=== PATIENT | male | born 1975 | race Two or more races ===

== ENCOUNTER 2018-02-27 19:53 | Emergency (ER) | payer MEDICAID ==
[~2018-02-27] VITALS: Ht 165.1 cm; Wt 65.0 kg
[2018-02-27 19:55] VITALS: BP 129/86
[2018-02-27 20:44] LABS: BASOPHILS # (AUTO) 0.11 x10^3/uL (0-0.1); BASOPHILS % (AUTO) 1 % (0-1); EOSINOPHILS # (AUTO) 0.01 x10^3/uL (0-0.4); EOSINOPHILS % (AUTO) 0 % (1-7); LYMPHOCYTES # (AUTO) 2.15 x10^3/uL (1-3.4); LYMPHOCYTES % (AUTO) 25 % (22-44); MD NO; MEAN CORPUSCULAR HEMOGLOBIN 33.8 pg (27.5-34.5); MEAN CORPUSCULAR HGB CONC 34.5 g/dL (33.2-36.2); MEAN CORPUSCULAR VOLUME 97.9 fL (81-97); MEAN PLATELET VOLUME 7.9 fL (7.4-10.4); MONOCYTES # (AUTO) 0.44 x10^3/uL (0.2-0.8); MONOCYTES % (AUTO) 5 % (2-9); NEUTROPHILS % (AUTO) 69 % (42-75); PLATELET COUNT 400 x10^3/uL (130-400); RED CELL DISTRIBUTION WIDTH 13.4 % (9.4-14.8)
[2018-02-27 20:56] LABS: ALANINE AMINOTRANSFERASE 68 U/L (12-78); ALBUMIN 3.4 g/dL (3.4-5.0); ANION GAP 12 mmol/L (5-15); CALCIUM 9.3 mg/dL (8.5-10.1); CHLORIDE 103 mmol/L (98-107); CREATININE 0.93 mg/dL (0.7-1.3)
[2018-02-27 20:58] LABS: ALKALINE PHOSPHATASE 128 U/L (45-117); BILIRUBIN,TOTAL 0.5 mg/dL (0.2-1.0)
[2018-02-27] MEDS ORDERED: DOCUSATE 100 MG CAPSULE ONE (22:00)
[2018-02-27] MEDS ORDERED: ACETAMINOPHEN 325 MG TABLET ONE (22:00)
[2018-02-27] MEDS ORDERED: DOCUSATE 100 MG CAPSULE PO PRN (22:00)
[2018-02-27] MEDS ORDERED: ACETAMINOPHEN 325 MG TABLET PO ONE (22:00)
== END 2018-02-27 22:05 | disposition home or self-care (01) ==
LOC: ED 20:13
DX: R10.84 Generalized abdominal pain (principal); G40.909 Epilepsy, unspecified, not intractable, without status epilepticus; Z90.49 Acquired absence of other specified parts of digestive tract
CPT/HCPCS: 36415; 74022; 80053; 83690; 85025; 99285

== ENCOUNTER 2018-03-08 16:43 | Inpatient (IN) | payer MEDICAID ==
[~2018-03-08] VITALS: Ht 165.1 cm; Wt 64.6 kg
[2018-03-08 17:31] LABS: ALANINE AMINOTRANSFERASE 36 U/L (12-78); ALBUMIN 3.2 g/dL (3.4-5.0); ANION GAP 12 mmol/L (5-15); CHLORIDE 108 mmol/L (98-107); CREATININE 0.86 mg/dL (0.7-1.3)
[2018-03-08 17:34] LABS: INTERNATIONAL NORMALIZED RATIO 1.06 (0.93-1.1); PROTHROMBIN TIME 11.2 Seconds (9.6-11.5)
[2018-03-08 17:50] LABS: ALKALINE PHOSPHATASE 114 U/L (45-117); BILIRUBIN,TOTAL 0.5 mg/dL (0.2-1.0); TOTAL PROTEIN 7.9 g/dL (6.4-8.2)
[2018-03-08 17:59] LABS: BASOPHILS # (AUTO) 0.04 x10^3/uL (0-0.1); BASOPHILS % (AUTO) 1 % (0-1); EOSINOPHILS # (AUTO) 0.06 x10^3/uL (0-0.4); EOSINOPHILS % (AUTO) 1 % (1-7); LYMPHOCYTES # (AUTO) 3.69 x10^3/uL (1-3.4); LYMPHOCYTES % (AUTO) 60 % (22-44); MD SCAN; MEAN CORPUSCULAR HEMOGLOBIN 33.6 pg (27.5-34.5); MEAN CORPUSCULAR HGB CONC 34.3 g/dL (33.2-36.2); MEAN CORPUSCULAR VOLUME 98.2 fL (81-97); MEAN PLATELET VOLUME 9.3 fL (7.4-10.4); MONOCYTES # (AUTO) 0.34 x10^3/uL (0.2-0.8); MONOCYTES % (AUTO) 6 % (2-9); NEUTROPHILS # (AUTO) 2.03 x10^3/uL (1.8-6.8); NEUTROPHILS % (AUTO) 33 % (42-75); PLATELET COUNT 130 x10^3/uL (130-400); RED BLOOD COUNT 3.59 x10^6/uL (4.38-5.82); RED CELL DISTRIBUTION WIDTH 13.7 % (9.4-14.8)
[2018-03-08] MEDS ORDERED: MAGNESIUM SULFATE 1 GM, THIAMINE 100 MG, FOLIC ACID 1 MG, MVI ADULT 10 ML in SODIUM CHL... IV ONE (18:00)
[2018-03-08] MEDS ORDERED: SODIUM CHLORIDE 0.9% 1,000ML IVBOLUS ONE (18:00)
[2018-03-08] MEDS ORDERED: BISACODYL 10 MG SUPP PR PRN (19:30)
[2018-03-08] MEDS ORDERED: ACETAMINOPHEN 325 MG TABLET PO PRN (19:30)
[2018-03-08] MEDS ORDERED: POLYETHYLENE GLYCOL 17 GM PACKET PO PRN (19:30)
[2018-03-08 19:50] VITALS: BP 107/75
[2018-03-08 20:00] VITALS: BP 107/75
[2018-03-08 20:32] LABS: FOLATE LEVEL 11.7 ng/mL (3.1-17.5)
[2018-03-09 01:30] VITALS: BP 110/76
[2018-03-09 04:59] LABS: ALBUMIN 2.9 g/dL (3.4-5.0); ANION GAP 10 mmol/L (5-15); CALCIUM 7.4 mg/dL (8.5-10.1); CHLORIDE 112 mmol/L (98-107)
[2018-03-09] MEDS ORDERED: POTASSIUM CHLORIDE 20 MEQ, MAGNESIUM SULFATE 2 GM, THIAMINE 200 MG, MVI ADULT 10 ML, FO... IV SCH (05:00)
[2018-03-09 05:05] LABS: ALANINE AMINOTRANSFERASE 30 U/L (12-78); ALKALINE PHOSPHATASE 100 U/L (45-117); BILIRUBIN,TOTAL 0.5 mg/dL (0.2-1.0); TOTAL PROTEIN 7.8 g/dL (6.4-8.2)
[2018-03-09 05:08] LABS: BASOPHILS # (AUTO) 0.05 x10^3/uL (0-0.1); BASOPHILS % (AUTO) 1 % (0-1); EOSINOPHILS # (AUTO) 0.08 x10^3/uL (0-0.4); EOSINOPHILS % (AUTO) 1 % (1-7); LYMPHOCYTES # (AUTO) 2.18 x10^3/uL (1-3.4); LYMPHOCYTES % (AUTO) 22 % (22-44); MD SCAN; MEAN CORPUSCULAR HEMOGLOBIN 33.2 pg (27.5-34.5); MEAN CORPUSCULAR HGB CONC 34.3 g/dL (33.2-36.2); MEAN CORPUSCULAR VOLUME 96.8 fL (81-97); MEAN PLATELET VOLUME 8.1 fL (7.4-10.4); MONOCYTES # (AUTO) 0.24 x10^3/uL (0.2-0.8); MONOCYTES % (AUTO) 2 % (2-9); NEUTROPHILS # (AUTO) 7.59 x10^3/uL (1.8-6.8); NEUTROPHILS % (AUTO) 75 % (42-75); PLATELET COUNT 125 x10^3/uL (130-400); RED BLOOD COUNT 3.79 x10^6/uL (4.38-5.82); RED CELL DISTRIBUTION WIDTH 14.1 % (9.4-14.8)
[2018-03-09] MEDS: ONDANSETRON 2MG/ML, 2ML IVPush PRN ×2 (06:08→12:31)
[2018-03-09] MEDS: LORazepam 2 MG/ML, 1ML IVPush PRN ×3 (06:08→23:34)
[2018-03-09 07:55] VITALS: BP 110/70
[2018-03-09] MEDS: SENNA/DOCUSATE TABLET PO SCH (10:04)
[2018-03-09 12:13] LABS: THYROID STIMULATING HORMONE 0.711 mIU/L (0.358-3.740)
[2018-03-09] MEDS: PANTOPRAZOLE 40 MG IV IVPush SCH (13:04)
[2018-03-09 13:20] VITALS: BP 95/56
[2018-03-09] MEDS ORDERED: LISI-167 PO (13:51)
[2018-03-09] MEDS ORDERED: POTASSIUM PHOSPHATE 44 MEQ in SODIUM CHLORIDE 0.9% 500 ML IV ONE (15:30)
[2018-03-09] MEDS ORDERED: FAMOTIDINE 20 MG/2 ML IVPush ONE (15:30)
[2018-03-09 15:33] LABS: CULTURE INDICATED? NO; MICROSCOPIC NOT IND
[2018-03-09] MEDS ORDERED: OMNIPAQUE 350 MG/ML, 100ML BOTTLE ONE (16:46)
[2018-03-09] MEDS ORDERED: SUCRALFATE 1 GM/10 ML UDC ONE (17:19)
[2018-03-09] MEDS: SUCRALFATE 1 GM/10 ML UDC PO SCH ×2 (17:53→23:37)
[2018-03-09 20:00] VITALS: BP 119/62
[2018-03-09] MEDS: MORPHINE SULFATE 4 MG/ML, 1ML IVPush PRN (21:06)
[2018-03-10 02:00] VITALS: BP 121/72
[2018-03-10] MEDS: MORPHINE SULFATE 4 MG/ML, 1ML IVPush PRN ×5 (02:43→20:02)
[2018-03-10] MEDS: PANTOPRAZOLE 40 MG IV IVPush SCH (02:43)
[2018-03-10] MEDS: ONDANSETRON 2MG/ML, 2ML IVPush PRN (02:48)
[2018-03-10 04:13] LABS: ALANINE AMINOTRANSFERASE 26 U/L (12-78); ALBUMIN 2.7 g/dL (3.4-5.0); ANION GAP 9 mmol/L (5-15); CHLORIDE 106 mmol/L (98-107); CREATININE 0.65 mg/dL (0.7-1.3)
[2018-03-10 04:15] LABS: ALKALINE PHOSPHATASE 91 U/L (45-117); BILIRUBIN,TOTAL 1.2 mg/dL (0.2-1.0)
[2018-03-10] MEDS: LORazepam 2 MG/ML, 1ML IVPush PRN (05:17)
[2018-03-10] MEDS: POTASSIUM CHLORIDE 20 MEQ, MAGNESIUM SULFATE 1 GM, MVI ADULT 10 ML, THIAMINE 200 MG, FO... IV SCH (05:17)
[2018-03-10 05:41] LABS: MEAN CORPUSCULAR HGB CONC 34.4 g/dL (33.2-36.2); RED BLOOD COUNT 3.41 x10^6/uL (4.38-5.82); RED CELL DISTRIBUTION WIDTH 13.8 % (9.4-14.8)
[2018-03-10 06:21] LABS: BASOPHILS # (AUTO) 0.03 x10^3/uL (0-0.1); BASOPHILS % (AUTO) 1 % (0-1); EOSINOPHILS # (AUTO) 0.08 x10^3/uL (0-0.4); EOSINOPHILS % (AUTO) 1 % (1-7); LYMPHOCYTES # (AUTO) 1.81 x10^3/uL (1-3.4); LYMPHOCYTES % (AUTO) 30 % (22-44); MD SCAN; MEAN PLATELET VOLUME 9.1 fL (7.4-10.4); MONOCYTES # (AUTO) 0.37 x10^3/uL (0.2-0.8); MONOCYTES % (AUTO) 6 % (2-9); NEUTROPHILS # (AUTO) 3.85 x10^3/uL (1.8-6.8); NEUTROPHILS % (AUTO) 63 % (42-75); PLATELET COUNT 67 x10^3/uL (130-400)
[2018-03-10] MEDS: SUCRALFATE 1 GM/10 ML UDC PO SCH ×4 (07:37→20:01)
[2018-03-10] MEDS: SENNA/DOCUSATE TABLET PO SCH (07:41)
[2018-03-10 08:25] VITALS: BP 126/86
[2018-03-10 14:55] VITALS: BP 137/90
[2018-03-10] MEDS: PANCRELIPASE 24,000 CAPSULE.DR PO SCH (15:51)
[2018-03-10 15:56] LABS: HIT RESULT POSITIVE (NEGATIVE)
[2018-03-10 19:53] VITALS: BP 123/85
[2018-03-11] MEDS: ONDANSETRON 2MG/ML, 2ML IVPush PRN ×4 (01:00→23:14)
[2018-03-11] MEDS: MORPHINE SULFATE 4 MG/ML, 1ML IVPush PRN ×5 (01:00→20:00)
[2018-03-11 01:02] VITALS: BP 128/89
[2018-03-11] MEDS: PANTOPROZOLE 40MG TABLET PO SCH (05:08)
[2018-03-11] MEDS: POTASSIUM CHLORIDE 20 MEQ, MAGNESIUM SULFATE 1 GM, MVI ADULT 10 ML, THIAMINE 200 MG, FO... IV SCH (05:08)
[2018-03-11 07:22] VITALS: BP 123/93
[2018-03-11] MEDS ORDERED: LOSA50TA7 PO (07:46)
[2018-03-11] MEDS ORDERED: ONDA4TAB12 PO (07:46)
[2018-03-11] MEDS ORDERED: OMEP20CA14 PO (07:46)
[2018-03-11] MEDS: PANCRELIPASE 24,000 CAPSULE.DR PO SCH ×3 (08:12→17:36)
[2018-03-11] MEDS: SENNA/DOCUSATE TABLET PO SCH (08:12)
[2018-03-11] MEDS: SUCRALFATE 1 GM/10 ML UDC PO SCH ×4 (08:12→20:00)
[2018-03-11 08:13] LABS: ALANINE AMINOTRANSFERASE 23 U/L (12-78); ALBUMIN 2.9 g/dL (3.4-5.0); ANION GAP 8 mmol/L (5-15); CALCIUM 8.6 mg/dL (8.5-10.1); CHLORIDE 105 mmol/L (98-107); CREATININE 0.63 mg/dL (0.7-1.3)
[2018-03-11 08:15] LABS: ALKALINE PHOSPHATASE 95 U/L (45-117); BILIRUBIN,TOTAL 1.3 mg/dL (0.2-1.0); TOTAL PROTEIN 7.5 g/dL (6.4-8.2)
[2018-03-11 08:46] LABS: BASOPHILS # (AUTO) 0.04 x10^3/uL (0-0.1); BASOPHILS % (AUTO) 1 % (0-1); EOSINOPHILS # (AUTO) 0.23 x10^3/uL (0-0.4); EOSINOPHILS % (AUTO) 5 % (1-7); LYMPHOCYTES # (AUTO) 1.24 x10^3/uL (1-3.4); LYMPHOCYTES % (AUTO) 24 % (22-44); MD SCAN; MEAN CORPUSCULAR HEMOGLOBIN 32.9 pg (27.5-34.5); MEAN CORPUSCULAR HGB CONC 34.6 g/dL (33.2-36.2); MEAN CORPUSCULAR VOLUME 95.3 fL (81-97); MEAN PLATELET VOLUME 8.9 fL (7.4-10.4); MONOCYTES % (AUTO) 6 % (2-9); NEUTROPHILS # (AUTO) 3.36 x10^3/uL (1.8-6.8); NEUTROPHILS % (AUTO) 65 % (42-75); PLATELET COUNT 79 x10^3/uL (130-400); RED BLOOD COUNT 3.33 x10^6/uL (4.38-5.82); RED CELL DISTRIBUTION WIDTH 13.8 % (9.4-14.8)
[2018-03-11 12:11] VITALS: BP 115/83
[2018-03-11 20:00] VITALS: BP 117/87
[2018-03-12] MEDS: MORPHINE SULFATE 4 MG/ML, 1ML IVPush PRN ×2 (00:01→04:37)
[2018-03-12 02:00] VITALS: BP 131/88
[2018-03-12] MEDS: PANTOPROZOLE 40MG TABLET PO SCH (05:03)
[2018-03-12] MEDS: POTASSIUM CHLORIDE 20 MEQ, MAGNESIUM SULFATE 1 GM, MVI ADULT 10 ML, THIAMINE 200 MG, FO... IV SCH (05:03)
[2018-03-12 07:02] VITALS: BP 125/88
[2018-03-12] MEDS: SUCRALFATE 1 GM/10 ML UDC PO SCH ×4 (08:04→20:21)
[2018-03-12] MEDS: SENNA/DOCUSATE TABLET PO SCH (08:05)
[2018-03-12] MEDS: PANCRELIPASE 24,000 CAPSULE.DR PO SCH ×3 (08:06→17:29)
[2018-03-12] MEDS: ONDANSETRON 2MG/ML, 2ML IVPush PRN ×2 (08:15→14:54)
[2018-03-12] MEDS ORDERED: MAGNESIUM CITRATE 300ML ORAL SOL PO ONE (10:00)
[2018-03-12 12:16] VITALS: BP 127/87
[2018-03-12] MEDS ORDERED: LORazepam 2 MG/ML, 1ML IV PRN ×4 (15:30)
[2018-03-12] MEDS ORDERED: LORazepam 0.5MG TABLET PO PRN (15:30)
[2018-03-12] MEDS ORDERED: LORazepam 1MG TABLET PO PRN ×4 (15:30)
[2018-03-12] MEDS: LORazepam 2 MG/ML, 1ML IV PRN ×3 (15:53→20:21)
[2018-03-12] MEDS: CHLORDIAZEPOXIDE 25 MG CAPSULE PO PRN (17:29)
[2018-03-12 19:59] VITALS: BP 97/56
[2018-03-13 02:00] VITALS: BP 97/68
[2018-03-13] MEDS: PANTOPROZOLE 40MG TABLET PO SCH ×2 (05:14→16:54)
[2018-03-13] MEDS: CHLORDIAZEPOXIDE 25 MG CAPSULE PO PRN (05:14)
[2018-03-13 05:42] LABS: BASOPHILS # (AUTO) 0.03 x10^3/uL (0-0.1); BASOPHILS % (AUTO) 1 % (0-1); EOSINOPHILS # (AUTO) 0.06 x10^3/uL (0-0.4); EOSINOPHILS % (AUTO) 1 % (1-7); LYMPHOCYTES % (AUTO) 24 % (22-44); MD NO; MEAN CORPUSCULAR HEMOGLOBIN 33.5 pg (27.5-34.5); MEAN CORPUSCULAR VOLUME 95.7 fL (81-97); MEAN PLATELET VOLUME 8.3 fL (7.4-10.4); MONOCYTES # (AUTO) 0.69 x10^3/uL (0.2-0.8); MONOCYTES % (AUTO) 12 % (2-9); NEUTROPHILS # (AUTO) 3.65 x10^3/uL (1.8-6.8); NEUTROPHILS % (AUTO) 63 % (42-75); PLATELET COUNT 115 x10^3/uL (130-400); RED BLOOD COUNT 3.57 x10^6/uL (4.38-5.82); RED CELL DISTRIBUTION WIDTH 14.4 % (9.4-14.8)
[2018-03-13 05:49] LABS: CHLORIDE 102 mmol/L (98-107)
[2018-03-13 05:53] LABS: ALANINE AMINOTRANSFERASE 35 U/L (12-78); ALBUMIN 3.1 g/dL (3.4-5.0); ALKALINE PHOSPHATASE 124 U/L (45-117); ANION GAP 6 mmol/L (5-15); BILIRUBIN,TOTAL 0.6 mg/dL (0.2-1.0); CALCIUM 8.6 mg/dL (8.5-10.1); CREATININE 0.84 mg/dL (0.7-1.3); TOTAL PROTEIN 8.3 g/dL (6.4-8.2)
[2018-03-13 06:45] VITALS: BP 106/81
[2018-03-13] MEDS: MULTIVITAMINS/MINERALS TABLET PO SCH (08:11)
[2018-03-13] MEDS: THIAMINE 100MG TABLET PO SCH (08:11)
[2018-03-13] MEDS: FOLIC ACID 1 MG TABLET PO SCH (08:12)
[2018-03-13] MEDS: SENNA/DOCUSATE TABLET PO SCH (08:12)
[2018-03-13] MEDS: PANCRELIPASE 24,000 CAPSULE.DR PO SCH ×3 (08:12→16:54)
[2018-03-13] MEDS: SUCRALFATE 1 GM/10 ML UDC PO SCH ×4 (08:13→21:32)
[2018-03-13] MEDS: ONDANSETRON 2MG/ML, 2ML IVPush PRN ×2 (10:23→20:02)
[2018-03-13] MEDS: BACLOFEN 10 MG TABLET PO SCH ×3 (10:23→21:32)
[2018-03-13] MEDS ORDERED: SODIUM CHLORIDE 0.9% 1,000ML IVBOLUS ONE (10:30)
[2018-03-13 10:55] LABS: CULTURE INDICATED? YES; MICROSCOPIC INDICATED
[2018-03-13] MEDS ORDERED: MAALOX/HYOSCYAMINE/LIDOCAINE 45 ML BTL PO ONE (11:00)
[2018-03-13 11:35] VITALS: BP 116/78
[2018-03-13 13:45] VITALS: BP 118/80
[2018-03-13] MEDS ORDERED: ACETAMINOPHEN 325 MG TABLET PO PRN (16:30)
[2018-03-13 17:00] VITALS: BP 105/78
[2018-03-13] MEDS: LORazepam 1MG TABLET PO PRN ×2 (17:30→21:33)
[2018-03-13] MEDS: SODIUM CHLORIDE 0.9% 1,000 ML IV SCH (17:30)
[2018-03-13 19:19] VITALS: BP 109/79
[2018-03-14 01:20] VITALS: BP 108/71
[2018-03-14] MEDS: SODIUM CHLORIDE 0.9% 1,000 ML IV SCH ×2 (03:00→10:55)
[2018-03-14] MEDS: PANTOPROZOLE 40MG TABLET PO SCH (05:56)
[2018-03-14 06:00] LABS: MEAN CORPUSCULAR HEMOGLOBIN 33.7 pg (27.5-34.5); MEAN CORPUSCULAR HGB CONC 34.7 g/dL (33.2-36.2); MEAN CORPUSCULAR VOLUME 97.1 fL (81-97); RED BLOOD COUNT 3.24 x10^6/uL (4.38-5.82); RED CELL DISTRIBUTION WIDTH 14.3 % (9.4-14.8)
[2018-03-14 06:17] LABS: ANION GAP 9 mmol/L (5-15); CALCIUM 8.7 mg/dL (8.5-10.1); CHLORIDE 109 mmol/L (98-107); CREATININE 0.68 mg/dL (0.7-1.3)
[2018-03-14 06:29] LABS: BASOPHILS # (AUTO) 0.04 x10^3/uL (0-0.1); BASOPHILS % (AUTO) 1 % (0-1); EOSINOPHILS # (AUTO) 0.09 x10^3/uL (0-0.4); EOSINOPHILS % (AUTO) 2 % (1-7); LYMPHOCYTES # (AUTO) 1.42 x10^3/uL (1-3.4); LYMPHOCYTES % (AUTO) 31 % (22-44); MD SCAN; MEAN PLATELET VOLUME 8.7 fL (7.4-10.4); MONOCYTES # (AUTO) 0.72 x10^3/uL (0.2-0.8); MONOCYTES % (AUTO) 16 % (2-9); NEUTROPHILS # (AUTO) 2.39 x10^3/uL (1.8-6.8); NEUTROPHILS % (AUTO) 51 % (42-75); PLATELET COUNT 95 x10^3/uL (130-400)
[2018-03-14 07:47] VITALS: BP 118/79
[2018-03-14] MEDS: SENNA/DOCUSATE TABLET PO SCH (08:34)
[2018-03-14] MEDS: SUCRALFATE 1 GM/10 ML UDC PO SCH ×2 (08:34→12:15)
[2018-03-14] MEDS: MULTIVITAMINS/MINERALS TABLET PO SCH (08:34)
[2018-03-14] MEDS: PANCRELIPASE 24,000 CAPSULE.DR PO SCH ×2 (08:34→12:15)
[2018-03-14] MEDS: BACLOFEN 10 MG TABLET PO SCH (08:34)
[2018-03-14] MEDS: FOLIC ACID 1 MG TABLET PO SCH (08:35)
[2018-03-14] MEDS: THIAMINE 100MG TABLET PO SCH (08:35)
[2018-03-14] MEDS: ONDANSETRON 2MG/ML, 2ML IVPush PRN (08:44)
[2018-03-14] MEDS: LORazepam 1MG TABLET PO PRN ×2 (08:44→14:20)
[2018-03-14] MEDS ORDERED: THIA100T67 PO (13:19)
[2018-03-14] MEDS ORDERED: FOLI-17 PO (13:19)
[2018-03-14] MEDS ORDERED: LIPA1CAP61 PO (13:19)
== END 2018-03-14 15:45 | disposition home or self-care (01) | DRG 439 ==
LOC: ED 16:57 → EDIP 19:22 → 4WST 20:09 → DCLOUNGE 03-14 15:15
PROVIDERS: ADMIT Internal Medicine; ATTEND Internal Medicine
DX: K86.1 Other chronic pancreatitis (principal); E87.2 Acidosis; E44.1 Mild protein-calorie malnutrition; R00.0 Tachycardia, unspecified; F10.229 Alcohol dependence with intoxication, unspecified; Y90.8 Blood alcohol level of 240 mg/100 ml or more; G89.29 Other chronic pain; G40.909 Epilepsy, unspecified, not intractable, without status epilepticus; D53.9 Nutritional anemia, unspecified; D69.6 Thrombocytopenia, unspecified; D72.829 Elevated white blood cell count, unspecified; R74.0 Nonspecific elevation of levels of transaminase and lactic acid dehydrogenase [LDH]; Z59.0 Homelessness; Z68.23 Body mass index [BMI] 23.0-23.9, adult
CPT/HCPCS: 36415; 99285; J3490; J7042; 71045; 74177; 80048; 80053; 80307; 81001; 81003; 82150; 82542; 82607; 82746; 83605; 83690; 83735; 84100; 84443; 85025; 85379; 85610; 85730; 86022; 87040; 87077; 87086; 87186; 93306; G0378; J2405; J3411; J3475; J3480; Q9967; C9113; J2060; J7030; J7040

== ENCOUNTER 2018-03-19 14:35 | Inpatient (IN) | payer MEDICAID ==
[~2018-03-19] VITALS: Ht 170.2 cm; Wt 64.0 kg
[~2018-03-19 14:35] MED LIST: FOLI-17 PO; LIPA1CAP61 PO; LISI-167 PO; LOSA50TA7 PO; OMEP20CA14 PO; ONDA4TAB12 PO; THIA100T67 PO
[2018-03-19] MEDS ORDERED: NALOXONE 0.4 MG/ML, 1ML IVPush PRN (15:30)
[2018-03-19] MEDS ORDERED: PLEASE ENTER HEIGHT AND WEIGHT MC SCH (15:30)
[2018-03-19] MEDS ORDERED: NALOXONE 0.4 MG/ML, 1ML ONE (15:34)
[2018-03-19] MEDS ORDERED: NALOXONE 1 MG/ML, 2ML ONE (15:35)
[2018-03-19 16:47] LABS: ANION GAP 13 mmol/L (5-15); CALCIUM 8.3 mg/dL (8.5-10.1); CHLORIDE 107 mmol/L (98-107); CREATININE 0.63 mg/dL (0.7-1.3)
[2018-03-19 17:27] LABS: MEAN CORPUSCULAR HEMOGLOBIN 32.6 pg (27.5-34.5); MEAN CORPUSCULAR HGB CONC 33.9 g/dL (33.2-36.2); MEAN CORPUSCULAR VOLUME 96.1 fL (81-97); MEAN PLATELET VOLUME 7.2 fL (7.4-10.4); PLATELET COUNT 288 x10^3/uL (130-400); RED BLOOD COUNT 3.85 x10^6/uL (4.38-5.82); RED CELL DISTRIBUTION WIDTH 14.9 % (9.4-14.8)
[2018-03-19 17:31] LABS: BASOPHILS # (AUTO) 0.04 x10^3/uL (0-0.1); BASOPHILS % (AUTO) 0 % (0-1); EOSINOPHILS % (AUTO) 0 % (1-7); LYMPHOCYTES # (AUTO) 3.52 x10^3/uL (1-3.4); LYMPHOCYTES % (AUTO) 23 % (22-44); MD SCAN; MONOCYTES % (AUTO) 12 % (2-9); NEUTROPHILS # (AUTO) 10.08 x10^3/uL (1.8-6.8); NEUTROPHILS % (AUTO) 65 % (42-75)
[2018-03-19] MEDS ORDERED: PANTOPRAZOLE 80 MG in SODIUM CHLORIDE 0.9% 50 ML IV ONE (20:30)
[2018-03-19] MEDS ORDERED: PANTOPRAZOLE 80 MG in SODIUM CHLORIDE 0.9% 100 ML IV SCH (20:30)
[2018-03-19] MEDS ORDERED: POTASSIUM CHLORIDE 10 MEQ in SODIUM CHLORIDE 0.9% 1,000 ML IV ONE (20:30)
[2018-03-19 20:59] LABS: ALBUMIN 3.2 g/dL (3.4-5.0); BILIRUBIN, DIRECT 0.2 mg/dL (0.1-0.2)
[2018-03-19 21:01] LABS: BILIRUBIN,INDIRECT 0.2 mg/dL (0.0-2.0); BILIRUBIN,TOTAL 0.4 mg/dL (0.2-1.0); TOTAL PROTEIN 9.2 g/dL (6.4-8.2)
[2018-03-19 21:10] LABS: INTERNATIONAL NORMALIZED RATIO 1.08 (0.93-1.1); PROTHROMBIN TIME 11.4 Seconds (9.6-11.5)
[2018-03-19 22:34] VITALS: BP 99/65
[2018-03-19] MEDS ORDERED: LORazepam 2 MG/ML, 1ML IVPush PRN (23:00)
[2018-03-19] MEDS ORDERED: LIDODERM 5% PATCH TD PRN (23:00)
[2018-03-19] MEDS ORDERED: BISACODYL 10 MG SUPP PR PRN (23:00)
[2018-03-19] MEDS ORDERED: THIAMINE 200 MG, MVI ADULT 10 ML, FOLIC ACID 1 MG in D5%-0.9% NACL 1,000 ML IV SCH (23:00)
[2018-03-19] MEDS: ONDANSETRON 2MG/ML, 2ML IVPush PRN (23:25)
[2018-03-20 03:23] VITALS: BP 119/80
[2018-03-20 05:23] LABS: BASOPHILS # (AUTO) 0.01 x10^3/uL (0-0.1); BASOPHILS % (AUTO) 0 % (0-1); EOSINOPHILS # (AUTO) 0.01 x10^3/uL (0-0.4); EOSINOPHILS % (AUTO) 0 % (1-7); LYMPHOCYTES # (AUTO) 1.11 x10^3/uL (1-3.4); LYMPHOCYTES % (AUTO) 11 % (22-44); MD NO; MEAN CORPUSCULAR HEMOGLOBIN 32.5 pg (27.5-34.5); MEAN CORPUSCULAR HGB CONC 34.6 g/dL (33.2-36.2); MEAN PLATELET VOLUME 7.1 fL (7.4-10.4); MONOCYTES % (AUTO) 6 % (2-9); NEUTROPHILS # (AUTO) 8.18 x10^3/uL (1.8-6.8); NEUTROPHILS % (AUTO) 83 % (42-75); PLATELET COUNT 270 x10^3/uL (130-400); RED CELL DISTRIBUTION WIDTH 14.9 % (9.4-14.8)
[2018-03-20 05:42] LABS: ANION GAP 13 mmol/L (5-15); CALCIUM 7.6 mg/dL (8.5-10.1); CHLORIDE 110 mmol/L (98-107)
[2018-03-20 05:45] LABS: CREATININE 0.58 mg/dL (0.7-1.3)
[2018-03-20] MEDS: PANTOPRAZOLE 80 MG in SODIUM CHLORIDE 0.9% 100 ML IV SCH ×2 (06:33→17:15)
[2018-03-20 06:50] VITALS: BP 108/64
[2018-03-20] MEDS: morphine SULFATE 10 MG/ML, 1ML IVPush PRN ×4 (08:59→21:56)
[2018-03-20 12:20] VITALS: BP 113/72
[2018-03-20] MEDS: ONDANSETRON 2MG/ML, 2ML IVPush PRN ×2 (12:36→21:56)
[2018-03-20] MEDS: POTASSIUM CHLORIDE 20 MEQ TAB.ER.PRT PO SCH ×2 (17:15→21:49)
[2018-03-20] MEDS ORDERED: THIAMINE 200 MG, MVI ADULT 10 ML, FOLIC ACID 1 MG in D5%-0.9% NACL 1,000 ML IV SCH (19:10)
[2018-03-20 20:19] VITALS: BP 144/87
[2018-03-21 02:27] VITALS: BP 131/87
[2018-03-21] MEDS: PANTOPRAZOLE 80 MG in SODIUM CHLORIDE 0.9% 100 ML IV SCH ×2 (03:17→13:03)
[2018-03-21] MEDS: morphine SULFATE 10 MG/ML, 1ML IVPush PRN ×5 (03:23→21:42)
[2018-03-21 06:15] LABS: ALBUMIN 2.6 g/dL (3.4-5.0); ANION GAP 7 mmol/L (5-15); CALCIUM 7.8 mg/dL (8.5-10.1); CHLORIDE 105 mmol/L (98-107)
[2018-03-21 06:17] LABS: BASOPHILS # (AUTO) 0.03 x10^3/uL (0-0.1); BASOPHILS % (AUTO) 0 % (0-1); EOSINOPHILS # (AUTO) 0.05 x10^3/uL (0-0.4); EOSINOPHILS % (AUTO) 1 % (1-7); LYMPHOCYTES # (AUTO) 1.93 x10^3/uL (1-3.4); LYMPHOCYTES % (AUTO) 26 % (22-44); MD NO; MEAN CORPUSCULAR HEMOGLOBIN 32.8 pg (27.5-34.5); MEAN CORPUSCULAR HGB CONC 34.3 g/dL (33.2-36.2); MEAN CORPUSCULAR VOLUME 95.6 fL (81-97); MEAN PLATELET VOLUME 8.7 fL (7.4-10.4); MONOCYTES # (AUTO) 0.48 x10^3/uL (0.2-0.8); MONOCYTES % (AUTO) 6 % (2-9); NEUTROPHILS # (AUTO) 5.03 x10^3/uL (1.8-6.8); NEUTROPHILS % (AUTO) 67 % (42-75); PLATELET COUNT 217 x10^3/uL (130-400); RED BLOOD COUNT 3.18 x10^6/uL (4.38-5.82); RED CELL DISTRIBUTION WIDTH 14.3 % (9.4-14.8)
[2018-03-21 06:20] LABS: ALANINE AMINOTRANSFERASE 47 U/L (12-78); ALKALINE PHOSPHATASE 90 U/L (45-117); BILIRUBIN,TOTAL 0.8 mg/dL (0.2-1.0); CREATININE 0.59 mg/dL (0.7-1.3); TOTAL PROTEIN 7.3 g/dL (6.4-8.2)
[2018-03-21 07:02] VITALS: BP 131/91
[2018-03-21] MEDS: ONDANSETRON 2MG/ML, 2ML IVPush PRN ×2 (10:25→16:42)
[2018-03-21 12:41] VITALS: BP 132/88
[2018-03-21] MEDS ORDERED: PROPOFOL 10 MG/ML, 20ML ONE (13:34)
[2018-03-21] MEDS ORDERED: ONDANSETRON ODT 8 MG PO PRN (14:00)
[2018-03-21] MEDS ORDERED: FENTANYL PF 100 MCG/2ML IV PRN (14:00)
[2018-03-21] MEDS ORDERED: LORazepam 2 MG/ML, 1ML IVPush PRN (14:00)
[2018-03-21] MEDS ORDERED: DIAZEPAM 5 MG/ML, 2ML IVPush PRN (14:00)
[2018-03-21] MEDS ORDERED: ONDANSETRON 2MG/ML, 2ML IV PRN (14:00)
[2018-03-21] MEDS ORDERED: OXYcodone 5 MG/5 ML ORAL.SOL UDC PO PRN (14:00)
[2018-03-21] MEDS ORDERED: LORazepam 2 MG/ML, 1ML ONE (14:14)
[2018-03-21] MEDS ORDERED: OXYcodone 5 MG/5 ML ORAL.SOL UDC ONE (14:14)
[2018-03-21 15:13] VITALS: BP 125/84
[2018-03-21] MEDS: SUCRALFATE 1 GM/10 ML UDC PO SCH ×2 (16:41→21:42)
[2018-03-21] MEDS: PANTOPROZOLE 40MG TABLET PO SCH (16:41)
[2018-03-21] MEDS: MAALOX/HYOSCYAMINE/LIDOCAINE 45 ML BTL PO PRN (16:49)
[2018-03-21 19:53] VITALS: BP 126/87
[2018-03-22] MEDS: morphine SULFATE 10 MG/ML, 1ML IVPush PRN ×3 (01:53→08:56)
[2018-03-22 02:26] VITALS: BP 142/95
[2018-03-22] MEDS: PANTOPROZOLE 40MG TABLET PO SCH (04:00)
[2018-03-22 08:31] VITALS: BP 129/91
[2018-03-22] MEDS: SUCRALFATE 1 GM/10 ML UDC PO SCH ×2 (08:47→11:56)
[2018-03-22] MEDS: ONDANSETRON 2MG/ML, 2ML IVPush PRN (08:47)
[2018-03-22] MEDS ORDERED: THIAMINE 100MG TABLET PO SCH (09:00)
[2018-03-22] MEDS ORDERED: FOLIC ACID 1 MG TABLET PO SCH (09:00)
[2018-03-22] MEDS ORDERED: OMEP20CA14 PO (10:52)
[2018-03-22] MEDS ORDERED: PROP10TA PO (10:52)
[2018-03-22] MEDS ORDERED: Maalox/Hyoscyamine/Lidocaine PO (10:52)
[2018-03-22] MEDS ORDERED: SUCR1ORA5 PO (10:52)
[2018-03-22] MEDS: MAALOX/HYOSCYAMINE/LIDOCAINE 45 ML BTL PO PRN (11:58)
[2018-03-22 13:45] VITALS: BP 115/84
== END 2018-03-22 15:19 | disposition home or self-care (01) | DRG 378 ==
LOC: ED 15:20 → EDIP 20:25 → 4WST 22:35 → DCLOUNGE 03-22 15:15
PROVIDERS: ADMIT Internal Medicine; ATTEND Internal Medicine
PROC: 0DB68ZX Excision of Stomach, Via Natural or Artificial Opening Endoscopic, Diagnostic (ICD-10-PCS; principal; 2018-03-21 11:30)
DX: K29.61 Other gastritis with bleeding (principal); G93.49 Other encephalopathy; G40.909 Epilepsy, unspecified, not intractable, without status epilepticus; F10.229 Alcohol dependence with intoxication, unspecified; D72.829 Elevated white blood cell count, unspecified; Y90.0 Blood alcohol level of less than 20 mg/100 ml; K44.9 Diaphragmatic hernia without obstruction or gangrene; K21.0 Gastro-esophageal reflux disease with esophagitis; D53.9 Nutritional anemia, unspecified; G89.29 Other chronic pain; Z90.49 Acquired absence of other specified parts of digestive tract; Z88.0 Allergy status to penicillin; Z79.899 Other long term (current) drug therapy
CPT/HCPCS: 36415; 99285; J7042; 80048; 80053; 80076; 80307; 83735; 85025; 85610; 88305; 93005; 96365; 96368; 96375; G0378; J2310; J2405; J2704; J3411; J3480; C9113; J2060; J2270; J7030

== ENCOUNTER 2018-03-24 14:49 | Emergency (ER) | payer MEDICAID ==
[~2018-03-24] VITALS: Ht 167.6 cm; Wt 70.0 kg
[~2018-03-24 14:49] MED LIST changes: +Maalox/Hyoscyamine/Lidocaine PO; +PROP10TA PO; +SUCR1ORA5 PO
[2018-03-24] MEDS ORDERED: SODIUM CHLORIDE 0.9% 1,000 ML IV ONE (15:05)
[2018-03-24] MEDS ORDERED: FAMOTIDINE 20 MG/2 ML IVPush ONE (15:30)
[2018-03-24] MEDS ORDERED: FAMOTIDINE 20 MG/2 ML ONE (15:30)
[2018-03-24] MEDS ORDERED: ONDANSETRON 2MG/ML, 2ML IVPush ONE (15:30)
[2018-03-24] MEDS ORDERED: ONDANSETRON 2MG/ML, 2ML ONE (15:30)
[2018-03-24 15:32] LABS: BASOPHILS # (AUTO) 0.05 x10^3/uL (0-0.1); BASOPHILS % (AUTO) 1 % (0-1); EOSINOPHILS # (AUTO) 0.11 x10^3/uL (0-0.4); EOSINOPHILS % (AUTO) 1 % (1-7); LYMPHOCYTES # (AUTO) 3.06 x10^3/uL (1-3.4); LYMPHOCYTES % (AUTO) 36 % (22-44); MD NO; MEAN CORPUSCULAR HEMOGLOBIN 31.9 pg (27.5-34.5); MEAN CORPUSCULAR HGB CONC 33.8 g/dL (33.2-36.2); MEAN CORPUSCULAR VOLUME 94.4 fL (81-97); MEAN PLATELET VOLUME 7.1 fL (7.4-10.4); MONOCYTES # (AUTO) 0.66 x10^3/uL (0.2-0.8); MONOCYTES % (AUTO) 8 % (2-9); NEUTROPHILS # (AUTO) 4.59 x10^3/uL (1.8-6.8); NEUTROPHILS % (AUTO) 54 % (42-75); PLATELET COUNT 473 x10^3/uL (130-400); RED BLOOD COUNT 3.62 x10^6/uL (4.38-5.82); RED CELL DISTRIBUTION WIDTH 14.7 % (9.4-14.8)
[2018-03-24 15:40] LABS: ALANINE AMINOTRANSFERASE 71 U/L (12-78); ALBUMIN 2.9 g/dL (3.4-5.0); ANION GAP 9 mmol/L (5-15); CALCIUM 8.3 mg/dL (8.5-10.1); CHLORIDE 112 mmol/L (98-107); CREATININE 0.69 mg/dL (0.7-1.3)
[2018-03-24 15:42] LABS: ALKALINE PHOSPHATASE 121 U/L (45-117); BILIRUBIN,TOTAL 0.3 mg/dL (0.2-1.0); TOTAL PROTEIN 8.6 g/dL (6.4-8.2)
[2018-03-24] MEDS ORDERED: MAALOX/HYOSCYAMINE/LIDOCAINE 45 ML BTL ONE (17:22)
[2018-03-24 17:29] VITALS: BP 113/72
[2018-03-24] MEDS ORDERED: MAALOX/HYOSCYAMINE/LIDOCAINE 45 ML BTL PO ONE (17:30)
== END 2018-03-24 17:32 | disposition home or self-care (01) ==
LOC: ED 16:21
DX: K29.00 Acute gastritis without bleeding (principal); F10.220 Alcohol dependence with intoxication, uncomplicated; Z90.49 Acquired absence of other specified parts of digestive tract; Z88.0 Allergy status to penicillin
CPT/HCPCS: 36415; 76700; 80053; 80307; 83690; 85025; 93005; 96361; 96374; 96375; 99284; J2405; J3490; J7030

== ENCOUNTER 2018-03-25 12:45 | Emergency (ER) | payer MEDICAID ==
[~2018-03-25] VITALS: Ht 167.6 cm; Wt 70.0 kg
[2018-03-25] MEDS ORDERED: MAALOX/HYOSCYAMINE/LIDOCAINE 45 ML BTL PO ONE (13:00)
[2018-03-25 13:02] VITALS: BP 115/85
[2018-03-25] MEDS ORDERED: MAALOX/HYOSCYAMINE/LIDOCAINE 45 ML BTL ONE (13:05)
[2018-03-25 13:31] LABS: BASOPHILS # (AUTO) 0.04 x10^3/uL (0-0.1); BASOPHILS % (AUTO) 0 % (0-1); EOSINOPHILS # (AUTO) 0.05 x10^3/uL (0-0.4); EOSINOPHILS % (AUTO) 0 % (1-7); LYMPHOCYTES # (AUTO) 3.04 x10^3/uL (1-3.4); LYMPHOCYTES % (AUTO) 29 % (22-44); MD NO; MEAN CORPUSCULAR HEMOGLOBIN 32.2 pg (27.5-34.5); MEAN CORPUSCULAR HGB CONC 33.9 g/dL (33.2-36.2); MEAN PLATELET VOLUME 7.8 fL (7.4-10.4); MONOCYTES # (AUTO) 0.58 x10^3/uL (0.2-0.8); MONOCYTES % (AUTO) 6 % (2-9); NEUTROPHILS # (AUTO) 6.82 x10^3/uL (1.8-6.8); NEUTROPHILS % (AUTO) 65 % (42-75); PLATELET COUNT 328 x10^3/uL (130-400); RED CELL DISTRIBUTION WIDTH 15.4 % (9.4-14.8)
[2018-03-25 13:34] LABS: ALANINE AMINOTRANSFERASE 54 U/L (12-78); ALBUMIN 2.9 g/dL (3.4-5.0); ANION GAP 10 mmol/L (5-15); CALCIUM 8.4 mg/dL (8.5-10.1); CHLORIDE 110 mmol/L (98-107)
[2018-03-25 13:37] LABS: ALKALINE PHOSPHATASE 119 U/L (45-117); BILIRUBIN,TOTAL 0.3 mg/dL (0.2-1.0); CREATININE 0.58 mg/dL (0.7-1.3); TOTAL PROTEIN 8.5 g/dL (6.4-8.2)
[2018-03-25] MEDS ORDERED: POTASSIUM CHLORIDE 20 MEQ TAB.ER.PRT ONE (13:52)
[2018-03-25] MEDS ORDERED: POTASSIUM CHLORIDE 20 MEQ TAB.ER.PRT PO ONE (14:00)
== END 2018-03-25 14:25 | disposition home or self-care (01) ==
LOC: ED 12:53
DX: K29.20 Alcoholic gastritis without bleeding (principal); R56.9 Unspecified convulsions; F10.239 Alcohol dependence with withdrawal, unspecified
CPT/HCPCS: 36415; 80053; 83690; 85025; 99283

== ENCOUNTER 2018-03-27 22:40 | Emergency (ER) | payer MEDICAID ==
[~2018-03-27] VITALS: Ht 170.2 cm; Wt 60.5 kg
[2018-03-27] MEDS ORDERED: ONDANSETRON ODT 4 MG PO ONE (23:00)
[2018-03-27] MEDS ORDERED: FAMOTIDINE 20 MG TABLET PO ONE (23:00)
[2018-03-27] MEDS ORDERED: FAMOTIDINE 20 MG TABLET ONE (23:13)
[2018-03-27 23:20] LABS: BASOPHILS % (AUTO) 1 % (0-1); EOSINOPHILS # (AUTO) 0.12 x10^3/uL (0-0.4); EOSINOPHILS % (AUTO) 1 % (1-7); LYMPHOCYTES # (AUTO) 3.14 x10^3/uL (1-3.4); LYMPHOCYTES % (AUTO) 33 % (22-44); MD NO; MEAN CORPUSCULAR HEMOGLOBIN 32.1 pg (27.5-34.5); MEAN CORPUSCULAR HGB CONC 33.8 g/dL (33.2-36.2); MEAN PLATELET VOLUME 7.1 fL (7.4-10.4); MONOCYTES # (AUTO) 1.03 x10^3/uL (0.2-0.8); MONOCYTES % (AUTO) 11 % (2-9); NEUTROPHILS # (AUTO) 5.01 x10^3/uL (1.8-6.8); NEUTROPHILS % (AUTO) 53 % (42-75); PLATELET COUNT 449 x10^3/uL (130-400); RED BLOOD COUNT 3.74 x10^6/uL (4.38-5.82); RED CELL DISTRIBUTION WIDTH 15.5 % (9.4-14.8)
[2018-03-27] MEDS ORDERED: MAALOX/HYOSCYAMINE/LIDOCAINE 45 ML BTL ONE (23:24)
[2018-03-27 23:25] LABS: ALANINE AMINOTRANSFERASE 39 U/L (12-78); ALBUMIN 2.8 g/dL (3.4-5.0); ANION GAP 10 mmol/L (5-15); CALCIUM 8.1 mg/dL (8.5-10.1); CHLORIDE 108 mmol/L (98-107); CREATININE 0.82 mg/dL (0.7-1.3)
[2018-03-27 23:28] LABS: ALKALINE PHOSPHATASE 128 U/L (45-117); BILIRUBIN,TOTAL 0.4 mg/dL (0.2-1.0); TOTAL PROTEIN 8.6 g/dL (6.4-8.2)
[2018-03-27] MEDS ORDERED: MAALOX/HYOSCYAMINE/LIDOCAINE 45 ML BTL PO ONE (23:30)
[2018-03-28 00:34] VITALS: BP 128/75
== END 2018-03-28 01:10 | disposition home or self-care (01) ==
LOC: ED 23:31
DX: R10.84 Generalized abdominal pain (principal); R11.0 Nausea; F10.129 Alcohol abuse with intoxication, unspecified; Z90.89 Acquired absence of other organs
CPT/HCPCS: 36415; 80053; 83690; 85025; 99283

== ENCOUNTER 2018-03-28 13:39 | Emergency (ER) | payer MEDICAID ==
[~2018-03-28] VITALS: Ht 170.2 cm; Wt 65.0 kg
[2018-03-28] MEDS ORDERED: SODIUM CHLORIDE 0.9% 1,000 ML IV ONE (13:47)
[2018-03-28] MEDS ORDERED: SODIUM CHLORIDE FLUSH 10ML SYR IVF ONE (14:00)
[2018-03-28] MEDS ORDERED: SODIUM CHLORIDE 0.9% 1,000ML IVBOLUS ONE (14:00)
[2018-03-28] MEDS ORDERED: LORazepam 2 MG/ML, 1ML IVPush PRN (14:00)
[2018-03-28] MEDS ORDERED: ONDANSETRON 2MG/ML, 2ML IVPush ONE ×2 (14:00→18:30)
[2018-03-28] MEDS ORDERED: THIAMINE 100 MG in SODIUM CHLORIDE 0.9% 50 ML IVPB ONE (14:00)
[2018-03-28 14:26] LABS: ALANINE AMINOTRANSFERASE 47 U/L (12-78); ALBUMIN 2.9 g/dL (3.4-5.0); ANION GAP 12 mmol/L (5-15); CALCIUM 7.8 mg/dL (8.5-10.1); CHLORIDE 108 mmol/L (98-107); CREATININE 0.82 mg/dL (0.7-1.3)
[2018-03-28 14:28] LABS: MEAN CORPUSCULAR HEMOGLOBIN 31.6 pg (27.5-34.5); MEAN CORPUSCULAR HGB CONC 33.8 g/dL (33.2-36.2); MEAN CORPUSCULAR VOLUME 93.7 fL (81-97); MEAN PLATELET VOLUME 6.9 fL (7.4-10.4); PLATELET COUNT 467 x10^3/uL (130-400); RED CELL DISTRIBUTION WIDTH 15.1 % (9.4-14.8)
[2018-03-28 14:33] LABS: ALKALINE PHOSPHATASE 132 U/L (45-117); BILIRUBIN,TOTAL 0.3 mg/dL (0.2-1.0)
[2018-03-28] MEDS ORDERED: ONDANSETRON 2MG/ML, 2ML ONE ×2 (14:33→18:18)
[2018-03-28] MEDS ORDERED: LORazepam 2 MG/ML, 1ML ONE (14:34)
[2018-03-28 14:42] LABS: BASOPHILS # (AUTO) 0.18 x10^3/uL (0-0.1); BASOPHILS % (AUTO) 3 % (0-1); EOSINOPHILS # (AUTO) 0.07 x10^3/uL (0-0.4); EOSINOPHILS % (AUTO) 1 % (1-7); LYMPHOCYTES # (AUTO) 2.17 x10^3/uL (1-3.4); LYMPHOCYTES % (AUTO) 37 % (22-44); MD SCAN; MONOCYTES # (AUTO) 0.61 x10^3/uL (0.2-0.8); MONOCYTES % (AUTO) 11 % (2-9); NEUTROPHILS % (AUTO) 48 % (42-75)
[2018-03-28] MEDS ORDERED: FAMOTIDINE 20 MG TABLET ONE (18:55)
[2018-03-28] MEDS ORDERED: FAMOTIDINE 20 MG TABLET PO ONE (19:00)
[2018-03-28 19:02] VITALS: BP 127/88
== END 2018-03-28 19:55 | disposition home or self-care (01) ==
LOC: ED 14:16
DX: F10.129 Alcohol abuse with intoxication, unspecified (principal); I10 Essential (primary) hypertension
CPT/HCPCS: 36415; 80053; 80307; 83690; 85025; 96361; 96365; 96375; 96376; 99283; J2060; J2405; J3411; J7030

== ENCOUNTER 2018-04-05 18:15 | Emergency (ER) | payer MEDICAID ==
[~2018-04-05] VITALS: Ht 170.2 cm; Wt 54.5 kg
[2018-04-05 19:26] LABS: BASOPHILS # (AUTO) 0.01 x10^3/uL (0-0.1); BASOPHILS % (AUTO) 0 % (0-1); EOSINOPHILS % (AUTO) 0 % (1-7); LYMPHOCYTES # (AUTO) 1.06 x10^3/uL (1-3.4); LYMPHOCYTES % (AUTO) 14 % (22-44); MD NO; MEAN CORPUSCULAR HEMOGLOBIN 31.5 pg (27.5-34.5); MEAN CORPUSCULAR HGB CONC 34.1 g/dL (33.2-36.2); MEAN CORPUSCULAR VOLUME 92.5 fL (81-97); MEAN PLATELET VOLUME 7.5 fL (7.4-10.4); MONOCYTES # (AUTO) 0.53 x10^3/uL (0.2-0.8); MONOCYTES % (AUTO) 7 % (2-9); NEUTROPHILS # (AUTO) 6.28 x10^3/uL (1.8-6.8); NEUTROPHILS % (AUTO) 80 % (42-75); PLATELET COUNT 132 x10^3/uL (130-400); RED BLOOD COUNT 3.52 x10^6/uL (4.38-5.82); RED CELL DISTRIBUTION WIDTH 16.2 % (9.4-14.8)
[2018-04-05] MEDS ORDERED: FAMOTIDINE 20 MG/2 ML IVP ONE (19:30)
[2018-04-05] MEDS ORDERED: ONDANSETRON 2MG/ML, 2ML IVPush ONE (19:30)
[2018-04-05] MEDS ORDERED: SODIUM CHLORIDE 0.9% 1,000ML IVBOLUS ONE (19:30)
[2018-04-05] MEDS ORDERED: MORPHINE SULFATE 4 MG/ML, 1ML IVPush PRN (19:30)
[2018-04-05 19:37] LABS: ALANINE AMINOTRANSFERASE 34 U/L (12-78); ALBUMIN 2.4 g/dL (3.4-5.0); ANION GAP 10 mmol/L (5-15); CALCIUM 7.8 mg/dL (8.5-10.1); CHLORIDE 106 mmol/L (98-107)
[2018-04-05 19:39] LABS: ALKALINE PHOSPHATASE 176 U/L (45-117); BILIRUBIN,TOTAL 0.4 mg/dL (0.2-1.0); CREATININE 0.65 mg/dL (0.7-1.3); TOTAL PROTEIN 8.8 g/dL (6.4-8.2)
[2018-04-05 19:42] LABS: MICROSCOPIC NOT IND
[2018-04-05] MEDS ORDERED: ONDANSETRON 2MG/ML, 2ML ONE (19:44)
[2018-04-05] MEDS ORDERED: MORPHINE SULFATE 4 MG/ML, 1ML ONE (19:44)
[2018-04-05] MEDS ORDERED: FAMOTIDINE 20 MG/2 ML ONE (19:44)
[2018-04-05 19:46] LABS: CULTURE INDICATED? NO
[2018-04-05 20:46] VITALS: BP 116/85
== END 2018-04-05 21:27 | disposition home or self-care (01) ==
LOC: ED 19:06
DX: K92.1 Melena (principal); K29.20 Alcoholic gastritis without bleeding; I10 Essential (primary) hypertension
CPT/HCPCS: 36415; 80053; 81003; 83690; 85025; 96361; 96374; 96375; 99283; J2405; J3490; J7030

== ENCOUNTER 2018-04-07 16:34 | Inpatient (IN) | payer MEDICAID ==
[~2018-04-07] VITALS: Ht 167.6 cm; Wt 60.4 kg
[2018-04-07] MEDS ORDERED: FAMOTIDINE 20 MG/2 ML IVPush ONE (17:00)
[2018-04-07] MEDS ORDERED: MAGNESIUM SULFATE 1 GM, THIAMINE 100 MG, FOLIC ACID 1 MG, MVI ADULT 10 ML in SODIUM CHL... IV ONE (17:00)
[2018-04-07] MEDS ORDERED: SODIUM CHLORIDE FLUSH 10ML SYR IVF ONE (17:00)
[2018-04-07] MEDS ORDERED: LORazepam 2 MG/ML, 1ML IVPush PRN (17:00)
[2018-04-07] MEDS ORDERED: SODIUM CHLORIDE 0.9% 1,000ML IVBOLUS ONE (17:00)
[2018-04-07] MEDS: MORPHINE SULFATE 4 MG/ML, 1ML IVPush PRN ×2 (17:15→19:21)
[2018-04-07] MEDS ORDERED: MORPHINE SULFATE 4 MG/ML, 1ML ONE ×2 (17:17→19:17)
[2018-04-07] MEDS ORDERED: LORazepam 2 MG/ML, 1ML ONE (17:18)
[2018-04-07] MEDS ORDERED: FAMOTIDINE 20 MG/2 ML ONE (17:18)
[2018-04-07 17:30] LABS: BASOPHILS # (AUTO) 0.03 x10^3/uL (0-0.1); BASOPHILS % (AUTO) 1 % (0-1); EOSINOPHILS % (AUTO) 0 % (1-7); LYMPHOCYTES # (AUTO) 0.58 x10^3/uL (1-3.4); LYMPHOCYTES % (AUTO) 9 % (22-44); MD NO; MEAN CORPUSCULAR HEMOGLOBIN 31.9 pg (27.5-34.5); MEAN CORPUSCULAR HGB CONC 34.3 g/dL (33.2-36.2); MEAN PLATELET VOLUME 8.3 fL (7.4-10.4); MONOCYTES # (AUTO) 0.51 x10^3/uL (0.2-0.8); MONOCYTES % (AUTO) 8 % (2-9); NEUTROPHILS # (AUTO) 5.12 x10^3/uL (1.8-6.8); NEUTROPHILS % (AUTO) 82 % (42-75); PLATELET COUNT 126 x10^3/uL (130-400); RED BLOOD COUNT 3.46 x10^6/uL (4.38-5.82); RED CELL DISTRIBUTION WIDTH 15.9 % (9.4-14.8)
[2018-04-07 17:35] LABS: INTERNATIONAL NORMALIZED RATIO 1.13 (0.93-1.1); PROTHROMBIN TIME 11.9 Seconds (9.6-11.5)
[2018-04-07 17:37] LABS: ALANINE AMINOTRANSFERASE 36 U/L (12-78); ALBUMIN 2.4 g/dL (3.4-5.0); ANION GAP 13 mmol/L (5-15); CALCIUM 7.1 mg/dL (8.5-10.1); CHLORIDE 101 mmol/L (98-107); CREATININE 0.88 mg/dL (0.7-1.3)
[2018-04-07 17:40] LABS: ALKALINE PHOSPHATASE 178 U/L (45-117); BILIRUBIN,TOTAL 0.7 mg/dL (0.2-1.0); TOTAL PROTEIN 8.3 g/dL (6.4-8.2)
--- NOTE | 2018-04-07 18:40 | NUR ---
break rn: assumed care of pt while primary rn on lunch. pt resting in bed. awaiting bed.
[2018-04-07] MEDS ORDERED: METOCLOPRAMIDE 5 MG/ML, 2ML ONE (19:17)
[2018-04-07] MEDS ORDERED: METOCLOPRAMIDE 5 MG/ML, 2ML IVPush ONE (19:30)
[2018-04-07] MEDS ORDERED: morphine SULFATE 10 MG/ML, 1ML IVPush PRN (20:30)
[2018-04-07] MEDS ORDERED: MAGNESIUM SULFATE PMX 2GM/50ML 50 ML IV ONE (20:30)
[2018-04-07] MEDS ORDERED: LORazepam 2 MG/ML, 1ML IV PRN ×3 (20:30)
[2018-04-07] MEDS ORDERED: THIAMINE 200 MG, MVI ADULT 10 ML, FOLIC ACID 1 MG in D5%-0.9% NACL 1,000 ML IV SCH (20:30)
[2018-04-07] MEDS ORDERED: GABAPENTIN 300 MG CAPSULE PO PRN (20:30)
[2018-04-07] MEDS ORDERED: LABETALOL 5MG/ML, 20ML IVPush PRN (20:30)
[2018-04-07] MEDS ORDERED: POLYETHYLENE GLYCOL 17 GM PACKET PO PRN (20:30)
[2018-04-07] MEDS ORDERED: DOCUSATE 100 MG CAPSULE PO PRN (20:30)
[2018-04-07] MEDS ORDERED: LORazepam 1MG TABLET PO PRN ×2 (20:30)
[2018-04-07] MEDS ORDERED: BISACODYL 10 MG SUPP PR PRN (20:30)
[2018-04-07] MEDS ORDERED: hydrALAzine 20 MG/ML, 1ML IVPush PRN (20:30)
[2018-04-07 21:11] LABS: FREE T4 (FREE THYROXINE) 0.76 ng/dL (0.76-1.46); THYROID STIMULATING HORMONE 0.494 mIU/L (0.358-3.740)
[2018-04-07] MEDS: PANTOPROZOLE 40MG TABLET PO SCH (21:44)
[2018-04-07] MEDS: SUCRALFATE 1 GM TABLET PO SCH (21:44)
[2018-04-07 21:45] VITALS: BP 120/82
[2018-04-07] MEDS: PROPRANOLOL 10 MG TABLET PO SCH (21:46)
[2018-04-07] MEDS: OXYcodone IR 5MG TABLET PO PRN (22:09)
[2018-04-07] MEDS: LORazepam 1MG TABLET PO PRN (22:10)
[2018-04-07 22:12] VITALS: BP 104/68
[2018-04-08] MEDS: ONDANSETRON ODT 4 MG PO PRN ×5 (02:09→22:09)
[2018-04-08] MEDS: LORazepam 1MG TABLET PO PRN ×5 (02:10→17:57)
[2018-04-08] MEDS: OXYcodone IR 5MG TABLET PO PRN ×5 (02:10→20:17)
[2018-04-08 02:17] VITALS: BP 133/83
[2018-04-08] MEDS: SUCRALFATE 1 GM TABLET PO SCH ×4 (06:11→20:17)
[2018-04-08 06:13] LABS: ALBUMIN 2.1 g/dL (3.4-5.0); ANION GAP 8 mmol/L (5-15); CALCIUM 6.7 mg/dL (8.5-10.1); CHLORIDE 102 mmol/L (98-107)
[2018-04-08 06:14] LABS: BASOPHILS # (AUTO) 0.04 x10^3/uL (0-0.1); BASOPHILS % (AUTO) 1 % (0-1); EOSINOPHILS # (AUTO) 0.02 x10^3/uL (0-0.4); EOSINOPHILS % (AUTO) 0 % (1-7); LYMPHOCYTES # (AUTO) 0.91 x10^3/uL (1-3.4); LYMPHOCYTES % (AUTO) 17 % (22-44); MD NO; MEAN CORPUSCULAR HEMOGLOBIN 31.8 pg (27.5-34.5); MEAN CORPUSCULAR HGB CONC 34.9 g/dL (33.2-36.2); MEAN CORPUSCULAR VOLUME 91.1 fL (81-97); MEAN PLATELET VOLUME 9.2 fL (7.4-10.4); MONOCYTES # (AUTO) 0.55 x10^3/uL (0.2-0.8); MONOCYTES % (AUTO) 10 % (2-9); NEUTROPHILS # (AUTO) 3.86 x10^3/uL (1.8-6.8); NEUTROPHILS % (AUTO) 72 % (42-75); PLATELET COUNT 103 x10^3/uL (130-400); RED BLOOD COUNT 3.13 x10^6/uL (4.38-5.82); RED CELL DISTRIBUTION WIDTH 15.9 % (9.4-14.8)
[2018-04-08 06:19] LABS: ALANINE AMINOTRANSFERASE 30 U/L (12-78); ALKALINE PHOSPHATASE 175 U/L (45-117); BILIRUBIN,TOTAL 0.5 mg/dL (0.2-1.0); CHOL/HDL RATIO 4.2; CHOLESTEROL, TOTAL 113 mg/dL (140-239); CREATININE 0.71 mg/dL (0.7-1.3); HDL CHOL % 24 % (26-37); HDL CHOLESTEROL (DIRECT) 27 mg/dL (40-60); LDL CHOLESTEROL,CALCULATED 54 mg/dL (54-169); TOTAL PROTEIN 7.8 g/dL (6.4-8.2); TRIGLYCERIDES 158 mg/dL (50-200); VLDL CHOLESTEROL 32 mg/dL (0-25)
[2018-04-08 07:35] VITALS: BP 137/90
[2018-04-08] MEDS ORDERED: MAGNESIUM SULFATE PMX 2GM/50ML 50 ML IV ONE (09:00)
[2018-04-08] MEDS ORDERED: THIAMINE 200 MG, MVI ADULT 10 ML, FOLIC ACID 1 MG in D5%-0.9% NACL 1,000 ML IV SCH (09:00)
[2018-04-08] MEDS: PROPRANOLOL 10 MG TABLET PO SCH ×2 (09:30→20:17)
[2018-04-08] MEDS: PANTOPROZOLE 40MG TABLET PO SCH ×2 (09:31→20:17)
[2018-04-08] MEDS ORDERED: ERGOCALCIFEROL 50,000 UNIT CAPSULE PO SCH (10:00)
[2018-04-08 11:27] LABS: MICROSCOPIC NOT IND
[2018-04-08 11:29] LABS: CULTURE INDICATED? NO
[2018-04-08 12:59] VITALS: BP 133/86
[2018-04-08] MEDS ORDERED: ACETAMINOPHEN 325 MG TABLET ONE (13:14)
[2018-04-08] MEDS: ACETAMINOPHEN 325 MG TABLET PO PRN ×2 (13:17→20:27)
[2018-04-08 14:30] LABS: RAPID INFLUENZA A Negative (Negative); RAPID INFLUENZA B Negative (Negative)
[2018-04-08] MEDS: POTASSIUM CHLORIDE 20 MEQ, MAGNESIUM SULFATE 1 GM, FOLIC ACID 1 MG, THIAMINE 200 MG, MV... IV SCH (17:58)
[2018-04-08 19:27] VITALS: BP 130/91
[2018-04-08] MEDS: LORazepam 0.5MG TABLET PO PRN (22:09)
[2018-04-09] MEDS: ONDANSETRON ODT 4 MG PO PRN (02:09)
[2018-04-09] MEDS: LORazepam 1MG TABLET PO PRN ×4 (02:09→23:36)
[2018-04-09 02:12] VITALS: BP 130/90
[2018-04-09] MEDS: OXYcodone IR 5MG TABLET PO PRN ×3 (06:16→16:52)
[2018-04-09 07:32] VITALS: BP 132/89
[2018-04-09] MEDS: LORazepam 2 MG/ML, 1ML IV PRN ×2 (08:27→12:03)
[2018-04-09] MEDS: SUCRALFATE 1 GM TABLET PO SCH ×4 (08:27→20:24)
[2018-04-09] MEDS: ONDANSETRON 2MG/ML, 2ML IVPush PRN (08:27)
[2018-04-09] MEDS: PANTOPROZOLE 40MG TABLET PO SCH ×2 (08:27→20:24)
[2018-04-09] MEDS: PROPRANOLOL 10 MG TABLET PO SCH ×2 (08:28→20:24)
[2018-04-09] MEDS: PROMETHAZINE 25 MG/ML, 1ML IM PRN (12:03)
[2018-04-09 13:37] VITALS: BP 131/88
[2018-04-09] MEDS: ACETAMINOPHEN 325 MG TABLET PO PRN (14:27)
[2018-04-09] MEDS ORDERED: AZITHROMYCIN 500 MG TABLET PO SCH (16:00)
[2018-04-09] MEDS: LORazepam 0.5MG TABLET PO PRN (16:52)
[2018-04-09] MEDS ORDERED: VANCOMYCIN PER PHARMACY MC PRN (18:00)
[2018-04-09] MEDS: POTASSIUM CHLORIDE 20 MEQ, MAGNESIUM SULFATE 1 GM, FOLIC ACID 1 MG, THIAMINE 200 MG, MV... IV SCH (18:24)
[2018-04-09] MEDS: LEVOFLOXACIN/PMX 500MG/100ML 100 ML IV SCH (18:25)
[2018-04-09] MEDS ORDERED: PHARMACOKINETIC CONSULTATION MC ONE (18:30)
[2018-04-09] MEDS ORDERED: PHARMACOKINETIC MONITORING MC PRN (18:30)
[2018-04-09 19:48] VITALS: BP 133/84
[2018-04-09] MEDS: VANCOMYCIN 1,200 MG in SODIUM CHLORIDE 0.9% 250 ML IV SCH (20:25)
[2018-04-10 00:59] VITALS: BP 139/82
[2018-04-10] MEDS: OXYcodone IR 5MG TABLET PO PRN ×4 (02:05→23:19)
[2018-04-10] MEDS: LORazepam 1MG TABLET PO PRN ×4 (03:47→16:42)
[2018-04-10 06:25] LABS: ALBUMIN 2.1 g/dL (3.4-5.0); ANION GAP 7 mmol/L (5-15); CALCIUM 7.3 mg/dL (8.5-10.1); CHLORIDE 103 mmol/L (98-107); CREATININE 0.64 mg/dL (0.7-1.3)
[2018-04-10 06:45] LABS: MEAN CORPUSCULAR HEMOGLOBIN 31.5 pg (27.5-34.5); MEAN CORPUSCULAR HGB CONC 34.3 g/dL (33.2-36.2); MEAN CORPUSCULAR VOLUME 91.7 fL (81-97); MEAN PLATELET VOLUME 9.7 fL (7.4-10.4); PLATELET COUNT 96 x10^3/uL (130-400); RED BLOOD COUNT 3.18 x10^6/uL (4.38-5.82); RED CELL DISTRIBUTION WIDTH 16.2 % (9.4-14.8)
[2018-04-10] MEDS ORDERED: MAGNESIUM SULFATE PMX 2GM/50ML 50 ML IV ONE (07:30)
[2018-04-10 07:33] LABS: BASOPHILS # (AUTO) 0.02 x10^3/uL (0-0.1); BASOPHILS % (AUTO) 0 % (0-1); EOSINOPHILS # (AUTO) 0.04 x10^3/uL (0-0.4); EOSINOPHILS % (AUTO) 1 % (1-7); LYMPHOCYTES # (AUTO) 1.21 x10^3/uL (1-3.4); LYMPHOCYTES % (AUTO) 20 % (22-44); MD SCAN; MONOCYTES # (AUTO) 0.67 x10^3/uL (0.2-0.8); MONOCYTES % (AUTO) 11 % (2-9); NEUTROPHILS % (AUTO) 67 % (42-75)
[2018-04-10 07:41] VITALS: BP 114/81
[2018-04-10] MEDS: SUCRALFATE 1 GM TABLET PO SCH ×4 (08:01→20:07)
[2018-04-10] MEDS: PANTOPROZOLE 40MG TABLET PO SCH ×2 (08:01→20:03)
[2018-04-10] MEDS: PROPRANOLOL 10 MG TABLET PO SCH ×2 (08:02→20:03)
[2018-04-10] MEDS: ACETAMINOPHEN 325 MG TABLET PO PRN (08:12)
[2018-04-10] MEDS: ONDANSETRON 2MG/ML, 2ML IVPush PRN (10:04)
[2018-04-10] MEDS: VANCOMYCIN 1,200 MG in SODIUM CHLORIDE 0.9% 250 ML IV SCH ×2 (10:48→22:19)
[2018-04-10] MEDS: PROMETHAZINE 25 MG/ML, 1ML IM PRN (12:21)
[2018-04-10 13:19] LABS: HCT (SEDRATE) 31.2 % (39.2-51.8)
[2018-04-10 13:41] VITALS: BP 117/84
[2018-04-10] MEDS: ONDANSETRON ODT 4 MG PO PRN ×2 (16:42→23:19)
[2018-04-10] MEDS ORDERED: OMNIPAQUE 350 MG/ML, 100ML BOTTLE ONE (17:00)
[2018-04-10] MEDS: POTASSIUM CHLORIDE 20 MEQ, MAGNESIUM SULFATE 1 GM, FOLIC ACID 1 MG, THIAMINE 200 MG, MV... IV SCH (17:45)
[2018-04-10] MEDS: LEVOFLOXACIN/PMX 500MG/100ML 100 ML IV SCH (17:49)
[2018-04-10 19:34] VITALS: BP 129/77
[2018-04-10] MEDS: LORazepam 2 MG/ML, 1ML IV PRN ×2 (20:04→22:19)
[2018-04-11 02:22] VITALS: BP 101/68
[2018-04-11 02:23] VITALS: BP 113/77
[2018-04-11] MEDS: LORazepam 1MG TABLET PO PRN ×2 (02:26→05:28)
[2018-04-11 06:02] LABS: BASOPHILS # (AUTO) 0.03 x10^3/uL (0-0.1); BASOPHILS % (AUTO) 1 % (0-1); EOSINOPHILS # (AUTO) 0.09 x10^3/uL (0-0.4); EOSINOPHILS % (AUTO) 2 % (1-7); LYMPHOCYTES # (AUTO) 1.35 x10^3/uL (1-3.4); LYMPHOCYTES % (AUTO) 28 % (22-44); MD NO; MEAN CORPUSCULAR HEMOGLOBIN 32.1 pg (27.5-34.5); MEAN CORPUSCULAR HGB CONC 34.6 g/dL (33.2-36.2); MEAN CORPUSCULAR VOLUME 92.6 fL (81-97); MEAN PLATELET VOLUME 8.7 fL (7.4-10.4); MONOCYTES # (AUTO) 0.75 x10^3/uL (0.2-0.8); MONOCYTES % (AUTO) 16 % (2-9); NEUTROPHILS # (AUTO) 2.55 x10^3/uL (1.8-6.8); NEUTROPHILS % (AUTO) 53 % (42-75); PLATELET COUNT 107 x10^3/uL (130-400); RED BLOOD COUNT 2.99 x10^6/uL (4.38-5.82); RED CELL DISTRIBUTION WIDTH 15.9 % (9.4-14.8)
[2018-04-11 06:07] LABS: ALANINE AMINOTRANSFERASE 27 U/L (12-78); ALBUMIN 1.9 g/dL (3.4-5.0); ANION GAP 6 mmol/L (5-15); CALCIUM 7.5 mg/dL (8.5-10.1); CHLORIDE 110 mmol/L (98-107)
[2018-04-11 06:10] LABS: ALKALINE PHOSPHATASE 139 U/L (45-117); BILIRUBIN,TOTAL 1.9 mg/dL (0.2-1.0); TOTAL PROTEIN 7.5 g/dL (6.4-8.2)
[2018-04-11 06:21] LABS: CREATININE 0.64 mg/dL (0.7-1.3)
[2018-04-11 06:22] VITALS: BP 111/75
[2018-04-11] MEDS: SUCRALFATE 1 GM TABLET PO SCH ×4 (08:14→21:00)
[2018-04-11] MEDS: PROPRANOLOL 10 MG TABLET PO SCH ×2 (08:15→21:01)
[2018-04-11] MEDS: PANTOPROZOLE 40MG TABLET PO SCH ×2 (08:15→21:00)
[2018-04-11] MEDS: ONDANSETRON ODT 4 MG PO PRN ×2 (11:20→16:21)
[2018-04-11 13:14] VITALS: BP 121/84
[2018-04-11] MEDS: OXYcodone IR 5MG TABLET PO PRN ×2 (16:21→21:00)
[2018-04-11] MEDS: POTASSIUM CHLORIDE 20 MEQ, MAGNESIUM SULFATE 1 GM, FOLIC ACID 1 MG, THIAMINE 200 MG, MV... IV SCH (17:56)
[2018-04-11 20:30] VITALS: BP 132/93
[2018-04-12 01:08] VITALS: BP 132/94
[2018-04-12 07:22] VITALS: BP 131/92
[2018-04-12] MEDS: PANTOPROZOLE 40MG TABLET PO SCH ×2 (08:04→19:31)
[2018-04-12] MEDS: PROPRANOLOL 10 MG TABLET PO SCH ×2 (08:04→19:31)
[2018-04-12] MEDS: SUCRALFATE 1 GM TABLET PO SCH ×4 (08:04→19:30)
[2018-04-12 13:29] VITALS: BP 123/88
[2018-04-12] MEDS: ONDANSETRON ODT 4 MG PO PRN ×2 (13:42→19:30)
[2018-04-12 18:47] VITALS: BP 123/84
[2018-04-12] MEDS: OXYcodone IR 5MG TABLET PO PRN (21:13)
[2018-04-13 01:44] VITALS: BP 126/90
[2018-04-13] MEDS: OXYcodone IR 5MG TABLET PO PRN ×4 (06:01→21:30)
[2018-04-13 07:39] VITALS: BP 133/88
[2018-04-13 07:40] VITALS: BP 133/88
[2018-04-13] MEDS ORDERED: POTASSIUM CHLORIDE 20 MEQ TAB.ER.PRT PO ONE (08:00)
[2018-04-13] MEDS ORDERED: CITRATE OF MAG MC SCH (08:30)
[2018-04-13] MEDS ORDERED: MAGNESIUM CITRATE 300ML ORAL SOL PO PRN ×2 (08:30)
[2018-04-13] MEDS: SUCRALFATE 1 GM TABLET PO SCH ×4 (09:18→21:03)
[2018-04-13] MEDS: PANTOPROZOLE 40MG TABLET PO SCH ×2 (09:18→21:04)
[2018-04-13] MEDS: PROPRANOLOL 10 MG TABLET PO SCH ×2 (09:19→21:03)
[2018-04-13] MEDS ORDERED: MAGNESIUM SULFATE PMX 4GM/100M 100 ML IV ONE (09:30)
[2018-04-13] MEDS: ONDANSETRON ODT 4 MG PO PRN ×2 (13:16→17:23)
[2018-04-13 13:59] VITALS: BP 123/88
[2018-04-13 18:57] VITALS: BP 124/88
[2018-04-13 22:40] LABS: OCCULT BLOOD POSITIVE (NEGATIVE)
[2018-04-14] MEDS: OXYcodone IR 5MG TABLET PO PRN ×3 (01:42→12:48)
[2018-04-14] MEDS: ONDANSETRON ODT 4 MG PO PRN ×2 (01:42→12:48)
[2018-04-14 01:53] VITALS: BP 125/89
[2018-04-14] MEDS: SUCRALFATE 1 GM TABLET PO SCH ×2 (07:48→11:21)
[2018-04-14] MEDS: PANTOPROZOLE 40MG TABLET PO SCH (07:48)
[2018-04-14] MEDS: PROPRANOLOL 10 MG TABLET PO SCH (07:49)
[2018-04-14 08:51] LABS: HEMOGRAM NOTE RECHECKED; MEAN CORPUSCULAR HEMOGLOBIN 30.9 pg (27.5-34.5); MEAN CORPUSCULAR HGB CONC 33.4 g/dL (33.2-36.2); MEAN CORPUSCULAR VOLUME 92.4 fL (81-97); MEAN PLATELET VOLUME 8.1 fL (7.4-10.4); PLATELET COUNT 366 x10^3/uL (130-400); RED BLOOD COUNT 3.76 x10^6/uL (4.38-5.82); RED CELL DISTRIBUTION WIDTH 17.3 % (9.4-14.8)
[2018-04-14 09:09] VITALS: BP 121/88
[2018-04-14 09:17] LABS: BASOPHILS # (AUTO) 0.05 x10^3/uL (0-0.1); BASOPHILS % (AUTO) 1 % (0-1); EOSINOPHILS # (AUTO) 0.18 x10^3/uL (0-0.4); EOSINOPHILS % (AUTO) 2 % (1-7); LYMPHOCYTES # (AUTO) 2.07 x10^3/uL (1-3.4); LYMPHOCYTES % (AUTO) 24 % (22-44); MD SCAN; MONOCYTES # (AUTO) 0.89 x10^3/uL (0.2-0.8); MONOCYTES % (AUTO) 10 % (2-9); NEUTROPHILS # (AUTO) 5.37 x10^3/uL (1.8-6.8); NEUTROPHILS % (AUTO) 63 % (42-75)
[2018-04-14 12:48] VITALS: BP 122/83
== END 2018-04-14 17:19 | disposition home or self-care (01) | DRG 871 ==
LOC: ED 17:45 → EDIP 18:56 → 3NE 19:30
PROVIDERS: ADMIT Internal Medicine; ATTEND Internal Medicine
DX: A41.9 Sepsis, unspecified organism (principal); E43 Unspecified severe protein-calorie malnutrition; G93.41 Metabolic encephalopathy; F10.231 Alcohol dependence with withdrawal delirium; M48.54XA Collapsed vertebra, not elsewhere classified, thoracic region, initial encounter for fracture; D63.8 Anemia in other chronic diseases classified elsewhere; D69.6 Thrombocytopenia, unspecified; Z68.21 Body mass index [BMI] 21.0-21.9, adult; Z88.0 Allergy status to penicillin; E83.42 Hypomagnesemia; E86.0 Dehydration; E87.6 Hypokalemia; G40.909 Epilepsy, unspecified, not intractable, without status epilepticus; G89.29 Other chronic pain; I10 Essential (primary) hypertension; K20.9 Esophagitis, unspecified; K29.00 Acute gastritis without bleeding; K29.20 Alcoholic gastritis without bleeding; K44.9 Diaphragmatic hernia without obstruction or gangrene; Y90.8 Blood alcohol level of 240 mg/100 ml or more; Z59.0 Homelessness; Z90.49 Acquired absence of other specified parts of digestive tract
CPT/HCPCS: 36415; 84145; 87400; 99285; J3490; J7042; 71045; 71260; 74177; 80048; 80053; 80061; 80074; 80307; 81003; 82040; 82272; 82306; 82607; 83605; 83690; 83735; 84439; 84443; 85025; 85610; 85651; 86140; 87040; 96361; 96374; 96375; G0378; J1956; J2405; J2550; J3370; J3411; J3475; J3480; Q0162; Q9967; J2060; J7030; J7050

== ENCOUNTER 2018-04-16 08:45 | Emergency (ER) | payer MEDICAID ==
[~2018-04-16] VITALS: Ht 168.9 cm; Wt 66.0 kg
[2018-04-16] MEDS ORDERED: ONDANSETRON ODT 4 MG ONE (09:17)
[2018-04-16] MEDS ORDERED: ONDANSETRON ODT 4 MG PO ONE (09:30)
[2018-04-16 09:44] LABS: BASOPHILS # (AUTO) 0.05 x10^3/uL (0-0.1); BASOPHILS % (AUTO) 1 % (0-1); EOSINOPHILS # (AUTO) 0.05 x10^3/uL (0-0.4); EOSINOPHILS % (AUTO) 1 % (1-7); LYMPHOCYTES # (AUTO) 2.64 x10^3/uL (1-3.4); LYMPHOCYTES % (AUTO) 28 % (22-44); MD NO; MEAN CORPUSCULAR HEMOGLOBIN 30.9 pg (27.5-34.5); MEAN CORPUSCULAR HGB CONC 33.9 g/dL (33.2-36.2); MEAN CORPUSCULAR VOLUME 90.9 fL (81-97); MEAN PLATELET VOLUME 7.6 fL (7.4-10.4); MONOCYTES # (AUTO) 0.89 x10^3/uL (0.2-0.8); MONOCYTES % (AUTO) 9 % (2-9); NEUTROPHILS # (AUTO) 5.86 x10^3/uL (1.8-6.8); NEUTROPHILS % (AUTO) 62 % (42-75); PLATELET COUNT 452 x10^3/uL (130-400); RED CELL DISTRIBUTION WIDTH 18.3 % (9.4-14.8)
[2018-04-16 09:51] LABS: ALANINE AMINOTRANSFERASE 122 U/L (12-78); ALBUMIN 2.6 g/dL (3.4-5.0); ANION GAP 8 mmol/L (5-15); CALCIUM 8.4 mg/dL (8.5-10.1); CHLORIDE 106 mmol/L (98-107); CREATININE 0.92 mg/dL (0.7-1.3)
[2018-04-16 09:52] LABS: ALKALINE PHOSPHATASE 378 U/L (45-117); BILIRUBIN,TOTAL 1.4 mg/dL (0.2-1.0); TOTAL PROTEIN 10.2 g/dL (6.4-8.2)
--- NOTE | 2018-04-16 10:04 | NUR ---
pt returned from US, sleeping on gurerma, responds approp to staff, NAD at this time, comfort measures provided, call light within reach.
--- NOTE | 2018-04-16 11:03 | NUR ---
pt laying on gurney mostly sleeping, responds approp to staff, NAD, comfort measures provided, call light within reach.
--- NOTE | 2018-04-16 11:40 | NUR ---
Debora mendez in [facility] - 04/16/18 at 1211 by JULIANA pt to CTA
--- NOTE | 2018-04-16 12:06 | NUR ---
pt continues to lay on gurney mostly sleeping, responds approp to staff, NAD, comfort measures provided, call light within reach.
--- NOTE | 2018-04-16 12:54 | NUR ---
pt laying on gurney mostly sleeping, responds approp to staff, NAD, comfort measures provided, call light within reach.
[2018-04-16 16:19] VITALS: BP 100/67
--- NOTE | 2018-04-16 16:19 | NUR ---
PT AWAKE, ALERT/. OOB AND AMBULATES UPRIGHT STEADY GAIT. MEAL TRAY PROVIDED.
== END 2018-04-16 16:24 | disposition home or self-care (01) ==
LOC: ED 09:40
DX: F10.220 Alcohol dependence with intoxication, uncomplicated (principal); I10 Essential (primary) hypertension
CPT/HCPCS: 36415; 76700; 80053; 80307; 82150; 83690; 85025; 99284; Q0162

== ENCOUNTER 2018-04-30 14:39 | Emergency (ER) | payer MEDICAID ==
[~2018-04-30] VITALS: Ht 167.6 cm; Wt 66.0 kg
[~2018-04-30 14:39] MED LIST changes: -PROP10TA PO; +PROP10TA16 PO
--- NOTE | 2018-04-30 14:51 | NUR ---
PT BROUGHT IN VIA WHEELCHAIR AFTER CODE 250. PT FOUND BY BYSTANDER ON SIDEWALK NE[address]TRANCE. PT UNABLE TO AMBULATE. SLURRED SPEECH. DENIES MEDICAL COMPLAINT. +OLD ABRASION TO LEFT FOREHEAD. UNABLE TO COMPLETE MED REC AT THIS TIME.
--- NOTE | 2018-04-30 16:00 | NUR ---
PT SLEEPING, DECREASED SATS NOTED, PLACED ON 3L OXYGEN VIA NC. WILL CONTINUE TO MONITOR.
--- NOTE | 2018-04-30 16:50 | NUR ---
PT SLEEPING, RESPS EVEN AND UNLABORED. VS NOTED.
--- NOTE | 2018-04-30 17:30 | NUR ---
NO CHANGE IN PT STATUS.
[2018-04-30 18:37] VITALS: BP 115/82
--- NOTE | 2018-04-30 18:38 | NUR ---
PT CONTINUES SLEEPING. NO S/S DISTRESS. VS NOTED.
--- NOTE | 2018-04-30 19:00 | NUR ---
PT CONTINUES SLEEPING. RESPS EVEN AND UNLABORED. REPORT TO JYOTI JULES.
--- NOTE | 2018-04-30 20:01 | NUR ---
REPORT FROM SHARDA GARSIA IN NAD
--- NOTE | 2018-04-30 21:15 | NUR ---
Patient/Caregiver given discharge instructions and they have confirmed that they understand the instructions. Patient ambulatory with steady gait. SECURITY ESCORTED PT OUT
== END 2018-04-30 21:18 | disposition home or self-care (01) ==
LOC: ED 17:37
DX: F10.220 Alcohol dependence with intoxication, uncomplicated (principal); I10 Essential (primary) hypertension; G40.909 Epilepsy, unspecified, not intractable, without status epilepticus
CPT/HCPCS: 99283

== ENCOUNTER 2018-05-22 15:29 | Emergency (ER) | payer MEDICAID ==
[~2018-05-22 15:29] MED LIST changes: +LOSA50TA14 PO; -LOSA50TA7 PO
[2018-05-22 15:34] VITALS: BP 118/70
--- NOTE | 2018-05-22 15:37 | NUR ---
TASK RN: BIB [facility] W/ CO ETOH. SPEECH SLURRED. PT REQUIRING ASSISTANCE WITH AMBULATION. AIRWAY PATENT; NAD NOTED. PT PROVIDED URINAL UPON ARRIVAL. PRIMARY RN, EVELYN MIRELES.
--- NOTE | 2018-05-22 16:03 | NUR ---
REPORT RECEIVED FROM TASK RN SABINA. ASSUMED CARE OF PT. PT AWAKENS TO NAME BEING CALLED. PT HAS SLURRED SPEECH, ETOH ODOR WHEN SPEAKS. PT ON CONT BP AND O2 MONITORS. CALL LIGHT WITHIN REACH. WILL CONT TO MONITOR PT.
--- NOTE | 2018-05-22 16:55 | NUR ---
TASK RN: PT PROVIDED MEAL TRAY.
--- NOTE | 2018-05-22 18:31 | NUR ---
BS report rcv'd from Ken MONTES. Pt sleeping. VSS. Monitors x 3.
--- NOTE | 2018-05-22 19:07 | NUR ---
eating a grilled cheese
== END 2018-05-22 20:47 | disposition home or self-care (01) ==
LOC: ED 20:25
DX: F10.120 Alcohol abuse with intoxication, uncomplicated (principal); I10 Essential (primary) hypertension; G40.909 Epilepsy, unspecified, not intractable, without status epilepticus
CPT/HCPCS: 99283

== ENCOUNTER 2018-06-12 06:13 | Inpatient (IN) | payer MEDICAID ==
[~2018-06-12] VITALS: Ht 167.6 cm; Wt 67.0 kg
[2018-06-12] MEDS ORDERED: RANI150C PO (06:28)
[2018-06-12] MEDS ORDERED: BACL-19 PO (06:30)
[2018-06-12] MEDS ORDERED: GABAPENTIN PO (06:30)
[2018-06-12] MEDS ORDERED: FERR324T5 PO (06:31)
[2018-06-12] MEDS ORDERED: TRAZ-137 PO (06:31)
[2018-06-12] MEDS ORDERED: PANT40TA5 PO ×2 (06:32→18:00)
--- NOTE | 2018-06-12 06:33 | NUR ---
SARAH. REPORT FROM EMS. PT C/O ALL QUADRANTS ABD PAIN/NAUSEA/ERECTION X 2DAYS. PT DENIES D/ESPINOZA AT THIS TIME. BP/SPO2 MONITORS IN PLACE. CALL LIGHT WITHIN REACH. EDMD AT BEDSIDE TO ASSESS AT THIS TIME. PT'S AOX4. RESPS EVEN AND UNLABORED.
[2018-06-12] MEDS ORDERED: ONDA4TAB13 SL (06:35)
--- NOTE | 2018-06-12 06:43 | NUR ---
PT IN XRAY NOW
--- NOTE | 2018-06-12 06:48 | NUR ---
PT BACK TO ROOM FROM XRAY.
--- NOTE | 2018-06-12 06:51 | NUR ---
REPORT GIVEN TO NURIA MONTES.
[2018-06-12] MEDS ORDERED: ONDANSETRON ODT 4 MG ONE (06:53)
--- NOTE | 2018-06-12 06:56 | NUR ---
ASSUMED CARE. PT C/O CONTINUOUS GRIPPING ABDOMINAL PAIN. NAUSEA WITH VOMITING THIS MORNING. PT HAS AN ERECTION THAT HAS BEEN THERE FOR 2 DAYS STRAIGHT. AWARE.
[2018-06-12] MEDS ORDERED: ONDANSETRON ODT 4 MG PO ONE (07:00)
[2018-06-12 07:02] LABS: BASOPHILS # (AUTO) 0.05 x10^3/uL (0-0.1); BASOPHILS % (AUTO) 1 % (0-1); EOSINOPHILS # (AUTO) 0.24 x10^3/uL (0-0.4); EOSINOPHILS % (AUTO) 5 % (1-7); LYMPHOCYTES # (AUTO) 1.86 x10^3/uL (1-3.4); LYMPHOCYTES % (AUTO) 37 % (22-44); MD NO; MEAN CORPUSCULAR HEMOGLOBIN 29.4 pg (27.5-34.5); MEAN CORPUSCULAR HGB CONC 33.2 g/dL (33.2-36.2); MEAN CORPUSCULAR VOLUME 88.7 fL (81-97); MEAN PLATELET VOLUME 7.2 fL (7.4-10.4); MONOCYTES % (AUTO) 6 % (2-9); NEUTROPHILS # (AUTO) 2.62 x10^3/uL (1.8-6.8); NEUTROPHILS % (AUTO) 52 % (42-75); PLATELET COUNT 425 x10^3/uL (130-400); RED BLOOD COUNT 3.41 x10^6/uL (4.38-5.82); RED CELL DISTRIBUTION WIDTH 18.7 % (9.4-14.8)
[2018-06-12 07:06] LABS: CHLORIDE 114 mmol/L (98-107)
[2018-06-12 07:13] LABS: ALANINE AMINOTRANSFERASE 27 U/L (12-78); ALBUMIN 2.8 g/dL (3.4-5.0); ALKALINE PHOSPHATASE 56 U/L (45-117); ANION GAP 8 mmol/L (5-15); BILIRUBIN,TOTAL 0.4 mg/dL (0.2-1.0); CALCIUM 7.9 mg/dL (8.5-10.1); CREATININE 0.56 mg/dL (0.7-1.3); TOTAL PROTEIN 8.3 g/dL (6.4-8.2)
[2018-06-12] MEDS ORDERED: PHENYLEPHRINE 10 MG/ML ONE (07:22)
[2018-06-12 07:32] LABS: INTERNATIONAL NORMALIZED RATIO 1.14 (0.93-1.1); PROTHROMBIN TIME 11.9 Seconds (9.6-11.5)
--- NOTE | 2018-06-12 07:54 | NUR ---
CONTINUES TO HAVE ERECTION DESPITE INJECTION TO PENIS BY .
[2018-06-12] MEDS ORDERED: MAALOX/HYOSCYAMINE/LIDOCAINE 45 ML BTL ONE (07:57)
[2018-06-12] MEDS ORDERED: MAALOX/HYOSCYAMINE/LIDOCAINE 45 ML BTL PO ONE (08:00)
[2018-06-12] MEDS ORDERED: SODIUM CHLORIDE FLUSH 10ML SYR IVF ONE (09:00)
--- NOTE | 2018-06-12 09:05 | NUR ---
CALVIN CISNEROS TO SEE THE PT. PT. REMAINS MONITORED. VSS. IV ACCESS ESTABLISHED. PT.'S HOB REMAINS ELEVATED. PT. STILL HAS A PRIAPISM. PT. IS WATCHING TV. SIDERAILS ARE UP X 2, CALL LIGHT IN PLACE.
[2018-06-12] MEDS: NS + 20MEQ KCL 1,000 ML IV SCH ×2 (09:10→16:44)
[2018-06-12] MEDS ORDERED: BISACODYL 10 MG SUPP PR PRN (09:30)
[2018-06-12] MEDS ORDERED: ACETAMINOPHEN 325 MG TABLET PO PRN ×2 (09:30→17:00)
[2018-06-12] MEDS ORDERED: ONDANSETRON 2MG/ML, 2ML IVPush PRN (09:30)
[2018-06-12] MEDS ORDERED: THIAMINE 200 MG, MVI ADULT 10 ML, FOLIC ACID 1 MG in D5%-0.9% NACL 1,000 ML IV SCH (09:30)
--- NOTE | 2018-06-12 09:55 | NUR ---
REPORT GIVEN TO KARLA RN
[2018-06-12] MEDS ORDERED: ZANTAC MC SCH (10:30)
[2018-06-12] MEDS: LORazepam 2 MG/ML, 1ML IVPush PRN ×3 (11:53→17:10)
[2018-06-12] MEDS: SUCRALFATE 1 GM/10 ML UDC PO SCH ×3 (11:53→21:01)
[2018-06-12] MEDS: FERROUS SULFATE 325 MG TABLET PO SCH ×2 (12:17→16:04)
[2018-06-12 12:26] VITALS: BP 133/70
[2018-06-12] MEDS ORDERED: MIDAZOLAM 1 MG/ML, 2ML ONE (15:13)
[2018-06-12] MEDS ORDERED: FENTANYL PF 250 MCG/5ML ONE (15:13)
[2018-06-12] MEDS ORDERED: PROPOFOL 10 MG/ML, 20ML ONE (15:18)
[2018-06-12] MEDS ORDERED: LIDOCAINE-MPF 2% ,5ML ONE (15:18)
[2018-06-12] MEDS ORDERED: BUPIVACAINE/PF 0.25% ONE (15:34)
[2018-06-12] MEDS ORDERED: KETOROLAC 30 MG/1 ML ONE (15:41)
[2018-06-12] MEDS ORDERED: ONDANSETRON 2MG/ML, 2ML ONE ×2 (15:41)
[2018-06-12] MEDS ORDERED: CEFAZOLIN 1,000 MG ONE ×2 (15:41)
[2018-06-12] MEDS ORDERED: DEXAMETHASONE 4 MG/ML, 1ML ONE ×2 (15:41)
[2018-06-12] MEDS ORDERED: BACLOFEN 10 MG TABLET PO SCH (16:00)
[2018-06-12] MEDS: GABAPENTIN 300 MG CAPSULE PO SCH ×2 (16:04→21:01)
[2018-06-12] MEDS ORDERED: OXYcodone 5 MG/5 ML ORAL.SOL UDC ONE (16:41)
[2018-06-12] MEDS ORDERED: FENTANYL PF 100 MCG/2ML ONE (16:41)
[2018-06-12] MEDS: FENTANYL PF 100 MCG/2ML IV PRN ×2 (16:41→16:48)
[2018-06-12] MEDS ORDERED: HYDROmorphone 1 MG/ML, 1ML ONE (16:59)
[2018-06-12] MEDS ORDERED: HYDROmorphone 2 MG/ML, 1ML IVPush PRN (17:00)
[2018-06-12] MEDS ORDERED: OXYcodone 5 MG/5 ML ORAL.SOL UDC PO PRN (17:00)
[2018-06-12] MEDS ORDERED: HALOPERIDOL 5 MG/ML IV PRN (17:00)
[2018-06-12] MEDS ORDERED: PROMETHAZINE 25 MG/ML, 1ML IV PRN (17:00)
[2018-06-12] MEDS ORDERED: MEPERIDINE/PF 25MG/0.5ML IVPush PRN (17:00)
[2018-06-12] MEDS ORDERED: ASPIRIN 81 MG TABLET EC ONE (17:02)
[2018-06-12] MEDS ORDERED: LORazepam 2 MG/ML, 1ML ONE (17:08)
[2018-06-12] MEDS ORDERED: ASPIRIN 81 MG TABLET EC PO ONE (17:30)
[2018-06-12] MEDS ORDERED: OXYcodone/APAP 5/325MG TABLET PO PRN (18:00)
[2018-06-12 20:24] VITALS: BP 134/81
[2018-06-12] MEDS ORDERED: PANTOPROZOLE 40MG TABLET PO SCH (21:00)
[2018-06-12] MEDS ORDERED: OMEPRAZOLE 20 MG CAPSULE.DR PO SCH (21:00)
[2018-06-12] MEDS: TEMPLATE NON-FORMULARY MED. (Ranitidine Hcl** 150 MG) PO SCH (21:00)
[2018-06-12] MEDS: OXYcodone/APAP 5/325MG TABLET PO PRN (21:01)
[2018-06-12] MEDS: PANTOPROZOLE 40MG TABLET PO SCH (21:01)
[2018-06-12] MEDS: BACLOFEN 10 MG TABLET PO SCH (22:07)
[2018-06-13] VITALS: BP 119/74
[2018-06-13] MEDS: OXYcodone/APAP 5/325MG TABLET PO PRN ×6 (00:59→21:23)
[2018-06-13] MEDS: LORazepam 2 MG/ML, 1ML IVPush PRN ×4 (02:06→20:39)
[2018-06-13] MEDS: NS + 20MEQ KCL 1,000 ML IV SCH (02:06)
[2018-06-13 03:22] VITALS: BP 120/78
[2018-06-13 05:29] LABS: ALANINE AMINOTRANSFERASE 20 U/L (12-78); ALBUMIN 2.3 g/dL (3.4-5.0); ANION GAP 5 mmol/L (5-15); CALCIUM 7.7 mg/dL (8.5-10.1); CHLORIDE 107 mmol/L (98-107)
[2018-06-13 05:32] LABS: ALKALINE PHOSPHATASE 49 U/L (45-117); BILIRUBIN,TOTAL 0.7 mg/dL (0.2-1.0); CREATININE 0.71 mg/dL (0.7-1.3); TOTAL PROTEIN 7.1 g/dL (6.4-8.2)
[2018-06-13 05:49] LABS: BASOPHILS # (AUTO) 0.02 x10^3/uL (0-0.1); BASOPHILS % (AUTO) 0 % (0-1); EOSINOPHILS # (AUTO) 0.09 x10^3/uL (0-0.4); EOSINOPHILS % (AUTO) 2 % (1-7); LYMPHOCYTES # (AUTO) 0.98 x10^3/uL (1-3.4); LYMPHOCYTES % (AUTO) 22 % (22-44); MD NO; MEAN CORPUSCULAR HEMOGLOBIN 29.9 pg (27.5-34.5); MEAN CORPUSCULAR HGB CONC 33.7 g/dL (33.2-36.2); MEAN CORPUSCULAR VOLUME 88.7 fL (81-97); MEAN PLATELET VOLUME 7.7 fL (7.4-10.4); MONOCYTES # (AUTO) 0.22 x10^3/uL (0.2-0.8); MONOCYTES % (AUTO) 5 % (2-9); NEUTROPHILS % (AUTO) 71 % (42-75); PLATELET COUNT 321 x10^3/uL (130-400); RED CELL DISTRIBUTION WIDTH 18.1 % (9.4-14.8)
[2018-06-13] MEDS ORDERED: ASPIRIN 325 MG TABLET PO SCH (06:00)
[2018-06-13] MEDS: ASPIRIN 81 MG TABLET EC PO SCH (06:40)
[2018-06-13] MEDS: SUCRALFATE 1 GM/10 ML UDC PO SCH ×4 (06:40→20:25)
[2018-06-13 07:00] VITALS: BP 117/75
[2018-06-13] MEDS: GABAPENTIN 300 MG CAPSULE PO SCH ×3 (07:44→20:26)
[2018-06-13] MEDS: ONDANSETRON ODT 4 MG PO SCH (07:44)
[2018-06-13] MEDS: FERROUS SULFATE 325 MG TABLET PO SCH ×4 (07:44→15:42)
[2018-06-13] MEDS: BACLOFEN 10 MG TABLET PO SCH ×2 (07:44→20:25)
[2018-06-13] MEDS: TEMPLATE NON-FORMULARY MED. (Ranitidine Hcl** 150 MG) PO SCH ×2 (07:45→20:26)
[2018-06-13] MEDS: PANTOPROZOLE 40MG TABLET PO SCH ×2 (07:47→20:25)
[2018-06-13 12:06] VITALS: BP 132/84
[2018-06-13] MEDS: CLOPIDOGREL 75 MG TABLET PO SCH (14:16)
[2018-06-13 14:53] LABS: MICROSCOPIC NOT IND
[2018-06-13 15:00] LABS: CULTURE INDICATED? NO
[2018-06-13] MEDS: DOCUSATE 100 MG CAPSULE PO PRN (17:23)
[2018-06-13 18:48] VITALS: BP 126/82
[2018-06-14 01:16] VITALS: BP 122/80
[2018-06-14] MEDS: OXYcodone/APAP 5/325MG TABLET PO PRN ×6 (01:24→22:05)
[2018-06-14] MEDS: DOCUSATE 100 MG CAPSULE PO PRN (01:26)
[2018-06-14 05:15] LABS: ANION GAP 6 mmol/L (5-15); CALCIUM 7.7 mg/dL (8.5-10.1); CHLORIDE 108 mmol/L (98-107)
[2018-06-14 05:17] LABS: CREATININE 0.93 mg/dL (0.7-1.3)
[2018-06-14 05:17] LABS: BASOPHILS # (AUTO) 0.01 x10^3/uL (0-0.1); BASOPHILS % (AUTO) 0 % (0-1); EOSINOPHILS # (AUTO) 0.06 x10^3/uL (0-0.4); EOSINOPHILS % (AUTO) 1 % (1-7); LYMPHOCYTES # (AUTO) 1.77 x10^3/uL (1-3.4); LYMPHOCYTES % (AUTO) 43 % (22-44); MD NO; MEAN CORPUSCULAR HEMOGLOBIN 29.4 pg (27.5-34.5); MEAN CORPUSCULAR HGB CONC 32.7 g/dL (33.2-36.2); MEAN CORPUSCULAR VOLUME 89.8 fL (81-97); MEAN PLATELET VOLUME 7.8 fL (7.4-10.4); MONOCYTES # (AUTO) 0.28 x10^3/uL (0.2-0.8); MONOCYTES % (AUTO) 7 % (2-9); NEUTROPHILS # (AUTO) 1.98 x10^3/uL (1.8-6.8); NEUTROPHILS % (AUTO) 48 % (42-75); PLATELET COUNT 213 x10^3/uL (130-400); RED BLOOD COUNT 2.94 x10^6/uL (4.38-5.82); RED CELL DISTRIBUTION WIDTH 18.6 % (9.4-14.8)
[2018-06-14] MEDS: ASPIRIN 81 MG TABLET EC PO SCH (05:57)
[2018-06-14] MEDS: SUCRALFATE 1 GM/10 ML UDC PO SCH ×4 (06:17→21:04)
[2018-06-14 07:38] VITALS: BP 143/95
[2018-06-14] MEDS: ONDANSETRON ODT 4 MG PO SCH (09:23)
[2018-06-14] MEDS: BACLOFEN 10 MG TABLET PO SCH ×2 (09:24→21:04)
[2018-06-14] MEDS: FERROUS SULFATE 325 MG TABLET PO SCH ×3 (09:24→17:13)
[2018-06-14] MEDS: GABAPENTIN 300 MG CAPSULE PO SCH ×3 (09:24→21:04)
[2018-06-14] MEDS: CLOPIDOGREL 75 MG TABLET PO SCH (09:24)
[2018-06-14] MEDS: PANTOPROZOLE 40MG TABLET PO SCH ×2 (09:24→21:04)
[2018-06-14] MEDS: TEMPLATE NON-FORMULARY MED. (Ranitidine Hcl** 150 MG) PO SCH ×2 (09:24→21:04)
[2018-06-14 12:50] VITALS: BP 113/83
[2018-06-14 18:36] VITALS: BP 115/79
[2018-06-15 01:17] VITALS: BP 146/87
[2018-06-15] MEDS: OXYcodone/APAP 5/325MG TABLET PO PRN ×6 (02:03→22:25)
[2018-06-15 05:14] LABS: BASOPHILS # (AUTO) 0.04 x10^3/uL (0-0.1); BASOPHILS % (AUTO) 1 % (0-1); EOSINOPHILS # (AUTO) 0.21 x10^3/uL (0-0.4); EOSINOPHILS % (AUTO) 4 % (1-7); LYMPHOCYTES % (AUTO) 31 % (22-44); MD NO; MEAN CORPUSCULAR HGB CONC 33.7 g/dL (33.2-36.2); MEAN CORPUSCULAR VOLUME 88.9 fL (81-97); MEAN PLATELET VOLUME 7.9 fL (7.4-10.4); MONOCYTES % (AUTO) 7 % (2-9); NEUTROPHILS % (AUTO) 57 % (42-75); PLATELET COUNT 237 x10^3/uL (130-400); RED BLOOD COUNT 3.11 x10^6/uL (4.38-5.82); RED CELL DISTRIBUTION WIDTH 18.4 % (9.4-14.8)
[2018-06-15] MEDS: SUCRALFATE 1 GM/10 ML UDC PO SCH ×4 (05:54→20:48)
[2018-06-15] MEDS: ASPIRIN 81 MG TABLET EC PO SCH (05:54)
[2018-06-15 07:10] VITALS: BP 139/87
[2018-06-15] MEDS: CLOPIDOGREL 75 MG TABLET PO SCH (09:11)
[2018-06-15] MEDS: ONDANSETRON ODT 4 MG PO SCH (09:11)
[2018-06-15] MEDS: FERROUS SULFATE 325 MG TABLET PO SCH ×3 (09:11→16:51)
[2018-06-15] MEDS: BACLOFEN 10 MG TABLET PO SCH ×2 (09:11→20:48)
[2018-06-15] MEDS: TEMPLATE NON-FORMULARY MED. (Ranitidine Hcl** 150 MG) PO SCH ×2 (09:11→20:48)
[2018-06-15] MEDS: PANTOPROZOLE 40MG TABLET PO SCH ×2 (09:11→20:48)
[2018-06-15] MEDS: GABAPENTIN 300 MG CAPSULE PO SCH ×3 (09:11→20:48)
[2018-06-15] MEDS: DOCUSATE 100 MG CAPSULE PO PRN (09:21)
[2018-06-15 14:37] VITALS: BP 119/71
[2018-06-15 19:56] VITALS: BP 129/89
[2018-06-15] MEDS: POLYETHYLENE GLYCOL 17 GM PACKET PO PRN (22:25)
[2018-06-16 00:43] VITALS: BP 108/68
[2018-06-16] MEDS: OXYcodone/APAP 5/325MG TABLET PO PRN ×6 (02:37→23:54)
[2018-06-16 05:24] LABS: BASOPHILS # (AUTO) 0.04 x10^3/uL (0-0.1); BASOPHILS % (AUTO) 1 % (0-1); EOSINOPHILS # (AUTO) 0.31 x10^3/uL (0-0.4); EOSINOPHILS % (AUTO) 5 % (1-7); LYMPHOCYTES # (AUTO) 1.66 x10^3/uL (1-3.4); LYMPHOCYTES % (AUTO) 28 % (22-44); MD NO; MEAN CORPUSCULAR HEMOGLOBIN 29.7 pg (27.5-34.5); MEAN CORPUSCULAR HGB CONC 33.6 g/dL (33.2-36.2); MEAN CORPUSCULAR VOLUME 88.7 fL (81-97); MEAN PLATELET VOLUME 7.9 fL (7.4-10.4); MONOCYTES # (AUTO) 0.41 x10^3/uL (0.2-0.8); MONOCYTES % (AUTO) 7 % (2-9); NEUTROPHILS # (AUTO) 3.42 x10^3/uL (1.8-6.8); NEUTROPHILS % (AUTO) 59 % (42-75); PLATELET COUNT 247 x10^3/uL (130-400); RED BLOOD COUNT 3.17 x10^6/uL (4.38-5.82); RED CELL DISTRIBUTION WIDTH 18.5 % (9.4-14.8)
[2018-06-16 05:27] LABS: ANION GAP 6 mmol/L (5-15); CALCIUM 8.2 mg/dL (8.5-10.1); CHLORIDE 108 mmol/L (98-107)
[2018-06-16 05:29] LABS: CREATININE 0.63 mg/dL (0.7-1.3)
[2018-06-16] MEDS: SUCRALFATE 1 GM/10 ML UDC PO SCH ×4 (06:35→21:16)
[2018-06-16] MEDS: ASPIRIN 81 MG TABLET EC PO SCH (06:35)
[2018-06-16 07:18] VITALS: BP 116/77
[2018-06-16] MEDS: PANTOPROZOLE 40MG TABLET PO SCH ×2 (08:07→21:16)
[2018-06-16] MEDS: FERROUS SULFATE 325 MG TABLET PO SCH ×3 (08:07→16:35)
[2018-06-16] MEDS: ONDANSETRON ODT 4 MG PO SCH (08:07)
[2018-06-16] MEDS: CLOPIDOGREL 75 MG TABLET PO SCH (08:07)
[2018-06-16] MEDS: BACLOFEN 10 MG TABLET PO SCH ×2 (08:07→21:16)
[2018-06-16] MEDS: GABAPENTIN 300 MG CAPSULE PO SCH ×3 (08:07→21:16)
[2018-06-16] MEDS: TEMPLATE NON-FORMULARY MED. (Ranitidine Hcl** 150 MG) PO SCH ×2 (08:09→21:00)
[2018-06-16 13:52] VITALS: BP 109/72
[2018-06-16 19:13] VITALS: BP 118/79
[2018-06-16] MEDS: DOCUSATE 100 MG CAPSULE PO PRN (21:16)
[2018-06-16] MEDS: POLYETHYLENE GLYCOL 17 GM PACKET PO PRN (21:16)
[2018-06-17 00:49] VITALS: BP 107/73
[2018-06-17] MEDS: OXYcodone/APAP 5/325MG TABLET PO PRN ×5 (04:16→20:12)
[2018-06-17] MEDS: DOCUSATE 100 MG CAPSULE PO PRN (04:16)
[2018-06-17] MEDS: ASPIRIN 81 MG TABLET EC PO SCH (06:03)
[2018-06-17] MEDS: SUCRALFATE 1 GM/10 ML UDC PO SCH ×4 (06:03→20:12)
[2018-06-17 07:06] VITALS: BP 120/78
[2018-06-17] MEDS: GABAPENTIN 300 MG CAPSULE PO SCH ×3 (08:00→20:12)
[2018-06-17] MEDS: BACLOFEN 10 MG TABLET PO SCH ×2 (08:00→20:12)
[2018-06-17] MEDS: PANTOPROZOLE 40MG TABLET PO SCH ×2 (08:00→20:12)
[2018-06-17] MEDS: FERROUS SULFATE 325 MG TABLET PO SCH ×3 (08:00→17:58)
[2018-06-17] MEDS: CLOPIDOGREL 75 MG TABLET PO SCH (08:00)
[2018-06-17] MEDS: TEMPLATE NON-FORMULARY MED. (Ranitidine Hcl** 150 MG) PO SCH ×2 (08:07→20:13)
[2018-06-17] MEDS: ONDANSETRON ODT 4 MG PO SCH (08:07)
[2018-06-17 13:06] VITALS: BP 116/75
[2018-06-17 15:41] LABS: OCCULT BLOOD POSITIVE (NEGATIVE)
[2018-06-17 18:44] VITALS: BP 107/70
[2018-06-18] MEDS: OXYcodone/APAP 5/325MG TABLET PO PRN ×5 (00:19→18:17)
[2018-06-18 00:22] VITALS: BP 106/65
[2018-06-18] MEDS: ASPIRIN 81 MG TABLET EC PO SCH (05:53)
[2018-06-18 07:00] VITALS: BP 107/75
[2018-06-18] MEDS: SUCRALFATE 1 GM/10 ML UDC PO SCH ×3 (07:31→15:36)
[2018-06-18] MEDS: ONDANSETRON ODT 4 MG PO SCH (09:00)
[2018-06-18] MEDS: BACLOFEN 10 MG TABLET PO SCH (09:00)
[2018-06-18] MEDS: FERROUS SULFATE 325 MG TABLET PO SCH ×3 (09:00→18:17)
[2018-06-18] MEDS: GABAPENTIN 300 MG CAPSULE PO SCH ×2 (09:00→15:36)
[2018-06-18] MEDS: TEMPLATE NON-FORMULARY MED. (Ranitidine Hcl** 150 MG) PO SCH (09:00)
[2018-06-18] MEDS: CLOPIDOGREL 75 MG TABLET PO SCH (09:00)
[2018-06-18] MEDS: PANTOPROZOLE 40MG TABLET PO SCH (09:00)
[2018-06-18 13:13] VITALS: BP 108/69
[2018-06-18] MEDS ORDERED: OXYC1TAB7 PO (15:13)
[2018-06-18] MEDS ORDERED: FERR-51 PO (15:13)
[2018-06-18] MEDS ORDERED: ASPI81TA45 PO (15:13)
[2018-06-18] MEDS ORDERED: CLOP75TA PO (15:13)
[2018-06-18 18:18] VITALS: BP 121/77
== END 2018-06-18 18:42 | disposition home or self-care (01) | DRG 709 ==
LOC: ED 08:00 → EDIP 09:10 → 4NOR 10:16
PROVIDERS: ADMIT Internal Medicine; ATTEND Internal Medicine
PROC: 0VQS3ZZ Repair Penis, Percutaneous Approach (ICD-10-PCS; principal; 2018-06-12 15:00)
DX: N48.30 Priapism, unspecified (principal); E44.0 Moderate protein-calorie malnutrition; K29.20 Alcoholic gastritis without bleeding; D64.9 Anemia, unspecified; F10.229 Alcohol dependence with intoxication, unspecified; F17.210 Nicotine dependence, cigarettes, uncomplicated; G40.909 Epilepsy, unspecified, not intractable, without status epilepticus; G89.29 Other chronic pain; I10 Essential (primary) hypertension; D47.3 Essential (hemorrhagic) thrombocythemia; Z59.0 Homelessness; Z79.02 Long term (current) use of antithrombotics/antiplatelets; Z79.82 Long term (current) use of aspirin; Z90.49 Acquired absence of other specified parts of digestive tract; Z68.23 Body mass index [BMI] 23.0-23.9, adult
CPT/HCPCS: 36415; 74021; 99285; J7042; 80048; 80053; 80307; 81003; 82272; 83690; 85025; 85610; 85730; G0378; J0690; J1100; J1170; J1885; J2250; J2405; J2704; J3010; J3411; J3480; J3490; Q0162; J2060

== ENCOUNTER 2018-07-05 18:54 | Emergency (ER) | payer MEDICAID ==
[~2018-07-05] VITALS: Ht 170.2 cm; Wt 68.0 kg
[~2018-07-05 18:54] MED LIST changes: +ASPI81TA45 PO; +BACL-19 PO; +CLOP75TA PO; +FERR-51 PO; +FERR324T5 PO; +GABAPENTIN PO; +ONDA4TAB13 SL; +OXYC1TAB7 PO; +PANT40TA5 PO; +RANI150C PO; +TRAZ-137 PO
--- NOTE | 2018-07-05 19:07 | NUR ---
Pt BIB EMS for "shaking". Pt states has had sz in the past. No sz meds in med list. Pt states he drank 1 pint of vodka this morning. Pt also states intermittent SOB and is gasping for breath, speaking in full sentances, 98% RA. Pt also c/o periumbilical pain.
[2018-07-05] MEDS ORDERED: ONDANSETRON 2MG/ML, 2ML IVPush ONE (20:00)
[2018-07-05] MEDS ORDERED: SODIUM CHLORIDE FLUSH 10ML SYR IVF ONE (20:00)
[2018-07-05] MEDS ORDERED: FAMOTIDINE 20 MG/2 ML IVP ONE (20:00)
[2018-07-05] MEDS ORDERED: MAALOX/HYOSCYAMINE/LIDOCAINE 45 ML BTL PO ONE (20:00)
[2018-07-05] MEDS ORDERED: MAALOX/HYOSCYAMINE/LIDOCAINE 45 ML BTL ONE (20:22)
[2018-07-05] MEDS ORDERED: ONDANSETRON 2MG/ML, 2ML ONE (20:22)
[2018-07-05] MEDS ORDERED: FAMOTIDINE 20 MG/2 ML ONE (20:22)
[2018-07-05 20:33] LABS: ALANINE AMINOTRANSFERASE 26 U/L (12-78); ALBUMIN 3.1 g/dL (3.4-5.0); ANION GAP 7 mmol/L (5-15); CHLORIDE 115 mmol/L (98-107); CREATININE 0.76 mg/dL (0.7-1.3)
[2018-07-05 20:35] LABS: ALKALINE PHOSPHATASE 64 U/L (45-117); BASOPHILS # (AUTO) 0.03 x10^3/uL (0-0.1); BASOPHILS % (AUTO) 1 % (0-1); BILIRUBIN,TOTAL 0.3 mg/dL (0.2-1.0); EOSINOPHILS % (AUTO) 2 % (1-7); LYMPHOCYTES # (AUTO) 2.42 x10^3/uL (1-3.4); LYMPHOCYTES % (AUTO) 50 % (22-44); MD NO; MEAN CORPUSCULAR HEMOGLOBIN 30.2 pg (27.5-34.5); MEAN CORPUSCULAR HGB CONC 33.8 g/dL (33.2-36.2); MEAN CORPUSCULAR VOLUME 89.4 fL (81-97); MEAN PLATELET VOLUME 7.5 fL (7.4-10.4); MONOCYTES # (AUTO) 0.32 x10^3/uL (0.2-0.8); MONOCYTES % (AUTO) 7 % (2-9); NEUTROPHILS % (AUTO) 41 % (42-75); PLATELET COUNT 345 x10^3/uL (130-400); RED CELL DISTRIBUTION WIDTH 19.4 % (9.4-14.8); TOTAL PROTEIN 7.5 g/dL (6.4-8.2)
[2018-07-05 20:59] VITALS: BP 105/62
--- NOTE | 2018-07-05 21:02 | NUR ---
REPORT FROM JYOTI RIVERA TO ASSUME PT. CARE.
== END 2018-07-05 21:06 | disposition home or self-care (01) ==
LOC: ED 21:05
DX: K29.20 Alcoholic gastritis without bleeding (principal); R10.13 Epigastric pain; I10 Essential (primary) hypertension; F10.129 Alcohol abuse with intoxication, unspecified
CPT/HCPCS: 36415; 80053; 83690; 85025; 93005; 96374; 96375; 99284; J2405; J3490

== ENCOUNTER 2018-08-04 19:25 | Emergency (ER) | payer MEDICAID ==
[~2018-08-04] VITALS: Ht 172.7 cm; Wt 72.0 kg
[2018-08-04 19:33] VITALS: BP 111/70
== END 2018-08-04 21:09 | disposition home or self-care (01) ==
LOC: ED 20:36
DX: F10.120 Alcohol abuse with intoxication, uncomplicated (principal); Z72.9 Problem related to lifestyle, unspecified
CPT/HCPCS: 99283

== ENCOUNTER 2018-08-06 14:31 | Inpatient (IN) | payer MEDICAID ==
[~2018-08-06] VITALS: Ht 167.6 cm; Wt 67.0 kg
[2018-08-06 14:57] LABS: BASOPHILS % (AUTO) 0 % (0-1); EOSINOPHILS % (AUTO) 0 % (1-7); LYMPHOCYTES # (AUTO) 1.32 x10^3/uL (1-3.4); LYMPHOCYTES % (AUTO) 11 % (22-44); MD NO; MEAN CORPUSCULAR HEMOGLOBIN 30.4 pg (27.5-34.5); MEAN CORPUSCULAR HGB CONC 34.3 g/dL (33.2-36.2); MEAN CORPUSCULAR VOLUME 88.5 fL (81-97); MEAN PLATELET VOLUME 7.8 fL (7.4-10.4); MONOCYTES # (AUTO) 0.34 x10^3/uL (0.2-0.8); MONOCYTES % (AUTO) 3 % (2-9); NEUTROPHILS # (AUTO) 10.08 x10^3/uL (1.8-6.8); NEUTROPHILS % (AUTO) 86 % (42-75); PLATELET COUNT 266 x10^3/uL (130-400); RED BLOOD COUNT 4.29 x10^6/uL (4.38-5.82)
--- NOTE | 2018-08-06 15:08 | NUR ---
ASSUMED CARE OF PT WHILE PRIMARY RN AT LUNCH. IV STARTED. PT ON BP, CARDIAC AND CONT. PULSE OXIMETER.
[2018-08-06 15:10] LABS: ALANINE AMINOTRANSFERASE 51 U/L (12-78); ALBUMIN 3.9 g/dL (3.4-5.0); ANION GAP 14 mmol/L (5-15); CALCIUM 8.7 mg/dL (8.5-10.1); CHLORIDE 103 mmol/L (98-107); CREATININE 0.79 mg/dL (0.7-1.3)
[2018-08-06 15:12] LABS: ALKALINE PHOSPHATASE 63 U/L (45-117); BILIRUBIN,TOTAL 0.4 mg/dL (0.2-1.0); TOTAL PROTEIN 8.2 g/dL (6.4-8.2)
--- NOTE | 2018-08-06 15:35 | NUR ---
US AT BEDSIDE.
--- NOTE | 2018-08-06 16:00 | NUR ---
ULTRASOUND COMPLETED. PT RESTING WITH EYES CLOSED. PT STATES "I FEEL LIKE ANOTHER SEIZURE COMING ON" SEIZURE PADS IN PLACE AND PT ON MONITOR
[2018-08-06] MEDS ORDERED: ONDANSETRON ODT 4 MG PO ONE (17:00)
[2018-08-06] MEDS ORDERED: ONDANSETRON 2MG/ML, 2ML ONE (17:26)
[2018-08-06] MEDS ORDERED: ONDANSETRON 2MG/ML, 2ML IVPush ONE (17:30)
[2018-08-06] MEDS ORDERED: LORazepam 2 MG/ML, 1ML IVPush PRN (17:30)
[2018-08-06] MEDS ORDERED: SODIUM CHLORIDE 0.9% 1,000ML IVBOLUS ONE (17:30)
[2018-08-06] MEDS ORDERED: SODIUM CHLORIDE FLUSH 10ML SYR IVF ONE (17:30)
--- NOTE | 2018-08-06 17:35 | NUR ---
PROVIDER AWARE ABDOMINAL PAIN. TO BE GIVEN NAUSEA MED FOR NOW WITH NO PAIN MEDS BECAUSE INTOXICATED AND NOT WANTING TO GIVE TORADOL OR OTHER ALTERNATIVE AT THIS TIME, PER PA.
[2018-08-06] MEDS ORDERED: BUPR1FIL7 SL (17:38)
--- NOTE | 2018-08-06 17:38 | NUR ---
IV FLUIDS INFUSING AND MEDICATED FOR NAUSEA. PENIS NOTED TO HAVE DISOLVABLE SUTURE RIGHT SIDE WITH NOTED SITE ON LEFT SIDE WHERE SUTURE CAME OUT. NO SWELLING, ERYTHEMA NOTED.
--- NOTE | 2018-08-06 18:06 | NUR ---
REPORT TO AMY. GARSIA TO BE TRANSPORTED TO FLOOR
--- NOTE | 2018-08-06 19:22 | NUR ---
HOSPITALIST AT BEDSIDE EXAMINING PT
[2018-08-06] MEDS ORDERED: DIPHENHYDRAMINE 25 MG CAPSULE PO PRN (19:30)
[2018-08-06] MEDS ORDERED: MAALOX/HYOSCYAMINE/LIDOCAINE 45 ML BTL PO ONE (19:30)
[2018-08-06] MEDS ORDERED: BISACODYL 10 MG SUPP PR PRN (19:30)
[2018-08-06] MEDS ORDERED: LIDODERM 5% PATCH TD PRN (19:30)
[2018-08-06] MEDS ORDERED: SIMETHICONE 125 MG CHEW TAB PO PRN (19:30)
[2018-08-06 19:59] VITALS: BP 119/79
[2018-08-06] MEDS: FAMOTIDINE 20 MG TABLET PO SCH (21:45)
[2018-08-06] MEDS: BACLOFEN 10 MG TABLET PO SCH (21:50)
[2018-08-06] MEDS: GABAPENTIN 300 MG CAPSULE PO SCH (21:50)
[2018-08-06] MEDS: ONDANSETRON 2MG/ML, 2ML IVPush PRN (21:50)
[2018-08-06] MEDS: THIAMINE 200 MG, MVI ADULT 10 ML, FOLIC ACID 1 MG in D5%-0.9% NACL 1,000 ML IV SCH (21:50)
[2018-08-06] MEDS: PANTOPRAZOLE 40 MG IV IVPush SCH (21:50)
[2018-08-06] MEDS ORDERED: LORazepam 2 MG/ML, 1ML IV PRN ×3 (22:30)
[2018-08-07 00:14] VITALS: BP 122/82
[2018-08-07] MEDS: LORazepam 2 MG/ML, 1ML IV PRN ×4 (05:08→20:53)
[2018-08-07] MEDS: ASPIRIN 81 MG TABLET EC PO SCH (05:08)
[2018-08-07 05:28] LABS: BASOPHILS # (AUTO) 0.01 x10^3/uL (0-0.1); BASOPHILS % (AUTO) 0 % (0-1); EOSINOPHILS % (AUTO) 0 % (1-7); LYMPHOCYTES # (AUTO) 1.39 x10^3/uL (1-3.4); LYMPHOCYTES % (AUTO) 16 % (22-44); MD NO; MEAN CORPUSCULAR HEMOGLOBIN 30.5 pg (27.5-34.5); MEAN CORPUSCULAR HGB CONC 34.4 g/dL (33.2-36.2); MEAN CORPUSCULAR VOLUME 88.7 fL (81-97); MEAN PLATELET VOLUME 7.8 fL (7.4-10.4); MONOCYTES # (AUTO) 0.57 x10^3/uL (0.2-0.8); MONOCYTES % (AUTO) 6 % (2-9); NEUTROPHILS # (AUTO) 6.93 x10^3/uL (1.8-6.8); NEUTROPHILS % (AUTO) 78 % (42-75); PLATELET COUNT 148 x10^3/uL (130-400); RED BLOOD COUNT 3.59 x10^6/uL (4.38-5.82); RED CELL DISTRIBUTION WIDTH 17.2 % (9.4-14.8)
[2018-08-07 05:35] LABS: ANION GAP 7 mmol/L (5-15); CALCIUM 8.2 mg/dL (8.5-10.1); CHLORIDE 109 mmol/L (98-107)
[2018-08-07 05:37] LABS: CREATININE 0.69 mg/dL (0.7-1.3)
[2018-08-07 07:20] VITALS: BP 138/81
[2018-08-07] MEDS: PANTOPRAZOLE 40 MG IV IVPush SCH ×2 (08:39→20:38)
[2018-08-07] MEDS: FAMOTIDINE 20 MG TABLET PO SCH ×2 (08:41→20:38)
[2018-08-07] MEDS: FOLIC ACID 1 MG TABLET PO SCH (08:41)
[2018-08-07] MEDS: FERROUS SULFATE 325 MG TABLET PO SCH ×2 (08:41→16:44)
[2018-08-07] MEDS: GABAPENTIN 300 MG CAPSULE PO SCH ×3 (08:41→20:38)
[2018-08-07] MEDS: BACLOFEN 10 MG TABLET PO SCH ×2 (08:41→20:38)
[2018-08-07] MEDS: THIAMINE 100MG TABLET PO SCH (08:41)
[2018-08-07] MEDS: CLOPIDOGREL 75 MG TABLET PO SCH (08:41)
[2018-08-07] MEDS: MULTIVITAMINS/MINERALS TABLET PO SCH (08:41)
[2018-08-07 12:15] VITALS: BP 142/89
[2018-08-07 20:24] VITALS: BP 134/87
[2018-08-07] MEDS: THIAMINE 200 MG, MVI ADULT 10 ML, FOLIC ACID 1 MG in D5%-0.9% NACL 1,000 ML IV SCH (20:38)
[2018-08-07 22:19] LABS: TROPONIN I < 0.015 ng/mL (0.000-0.045)
[2018-08-08 00:56] VITALS: BP 132/84
[2018-08-08] MEDS: ASPIRIN 81 MG TABLET EC PO SCH (04:22)
[2018-08-08 04:31] LABS: BASOPHILS # (AUTO) 0.02 x10^3/uL (0-0.1); BASOPHILS % (AUTO) 0 % (0-1); EOSINOPHILS # (AUTO) 0.07 x10^3/uL (0-0.4); EOSINOPHILS % (AUTO) 1 % (1-7); LYMPHOCYTES # (AUTO) 1.59 x10^3/uL (1-3.4); LYMPHOCYTES % (AUTO) 27 % (22-44); MD NO; MEAN CORPUSCULAR HEMOGLOBIN 30.4 pg (27.5-34.5); MEAN CORPUSCULAR HGB CONC 34.4 g/dL (33.2-36.2); MEAN CORPUSCULAR VOLUME 88.5 fL (81-97); MEAN PLATELET VOLUME 7.6 fL (7.4-10.4); MONOCYTES # (AUTO) 0.31 x10^3/uL (0.2-0.8); MONOCYTES % (AUTO) 5 % (2-9); NEUTROPHILS % (AUTO) 66 % (42-75); PLATELET COUNT 116 x10^3/uL (130-400); RED BLOOD COUNT 3.67 x10^6/uL (4.38-5.82); RED CELL DISTRIBUTION WIDTH 17.3 % (9.4-14.8)
[2018-08-08 04:41] LABS: ANION GAP 6 mmol/L (5-15); CHLORIDE 107 mmol/L (98-107); CREATININE 0.73 mg/dL (0.7-1.3)
[2018-08-08 04:45] LABS: TROPONIN I < 0.015 ng/mL (0.000-0.045)
[2018-08-08 06:47] VITALS: BP 148/101
[2018-08-08] MEDS: PANTOPRAZOLE 40 MG IV IVPush SCH (07:34)
[2018-08-08] MEDS: MULTIVITAMINS/MINERALS TABLET PO SCH (07:34)
[2018-08-08] MEDS: FOLIC ACID 1 MG TABLET PO SCH (07:34)
[2018-08-08] MEDS: GABAPENTIN 300 MG CAPSULE PO SCH ×3 (07:34→20:05)
[2018-08-08] MEDS: FAMOTIDINE 20 MG TABLET PO SCH (07:34)
[2018-08-08] MEDS: FERROUS SULFATE 325 MG TABLET PO SCH ×2 (07:34→17:30)
[2018-08-08] MEDS: THIAMINE 100MG TABLET PO SCH (07:34)
[2018-08-08] MEDS: CLOPIDOGREL 75 MG TABLET PO SCH (07:34)
[2018-08-08] MEDS: BACLOFEN 10 MG TABLET PO SCH ×2 (07:34→20:05)
[2018-08-08] MEDS: LORazepam 2 MG/ML, 1ML IV PRN ×3 (07:35→20:15)
[2018-08-08 12:56] VITALS: BP 169/91
[2018-08-08] MEDS ORDERED: PEPCID + PROTONIX MC SCH (14:00)
[2018-08-08] MEDS: SUCRALFATE 1 GM/10 ML UDC PO SCH ×2 (15:18→20:04)
[2018-08-08] MEDS: ONDANSETRON 2MG/ML, 2ML IVPush PRN (15:19)
[2018-08-08 15:44] LABS: MICROSCOPIC AUTO
[2018-08-08 15:58] LABS: CULTURE INDICATED? NO
[2018-08-08] MEDS: PANTOPROZOLE 40MG TABLET PO SCH (17:30)
[2018-08-08 20:48] VITALS: BP 131/93
[2018-08-09 00:50] VITALS: BP 137/93
[2018-08-09] MEDS: SUCRALFATE 1 GM/10 ML UDC PO SCH ×2 (05:51→11:18)
[2018-08-09] MEDS: PANTOPROZOLE 40MG TABLET PO SCH (05:51)
[2018-08-09] MEDS: ASPIRIN 81 MG TABLET EC PO SCH (05:51)
[2018-08-09 05:55] LABS: ALANINE AMINOTRANSFERASE 43 U/L (12-78); ALBUMIN 3.1 g/dL (3.4-5.0); ANION GAP 8 mmol/L (5-15); CALCIUM 8.5 mg/dL (8.5-10.1); CHLORIDE 108 mmol/L (98-107)
[2018-08-09 05:57] LABS: ALKALINE PHOSPHATASE 61 U/L (45-117); BILIRUBIN,TOTAL 0.5 mg/dL (0.2-1.0); TOTAL PROTEIN 6.5 g/dL (6.4-8.2)
[2018-08-09 08:00] VITALS: BP 114/75
[2018-08-09] MEDS: FOLIC ACID 1 MG TABLET PO SCH (09:13)
[2018-08-09] MEDS: BACLOFEN 10 MG TABLET PO SCH (09:13)
[2018-08-09] MEDS: MULTIVITAMINS/MINERALS TABLET PO SCH (09:13)
[2018-08-09] MEDS: CLOPIDOGREL 75 MG TABLET PO SCH (09:13)
[2018-08-09] MEDS: FERROUS SULFATE 325 MG TABLET PO SCH (09:14)
[2018-08-09] MEDS: GABAPENTIN 300 MG CAPSULE PO SCH (09:14)
[2018-08-09] MEDS: THIAMINE 100MG TABLET PO SCH (09:15)
[2018-08-09] MEDS ORDERED: FOLI-17 PO (11:54)
[2018-08-09] MEDS ORDERED: SUCR1ORA5 PO (11:54)
[2018-08-09] MEDS ORDERED: MULT-658 PO (11:54)
[2018-08-09] MEDS ORDERED: PANT40TA5 PO (11:54)
[2018-08-09] MEDS ORDERED: THIA100T67 PO (11:54)
== END 2018-08-09 13:20 | disposition home or self-care (01) | DRG 101 ==
LOC: ED 16:17 → EDIP 17:17 → 4WST 19:27 → DCLOUNGE 08-09 13:05
PROVIDERS: ADMIT Hospitalist; ATTEND Hospitalist
DX: G40.909 Epilepsy, unspecified, not intractable, without status epilepticus (principal); E44.0 Moderate protein-calorie malnutrition; F10.239 Alcohol dependence with withdrawal, unspecified; K20.8 Other esophagitis; K29.20 Alcoholic gastritis without bleeding; D64.9 Anemia, unspecified; I10 Essential (primary) hypertension; F17.210 Nicotine dependence, cigarettes, uncomplicated; Y90.0 Blood alcohol level of less than 20 mg/100 ml; R00.0 Tachycardia, unspecified; G89.29 Other chronic pain; F10.220 Alcohol dependence with intoxication, uncomplicated; Z59.0 Homelessness; Z79.02 Long term (current) use of antithrombotics/antiplatelets; Z79.82 Long term (current) use of aspirin; Z90.49 Acquired absence of other specified parts of digestive tract; Z88.0 Allergy status to penicillin; Z68.23 Body mass index [BMI] 23.0-23.9, adult
CPT/HCPCS: 36415; 99285; J7042; 76700; 80048; 80053; 80307; 81001; 83690; 83735; 84100; 84484; 85025; 93005; 96374; 96375; G0378; J2405; J3411; C9113; J2060; J7030

== ENCOUNTER 2018-08-16 19:12 | Emergency (ER) | payer MEDICAID ==
[~2018-08-16] VITALS: Ht 170.2 cm; Wt 63.3 kg
[~2018-08-16 19:12] MED LIST changes: +BUPR1FIL7 SL; +MULT-658 PO
--- NOTE | 2018-08-16 19:29 | NUR ---
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 FSBS-136, R/A-97%, HR-102, B/P-98/65. MONITORS APPLIED, SIDERAILS UP X2, CALL LIGHT WITHIN REACH
[2018-08-16] MEDS ORDERED: MAG OXIDE (19:46)
[2018-08-16] MEDS ORDERED: [UNRECOGNIZED DRUG - OTHER] (19:46)
[2018-08-16] MEDS ORDERED: METHADONE (19:46)
[2018-08-16] MEDS ORDERED: ONDANSETRON ODT 4 MG ONE (19:48)
[2018-08-16] MEDS ORDERED: SODIUM CHLORIDE FLUSH 10ML SYR IVF ONE (20:00)
[2018-08-16] MEDS ORDERED: ONDANSETRON ODT 4 MG PO ONE (20:00)
[2018-08-16 20:21] LABS: MEAN CORPUSCULAR HEMOGLOBIN 29.6 pg (27.5-34.5); MEAN CORPUSCULAR HGB CONC 33.1 g/dL (33.2-36.2); MEAN CORPUSCULAR VOLUME 89.3 fL (81-97); MEAN PLATELET VOLUME 7.1 fL (7.4-10.4); PLATELET COUNT 216 x10^3/uL (130-400); RED BLOOD COUNT 3.66 x10^6/uL (4.38-5.82); RED CELL DISTRIBUTION WIDTH 17.2 % (9.4-14.8)
--- NOTE | 2018-08-16 20:26 | NUR ---
PT RESTING CALMLY, PROVIDED PT WITH WARM BLANKETS, MONITORS IN PLACE, CALL LIGHT WITHIN REACH. AWAITING LAB RESULTS
[2018-08-16 20:32] LABS: ALANINE AMINOTRANSFERASE 32 U/L (12-78); ALBUMIN 3.1 g/dL (3.4-5.0); ANION GAP 10 mmol/L (5-15); CALCIUM 8.5 mg/dL (8.5-10.1); CHLORIDE 111 mmol/L (98-107); CREATININE 0.75 mg/dL (0.7-1.3)
[2018-08-16 20:35] LABS: ALKALINE PHOSPHATASE 62 U/L (45-117); BILIRUBIN,TOTAL 0.1 mg/dL (0.2-1.0); TOTAL PROTEIN 7.2 g/dL (6.4-8.2)
[2018-08-16 20:38] LABS: BASOPHILS # (AUTO) 0.03 x10^3/uL (0-0.1); BASOPHILS % (AUTO) 1 % (0-1); EOSINOPHILS # (AUTO) 0.23 x10^3/uL (0-0.4); EOSINOPHILS % (AUTO) 4 % (1-7); LYMPHOCYTES # (AUTO) 3.13 x10^3/uL (1-3.4); LYMPHOCYTES % (AUTO) 60 % (22-44); MD SCAN; MONOCYTES # (AUTO) 0.26 x10^3/uL (0.2-0.8); MONOCYTES % (AUTO) 5 % (2-9); NEUTROPHILS % (AUTO) 31 % (42-75)
[2018-08-16 20:40] VITALS: BP 93/60
--- NOTE | 2018-08-16 20:40 | NUR ---
PT RESTING WITH EYES CLOSED, NADN, EQUAL CHEST RISE/FALL OBSERVED, CALL LIGHT WITHIN REACH, MONITORS IN PLACE.
--- NOTE | 2018-08-16 21:18 | NUR ---
PT A&OX4, AMBULATED WITHOUT DIFFICULTY, PT DRESSING SELF, PROVIDED PT WITH SNACK, DENIES FURTHER NEEDS.
== END 2018-08-16 21:37 | disposition home or self-care (01) ==
LOC: ED 21:22
DX: G89.29 Other chronic pain (principal); R10.84 Generalized abdominal pain; F10.129 Alcohol abuse with intoxication, unspecified; I10 Essential (primary) hypertension; G40.909 Epilepsy, unspecified, not intractable, without status epilepticus
CPT/HCPCS: 36415; 80053; 83690; 85025; 93005; 99284; Q0162

== ENCOUNTER 2018-08-17 01:40 | Emergency (ER) | payer MEDICAID ==
[~2018-08-17] VITALS: Ht 167.6 cm; Wt 70.0 kg
[~2018-08-17 01:40] MED LIST changes: +MAG OXIDE; +METHADONE; +[UNRECOGNIZED DRUG - OTHER]
--- NOTE | 2018-08-17 02:02 | NUR ---
PT BIB FOR ABD PAIN AND ETOH ABUSE. VSS. PT SEE HERE FOR SAME EARLIER. PIV PLACED. PT RESTING WITH NO NEEDS AT THIS TIME. PA ASSESSED PT. WAITING FOR ORDERS. CALL LIGHT IN REACH
--- NOTE | 2018-08-17 02:52 | NUR ---
PT PLACED ON 2 L O2 BECAUSE PT DE SATS WHILE SLEEPING. PT REQUESTING PAIN MEDS.. PT INFORMED THAT HE WILL NOT GET ANY PAIN MEDICATION AT THIS TIME DUE TO ETOH INTOXICATION. PT SLEEPING WITH NO NEEDS AT THIS TIME
--- NOTE | 2018-08-17 04:03 | NUR ---
PT SLEEPING. PT AROUSES TO VOICE. PT HAS NO NEEDS AT THIS TIME. CALL LIGHT IN REACH
[2018-08-17 04:23] VITALS: BP 121/87
--- NOTE | 2018-08-17 05:22 | NUR ---
PT AMBULATED TO BATHROOM WITHOUT ASSISTANCE. PT GOT DRESSED AND VERBALIZED UNDERSTANDING OF DISCHARGE INSTRUCTIONS. PT GIVEN CAB VOUCHER TO CUSTODIAL
== END 2018-08-17 05:24 | disposition home or self-care (01) ==
LOC: ED 01:46
DX: F10.220 Alcohol dependence with intoxication, uncomplicated (principal); I10 Essential (primary) hypertension; G40.909 Epilepsy, unspecified, not intractable, without status epilepticus
CPT/HCPCS: 99283

== ENCOUNTER 2018-08-19 17:08 | Emergency (ER) | payer MEDICAID ==
[~2018-08-19] VITALS: Ht 175.3 cm; Wt 60.0 kg
--- NOTE | 2018-08-19 17:10 | NUR ---
BIB [facility] for EtOH and unable to ambulate. A&o to person and time, not to place. Placed on NIBP and pulse ox. Will continue to monitor.
--- NOTE | 2018-08-19 18:26 | NUR ---
Attempted to ambulate patient. Not safe to DC at this time.
--- NOTE | 2018-08-19 19:21 | NUR ---
PT RESTING IN BED WITH EYES CLOSED. WILL CONTINUE TO MONITOR.
[2018-08-19 19:22] VITALS: BP 114/80
== END 2018-08-19 19:59 | disposition left against medical advice (07) ==
LOC: ED 17:30
DX: F10.120 Alcohol abuse with intoxication, uncomplicated (principal); I10 Essential (primary) hypertension; G40.909 Epilepsy, unspecified, not intractable, without status epilepticus; Z87.891 Personal history of nicotine dependence
CPT/HCPCS: 99283

== ENCOUNTER 2018-08-19 21:20 | Emergency (ER) | payer MEDICAID ==
--- NOTE | 2018-08-19 21:20 | NUR ---
TASK RN: SHEELA MUNGUIA, FOUND NON-AMBULATORY ON [address] PT W/ ETOH ODOR. NILDA REPORTS PICKING UP PT IN [facility] EAR[facility]ER TODAY. PT ARRIVES NON-VERBAL, DROOLING. UNABLE TO OBTAIN HX/ALLERGIES/MEDS. AIRWAY PATENT. PT MANAGING OWN SECRETIONS. NO OPEN WOUNDS NOTED; ABD NON-TENDER UPON PALPATION. NO EMESIS/INCONTINENCE/ORAL TRAUMA NOTED. BP/SPO2 MONITOR IN PLACE. ERP IN FOR INITIAL ASSESSMENT. REPORT TO PRIMARY RNSKYE
--- NOTE | 2018-08-19 22:21 | NUR ---
PT RESTING IN BED CALMLY. PT WAS VOMITING EARLIER, THIS HAS RESOLVED. BILAT BEDRAILS UP. VITALS MONIORS ON.
--- NOTE | 2018-08-19 23:14 | NUR ---
PT LAYING IN GURNEY. PT ATTEMPTING TO REMOVE HIS PANTS. PT ASKED NOT TO DO THIS. WILL CONTINUE TO MONITOR.
--- NOTE | 2018-08-20 00:04 | NUR ---
PT RESTING IN BED. PT MORE ALERT AT THIS TIME. STILL NOT ANSWERING ANY QUESTIONS.
[2018-08-20 00:07] VITALS: BP 129/93
--- NOTE | 2018-08-20 00:40 | NUR ---
TASK RN: PT AMBULATED STEADILY TO NURSES STATION AND BACK TO ROOM. RN ASKED PT TO DRESS POC IS DC. IV DC'D AT THIS TIME.
--- NOTE | 2018-08-20 01:19 | NUR ---
PT PROVIDED DC INSTRUCTIONS, REFUSING PAPERWORK. PT AMBULATORY TO WHEELCHAIR. TAKEN TO DC/LOBBY BY TECH. PT PROVIDED TAXI VOUCHER FOR SAFE TRANSPORT.
== END 2018-08-20 01:21 | disposition home or self-care (01) ==
LOC: ED 22:37
DX: F10.220 Alcohol dependence with intoxication, uncomplicated (principal); Z72.9 Problem related to lifestyle, unspecified; I10 Essential (primary) hypertension; G40.909 Epilepsy, unspecified, not intractable, without status epilepticus; Z87.891 Personal history of nicotine dependence
CPT/HCPCS: 99283

== ENCOUNTER 2018-08-26 20:25 | Emergency (ER) | payer MEDICAID ==
[~2018-08-26] VITALS: Ht 167.6 cm; Wt 72.7 kg
--- NOTE | 2018-08-26 20:33 | NUR ---
BIB [facility] FOR C/O BLOODY STOOL X 2 TODAY. SEEN HERE FOR SAME LAST NIGHT. TOLD TO COME BACK IF WORSE. PT. REPORTS 09/24 ABD PAIN, +NAUSEA, DENIES VOMITING. REFUSED PO ZOFRAN EN ROUTE PER MARALSA STATES "I'M TOO NAUSEOUS." MARALSA ALSO REPORTS PT. WAS REQUESTING MORPHINE FOR HIS PAIN. PT. PLACED INTO GOWN. CONTINUOUS PULSE OX AND B/P MONITORS PLACED. CALL LIGHT IN REACH. WARM BLANKET PROVIDED. AWAITIGN PROVIDER GAUTAM.
[2018-08-26] MEDS ORDERED: PANTOPRAZOLE 40 MG IV IVPush ONE (21:00)
[2018-08-26] MEDS ORDERED: ONDANSETRON 2MG/ML, 2ML IVPush ONE (21:00)
[2018-08-26] MEDS ORDERED: SODIUM CHLORIDE FLUSH 10ML SYR IVF ONE (21:00)
[2018-08-26] MEDS ORDERED: ONDANSETRON 2MG/ML, 2ML ONE (21:05)
[2018-08-26] MEDS ORDERED: PANTOPRAZOLE 40 MG IV ONE (21:05)
--- NOTE | 2018-08-26 21:14 | NUR ---
PT. MEDICATED PER JUN. PT. REQUESTING MORPHINE FOR PAIN. PT. EDUCATED ON PROTONIX AND STATES "I HAVE HAD THAT BEFORE IT DOESN'T HELP ME, I NEED THE MORPHINE." WILL DISCUSS WITH ERP.
[2018-08-26 21:25] LABS: BASOPHILS # (AUTO) 0.01 x10^3/uL (0-0.1); BASOPHILS % (AUTO) 0 % (0-1); EOSINOPHILS # (AUTO) 0.06 x10^3/uL (0-0.4); EOSINOPHILS % (AUTO) 1 % (1-7); LYMPHOCYTES # (AUTO) 1.55 x10^3/uL (1-3.4); LYMPHOCYTES % (AUTO) 34 % (22-44); MD NO; MEAN CORPUSCULAR HEMOGLOBIN 30.5 pg (27.5-34.5); MEAN CORPUSCULAR HGB CONC 33.8 g/dL (33.2-36.2); MEAN CORPUSCULAR VOLUME 90.3 fL (81-97); MEAN PLATELET VOLUME 7.4 fL (7.4-10.4); MONOCYTES # (AUTO) 0.24 x10^3/uL (0.2-0.8); MONOCYTES % (AUTO) 5 % (2-9); NEUTROPHILS # (AUTO) 2.64 x10^3/uL (1.8-6.8); NEUTROPHILS % (AUTO) 59 % (42-75); PLATELET COUNT 249 x10^3/uL (130-400); RED BLOOD COUNT 3.94 x10^6/uL (4.38-5.82); RED CELL DISTRIBUTION WIDTH 18.2 % (9.4-14.8)
[2018-08-26] MEDS ORDERED: MAALOX/HYOSCYAMINE/LIDOCAINE 45 ML BTL PO ONE (21:30)
[2018-08-26 21:34] LABS: INTERNATIONAL NORMALIZED RATIO 0.98 (0.93-1.1); PROTHROMBIN TIME 10.3 Seconds (9.6-11.5)
--- NOTE | 2018-08-26 21:34 | NUR ---
DR. RAMIREZ WAS IN TO FURTHER DISCUSS POC WITH PT. PT. AGAIN REQUESTING PAIN MEDS.
[2018-08-26] MEDS ORDERED: MAALOX/HYOSCYAMINE/LIDOCAINE 45 ML BTL ONE (21:36)
[2018-08-26 21:38] LABS: ALBUMIN 3.7 g/dL (3.4-5.0); ANION GAP 9 mmol/L (5-15); CALCIUM 8.8 mg/dL (8.5-10.1); CHLORIDE 109 mmol/L (98-107); CREATININE 0.78 mg/dL (0.7-1.3)
--- NOTE | 2018-08-26 21:38 | NUR ---
PT. MEDICATED AGAIN PER JUN. STATES "I HAVE HAD THE GI COCKTAILS BEFORE AND THEY DON'T HELP WIHT MY PAIN EITHER, I NEED MORPHINE." PT. REQUESTING TO SPEAK WITH DR. RAMIREZ AGAIN.
--- NOTE | 2018-08-26 21:40 | NUR ---
DR. RAMIREZ AWARE OF PT. REQUEST FOR MORE PAIN MEDS AND WANTING TO SPEAK WITH HER. NO NEW ORDERS. PT. UPDATED ON THIS.
[2018-08-26] MEDS ORDERED: OMEP-110 PO (21:42)
[2018-08-26] MEDS ORDERED: HYDROcodone/APAP 5/325 TABLET ONE (22:17)
[2018-08-26 22:19] VITALS: BP 119/88
--- NOTE | 2018-08-26 22:26 | NUR ---
PT. PROVIDED WITH PHONE NUMBER FOR [facility]TM FOR SAFE D/C HOME.
[2018-08-26] MEDS ORDERED: HYDROcodone/APAP 5/325 TABLET PO ONE (22:30)
== END 2018-08-26 22:28 | disposition home or self-care (01) ==
LOC: ED 21:59
DX: R10.13 Epigastric pain (principal); Z87.19 Personal history of other diseases of the digestive system; G40.909 Epilepsy, unspecified, not intractable, without status epilepticus; I10 Essential (primary) hypertension; Z72.9 Problem related to lifestyle, unspecified; Z90.49 Acquired absence of other specified parts of digestive tract
CPT/HCPCS: 36415; 80048; 82040; 83605; 83690; 85025; 85610; 86850; 86900; 96374; 96375; 99283; C9113; J2405

== ENCOUNTER 2018-09-14 10:03 | Emergency (ER) | payer MEDICAID ==
[~2018-09-14] VITALS: Ht 167.6 cm; Wt 60.3 kg
[~2018-09-14 10:03] MED LIST changes: +OMEP-110 PO
[2018-09-14 10:06] VITALS: BP 105/70
--- NOTE | 2018-09-14 10:21 | NUR ---
pt bib [facility]. pt ambulated to room with a steady gait. provider at bedside. pt c/o jaw/ tooth pain after recent surgery. no evidence of infection or swelling to jaw or gums. vss at this time. pt admits to consuming 1 pint of vodka daily and has had 1/2 pint today. pt request hydrocodone for pain as the rx recieved from the oral surgeon of ibuprofen is gone and he has to wait one more week for a refill.
== END 2018-09-14 10:48 | disposition home or self-care (01) ==
LOC: ED 10:20
DX: R68.84 Jaw pain (principal); I10 Essential (primary) hypertension; G40.909 Epilepsy, unspecified, not intractable, without status epilepticus; Z90.89 Acquired absence of other organs
CPT/HCPCS: 99283

== ENCOUNTER 2018-09-17 16:28 | Inpatient (IN) | payer MEDICAID ==
[~2018-09-17] VITALS: Ht 170.2 cm; Wt 67.2 kg
[2018-09-17] MEDS ORDERED: ONDA4TAB7 PO (16:40)
[2018-09-17] MEDS ORDERED: RANI-448 PO (16:40)
--- NOTE | 2018-09-17 17:00 | NUR ---
pt sleeping calmly on gurney, NAD with equal chest rise/fall, no needs at this time, call light within reach.
[2018-09-17] MEDS ORDERED: PANTOPRAZOLE 40 MG IV ONE (17:45)
[2018-09-17] MEDS ORDERED: FAMOTIDINE 20 MG/2 ML ONE (17:45)
[2018-09-17] MEDS ORDERED: SODIUM CHLORIDE FLUSH 10ML SYR IVF ONE (18:00)
[2018-09-17] MEDS ORDERED: ACETAMINOPHEN 650 MG SUPP PR PRN (18:00)
[2018-09-17] MEDS ORDERED: FAMOTIDINE 20 MG/2 ML IVPush ONE (18:00)
[2018-09-17] MEDS ORDERED: PANTOPRAZOLE 40 MG IV IVPush ONE (18:00)
--- NOTE | 2018-09-17 18:03 | NUR ---
pt laying on gurney awake & calm, able to doze off frequently, responds approp to staff, NAD, comfort measures provided, call light within reach.
[2018-09-17 18:11] LABS: ALANINE AMINOTRANSFERASE 23 U/L (12-78); ALBUMIN 3.9 g/dL (3.4-5.0); ANION GAP 11 mmol/L (5-15); CALCIUM 8.2 mg/dL (8.5-10.1); CHLORIDE 110 mmol/L (98-107); CREATININE 0.78 mg/dL (0.7-1.3)
[2018-09-17 18:13] LABS: ALKALINE PHOSPHATASE 115 U/L (45-117); BILIRUBIN,TOTAL 0.4 mg/dL (0.2-1.0); TOTAL PROTEIN 8.2 g/dL (6.4-8.2)
[2018-09-17 18:20] LABS: BASOPHILS # (AUTO) 0.01 x10^3/uL (0-0.1); BASOPHILS % (AUTO) 0 % (0-1); EOSINOPHILS # (AUTO) 0.03 x10^3/uL (0-0.4); EOSINOPHILS % (AUTO) 1 % (1-7); LYMPHOCYTES # (AUTO) 2.05 x10^3/uL (1-3.4); LYMPHOCYTES % (AUTO) 47 % (22-44); MD SCAN; MEAN CORPUSCULAR HEMOGLOBIN 29.4 pg (27.5-34.5); MEAN CORPUSCULAR HGB CONC 32.7 g/dL (33.2-36.2); MEAN PLATELET VOLUME 7.4 fL (7.4-10.4); MONOCYTES # (AUTO) 0.16 x10^3/uL (0.2-0.8); MONOCYTES % (AUTO) 4 % (2-9); NEUTROPHILS # (AUTO) 2.14 x10^3/uL (1.8-6.8); NEUTROPHILS % (AUTO) 49 % (42-75); PLATELET COUNT 296 x10^3/uL (130-400); RED BLOOD COUNT 4.51 x10^6/uL (4.38-5.82); RED CELL DISTRIBUTION WIDTH 16.4 % (9.4-14.8)
--- NOTE | 2018-09-17 19:01 | NUR ---
pt continues laying on gurney awake & calm, watching TV, responds approp to staff, NAD, comfort measures provided, call light within reach.
--- NOTE | 2018-09-17 19:11 | NUR ---
report given to Veronika
--- NOTE | 2018-09-17 19:32 | NUR ---
Patient unsteady and not safe for DC at this time.
[2018-09-17] MEDS ORDERED: SODIUM CHLORIDE 0.9% 1,000ML IVBOLUS ONE (20:00)
[2018-09-17] MEDS ORDERED: SODIUM CHLORIDE 0.9% 1,000 ML IV SCH (20:08)
--- NOTE | 2018-09-17 20:15 | NUR ---
[facility] at bedside.
[2018-09-17] MEDS ORDERED: FOLIC ACID 5 MG/ML IM ONE (20:30)
[2018-09-17] MEDS ORDERED: LORazepam 2 MG/ML, 1ML IV PRN ×5 (20:30)
[2018-09-17] MEDS ORDERED: hydrALAzine 20 MG/ML, 1ML IVPush PRN (20:30)
[2018-09-17 21:30] VITALS: BP 108/74
[2018-09-17] MEDS: ONDANSETRON 2MG/ML, 2ML IVPush PRN (21:59)
[2018-09-17] MEDS: MORPHINE SULFATE 4 MG/ML, 1ML IVPush PRN (21:59)
[2018-09-17 22:53] LABS: AMPHETAMINE SCREEN, URINE Negative (Negative); BARBITURATE SCREEN, URINE Negative (Negative); BENZODIAZEPINE SCREEN, URINE Positive (Negative); CANNABINOID SCREEN, URINE Negative (Negative); COCAINE SCREEN, URINE Negative (Negative); METHADONE SCREEN, URINE Negative (Negative); OPIATE SCREEN, URINE Negative (Negative)
[2018-09-18 00:12] LABS: BASOPHILS # (AUTO) 0.03 x10^3/uL (0-0.1); BASOPHILS % (AUTO) 1 % (0-1); EOSINOPHILS # (AUTO) 0.06 x10^3/uL (0-0.4); EOSINOPHILS % (AUTO) 1 % (1-7); LYMPHOCYTES # (AUTO) 2.52 x10^3/uL (1-3.4); LYMPHOCYTES % (AUTO) 42 % (22-44); MD NO; MEAN CORPUSCULAR HEMOGLOBIN 29.1 pg (27.5-34.5); MEAN CORPUSCULAR HGB CONC 32.2 g/dL (33.2-36.2); MEAN CORPUSCULAR VOLUME 90.3 fL (81-97); MEAN PLATELET VOLUME 7.3 fL (7.4-10.4); MONOCYTES # (AUTO) 0.22 x10^3/uL (0.2-0.8); MONOCYTES % (AUTO) 4 % (2-9); NEUTROPHILS # (AUTO) 3.25 x10^3/uL (1.8-6.8); NEUTROPHILS % (AUTO) 53 % (42-75); PLATELET COUNT 261 x10^3/uL (130-400); RED BLOOD COUNT 3.99 x10^6/uL (4.38-5.82)
[2018-09-18 00:39] VITALS: BP 109/72
[2018-09-18] MEDS: MORPHINE SULFATE 4 MG/ML, 1ML IVPush PRN ×5 (02:46→20:09)
[2018-09-18] MEDS: SODIUM CHLORIDE 0.9% 1,000 ML IV SCH ×3 (03:02→20:09)
[2018-09-18 05:07] LABS: BASOPHILS # (AUTO) 0.04 x10^3/uL (0-0.1); BASOPHILS % (AUTO) 1 % (0-1); EOSINOPHILS # (AUTO) 0.11 x10^3/uL (0-0.4); EOSINOPHILS % (AUTO) 2 % (1-7); LYMPHOCYTES # (AUTO) 2.14 x10^3/uL (1-3.4); LYMPHOCYTES % (AUTO) 42 % (22-44); MD NO; MEAN CORPUSCULAR HEMOGLOBIN 29.3 pg (27.5-34.5); MEAN CORPUSCULAR HGB CONC 32.3 g/dL (33.2-36.2); MEAN CORPUSCULAR VOLUME 90.6 fL (81-97); MEAN PLATELET VOLUME 7.1 fL (7.4-10.4); MONOCYTES # (AUTO) 0.26 x10^3/uL (0.2-0.8); MONOCYTES % (AUTO) 5 % (2-9); NEUTROPHILS # (AUTO) 2.57 x10^3/uL (1.8-6.8); NEUTROPHILS % (AUTO) 50 % (42-75); PLATELET COUNT 230 x10^3/uL (130-400); RED BLOOD COUNT 3.94 x10^6/uL (4.38-5.82); RED CELL DISTRIBUTION WIDTH 16.9 % (9.4-14.8)
[2018-09-18 05:26] LABS: ANION GAP 10 mmol/L (5-15); CALCIUM 8.1 mg/dL (8.5-10.1); CHLORIDE 113 mmol/L (98-107); CREATININE 0.68 mg/dL (0.7-1.3)
[2018-09-18 06:22] VITALS: BP 119/79
[2018-09-18] MEDS: MULTIVITAMINS/MINERALS TABLET PO SCH (08:06)
[2018-09-18] MEDS: PANTOPRAZOLE 40 MG IV IVPush SCH ×2 (08:06→20:09)
[2018-09-18 12:33] VITALS: BP 139/79
[2018-09-18] MEDS: ONDANSETRON 2MG/ML, 2ML IVPush PRN (15:31)
[2018-09-18 18:52] VITALS: BP 146/91
[2018-09-18] MEDS ORDERED: SODIUM CHLORIDE 0.9% 1,000 ML IV SCH (20:08)
[2018-09-19 01:19] VITALS: BP 132/85
[2018-09-19] MEDS: MORPHINE SULFATE 4 MG/ML, 1ML IVPush PRN ×4 (02:41→21:09)
[2018-09-19] MEDS: ONDANSETRON 2MG/ML, 2ML IVPush PRN ×2 (02:50→22:04)
[2018-09-19] MEDS: SODIUM CHLORIDE 0.9% 1,000 ML IV SCH ×2 (05:00→17:43)
[2018-09-19 06:48] VITALS: BP 141/85
[2018-09-19] MEDS: PANTOPRAZOLE 40 MG IV IVPush SCH ×2 (08:22→21:08)
[2018-09-19] MEDS: MULTIVITAMINS/MINERALS TABLET PO SCH (09:00)
[2018-09-19 14:55] VITALS: BP 102/72
[2018-09-19 14:56] VITALS: BP 129/88
[2018-09-19] MEDS: THIAMINE 100 MG in DEXTROSE 5% 50 ML IVPB SCH (17:43)
[2018-09-19 19:31] VITALS: BP 131/90
[2018-09-20] MEDS: SODIUM CHLORIDE 0.9% 1,000 ML IV SCH (02:11)
[2018-09-20] MEDS: MORPHINE SULFATE 4 MG/ML, 1ML IVPush PRN ×6 (02:11→23:17)
[2018-09-20 02:41] VITALS: BP 132/84
[2018-09-20] MEDS: ONDANSETRON 2MG/ML, 2ML IVPush PRN ×2 (06:21→16:05)
[2018-09-20 07:19] VITALS: BP 117/98
[2018-09-20] MEDS: MULTIVITAMINS/MINERALS TABLET PO SCH (09:23)
[2018-09-20] MEDS: THIAMINE 100 MG in DEXTROSE 5% 50 ML IVPB SCH (09:24)
[2018-09-20] MEDS: PANTOPRAZOLE 40 MG IV IVPush SCH ×2 (09:24→20:20)
[2018-09-20] MEDS ORDERED: MAGNESIUM SULFATE PMX 2GM/50ML 50 ML IV ONE (10:00)
[2018-09-20 14:25] VITALS: BP 122/80
[2018-09-20 19:02] VITALS: BP 126/88
[2018-09-21 02:31] VITALS: BP 122/86
[2018-09-21] MEDS: MORPHINE SULFATE 4 MG/ML, 1ML IVPush PRN ×4 (03:12→15:56)
[2018-09-21 06:02] LABS: BASOPHILS # (AUTO) 0.01 x10^3/uL (0-0.1); BASOPHILS % (AUTO) 0 % (0-1); EOSINOPHILS # (AUTO) 0.18 x10^3/uL (0-0.4); EOSINOPHILS % (AUTO) 4 % (1-7); LYMPHOCYTES # (AUTO) 1.59 x10^3/uL (1-3.4); LYMPHOCYTES % (AUTO) 39 % (22-44); MD NO; MEAN CORPUSCULAR HEMOGLOBIN 30.2 pg (27.5-34.5); MEAN CORPUSCULAR HGB CONC 32.9 g/dL (33.2-36.2); MEAN CORPUSCULAR VOLUME 91.8 fL (81-97); MONOCYTES # (AUTO) 0.28 x10^3/uL (0.2-0.8); MONOCYTES % (AUTO) 7 % (2-9); NEUTROPHILS # (AUTO) 2.05 x10^3/uL (1.8-6.8); NEUTROPHILS % (AUTO) 50 % (42-75); PLATELET COUNT 102 x10^3/uL (130-400); RED BLOOD COUNT 3.47 x10^6/uL (4.38-5.82); RED CELL DISTRIBUTION WIDTH 16.1 % (9.4-14.8)
[2018-09-21 06:10] LABS: ANION GAP 7 mmol/L (5-15); CALCIUM 8.5 mg/dL (8.5-10.1); CHLORIDE 106 mmol/L (98-107)
[2018-09-21 08:00] VITALS: BP_SYST 125; BP_SYST 127; BP_SYST 128; BP_DIAS 83; BP_DIAS 86; BP_DIAS 92
[2018-09-21] MEDS ORDERED: MAGNESIUM SULFATE 4 GM in SODIUM CHLORIDE 0.9% 100 ML IV ONE (08:00)
[2018-09-21] MEDS ORDERED: POTASSIUM PHOSPHATE 44 MEQ in SODIUM CHLORIDE 0.9% 500 ML IV ONE (08:00)
[2018-09-21] MEDS ORDERED: THIAMINE 100MG TABLET PO ONE (08:00)
[2018-09-21] MEDS: MULTIVITAMINS/MINERALS TABLET PO SCH (08:05)
[2018-09-21] MEDS: ONDANSETRON 2MG/ML, 2ML IVPush PRN ×2 (08:12→15:05)
[2018-09-21] MEDS: PANTOPRAZOLE 40 MG IV IVPush SCH (08:43)
[2018-09-21] MEDS ORDERED: POLYETHYLENE GLYCOL 17 GM PACKET ONE (08:45)
[2018-09-21] MEDS: POTASSIUM CHLORIDE 20 MEQ TAB.ER.PRT PO SCH ×2 (08:52→10:59)
[2018-09-21] MEDS ORDERED: MULTIVITAMIN 1 TABLET PO SCH (09:00)
[2018-09-21] MEDS ORDERED: FOLIC ACID 1 MG TABLET PO SCH (09:00)
[2018-09-21] MEDS ORDERED: MAGNESIUM OXIDE 400 MG TABLET PO SCH (09:00)
[2018-09-21] MEDS ORDERED: POLYETHYLENE GLYCOL 17 GM PACKET PO PRN (09:00)
[2018-09-21 13:49] VITALS: BP 116/83
[2018-09-21] MEDS ORDERED: MAGN400T50 PO (17:50)
[2018-09-21] MEDS ORDERED: OMEP-110 PO (17:50)
[2018-09-21] MEDS ORDERED: ONDA4TAB13 SL (17:50)
[2018-09-21] MEDS ORDERED: MULT1TAB60 PO (17:50)
[2018-09-21] MEDS ORDERED: FOLI-17 PO (17:50)
== END 2018-09-21 18:50 | disposition home or self-care (01) | DRG 378 ==
LOC: ED 20:02 → EDIP 20:10 → 4EST 21:42
PROVIDERS: ADMIT Internal Medicine; ATTEND Internal Medicine
DX: K92.0 Hematemesis (principal); E87.2 Acidosis; I10 Essential (primary) hypertension; F10.220 Alcohol dependence with intoxication, uncomplicated; I95.1 Orthostatic hypotension; E87.6 Hypokalemia; T73.0XXA Starvation, initial encounter; R56.9 Unspecified convulsions; X58.XXXA Exposure to other specified factors, initial encounter; Y90.9 Presence of alcohol in blood, level not specified; K44.9 Diaphragmatic hernia without obstruction or gangrene; Z90.49 Acquired absence of other specified parts of digestive tract; Z91.14 Patient's other noncompliance with medication regimen; Z59.0 Homelessness; Z87.891 Personal history of nicotine dependence; Z79.82 Long term (current) use of aspirin; Z79.02 Long term (current) use of antithrombotics/antiplatelets; Z88.0 Allergy status to penicillin; Z88.8 Allergy status to other drugs, medicaments and biological substances; Z79.899 Other long term (current) drug therapy; Z91.19 Patient's noncompliance with other medical treatment and regimen
CPT/HCPCS: 36415; 96361; 99285; J3490; 80048; 80053; 80307; 83605; 83690; 83735; 84100; 84132; 85025; 96372; 96374; 96375; G0378; J2405; J3411; J3475; C9113; J2060; J2270; J7030; J7040

== ENCOUNTER 2018-09-22 21:10 | Emergency (ER) | payer MEDICAID ==
[~2018-09-22] VITALS: Ht 170.2 cm; Wt 65.0 kg
[~2018-09-22 21:10] MED LIST changes: +MAGN400T50 PO; +MULT1TAB60 PO; +ONDA4TAB7 PO; +RANI-448 PO
--- NOTE | 2018-09-22 21:27 | NUR ---
assessment made. ERP at bedside.
--- NOTE | 2018-09-22 21:34 | NUR ---
no orders made. patient sleeping, respiration unlabored. hooked to pulse ox.
--- NOTE | 2018-09-22 22:51 | NUR ---
no changes. patient sleeping. will continue to monitor.
--- NOTE | 2018-09-23 01:09 | NUR ---
patient sleeping, respiration unlabored.
[2018-09-23 02:13] VITALS: BP 97/68
--- NOTE | 2018-09-23 02:13 | NUR ---
patient awake and alert. ambulatory. discharged with instruction. verbalized understanding.
== END 2018-09-23 02:15 | disposition home or self-care (01) ==
LOC: ED 21:50
DX: F10.220 Alcohol dependence with intoxication, uncomplicated (principal); I10 Essential (primary) hypertension; G40.909 Epilepsy, unspecified, not intractable, without status epilepticus; Z87.891 Personal history of nicotine dependence; Y90.9 Presence of alcohol in blood, level not specified
CPT/HCPCS: 99283

== ENCOUNTER 2018-09-23 20:09 | Emergency (ER) | payer MEDICAID ==
[~2018-09-23] VITALS: Ht 160 cm; Wt 62.0 kg
--- NOTE | 2018-09-23 20:36 | NUR ---
BROUGHT IN BY NILDA RESENDEZ. FOUND ON SIDEWALK. RESPONDS WITH GRUNT TO PAINFUL STIMULUS. BREATHING EVEN AND UNLABORED.
--- NOTE | 2018-09-23 21:17 | NUR ---
REPORT OF PT FROM JYOTI DELGADO AND ASSUMING CARE OF PT AT THIS TIME. PT IS ASLEEP IN [facility] AT THIS TIME ON LEFT SIDE; NADN. PT ATTACHED TO [employer]ER[employer] CAR DRIVER AND VS MACHINES. VSS. SITTER OUTSIDE OF ROOM AT THIS TIME FOR OBSERVATION OF PT.
--- NOTE | 2018-09-23 21:17 | NUR ---
Note vanessa in ED - 09/23/18 at 2118 by CONRAD REPORT OF PT FROM JYOTI DELGADO AND ASSUMING CARE OF PT AT THIS TIME. PT IS ASLEEP IN [facility] AT THIS TIME ON LEFT SIDE; NADN. PT ATTACHED TO SHEARING SHED WORKER AND VS MACHINES. VSS. SITTER OUTSIDE OF ROOM AT THIS TIME FOR OBSERVATION OF PT.
[2018-09-23 23:31] VITALS: BP 95/65
--- NOTE | 2018-09-23 23:31 | NUR ---
PT ASLEEP IN [facility] AT THIS TIME. VSS.
--- NOTE | 2018-09-24 01:40 | NUR ---
pt woke up and c/o jaw pain. pt states he broke jaw x 1 month ago during fall. pt educated and oriented to place and situation. pt provided warm blanket and encouraged to sleep to mtf.
--- NOTE | 2018-09-24 02:45 | NUR ---
attempted to breathalyze pt. pt unable to blow. attempted ambulation without success. will attempt to d/c pt again shortly.
[2018-09-24] MEDS ORDERED: IBUPROFEN 600 MG TABLET ONE (04:37)
[2018-09-24] MEDS ORDERED: ONDANSETRON ODT 4 MG ONE (04:37)
--- NOTE | 2018-09-24 04:45 | NUR ---
pt ambulatory and alert x 4 prior to d/c. pt d/c with d/c summary. pt offered a taxi voucher for d/c, but states "I only live [address] blocks away [address], I'd rather walk". Pt ambulates to registration desk with steady gait for d/c home. pt denies any other needs pertaining to this visit.
[2018-09-24] MEDS ORDERED: ONDANSETRON ODT 4 MG PO ONE (05:00)
[2018-09-24] MEDS ORDERED: IBUPROFEN 600 MG TABLET PO ONE (05:00)
== END 2018-09-24 04:47 | disposition home or self-care (01) ==
LOC: ED 22:55
DX: F10.220 Alcohol dependence with intoxication, uncomplicated (principal); G31.2 Degeneration of nervous system due to alcohol; Z72.9 Problem related to lifestyle, unspecified; I10 Essential (primary) hypertension; G40.909 Epilepsy, unspecified, not intractable, without status epilepticus; Z87.891 Personal history of nicotine dependence
CPT/HCPCS: 99283; Q0162

== ENCOUNTER 2018-09-24 06:14 | Emergency (ER) | payer MEDICAID ==
[~2018-09-24] VITALS: Ht 172.7 cm; Wt 61.0 kg
--- NOTE | 2018-09-24 07:06 | NUR ---
RECEIVED REPORT FROM JOSSE MONTES. PT SLEEPING WITH HEAVY ETOH ODOR. PT AROUSES TO STERNAL RUB AND MOANS. VITALS STABLE. PT PLACED ON OXYGEN AT 2 LITERS VIA NC AND SATS UP TO 99%.
--- NOTE | 2018-09-24 07:54 | NUR ---
PT AWAKEN WITH VERBAL STIMULI. VITALS STABLE.
--- NOTE | 2018-09-24 08:38 | NUR ---
PT LYING IN BED. PT SLURRING WORDS. PT OFFERED MEAL TRAY AND PT UNABLE TO STAY AWAKE FOR MEAL TRAY TO BE GIVEN. PT TAKING OFF OXYGEN AND THROWING NC ON FLOOR. NC PLACED BACK ON PT AT 2 LITERS. VITALS STABLE.
--- NOTE | 2018-09-24 09:54 | NUR ---
pt moved to trauma 1. pt still sleeping at this time.
--- NOTE | 2018-09-24 10:32 | NUR ---
LATE NOTE ENTRY FOR 0951: Received bedside report from JYOTI Allen. All questions answered. Assuming care of pt. NADN. Pt is resting asleep on gurney with even chest rise and fall and unlabored respirations. Both bedrails up for safety measures. Call light within reach. Pt connected to NIBP and continous pulse ox. Pt maintaining pulse ox above 90% on room air. No needs expressed at this time.
--- NOTE | 2018-09-24 10:35 | NUR ---
Pt provided breakfast tray. Pt remains asleep on gurerma. NADN. No needs expessed. Both bedrails up for safety measures. Call light within reach.
[2018-09-24 11:04] VITALS: BP 106/74
--- NOTE | 2018-09-24 12:09 | NUR ---
Late note entry for 1130: Attempted to ambulate pt. Pt sits up on edge of bed and says, "I think I need to lay back down, I am really dizzy." Pt did not pass roadtest at this time.
--- NOTE | 2018-09-24 12:55 | NUR ---
Patient given discharge instructions and they have confirmed that they understand the instructions. Patient ambulatory with steady gait. Pt left with d/c paperwork and all personal belongings.
== END 2018-09-24 12:58 | disposition home or self-care (01) ==
LOC: ED 12:44
DX: F10.20 Alcohol dependence, uncomplicated (principal); I10 Essential (primary) hypertension
CPT/HCPCS: 99283

== ENCOUNTER 2018-10-08 10:31 | Emergency (ER) | payer MEDICAID ==
[~2018-10-08] VITALS: Ht 167.6 cm; Wt 65.0 kg
[2018-10-08] MEDS ORDERED: OXYC10TA6 PO (10:44)
[2018-10-08] MEDS ORDERED: RANI-448 PO (10:45)
[2018-10-08] MEDS ORDERED: ONDANSETRON ODT 4 MG ONE (10:48)
[2018-10-08] MEDS ORDERED: THIAMINE 100MG TABLET ONE (10:48)
--- NOTE | 2018-10-08 10:51 | NUR ---
PATIENT COMPLAINED OF NAUSEA. KELSEA HALL NOTIFIED. ZOFRAN ODT ORDERED AND GIVEN. WARM BLANKET PROVIDED. PT ON CONTINUOUS SPO2 MONITOR. SIDE RAILS UP X2 FOR SAFETY. CALL BUTTON WITHIN REACH ON CMOSIS nv.
--- NOTE | 2018-10-08 10:56 | NUR ---
BREATHYLIZER PERFORMED AND IS 0.437.
[2018-10-08] MEDS ORDERED: ONDANSETRON ODT 4 MG PO ONE (11:00)
[2018-10-08] MEDS ORDERED: THIAMINE 100MG TABLET PO ONE (11:00)
--- NOTE | 2018-10-08 11:39 | NUR ---
REPORT FROM JYOTI NEFF. PT RESTING IN ROOM WITH EYES CLOSED. EASILY AROUSABLE TO VOICE. VSS. BP NOW WNL. PT CALM AND COOPERATIVE. PT REPORTS REDUCTION IN NAUSEA AFTER ZOFRAN ADMIN. PT MEDICATED PER JUN. WATER PROVIDED. NO NEEDS EXPRESSED. CALL LIGHT WITHIN REACH.
--- NOTE | 2018-10-08 13:30 | NUR ---
ASSUMED CARE OF PT FOR DISCHARGE. PT DISCHARGED WITH DISCHARGE INSTRUCTIONS. PT UP AMBULATORY AND STABLE ON FEET
[2018-10-08 13:46] VITALS: BP 106/75
== END 2018-10-08 14:39 | disposition home or self-care (01) ==
LOC: ED 13:32
DX: F10.221 Alcohol dependence with intoxication delirium (principal)
CPT/HCPCS: 99283; Q0162

== ENCOUNTER 2018-10-08 20:43 | Emergency (ER) | payer MEDICAID ==
[~2018-10-08] VITALS: Ht 170.2 cm; Wt 60.0 kg
[~2018-10-08 20:43] MED LIST changes: +OXYC10TA6 PO
--- NOTE | 2018-10-08 21:20 | NUR ---
assessment made. seen by ERP. no orders made. no trauma.
--- NOTE | 2018-10-08 21:45 | NUR ---
no orders made by ERP.
--- NOTE | 2018-10-08 22:11 | NUR ---
patient awake, slurring his speech, wanting to go home. was told not to get up. re hooked to monitor.
--- NOTE | 2018-10-08 22:41 | NUR ---
patient tried to get up in bed. repositioned.
--- NOTE | 2018-10-08 22:55 | NUR ---
patient sleeping at this time.
--- NOTE | 2018-10-09 00:09 | NUR ---
warm blankets provided.
--- NOTE | 2018-10-09 02:47 | NUR ---
patient awake and alert. went to bathroom with steady gait. aware.
--- NOTE | 2018-10-09 02:50 | NUR ---
patient discharged with instruction. verbalized understanding. ambulated to discharge area.
[2018-10-09 02:51] VITALS: BP 118/73
== END 2018-10-09 02:54 | disposition home or self-care (01) ==
LOC: ED 22:06
DX: F10.120 Alcohol abuse with intoxication, uncomplicated (principal); R47.81 Slurred speech; I10 Essential (primary) hypertension; G43.909 Migraine, unspecified, not intractable, without status migrainosus; Z88.0 Allergy status to penicillin; Z88.8 Allergy status to other drugs, medicaments and biological substances
CPT/HCPCS: 99283

== ENCOUNTER 2018-10-09 08:55 | Emergency (ER) | payer MEDICAID ==
[~2018-10-09] VITALS: Ht 172.7 cm; Wt 54.5 kg
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
[2018-10-09 09:25] LABS: BASOPHILS # (AUTO) 0.04 x10^3/uL (0-0.1); BASOPHILS % (AUTO) 1 % (0-1); EOSINOPHILS # (AUTO) 0.04 x10^3/uL (0-0.4); EOSINOPHILS % (AUTO) 1 % (1-7); LYMPHOCYTES # (AUTO) 1.79 x10^3/uL (1-3.4); LYMPHOCYTES % (AUTO) 40 % (22-44); MD NO; MEAN CORPUSCULAR HEMOGLOBIN 27.9 pg (27.5-34.5); MEAN CORPUSCULAR HGB CONC 32.6 g/dL (33.2-36.2); MEAN CORPUSCULAR VOLUME 85.6 fL (81-97); MEAN PLATELET VOLUME 6.1 fL (7.4-10.4); MONOCYTES # (AUTO) 0.25 x10^3/uL (0.2-0.8); MONOCYTES % (AUTO) 6 % (2-9); NEUTROPHILS # (AUTO) 2.35 x10^3/uL (1.8-6.8); NEUTROPHILS % (AUTO) 53 % (42-75); PLATELET COUNT 495 x10^3/uL (130-400); RED BLOOD COUNT 3.97 x10^6/uL (4.38-5.82); RED CELL DISTRIBUTION WIDTH 17.3 % (9.4-14.8)
[2018-10-09 09:37] LABS: ALANINE AMINOTRANSFERASE 37 U/L (12-78); ALBUMIN 3.4 g/dL (3.4-5.0); ANION GAP 9 mmol/L (5-15); CALCIUM 8.3 mg/dL (8.5-10.1); CHLORIDE 108 mmol/L (98-107); CREATININE 0.68 mg/dL (0.7-1.3)
[2018-10-09 09:39] LABS: ALKALINE PHOSPHATASE 88 U/L (45-117); BILIRUBIN,TOTAL 0.5 mg/dL (0.2-1.0); TOTAL PROTEIN 7.5 g/dL (6.4-8.2)
--- NOTE | 2018-10-09 10:23 | NUR ---
PT SLEEPING ON GURNEY. KAREN. PT AWARE OF NEED FOR UA. URINAL LEFT AT BEDSIDE.
[2018-10-09 11:26] VITALS: BP 97/74
--- NOTE | 2018-10-09 11:26 | NUR ---
PT AWAKE AND TALKING TO STAFF. CONTINUES TO HAVE SLURRED SPEECH AND UNSTEADY GAIT. REPOSITIONED ON [facility]. MONITORS REAPPLIED.
--- NOTE | 2018-10-09 11:44 | NUR ---
PT AWAKE AND AMBULATORY W/ STEADY GAIT. AOX4. DENIES SI/HI. WANTS TO GO HOME. TAXI VOUCHER TO BE PROVIDED FOR PT.
== END 2018-10-09 11:48 | disposition home or self-care (01) ==
LOC: ED 10:29
DX: F10.220 Alcohol dependence with intoxication, uncomplicated (principal); R10.13 Epigastric pain; I10 Essential (primary) hypertension; Z88.8 Allergy status to other drugs, medicaments and biological substances; Z88.0 Allergy status to penicillin
CPT/HCPCS: 36415; 80053; 80307; 83690; 85025; 99283

== ENCOUNTER 2018-10-09 20:58 | Emergency (ER) | payer MEDICAID ==
[~2018-10-09] VITALS: Ht 170.2 cm; Wt 70.0 kg
--- NOTE | 2018-10-09 21:08 | NUR ---
UNABLE TO PERFORM BREATHEALIZER.
--- NOTE | 2018-10-09 22:41 | NUR ---
PT SLEEPING. PT UNABLE TO AMBULATE. VSS. WILL CONTINUE TO MONITOR.
--- NOTE | 2018-10-10 00:10 | NUR ---
PT SLEEPING. PT AROUSES TO VERBAL STIMULI BUT FALLS BACK TO SLEEP QUICKLY. VSS. WILL CONTINUE TO MONITOR
--- NOTE | 2018-10-10 01:07 | NUR ---
ATTEMPTED TO AMBULATE PT. PT STILL UNABLE TO AMBULATE. WILL CONTINUE TO MONITOR
--- NOTE | 2018-10-10 02:09 | NUR ---
PT SLEEPING. EVEN RISE AND FALL OF CHEST OBSERVED. VSS. WILL CONTINUE TO MONITOR.
--- NOTE | 2018-10-10 02:40 | NUR ---
Patient given discharge instructions and they have confirmed that they understand the instructions. Patient ambulatory with steady gait.
[2018-10-10 02:50] VITALS: BP 132/85
== END 2018-10-10 02:52 | disposition home or self-care (01) ==
LOC: ED 23:52
DX: F10.229 Alcohol dependence with intoxication, unspecified (principal); I10 Essential (primary) hypertension; Z88.0 Allergy status to penicillin; Z88.8 Allergy status to other drugs, medicaments and biological substances
CPT/HCPCS: 99283

== ENCOUNTER 2018-10-12 14:29 | Emergency (ER) | payer MEDICAID ==
[~2018-10-12] VITALS: Ht 175.3 cm; Wt 72.7 kg
--- NOTE | 2018-10-12 14:52 | NUR ---
REPORT FROM KAITLYN ALCOCER RN. ASSUMED CARE OF PATIENT AT THIS TIME.
--- NOTE | 2018-10-12 15:02 | NUR ---
PATIENT SLEEPING IN [facility], VISIBLE CHEST RISE AND FALL, 82% RA WHILE SLEEPING, SUPPLEMENTAL O2 APPLIED, NOW 95% 2L NC. PATIENT RESPONDS TO VOICE. NADN.URINAL PROVIDED, UNABLE TO URINATE AT THIS TIME, AWAITING URINE AND RESULTS. VS UPDATED IN CHART.
[2018-10-12 15:04] LABS: BASOPHILS % (AUTO) 0 % (0-1); EOSINOPHILS # (AUTO) 0.03 x10^3/uL (0-0.4); EOSINOPHILS % (AUTO) 1 % (1-7); LYMPHOCYTES # (AUTO) 1.44 x10^3/uL (1-3.4); LYMPHOCYTES % (AUTO) 36 % (22-44); MD NO; MEAN CORPUSCULAR HEMOGLOBIN 29.2 pg (27.5-34.5); MEAN CORPUSCULAR HGB CONC 33.5 g/dL (33.2-36.2); MEAN PLATELET VOLUME 6.5 fL (7.4-10.4); MONOCYTES # (AUTO) 0.16 x10^3/uL (0.2-0.8); MONOCYTES % (AUTO) 4 % (2-9); NEUTROPHILS # (AUTO) 2.39 x10^3/uL (1.8-6.8); NEUTROPHILS % (AUTO) 60 % (42-75); PLATELET COUNT 309 x10^3/uL (130-400); RED BLOOD COUNT 3.97 x10^6/uL (4.38-5.82)
[2018-10-12 15:09] LABS: ALANINE AMINOTRANSFERASE 26 U/L (12-78); ALBUMIN 3.3 g/dL (3.4-5.0); ANION GAP 14 mmol/L (5-15); CALCIUM 7.8 mg/dL (8.5-10.1); CHLORIDE 103 mmol/L (98-107); CREATININE 0.73 mg/dL (0.7-1.3)
[2018-10-12 15:11] LABS: SALICYLATE LEVEL < 1.7 mg/dL (2.8-20.0)
[2018-10-12 15:12] LABS: ALKALINE PHOSPHATASE 79 U/L (45-117); BILIRUBIN,TOTAL 0.6 mg/dL (0.2-1.0)
--- NOTE | 2018-10-12 16:25 | NUR ---
PATIENT SLEEPING IN GURNEY, RESPONDS TO VERBAL STIMULI. NADN. VS UPDATED IN CHART.
--- NOTE | 2018-10-12 17:22 | NUR ---
VS UPDATED IN CHART, PATIENT SLEEPING IN [facility], VISIBLE CHEST RISE AND FALL. NADN.
--- NOTE | 2018-10-12 18:05 | NUR ---
PATIENT AWAKE, UA COLLECTED AND SENT TO LAB, PATIENT PROVIDED WATER PER REQUEST, NADN.
[2018-10-12 19:11] LABS: AMPHETAMINE SCREEN, URINE Negative (Negative); BARBITURATE SCREEN, URINE Negative (Negative); BENZODIAZEPINE SCREEN, URINE Positive (Negative); CANNABINOID SCREEN, URINE Negative (Negative); COCAINE SCREEN, URINE Negative (Negative); METHADONE SCREEN, URINE Negative (Negative); OPIATE SCREEN, URINE Negative (Negative)
[2018-10-12 19:39] VITALS: BP 115/79
--- NOTE | 2018-10-12 19:39 | NUR ---
BREATHALYZER COMPLETED BY EMT-0.359. PATIENT PROVIDED SANDWICH PER REQUEST.
--- NOTE | 2018-10-12 19:46 | NUR ---
VS UPDATED IN CHART, PATIENT SITTING IN GURNEY, EATING SANDWICH, AWAITING PATIENT TO SOBER UP PRIOR TO DC.
--- NOTE | 2018-10-12 20:08 | NUR ---
PATIENT WANTING TO GO HOME, PATIENT AMBULATED AROUND ED WITH STEADY GAIT. AWARE. PATIENT TO BE DC'D.
--- NOTE | 2018-10-12 20:09 | NUR ---
Patient/Caregiver given discharge instructions and they have confirmed that they understand the instructions. Patient ambulatory with steady gait to DC desk.
== END 2018-10-12 20:10 | disposition home or self-care (01) ==
LOC: ED 16:00
DX: F10.220 Alcohol dependence with intoxication, uncomplicated (principal); I10 Essential (primary) hypertension; F17.200 Nicotine dependence, unspecified, uncomplicated; G40.909 Epilepsy, unspecified, not intractable, without status epilepticus
CPT/HCPCS: 36415; 70450; 71045; 80053; 80307; 85025; 99284

== ENCOUNTER 2018-10-13 16:34 | Emergency (ER) | payer MEDICAID ==
[~2018-10-13] VITALS: Ht 175.3 cm; Wt 72.7 kg
--- NOTE | 2018-10-13 16:34 | NUR ---
BIBA from /[place] c/o EtOH, hx of same; opens eyes to name & falls back to sleep, incont urine WILL CALL CLERK, NAD, no needs at this time, call light within reach, WCTM.
--- NOTE | 2018-10-13 18:02 | NUR ---
pt laying on gurney mostly sleeping, opens eyes to name & falls back to sleep, NAD, no needs at this time, call light within reach.
--- NOTE | 2018-10-13 18:57 | NUR ---
report given to Matt MONTES
--- NOTE | 2018-10-13 19:02 | NUR ---
BS REPORT OF PT FROM JYOTI AGEE AND ASSUMING CARE OF PT AT THIS TIME.
--- NOTE | 2018-10-13 19:05 | NUR ---
PT SLEEPING IN GURNEY ON SIDE AT THIS TIME WITH VISIBLE RISE AND FALL OF CHEST NOTED. PT ATTACHED TO VS MONITORS;
[2018-10-13 20:37] VITALS: BP 103/69
--- NOTE | 2018-10-13 20:44 | NUR ---
PT VSS AND UPDATED AT THIS TIME. PT SLEEPING IN [facility]; KAREN.
--- NOTE | 2018-10-13 21:15 | NUR ---
PT ALERT AND ORIENTED AND AWAKE AT THIS TIME. PT REQUESTING TO WALK HOME, WHERE PT STATES HE LIVES 3 BLOCK[address] AWAY. PT ROADTESTED AND ABLE TO AMBULATE WITH A STEADY GAIT. PT DENIES ANY OTHER NEEDS PERTAINING TO THIS VISIT. IV ACCESS D/C WITH TIP INTACT.
== END 2018-10-13 21:17 | disposition home or self-care (01) ==
LOC: ED 17:22
DX: F10.120 Alcohol abuse with intoxication, uncomplicated (principal)
CPT/HCPCS: 99283

== ENCOUNTER 2018-10-16 20:44 | Inpatient (IN) | payer MEDICAID ==
[~2018-10-16] VITALS: Ht 172.7 cm; Wt 61.2 kg
[~2018-10-16 20:44] MED LIST changes: +ETOMIDATE 20 MG/10 ML ONE; +PROPOFOL 100 ML IV ONE; +ROCURONIUM 10 MG/ML,10ML ONE; +VECURONIUM 10 MG ONE
--- NOTE | 2018-10-16 20:59 | NUR ---
PT. MOVED TO TRAUMA ROOM AT THIS TIME FOR INTUBATION.
[2018-10-16] MEDS ORDERED: PROPOFOL 100 ML IV PRN ×2 (21:11→22:38)
[2018-10-16] MEDS ORDERED: SODIUM CHLORIDE FLUSH 10ML SYR IVF ONE (21:30)
[2018-10-16] MEDS ORDERED: SODIUM CHLORIDE 0.9% 1,000ML IVBOLUS ONE ×2 (21:30→23:00)
[2018-10-16] MEDS ORDERED: ROCURONIUM 10 MG/ML,10ML IVPush ONE (21:30)
[2018-10-16] MEDS ORDERED: ETOMIDATE 20 MG/10 ML IV ONE (21:30)
[2018-10-16 21:49] LABS: ALANINE AMINOTRANSFERASE 46 U/L (12-78); ALBUMIN 2.7 g/dL (3.4-5.0); ANION GAP 14 mmol/L (5-15); CALCIUM 6.6 mg/dL (8.5-10.1); CHLORIDE 108 mmol/L (98-107); CREATININE 0.52 mg/dL (0.7-1.3)
[2018-10-16 21:55] LABS: MEAN CORPUSCULAR HEMOGLOBIN 28.8 pg (27.5-34.5); MEAN CORPUSCULAR HGB CONC 33.4 g/dL (33.2-36.2); MEAN CORPUSCULAR VOLUME 86.4 fL (81-97); RED BLOOD COUNT 3.98 x10^6/uL (4.38-5.82); RED CELL DISTRIBUTION WIDTH 18.9 % (9.4-14.8)
[2018-10-16 21:58] LABS: SALICYLATE LEVEL < 1.7 mg/dL (2.8-20.0)
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
[2018-10-16 22:01] LABS: ALKALINE PHOSPHATASE 74 U/L (45-117); BILIRUBIN,TOTAL 0.4 mg/dL (0.2-1.0); TOTAL PROTEIN 5.8 g/dL (6.4-8.2)
[2018-10-16] MEDS ORDERED: POTASSIUM CHLORIDE 40 MEQ in SODIUM CHLORIDE 0.9% 500 ML IV ONE (22:30)
[2018-10-16] MEDS: POTASSIUM CHLORIDE 20 MEQ in SODIUM CHLORIDE 0.45% 1,000 ML IV SCH (22:30)
[2018-10-16] MEDS ORDERED: MAGNESIUM SULFATE 1 GM, THIAMINE 100 MG, FOLIC ACID 1 MG, MVI ADULT 10 ML in SODIUM CHL... IV ONE (22:30)
[2018-10-16] MEDS ORDERED: PLEASE ENTER HEIGHT AND WEIGHT MC SCH (22:30)
[2018-10-16 22:44] LABS: BASOPHILS % (AUTO) 0 % (0-1); EOSINOPHILS # (AUTO) 0.01 x10^3/uL (0-0.4); EOSINOPHILS % (AUTO) 1 % (1-7); LYMPHOCYTES % (AUTO) 52 % (22-44); MD SCAN; MEAN PLATELET VOLUME 8.1 fL (7.4-10.4); MONOCYTES # (AUTO) 0.13 x10^3/uL (0.2-0.8); MONOCYTES % (AUTO) 6 % (2-9); NEUTROPHILS # (AUTO) 0.99 x10^3/uL (1.8-6.8); NEUTROPHILS % (AUTO) 42 % (42-75); PLATELET COUNT 114 x10^3/uL (130-400)
--- NOTE | 2018-10-16 22:54 | NUR ---
PT MEDICATED PER EMAR. PROP DRIP TITRATED UP FOR PT COMFORT. VENT SETTING ADJUSTED BY RT ANA. PT REMAINS STABLE AT THIS TIME.
[2018-10-16] MEDS ORDERED: SENNA/DOCUSATE TABLET NG PRN (23:00)
[2018-10-16] MEDS ORDERED: SENNA 176 MG/5 ML ORAL SOL NG PRN (23:00)
[2018-10-16] MEDS ORDERED: LIDOCAINE-MPF 1%, 2ML ENDO PRN (23:00)
[2018-10-16] MEDS ORDERED: LACTULOSE 20 GM/30 ML UDC NG PRN (23:00)
[2018-10-16] MEDS ORDERED: PHARMACY MAY ADJ FOR RENAL FX MC SCH (23:00)
[2018-10-16] MEDS ORDERED: CEFTRIAXONE PMX 1GM/50ML 50 ML IV ONE (23:00)
[2018-10-16] MEDS ORDERED: AZITHROMYCIN 500 MG in SODIUM CHLORIDE 0.9% 250 ML IVPB ONE (23:00)
[2018-10-16] MEDS ORDERED: DEXTROSE 4 GM TAB.CHEW PO PRN (23:00)
[2018-10-16] MEDS ORDERED: CLINDAMYCIN PMX 600MG/50ML 50 ML IV ONE (23:00)
[2018-10-16] MEDS ORDERED: DEXTROSE 50%, 50ML SYRINGE IVPush PRN (23:00)
[2018-10-16] MEDS ORDERED: GLUCAGON 1 MG IM PRN (23:00)
[2018-10-16] MEDS ORDERED: BISACODYL 10 MG SUPP PR PRN (23:00)
--- NOTE | 2018-10-16 23:01 | NUR ---
RSI LATE ENTRY 2104 60 SABIHA AND 20 ETOMIDATE. 1 L NS BOLUS INUTBATED AT 2109 BY MD SIMON AT 24CM.
--- NOTE | 2018-10-16 23:47 | NUR ---
REPORT TO IVELISSE MONTES 131
[2018-10-17 04:55] LABS: ANION GAP 15 mmol/L (5-15); CALCIUM 7.1 mg/dL (8.5-10.1); CHLORIDE 110 mmol/L (98-107)
[2018-10-17 04:56] LABS: BASOPHILS # (AUTO) 0.01 x10^3/uL (0-0.1); BASOPHILS % (AUTO) 0 % (0-1); CREATININE 0.47 mg/dL (0.7-1.3); EOSINOPHILS # (AUTO) 0.08 x10^3/uL (0-0.4); EOSINOPHILS % (AUTO) 1 % (1-7); LYMPHOCYTES # (AUTO) 2.43 x10^3/uL (1-3.4); LYMPHOCYTES % (AUTO) 28 % (22-44); MD NO; MEAN CORPUSCULAR HGB CONC 32.9 g/dL (33.2-36.2); MEAN CORPUSCULAR VOLUME 88.4 fL (81-97); MEAN PLATELET VOLUME 8.1 fL (7.4-10.4); MONOCYTES % (AUTO) 2 % (2-9); NEUTROPHILS # (AUTO) 5.91 x10^3/uL (1.8-6.8); NEUTROPHILS % (AUTO) 69 % (42-75); PLATELET COUNT 110 x10^3/uL (130-400); RED BLOOD COUNT 3.84 x10^6/uL (4.38-5.82); RED CELL DISTRIBUTION WIDTH 18.8 % (9.4-14.8)
[2018-10-17 05:08] LABS: MICROSCOPIC NOT IND
[2018-10-17 05:17] LABS: CULTURE INDICATED? NO
[2018-10-17 06:00] LABS: AMPHETAMINE SCREEN, URINE Negative (Negative); BARBITURATE SCREEN, URINE Negative (Negative); BENZODIAZEPINE SCREEN, URINE Positive (Negative); CANNABINOID SCREEN, URINE Negative (Negative); COCAINE SCREEN, URINE Negative (Negative); METHADONE SCREEN, URINE Negative (Negative); OPIATE SCREEN, URINE Negative (Negative)
[2018-10-17] MEDS ORDERED: PROPOFOL 100 ML IV PRN (06:21)
[2018-10-17] MEDS ORDERED: LIDOCAINE-MPF 1%, 2ML ENDO PRN (06:30)
[2018-10-17] MEDS ORDERED: SENNA 176 MG/5 ML ORAL SOL NG PRN (06:30)
[2018-10-17] MEDS ORDERED: PHARMACY MAY ADJ FOR RENAL FX MC SCH (06:30)
[2018-10-17] MEDS ORDERED: BISACODYL 10 MG SUPP PR PRN (06:30)
[2018-10-17] MEDS ORDERED: FENTANYL PF 100 MCG/2ML IVPush PRN (06:30)
[2018-10-17] MEDS: INSULIN LISPRO 100 UNITS/ML, PEN SQ-INSULIN SCH ×4 (07:00→21:00)
[2018-10-17] MEDS: ALBUTEROL/IPRATROPIUM 2.5MG/0.5MG, 3 ML INLINE SCH ×2 (07:18→11:39)
[2018-10-17] MEDS: CEFTRIAXONE PMX 1GM/50ML 50 ML IV SCH (07:29)
[2018-10-17] MEDS: METRONIDAZOLE PMX 500MG/100ML 100 ML IV SCH ×3 (07:29→18:28)
[2018-10-17] MEDS: FAMOTIDINE 20 MG/2 ML IV SCH ×2 (07:31→18:29)
[2018-10-17] MEDS: DIAZEPAM 5 MG/ML, 10ML VIAL IVPush SCH ×2 (07:49→11:12)
[2018-10-17] MEDS: SODIUM CHLORIDE FLUSH 10ML SYR IVF SCH ×2 (07:50→20:29)
[2018-10-17] MEDS: POTASSIUM CHLORIDE 20 MEQ in SODIUM CHLORIDE 0.45% 1,000 ML IV SCH ×2 (08:30→18:30)
[2018-10-17] MEDS ORDERED: THIAMINE 200 MG in SODIUM CHLORIDE 0.9% 50 ML IV ONE (09:30)
[2018-10-17] MEDS ORDERED: DEXMEDETOMIDINE 200 MCG in SODIUM CHLORIDE 0.9% 48 ML IV PRN (09:30)
[2018-10-17] MEDS ORDERED: MAGNESIUM SULFATE PMX 2GM/50ML 50 ML IV ONE (18:30)
[2018-10-17] MEDS: SENNA/DOCUSATE TABLET NG PRN (20:29)
[2018-10-17] MEDS: DIAZEPAM 5 MG/ML, 10ML VIAL IVPush PRN (20:34)
[2018-10-18] MEDS: METRONIDAZOLE PMX 500MG/100ML 100 ML IV SCH ×2 (00:11→05:58)
[2018-10-18] MEDS: DIAZEPAM 5 MG/ML, 10ML VIAL IVPush PRN ×2 (00:11→04:42)
[2018-10-18] MEDS: POTASSIUM CHLORIDE 20 MEQ in SODIUM CHLORIDE 0.45% 1,000 ML IV SCH (00:34)
[2018-10-18 04:53] LABS: INTERNATIONAL NORMALIZED RATIO 0.98 (0.93-1.1); PROTHROMBIN TIME 10.3 Seconds (9.6-11.5)
[2018-10-18 04:58] LABS: ALANINE AMINOTRANSFERASE 48 U/L (12-78); ALBUMIN 2.7 g/dL (3.4-5.0); ANION GAP 10 mmol/L (5-15); CALCIUM 7.6 mg/dL (8.5-10.1); CHLORIDE 106 mmol/L (98-107); CREATININE 0.45 mg/dL (0.7-1.3)
[2018-10-18 04:59] LABS: ALKALINE PHOSPHATASE 83 U/L (45-117); BILIRUBIN,TOTAL 0.8 mg/dL (0.2-1.0); TOTAL PROTEIN 5.6 g/dL (6.4-8.2)
[2018-10-18] MEDS: CEFTRIAXONE PMX 1GM/50ML 50 ML IV SCH (05:31)
[2018-10-18] MEDS: FAMOTIDINE 20 MG/2 ML IV SCH (05:59)
[2018-10-18 06:00] LABS: MEAN CORPUSCULAR HEMOGLOBIN 29.2 pg (27.5-34.5); MEAN CORPUSCULAR HGB CONC 33.4 g/dL (33.2-36.2); MEAN CORPUSCULAR VOLUME 87.3 fL (81-97); MEAN PLATELET VOLUME 8.8 fL (7.4-10.4); PLATELET COUNT 55 x10^3/uL (130-400); RED BLOOD COUNT 3.16 x10^6/uL (4.38-5.82)
[2018-10-18 06:01] LABS: BASOPHILS % (AUTO) 0 % (0-1); EOSINOPHILS # (AUTO) 0.07 x10^3/uL (0-0.4); EOSINOPHILS % (AUTO) 1 % (1-7); LYMPHOCYTES # (AUTO) 1.25 x10^3/uL (1-3.4); LYMPHOCYTES % (AUTO) 26 % (22-44); MD SCAN; MONOCYTES % (AUTO) 4 % (2-9); NEUTROPHILS # (AUTO) 3.33 x10^3/uL (1.8-6.8); NEUTROPHILS % (AUTO) 69 % (42-75)
[2018-10-18] MEDS: INSULIN LISPRO 100 UNITS/ML, PEN SQ-INSULIN SCH ×4 (06:19→21:00)
[2018-10-18] MEDS ORDERED: MAGNESIUM SULFATE 1 GM, THIAMINE 100 MG, FOLIC ACID 1 MG, MVI ADULT 10 ML in SODIUM CHL... IV SCH (09:00)
[2018-10-18] MEDS: SODIUM CHLORIDE FLUSH 10ML SYR IVF SCH ×2 (09:27→21:00)
[2018-10-18] MEDS: CHLORDIAZEPOXIDE 25 MG CAPSULE PO SCH ×3 (09:28→21:40)
[2018-10-18] MEDS ORDERED: LORazepam 1MG TABLET PO PRN ×4 (09:30)
[2018-10-18] MEDS ORDERED: LORazepam 2 MG/ML, 1ML IV PRN ×5 (09:30)
[2018-10-18] MEDS ORDERED: POTASSIUM CHLORIDE 20 MEQ TAB.ER.PRT PO ONE (09:30)
[2018-10-18] MEDS ORDERED: OXYcodone IR 5MG TABLET ONE (09:41)
[2018-10-18] MEDS: OXYcodone IR 5MG TABLET PO PRN ×3 (09:42→19:49)
[2018-10-18] MEDS ORDERED: MAGNESIUM SULFATE PMX 2GM/50ML 50 ML ONE (10:26)
[2018-10-18] MEDS ORDERED: MAGNESIUM SULFATE PMX 2GM/50ML 50 ML IVPB ONE (10:30)
--- NOTE | 2018-10-18 13:23 | NUR ---
REC KAIA/THIN; ORANGE SHEET WITH DIET RECOMMENDATIONS AND SWALLOW STRATEGIES POSTED AT BEDSIDE. Addendum: 10/18/18 at 1324 by Charline VALERIO Amended: Links added.
[2018-10-18 14:32] VITALS: BP 149/101
[2018-10-18] MEDS: CALCIUM CARBONATE 500 MG TAB.CHEW PO PRN ×2 (18:02→21:56)
[2018-10-18] MEDS: LORazepam 0.5MG TABLET PO PRN ×2 (18:39→21:57)
[2018-10-18 19:00] VITALS: BP 142/90
[2018-10-19] MEDS: OXYcodone IR 5MG TABLET PO PRN ×5 (00:45→20:24)
[2018-10-19] MEDS: CALCIUM CARBONATE 500 MG TAB.CHEW PO PRN ×4 (01:36→20:24)
[2018-10-19 02:00] VITALS: BP 134/82
[2018-10-19] MEDS: CHLORDIAZEPOXIDE 25 MG CAPSULE PO SCH (05:26)
[2018-10-19 05:42] LABS: MEAN CORPUSCULAR HEMOGLOBIN 28.9 pg (27.5-34.5); MEAN CORPUSCULAR HGB CONC 32.9 g/dL (33.2-36.2); MEAN CORPUSCULAR VOLUME 87.7 fL (81-97); PLATELET COUNT 52 x10^3/uL (130-400); RED BLOOD COUNT 3.33 x10^6/uL (4.38-5.82); RED CELL DISTRIBUTION WIDTH 18.9 % (9.4-14.8)
[2018-10-19 05:47] LABS: CHLORIDE 104 mmol/L (98-107)
[2018-10-19 05:53] LABS: ALANINE AMINOTRANSFERASE 46 U/L (12-78); ALBUMIN 2.5 g/dL (3.4-5.0); ALKALINE PHOSPHATASE 90 U/L (45-117); ANION GAP 7 mmol/L (5-15); BILIRUBIN,TOTAL 0.8 mg/dL (0.2-1.0); CALCIUM 8.5 mg/dL (8.5-10.1); CREATININE 0.37 mg/dL (0.7-1.3); TOTAL PROTEIN 5.7 g/dL (6.4-8.2)
[2018-10-19 06:24] LABS: BASOPHILS # (AUTO) 0.01 x10^3/uL (0-0.1); BASOPHILS % (AUTO) 0 % (0-1); EOSINOPHILS # (AUTO) 0.11 x10^3/uL (0-0.4); EOSINOPHILS % (AUTO) 3 % (1-7); LYMPHOCYTES % (AUTO) 29 % (22-44); MD SCAN; MONOCYTES # (AUTO) 0.19 x10^3/uL (0.2-0.8); MONOCYTES % (AUTO) 5 % (2-9); NEUTROPHILS # (AUTO) 2.21 x10^3/uL (1.8-6.8); NEUTROPHILS % (AUTO) 63 % (42-75)
[2018-10-19] MEDS: INSULIN LISPRO 100 UNITS/ML, PEN SQ-INSULIN SCH (06:45)
[2018-10-19] MEDS ORDERED: MAGNESIUM SULFATE PMX 2GM/50ML 50 ML IV ONE (07:30)
[2018-10-19 07:35] VITALS: BP 149/93
[2018-10-19] MEDS: MAGNESIUM OXIDE 400 MG TABLET PO SCH ×2 (08:36→20:23)
[2018-10-19] MEDS: MULTIVITAMIN 1 TABLET PO SCH (08:36)
[2018-10-19] MEDS: FOLIC ACID 1 MG TABLET PO SCH (08:36)
[2018-10-19] MEDS: THIAMINE 100MG TABLET PO SCH (08:37)
[2018-10-19] MEDS: POTASSIUM CHLORIDE 20 MEQ TAB.ER.PRT PO SCH ×2 (08:37→10:55)
[2018-10-19] MEDS: SODIUM CHLORIDE FLUSH 10ML SYR IVF SCH ×2 (09:00→20:27)
[2018-10-19] MEDS: POTASSIUM PHOSPHATE 44 MEQ in SODIUM CHLORIDE 0.9% 500 ML IV SCH ×2 (10:55→20:27)
--- NOTE | 2018-10-19 12:51 | NUR ---
REC GROUND/THIN; ORANGE SHEET WITH DIET RECOMMENDATIONS AND SWALLOW STRATEGIES POSTED AT BEDSIDE. Addendum: 10/19/18 at 1252 by Charline VALERIO Amended: Links added.
[2018-10-19 14:01] VITALS: BP 138/89
[2018-10-19 20:00] VITALS: BP 132/100
[2018-10-20] MEDS ORDERED: ENALAPRILAT 1.25 MG/ML, 2ML IV ONE (00:30)
[2018-10-20 00:31] VITALS: BP 129/103
[2018-10-20] MEDS: OXYcodone IR 5MG TABLET PO PRN ×6 (00:59→21:44)
[2018-10-20] MEDS: CALCIUM CARBONATE 500 MG TAB.CHEW PO PRN ×6 (01:00→21:44)
[2018-10-20 02:40] VITALS: BP 127/87
[2018-10-20 05:35] LABS: MEAN CORPUSCULAR HEMOGLOBIN 29.5 pg (27.5-34.5); MEAN CORPUSCULAR HGB CONC 33.3 g/dL (33.2-36.2); MEAN CORPUSCULAR VOLUME 88.6 fL (81-97); MEAN PLATELET VOLUME 8.9 fL (7.4-10.4); PLATELET COUNT 68 x10^3/uL (130-400); RED CELL DISTRIBUTION WIDTH 19.9 % (9.4-14.8)
[2018-10-20 05:37] LABS: CALCIUM 8.8 mg/dL (8.5-10.1); CHLORIDE 104 mmol/L (98-107)
[2018-10-20 05:52] LABS: ALANINE AMINOTRANSFERASE 57 U/L (12-78); ALBUMIN 2.6 g/dL (3.4-5.0); ALKALINE PHOSPHATASE 133 U/L (45-117); ANION GAP 6 mmol/L (5-15); BILIRUBIN,TOTAL 0.6 mg/dL (0.2-1.0); CREATININE 0.51 mg/dL (0.7-1.3); TOTAL PROTEIN 5.7 g/dL (6.4-8.2)
[2018-10-20 06:19] LABS: BASOPHILS # (AUTO) 0.01 x10^3/uL (0-0.1); BASOPHILS % (AUTO) 0 % (0-1); EOSINOPHILS # (AUTO) 0.15 x10^3/uL (0-0.4); EOSINOPHILS % (AUTO) 5 % (1-7); LYMPHOCYTES % (AUTO) 39 % (22-44); MD SCAN; MONOCYTES # (AUTO) 0.24 x10^3/uL (0.2-0.8); MONOCYTES % (AUTO) 8 % (2-9); NEUTROPHILS # (AUTO) 1.49 x10^3/uL (1.8-6.8); NEUTROPHILS % (AUTO) 48 % (42-75)
[2018-10-20] MEDS: LACTULOSE 20 GM/30 ML UDC NG PRN (06:24)
[2018-10-20 06:54] VITALS: BP 126/90
[2018-10-20] MEDS: SODIUM CHLORIDE FLUSH 10ML SYR IVF SCH ×2 (09:00→21:00)
[2018-10-20] MEDS: MULTIVITAMIN 1 TABLET PO SCH (09:13)
[2018-10-20] MEDS: THIAMINE 100MG TABLET PO SCH (09:13)
[2018-10-20] MEDS: MAGNESIUM OXIDE 400 MG TABLET PO SCH ×2 (09:14→21:07)
[2018-10-20] MEDS: FOLIC ACID 1 MG TABLET PO SCH (09:15)
[2018-10-20] MEDS: POLYETHYLENE GLYCOL 17 GM PACKET PO SCH (09:17)
[2018-10-20 13:06] VITALS: BP 140/97
[2018-10-20 19:43] VITALS: BP 130/96
[2018-10-20] MEDS: SENNA/DOCUSATE TABLET NG PRN (21:49)
[2018-10-21 00:54] VITALS: BP 119/85
[2018-10-21] MEDS: CALCIUM CARBONATE 500 MG TAB.CHEW PO PRN ×6 (01:50→22:06)
[2018-10-21] MEDS: OXYcodone IR 5MG TABLET PO PRN ×6 (01:50→22:06)
[2018-10-21] MEDS: MULTIVITAMIN 1 TABLET PO SCH (07:54)
[2018-10-21] MEDS: FOLIC ACID 1 MG TABLET PO SCH (07:54)
[2018-10-21] MEDS: POLYETHYLENE GLYCOL 17 GM PACKET PO SCH (07:54)
[2018-10-21] MEDS: SODIUM CHLORIDE FLUSH 10ML SYR IVF SCH ×2 (07:54→20:41)
[2018-10-21] MEDS: MAGNESIUM OXIDE 400 MG TABLET PO SCH ×2 (07:54→20:41)
[2018-10-21] MEDS: THIAMINE 100MG TABLET PO SCH (07:54)
[2018-10-21] MEDS: LACTULOSE 20 GM/30 ML UDC NG PRN (07:54)
[2018-10-21 08:00] VITALS: BP 137/101
[2018-10-21 09:22] VITALS: BP 130/94
[2018-10-21] MEDS ORDERED: GOLYTELY 4,000ML ORAL.SOL PO ONE (11:00)
[2018-10-21 14:52] VITALS: BP 121/93
[2018-10-21 20:01] VITALS: BP 112/75
[2018-10-22 01:54] VITALS: BP 110/84
[2018-10-22] MEDS: OXYcodone IR 5MG TABLET PO PRN ×4 (02:01→13:44)
[2018-10-22] MEDS: CALCIUM CARBONATE 500 MG TAB.CHEW PO PRN ×4 (02:01→13:44)
[2018-10-22] MEDS: FOLIC ACID 1 MG TABLET PO SCH (07:42)
[2018-10-22] MEDS: POLYETHYLENE GLYCOL 17 GM PACKET PO SCH (07:42)
[2018-10-22] MEDS: MAGNESIUM OXIDE 400 MG TABLET PO SCH (07:42)
[2018-10-22] MEDS: MULTIVITAMIN 1 TABLET PO SCH (07:42)
[2018-10-22] MEDS: THIAMINE 100MG TABLET PO SCH (07:42)
[2018-10-22] MEDS: SODIUM CHLORIDE FLUSH 10ML SYR IVF SCH (07:47)
[2018-10-22] MEDS: SENNA/DOCUSATE TABLET NG PRN (07:47)
[2018-10-22 07:48] VITALS: BP 111/79
[2018-10-22] MEDS ORDERED: PROPRANOLOL 20 MG TABLET PO SCH (09:00)
[2018-10-22 11:20] VITALS: BP 101/72
[2018-10-22] MEDS ORDERED: FOLI-17 PO (11:22)
[2018-10-22] MEDS ORDERED: SUCR1TAB33 PO (11:22)
[2018-10-22] MEDS ORDERED: MULT1TAB60 PO (11:22)
[2018-10-22] MEDS ORDERED: MAGN400T50 PO (11:22)
[2018-10-22] MEDS ORDERED: IBUP-1221 PO (11:22)
[2018-10-22] MEDS ORDERED: PROP10TA16 PO (11:22)
[2018-10-22] MEDS ORDERED: THIA100T67 PO (11:22)
[2018-10-22 13:23] VITALS: BP 101/65
[2018-10-22 13:32] VITALS: BP 113/76
== END 2018-10-22 14:00 | disposition home or self-care (01) | DRG 208 ==
LOC: ED 21:37 → EDIP 22:12 → CCU 23:26 → 4NOR 10-18 14:36 → DCLOUNGE 10-22 13:50
PROVIDERS: ADMIT Internal Medicine; ATTEND Internal Medicine
PROC: 5A1935Z Respiratory Ventilation, Less than 24 Consecutive Hours (ICD-10-PCS; principal; 2018-10-16)
PROC: 0BH17EZ Insertion of Endotracheal Airway into Trachea, Via Natural or Artificial Opening (ICD-10-PCS; 2018-10-16)
DX: J69.0 Pneumonitis due to inhalation of food and vomit (principal); J96.01 Acute respiratory failure with hypoxia; G92 Toxic encephalopathy; Z99.11 Dependence on respirator [ventilator] status; F10.239 Alcohol dependence with withdrawal, unspecified; D61.818 Other pancytopenia; F10.231 Alcohol dependence with withdrawal delirium; G31.2 Degeneration of nervous system due to alcohol; I10 Essential (primary) hypertension; F10.229 Alcohol dependence with intoxication, unspecified; E83.42 Hypomagnesemia; R04.0 Epistaxis; R56.9 Unspecified convulsions; E87.6 Hypokalemia; K44.9 Diaphragmatic hernia without obstruction or gangrene; Z59.0 Homelessness; Z88.0 Allergy status to penicillin; Z90.49 Acquired absence of other specified parts of digestive tract; Z88.8 Allergy status to other drugs, medicaments and biological substances; Z79.02 Long term (current) use of antithrombotics/antiplatelets; Z79.82 Long term (current) use of aspirin; Z91.14 Patient's other noncompliance with medication regimen; Z79.899 Other long term (current) drug therapy
CPT/HCPCS: 31500; 36415; 36600; 99291; J3490; J7620; 70450; 71045; 72125; 80048; 80053; 80307; 81003; 82803; 82962; 83735; 84100; 84478; 85025; 85610; 85730; 87040; 87070; 87081; 87205; 93005; 94002; 94003; 94640; 96374; 96375; G0378; J0696; J2704; J3360; J3411; J3475; J3480; J1815; J7030; J7040

== ENCOUNTER 2018-11-30 22:30 | Emergency (ER) | payer MEDICAID ==
[~2018-11-30] VITALS: Ht 167.6 cm; Wt 54.5 kg
[2018-12-01 03:58] VITALS: BP 94/53
== END 2018-12-01 05:26 | disposition home or self-care (01) ==
LOC: ED 12-01 05:09
DX: F10.120 Alcohol abuse with intoxication, uncomplicated (principal); I10 Essential (primary) hypertension; G40.909 Epilepsy, unspecified, not intractable, without status epilepticus; F17.200 Nicotine dependence, unspecified, uncomplicated; Z72.9 Problem related to lifestyle, unspecified; Z75.9 Unspecified problem related to medical facilities and other health care; Z91.14 Patient's other noncompliance with medication regimen; Z63.8 Other specified problems related to primary support group; Z90.49 Acquired absence of other specified parts of digestive tract; Y90.9 Presence of alcohol in blood, level not specified
CPT/HCPCS: 36415; 80053; 80307; 83690; 85025; 99283

== ENCOUNTER 2018-12-03 14:39 | Emergency (ER) | payer MEDICAID ==
[~2018-12-03] VITALS: Ht 170.2 cm; Wt 55.5 kg
[2018-12-03 19:12] VITALS: BP 105/71
== END 2018-12-03 19:16 | disposition home or self-care (01) ==
LOC: ED 19:05
DX: G92 Toxic encephalopathy (principal); F15.229 Other stimulant dependence with intoxication, unspecified; G40.909 Epilepsy, unspecified, not intractable, without status epilepticus; Z72.9 Problem related to lifestyle, unspecified; I10 Essential (primary) hypertension; Z90.49 Acquired absence of other specified parts of digestive tract; F17.200 Nicotine dependence, unspecified, uncomplicated
CPT/HCPCS: 99283

== ENCOUNTER 2019-02-26 18:17 | Inpatient (IN) | payer MEDICAID ==
[~2019-02-26] VITALS: Ht 177.8 cm; Wt 62.1 kg
[~2019-02-26 18:17] MED LIST changes: +ACET325T26 PO; +ACID1TAB7 PO; +CARV3.1212 PO; -ETOMIDATE 20 MG/10 ML ONE; +IBUP-1221 PO; +LEVO750T26 PO; -PROPOFOL 100 ML IV ONE; -ROCURONIUM 10 MG/ML,10ML ONE; +SENN-193 PO; +SUCR1TAB33 PO; -VECURONIUM 10 MG ONE
--- NOTE | 2019-02-26 18:58 | NUR ---
Please see triage note. Provided report to JYOTI Rizzo. All questions answered. JYOTI Rizzo to assume care of pt at this time.
[2019-02-26] MEDS ORDERED: SODIUM CHLORIDE FLUSH 10ML SYR IVF ONE (19:00)
[2019-02-26] MEDS ORDERED: ALBUTEROL/IPRATROPIUM 2.5MG/0.5MG, 3 ML NPPB SCH (19:00)
[2019-02-26] MEDS ORDERED: methylPREDNISolone SOD SUCC 125 MG/2 ML IV ONE (19:00)
--- NOTE | 2019-02-26 19:18 | NUR ---
TAKEN TO CT
--- NOTE | 2019-02-26 19:29 | NUR ---
PT BACK FROM CT
--- NOTE | 2019-02-26 20:06 | NUR ---
ALL RESULTS BACK CHART UP FOR RECHECK AT THIS TIME
--- NOTE | 2019-02-26 20:25 | NUR ---
PT OPENING EYES TO VERBAL STIMULI AND REPOSITIONING SELF ON GURNEY.
--- NOTE | 2019-02-26 21:18 | NUR ---
PT OPENING EYES TO VERBAL STIMULI AND OCCASIONALLY GRUNTING. PT TURNS HEAD WHEN SPOKEN TO. BRITTNI JONES
--- NOTE | 2019-02-26 21:48 | NUR ---
TAKEN TO CT
--- NOTE | 2019-02-26 22:20 | NUR ---
pt unable to do breathalyzer and follow commands, updated suggested lab ethanol no new orders at this time.
--- NOTE | 2019-02-26 23:13 | NUR ---
REPORT FROM YOLY GEIGER RN. PT RESTING WITH NO NEEDS AT THIS TIME. CALL LIGHT IN REACH
[2019-02-26 23:22] LABS: BASOPHILS # (AUTO) 0.06 x10^3/uL (0-0.1); BASOPHILS % (AUTO) 1 % (0-1); EOSINOPHILS # (AUTO) 0.01 x10^3/uL (0-0.4); EOSINOPHILS % (AUTO) 0 % (1-7); LYMPHOCYTES # (AUTO) 2.65 x10^3/uL (1-3.4); LYMPHOCYTES % (AUTO) 35 % (22-44); MD NO; MEAN CORPUSCULAR HEMOGLOBIN 28.4 pg (27.5-34.5); MEAN CORPUSCULAR HGB CONC 33.2 g/dL (33.2-36.2); MEAN CORPUSCULAR VOLUME 85.4 fL (81-97); MEAN PLATELET VOLUME 7.8 fL (7.4-10.4); MONOCYTES # (AUTO) 0.22 x10^3/uL (0.2-0.8); MONOCYTES % (AUTO) 3 % (2-9); NEUTROPHILS # (AUTO) 4.71 x10^3/uL (1.8-6.8); NEUTROPHILS % (AUTO) 62 % (42-75); PLATELET COUNT 237 x10^3/uL (130-400); RED BLOOD COUNT 4.53 x10^6/uL (4.38-5.82); RED CELL DISTRIBUTION WIDTH 18.2 % (9.4-14.8)
[2019-02-26 23:24] LABS: ALBUMIN 3.6 g/dL (3.4-5.0); ANION GAP 12 mmol/L (5-15); CALCIUM 7.7 mg/dL (8.5-10.1); CHLORIDE 105 mmol/L (98-107); CREATININE 0.81 mg/dL (0.7-1.3); INTERNATIONAL NORMALIZED RATIO 1.02 (0.93-1.1); PROTHROMBIN TIME 10.7 Seconds (9.6-11.5)
--- NOTE | 2019-02-26 23:49 | NUR ---
PIV ATTEMPTED X 2 WITH NO SUCCESS. TECH AT BEDSIDE TO PLACE PIV
--- NOTE | 2019-02-27 00:28 | NUR ---
JAIME RN: SEVERAL ATTEMPTS AT AN IV WERE UNSUCCESSFUL. JOSSE Garner NP (HOSPITALIST) AWARE. VS STABLE. WILL CONTINUE TO MONITOR WHILE PRIMARY RN IS ON BREAK.
[2019-02-27] MEDS ORDERED: ACETAMINOPHEN 325 MG TABLET PO PRN (00:30)
[2019-02-27] MEDS ORDERED: BISACODYL 10 MG SUPP PR PRN (00:30)
--- NOTE | 2019-02-27 00:40 | NUR ---
FIRE CHIEF DEPUTY: ULTRASOUND IV PLACED. PT REQUESTING PAIN MEDS. MD INFORMED.
[2019-02-27 01:02] VITALS: BP 98/63
[2019-02-27 01:05] VITALS: BP 98/63
[2019-02-27] MEDS: POTASSIUM CHLORIDE 20 MEQ, MAGNESIUM SULFATE 2 GM, THIAMINE 200 MG, MVI ADULT 10 ML, FO... IV SCH ×2 (01:54→15:13)
[2019-02-27] MEDS ORDERED: OXYcodone/APAP 5/325MG TABLET PO ONE ×2 (02:00→04:00)
[2019-02-27] MEDS ORDERED: CARVEDILOL 3.125 MG TABLET ONE (03:28)
[2019-02-27] MEDS ORDERED: OXYcodone/APAP 5/325MG TABLET ONE (03:28)
[2019-02-27] MEDS: FERROUS SULFATE 325 MG TABLET PO SCH (03:31)
[2019-02-27] MEDS: CARVEDILOL 3.125 MG TABLET PO SCH ×2 (03:32→09:14)
[2019-02-27 04:39] LABS: AMPHETAMINE SCREEN, URINE Negative (Negative); BARBITURATE SCREEN, URINE Negative (Negative); BENZODIAZEPINE SCREEN, URINE Negative (Negative); CANNABINOID SCREEN, URINE Negative (Negative); COCAINE SCREEN, URINE Negative (Negative); METHADONE SCREEN, URINE Negative (Negative); OPIATE SCREEN, URINE Negative (Negative)
[2019-02-27 05:16] LABS: BASOPHILS % (AUTO) 0 % (0-1); EOSINOPHILS # (AUTO) 0.01 x10^3/uL (0-0.4); EOSINOPHILS % (AUTO) 0 % (1-7); LYMPHOCYTES # (AUTO) 1.88 x10^3/uL (1-3.4); LYMPHOCYTES % (AUTO) 38 % (22-44); MD NO; MEAN CORPUSCULAR HEMOGLOBIN 28.1 pg (27.5-34.5); MEAN CORPUSCULAR HGB CONC 32.8 g/dL (33.2-36.2); MEAN CORPUSCULAR VOLUME 85.8 fL (81-97); MEAN PLATELET VOLUME 7.7 fL (7.4-10.4); MONOCYTES # (AUTO) 0.27 x10^3/uL (0.2-0.8); MONOCYTES % (AUTO) 5 % (2-9); NEUTROPHILS # (AUTO) 2.75 x10^3/uL (1.8-6.8); NEUTROPHILS % (AUTO) 56 % (42-75); PLATELET COUNT 190 x10^3/uL (130-400); RED CELL DISTRIBUTION WIDTH 18.6 % (9.4-14.8)
[2019-02-27 05:23] LABS: ALBUMIN 3.4 g/dL (3.4-5.0); ANION GAP 12 mmol/L (5-15); CALCIUM 7.6 mg/dL (8.5-10.1); CHLORIDE 105 mmol/L (98-107)
[2019-02-27 05:28] LABS: ALANINE AMINOTRANSFERASE 62 U/L (12-78); ALKALINE PHOSPHATASE 95 U/L (45-117); BILIRUBIN,TOTAL 0.6 mg/dL (0.2-1.0); CREATININE 0.66 mg/dL (0.7-1.3); TOTAL PROTEIN 7.8 g/dL (6.4-8.2)
[2019-02-27 07:30] VITALS: BP 121/78
[2019-02-27] MEDS ORDERED: OXYcodone IR 5MG TABLET ONE (09:08)
[2019-02-27] MEDS: CALCIUM CARBONATE 500 MG TAB.CHEW PO SCH ×2 (09:12→20:58)
[2019-02-27] MEDS: LACTOBACILLUS CHEW TABLET PO SCH ×3 (09:13→20:58)
[2019-02-27] MEDS: MAGNESIUM OXIDE 400 MG TABLET PO SCH ×2 (09:13→20:58)
[2019-02-27] MEDS: MULTIVITAMIN 1 TABLET PO SCH (09:13)
[2019-02-27] MEDS: OMEPRAZOLE 20 MG CAPSULE.DR PO SCH ×2 (09:13→20:58)
[2019-02-27] MEDS: THIAMINE 100MG TABLET PO SCH (09:13)
[2019-02-27] MEDS: POTASSIUM CHLORIDE 20 MEQ TAB.ER.PRT PO SCH ×2 (09:13→15:14)
[2019-02-27] MEDS: FOLIC ACID 1 MG TABLET PO SCH (09:13)
[2019-02-27] MEDS: SUCRALFATE 1 GM TABLET PO SCH ×3 (09:13→20:58)
[2019-02-27 12:22] VITALS: BP 109/73
[2019-02-27] MEDS: OXYcodone IR 5MG TABLET PO PRN ×2 (15:09→21:14)
[2019-02-27] MEDS ORDERED: LORazepam 2 MG/ML, 1ML IVPush PRN (19:00)
[2019-02-27 19:14] VITALS: BP 131/83
[2019-02-27] MEDS: CHLORDIAZEPOXIDE 25 MG CAPSULE PO PRN (21:13)
[2019-02-28 01:12] VITALS: BP 131/80
[2019-02-28] MEDS: POTASSIUM CHLORIDE 20 MEQ, MAGNESIUM SULFATE 2 GM, THIAMINE 200 MG, MVI ADULT 10 ML, FO... IV SCH ×3 (01:16→21:48)
[2019-02-28] MEDS: OXYcodone IR 5MG TABLET PO PRN ×4 (03:16→22:45)
[2019-02-28] MEDS: CARVEDILOL 3.125 MG TABLET PO SCH ×2 (05:36→17:28)
[2019-02-28] MEDS: CHLORDIAZEPOXIDE 25 MG CAPSULE PO PRN (05:37)
[2019-02-28 06:22] LABS: ALBUMIN 3.2 g/dL (3.4-5.0); CHLORIDE 105 mmol/L (98-107)
[2019-02-28 06:27] LABS: ALANINE AMINOTRANSFERASE 52 U/L (12-78); ALKALINE PHOSPHATASE 87 U/L (45-117); ANION GAP 7 mmol/L (5-15); CALCIUM 7.9 mg/dL (8.5-10.1); CREATININE 0.48 mg/dL (0.7-1.3); TOTAL PROTEIN 7.5 g/dL (6.4-8.2)
[2019-02-28 07:00] VITALS: BP 119/86
[2019-02-28] MEDS ORDERED: LORazepam 1MG TABLET PO PRN ×2 (08:00)
[2019-02-28] MEDS ORDERED: LORazepam 0.5MG TABLET PO PRN (08:00)
[2019-02-28] MEDS ORDERED: LORazepam 2 MG/ML, 1ML IV PRN ×4 (08:00)
[2019-02-28] MEDS: MAGNESIUM OXIDE 400 MG TABLET PO SCH ×2 (09:08→21:10)
[2019-02-28] MEDS: POTASSIUM CHLORIDE 20 MEQ TAB.ER.PRT PO SCH ×2 (09:08→16:01)
[2019-02-28] MEDS: OMEPRAZOLE 20 MG CAPSULE.DR PO SCH ×2 (09:08→21:10)
[2019-02-28] MEDS: MULTIVITAMIN 1 TABLET PO SCH (09:09)
[2019-02-28] MEDS: THIAMINE 100MG TABLET PO SCH (09:09)
[2019-02-28] MEDS: CALCIUM CARBONATE 500 MG TAB.CHEW PO SCH ×2 (09:09→21:10)
[2019-02-28] MEDS: FOLIC ACID 1 MG TABLET PO SCH (09:09)
[2019-02-28] MEDS: LACTOBACILLUS CHEW TABLET PO SCH ×3 (09:09→21:10)
[2019-02-28] MEDS: LORazepam 1MG TABLET PO PRN ×3 (09:10→21:10)
[2019-02-28] MEDS: SUCRALFATE 1 GM TABLET PO SCH ×3 (09:10→21:10)
[2019-02-28 13:30] VITALS: BP 119/84
[2019-02-28 18:57] VITALS: BP 109/76
[2019-02-28 21:14] VITALS: BP 120/85
[2019-03-01 00:45] VITALS: BP 120/80
[2019-03-01] MEDS: LORazepam 1MG TABLET PO PRN ×2 (01:38→06:07)
[2019-03-01] MEDS: FERROUS SULFATE 325 MG TABLET PO SCH (06:07)
[2019-03-01] MEDS: CARVEDILOL 3.125 MG TABLET PO SCH ×2 (06:07→17:49)
[2019-03-01 06:11] VITALS: BP 119/88
[2019-03-01] MEDS: OXYcodone IR 5MG TABLET PO PRN ×3 (06:11→17:49)
[2019-03-01 07:18] VITALS: BP 130/94
[2019-03-01] MEDS: MAGNESIUM OXIDE 400 MG TABLET PO SCH ×2 (11:49→21:35)
[2019-03-01] MEDS: CALCIUM CARBONATE 500 MG TAB.CHEW PO SCH ×2 (11:49→21:35)
[2019-03-01] MEDS: OMEPRAZOLE 20 MG CAPSULE.DR PO SCH ×2 (11:50→21:35)
[2019-03-01] MEDS: LACTOBACILLUS CHEW TABLET PO SCH ×3 (11:50→21:35)
[2019-03-01] MEDS: FOLIC ACID 1 MG TABLET PO SCH (11:50)
[2019-03-01] MEDS: THIAMINE 100MG TABLET PO SCH (11:50)
[2019-03-01] MEDS: POTASSIUM CHLORIDE 20 MEQ TAB.ER.PRT PO SCH ×2 (11:50→17:49)
[2019-03-01] MEDS: MULTIVITAMIN 1 TABLET PO SCH (11:50)
[2019-03-01] MEDS: SUCRALFATE 1 GM TABLET PO SCH ×3 (11:50→21:35)
[2019-03-01] MEDS: CHLORDIAZEPOXIDE 25 MG CAPSULE PO PRN ×2 (11:55→21:35)
[2019-03-01] MEDS: POTASSIUM CHLORIDE 20 MEQ, MAGNESIUM SULFATE 2 GM, THIAMINE 200 MG, MVI ADULT 10 ML, FO... IV SCH ×2 (12:57→22:00)
[2019-03-01 13:25] VITALS: BP 115/84
[2019-03-01 17:51] VITALS: BP 118/81
[2019-03-01 19:16] VITALS: BP 108/78
[2019-03-02] MEDS: OXYcodone IR 5MG TABLET PO PRN ×4 (00:36→20:06)
[2019-03-02 00:43] VITALS: BP 120/86
[2019-03-02 05:49] VITALS: BP 117/77
[2019-03-02] MEDS: CARVEDILOL 3.125 MG TABLET PO SCH ×2 (05:51→17:24)
[2019-03-02] MEDS: CHLORDIAZEPOXIDE 25 MG CAPSULE PO PRN (05:51)
[2019-03-02 07:11] VITALS: BP 110/79
[2019-03-02] MEDS: FOLIC ACID 1 MG TABLET PO SCH (08:43)
[2019-03-02] MEDS: POTASSIUM CHLORIDE 20 MEQ, MAGNESIUM SULFATE 2 GM, THIAMINE 200 MG, MVI ADULT 10 ML, FO... IV SCH (08:43)
[2019-03-02] MEDS: THIAMINE 100MG TABLET PO SCH (08:44)
[2019-03-02] MEDS: OMEPRAZOLE 20 MG CAPSULE.DR PO SCH ×2 (08:44→20:05)
[2019-03-02] MEDS: MULTIVITAMIN 1 TABLET PO SCH (08:44)
[2019-03-02] MEDS: SUCRALFATE 1 GM TABLET PO SCH ×3 (08:44→20:05)
[2019-03-02] MEDS: CALCIUM CARBONATE 500 MG TAB.CHEW PO SCH ×2 (08:44→20:05)
[2019-03-02] MEDS: MAGNESIUM OXIDE 400 MG TABLET PO SCH ×2 (08:44→20:05)
[2019-03-02] MEDS: LACTOBACILLUS CHEW TABLET PO SCH ×3 (08:44→20:05)
[2019-03-02] MEDS ORDERED: MAGNESIUM CITRATE 300ML ORAL SOL PO PRN (10:00)
[2019-03-02 10:31] LABS: TROPONIN I < 0.015 ng/mL (0.000-0.045)
[2019-03-02] MEDS: LORazepam 1MG TABLET PO PRN ×2 (12:40→20:09)
[2019-03-02 13:16] VITALS: BP 107/73
[2019-03-02 15:59] LABS: TROPONIN I < 0.015 ng/mL (0.000-0.045)
[2019-03-02 18:37] VITALS: BP 110/77
[2019-03-02 22:14] LABS: TROPONIN I < 0.015 ng/mL (0.000-0.045)
[2019-03-03 00:07] VITALS: BP 111/77
[2019-03-03] MEDS: OXYcodone IR 5MG TABLET PO PRN ×3 (05:08→18:32)
[2019-03-03] MEDS: CARVEDILOL 3.125 MG TABLET PO SCH ×2 (05:08→17:07)
[2019-03-03] MEDS: FERROUS SULFATE 325 MG TABLET PO SCH (05:08)
[2019-03-03 05:09] VITALS: BP 115/84
[2019-03-03 06:45] VITALS: BP 112/74
[2019-03-03] MEDS: LACTOBACILLUS CHEW TABLET PO SCH ×3 (08:44→20:36)
[2019-03-03] MEDS: SUCRALFATE 1 GM TABLET PO SCH ×3 (08:44→20:36)
[2019-03-03] MEDS: OMEPRAZOLE 20 MG CAPSULE.DR PO SCH ×2 (08:44→20:35)
[2019-03-03] MEDS: FOLIC ACID 1 MG TABLET PO SCH (08:44)
[2019-03-03] MEDS: MAGNESIUM OXIDE 400 MG TABLET PO SCH ×2 (08:45→20:36)
[2019-03-03] MEDS: CALCIUM CARBONATE 500 MG TAB.CHEW PO SCH ×2 (08:45→20:35)
[2019-03-03] MEDS: MULTIVITAMIN 1 TABLET PO SCH (08:45)
[2019-03-03] MEDS: THIAMINE 100MG TABLET PO SCH (08:45)
[2019-03-03] MEDS ORDERED: POTASSIUM CHLORIDE 20 MEQ, MAGNESIUM SULFATE 2 GM, THIAMINE 200 MG, MVI ADULT 10 ML, FO... IV SCH (09:00)
[2019-03-03] MEDS ORDERED: CALC200T24 PO (10:52)
[2019-03-03 12:10] VITALS: BP 110/75
[2019-03-03 18:23] VITALS: BP 107/77
[2019-03-04 00:14] VITALS: BP 104/72
[2019-03-04] MEDS: OXYcodone IR 5MG TABLET PO PRN ×4 (01:01→20:55)
[2019-03-04] MEDS: CARVEDILOL 3.125 MG TABLET PO SCH ×2 (05:39→18:06)
[2019-03-04 06:35] VITALS: BP 109/77
[2019-03-04] MEDS: LACTOBACILLUS CHEW TABLET PO SCH ×3 (09:38→20:55)
[2019-03-04] MEDS: THIAMINE 100MG TABLET PO SCH (09:38)
[2019-03-04] MEDS: OMEPRAZOLE 20 MG CAPSULE.DR PO SCH ×2 (09:39→20:56)
[2019-03-04] MEDS: MAGNESIUM OXIDE 400 MG TABLET PO SCH ×2 (09:39→20:56)
[2019-03-04] MEDS: CALCIUM CARBONATE 500 MG TAB.CHEW PO SCH ×2 (09:39→20:56)
[2019-03-04] MEDS: SUCRALFATE 1 GM TABLET PO SCH ×3 (09:39→20:56)
[2019-03-04] MEDS: MULTIVITAMIN 1 TABLET PO SCH (09:39)
[2019-03-04] MEDS: FOLIC ACID 1 MG TABLET PO SCH (09:39)
[2019-03-04] MEDS: ONDANSETRON 2MG/ML, 2ML IVPush PRN (10:05)
[2019-03-04 12:29] VITALS: BP 109/77
[2019-03-04] MEDS ORDERED: FLU VACC QS2019-20 36MOS UP/PF 0.5 ML IM-VACC ONE (15:30)
[2019-03-04 19:22] VITALS: BP 110/72
[2019-03-05 01:13] VITALS: BP 103/68
[2019-03-05] MEDS: CARVEDILOL 3.125 MG TABLET PO SCH (05:09)
[2019-03-05] MEDS: FERROUS SULFATE 325 MG TABLET PO SCH (05:09)
[2019-03-05] MEDS: OXYcodone IR 5MG TABLET PO PRN ×2 (05:09→11:20)
[2019-03-05 07:08] VITALS: BP 102/69
[2019-03-05] MEDS: MULTIVITAMIN 1 TABLET PO SCH (08:37)
[2019-03-05] MEDS: LACTOBACILLUS CHEW TABLET PO SCH (08:37)
[2019-03-05] MEDS: THIAMINE 100MG TABLET PO SCH (08:37)
[2019-03-05] MEDS: FOLIC ACID 1 MG TABLET PO SCH (08:37)
[2019-03-05] MEDS: CALCIUM CARBONATE 500 MG TAB.CHEW PO SCH (08:37)
[2019-03-05] MEDS: MAGNESIUM OXIDE 400 MG TABLET PO SCH (08:38)
[2019-03-05] MEDS: OMEPRAZOLE 20 MG CAPSULE.DR PO SCH (08:38)
[2019-03-05] MEDS: SUCRALFATE 1 GM TABLET PO SCH (08:38)
[2019-03-05] MEDS: ONDANSETRON 2MG/ML, 2ML IVPush PRN (11:21)
[2019-03-05 12:23] VITALS: BP 110/67
== END 2019-03-05 15:04 | DRG 86 ==
LOC: ED 22:53 → EDIP 02-27 00:09 → 4EST 02-27 00:56
PROVIDERS: ADMIT Family Medicine; ATTEND Internal Medicine
DX: S02.0XXA Fracture of vault of skull, initial encounter for closed fracture (principal); F10.239 Alcohol dependence with withdrawal, unspecified; F10.229 Alcohol dependence with intoxication, unspecified; E87.6 Hypokalemia; F17.200 Nicotine dependence, unspecified, uncomplicated; G40.909 Epilepsy, unspecified, not intractable, without status epilepticus; G89.29 Other chronic pain; I10 Essential (primary) hypertension; K21.9 Gastro-esophageal reflux disease without esophagitis; W18.39XA Other fall on same level, initial encounter; K44.9 Diaphragmatic hernia without obstruction or gangrene; Z59.0 Homelessness; Z90.49 Acquired absence of other specified parts of digestive tract; Z88.0 Allergy status to penicillin; Z88.8 Allergy status to other drugs, medicaments and biological substances; Y93.89 Activity, other specified; Y92.89 Other specified places as the place of occurrence of the external cause; Y99.8 Other external cause status; Z79.899 Other long term (current) drug therapy; Y90.9 Presence of alcohol in blood, level not specified; Z23 Encounter for immunization
CPT/HCPCS: 36415; 99285; J7042; 70450; 70486; 71045; 80048; 80053; 80307; 82040; 83690; 83735; 84484; 85025; 85610; 85730; 90686; 93005; G0378; J2405; J3411; J3475; J3480

== ENCOUNTER 2019-03-30 09:27 | Emergency (ER) | payer MEDICAID ==
[~2019-03-30] VITALS: Ht 167.6 cm; Wt 64.0 kg
[~2019-03-30 09:27] MED LIST changes: +CALC200T24 PO
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
--- NOTE | 2019-03-30 10:10 | NUR ---
PT IN CT NOW.
[2019-03-30] MEDS ORDERED: LORazepam 1MG TABLET ONE (10:28)
--- NOTE | 2019-03-30 10:29 | NUR ---
PT MOVED TOO MUCH PER CT. CAN'T TAKE CT AT THIS TIME. PA NOTIFIED.
[2019-03-30] MEDS ORDERED: LORazepam 1MG TABLET PO ONE (10:30)
--- NOTE | 2019-03-30 10:34 | NUR ---
PT MEDICATED PER EMAR. PT TOLERATED WELL.
--- NOTE | 2019-03-30 10:58 | NUR ---
PT SLEEPING IN [place]. RESPS EVEN AND UNLABORED. CT PAGED.
--- NOTE | 2019-03-30 12:04 | NUR ---
PT IN CT NOW.
--- NOTE | 2019-03-30 12:12 | NUR ---
PT BACK TO ROOM FROM CT AT THIS TIME.
[2019-03-30 12:26] VITALS: BP 104/65
--- NOTE | 2019-03-30 13:03 | NUR ---
PT REQUESTING PAIN MED. EDMD STATES "NO PAIN MEDS." PT WALKING AROUND ROOM. THIS RN RE-EDUCATED THIS PT AGAIN.
--- NOTE | 2019-03-30 13:48 | NUR ---
Patient given discharge instructions and they have confirmed that they understand the instructions. PT DIDN'T WANNA LEAVE. SECURITY PAGED. PT AMB TO EXIT WITH STEADY GAIT WITH SECURITY.
== END 2019-03-30 13:49 | disposition home or self-care (01) ==
LOC: ED 12:35
DX: S00.83XA Contusion of other part of head, initial encounter (principal); F10.220 Alcohol dependence with intoxication, uncomplicated; G40.909 Epilepsy, unspecified, not intractable, without status epilepticus; I95.9 Hypotension, unspecified; Y90.0 Blood alcohol level of less than 20 mg/100 ml; W01.0XXA Fall on same level from slipping, tripping and stumbling without subsequent striking against object, initial encounter; Y93.89 Activity, other specified; Y92.410 Unspecified street and highway as the place of occurrence of the external cause; Y99.8 Other external cause status
CPT/HCPCS: 70450; 99284

== ENCOUNTER 2019-04-01 10:37 | Emergency (ER) | payer MEDICAID ==
[~2019-04-01] VITALS: Ht 167.6 cm; Wt 62.7 kg
--- NOTE | 2019-04-01 12:05 | NUR ---
DIRECTOR OF BUSINESS CONTINUITY: PT TAKEN TO ROOM FROM LOBBY VIA WHEELCHAIR
[2019-04-01 12:17] LABS: BASOPHILS # (AUTO) 0.02 x10^3/uL (0-0.1); BASOPHILS % (AUTO) 0 % (0-1); EOSINOPHILS # (AUTO) 0.04 x10^3/uL (0-0.4); EOSINOPHILS % (AUTO) 1 % (1-7); LYMPHOCYTES # (AUTO) 2.67 x10^3/uL (1-3.4); LYMPHOCYTES % (AUTO) 45 % (22-44); MD NO; MEAN CORPUSCULAR HEMOGLOBIN 28.5 pg (27.5-34.5); MEAN CORPUSCULAR HGB CONC 32.8 g/dL (33.2-36.2); MEAN CORPUSCULAR VOLUME 86.8 fL (81-97); MEAN PLATELET VOLUME 7.7 fL (7.4-10.4); MONOCYTES # (AUTO) 0.21 x10^3/uL (0.2-0.8); MONOCYTES % (AUTO) 4 % (2-9); NEUTROPHILS # (AUTO) 3.01 x10^3/uL (1.8-6.8); NEUTROPHILS % (AUTO) 51 % (42-75); PLATELET COUNT 295 x10^3/uL (130-400); RED BLOOD COUNT 4.92 x10^6/uL (4.38-5.82); RED CELL DISTRIBUTION WIDTH 18.2 % (9.4-14.8)
--- NOTE | 2019-04-01 12:18 | NUR ---
assumed care of pt. pt to room. pt to ED w/ mult complaints "I feel like pancreatitis" vomiting/diarrhea "it's black". also c/o R hip pain, L wrist pain, diffuse abd pain worse on palp, head pain from falling. scans in triage. labs in triage. last drink vodka 0400. hx pancreatitis. hx etoh withdrawal seizures. Dr. Walker at bedside for eval. plan for L wrist xr. call wall in reach vss.
[2019-04-01 12:29] LABS: ALANINE AMINOTRANSFERASE 51 U/L (12-78); ALBUMIN 3.9 g/dL (3.4-5.0); ANION GAP 12 mmol/L (5-15); CALCIUM 8.9 mg/dL (8.5-10.1); CHLORIDE 99 mmol/L (98-107); CREATININE 0.76 mg/dL (0.7-1.3)
[2019-04-01 12:32] LABS: ALKALINE PHOSPHATASE 90 U/L (45-117); BILIRUBIN,TOTAL 0.8 mg/dL (0.2-1.0); TOTAL PROTEIN 9.2 g/dL (6.4-8.2)
--- NOTE | 2019-04-01 12:55 | NUR ---
etoh .354 healed fx base of fifth metacarpal. all results back pt up for recheck.
--- NOTE | 2019-04-01 13:21 | NUR ---
pt refused tylenol. Told Dr. Walker. Pt to be d/c.
[2019-04-01] MEDS ORDERED: ACETAMINOPHEN 325 MG TABLET PO ONE (13:30)
[2019-04-01 14:02] VITALS: BP 110/72
== END 2019-04-01 14:03 | disposition home or self-care (01) ==
LOC: ED 14:00
DX: S70.01XA Contusion of right hip, initial encounter (principal); S00.93XA Contusion of unspecified part of head, initial encounter; F10.220 Alcohol dependence with intoxication, uncomplicated; I10 Essential (primary) hypertension; G40.909 Epilepsy, unspecified, not intractable, without status epilepticus; W18.30XA Fall on same level, unspecified, initial encounter; Y93.89 Activity, other specified; Y92.009 Unspecified place in unspecified non-institutional (private) residence as the place of occurrence of the external cause; Y99.8 Other external cause status
CPT/HCPCS: 36415; 70450; 80053; 80307; 83690; 85025; 99284

== ENCOUNTER 2019-04-01 16:02 | Emergency (ER) | payer MEDICAID ==
[~2019-04-01] VITALS: Ht 170.2 cm; Wt 63.6 kg
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
--- NOTE | 2019-04-01 16:39 | NUR ---
Provided report to JYOTI Brandt. All questions answered. Pt transfered from room 3 to room 39 with sitter on gurney. JONES. No needs expressed.
--- NOTE | 2019-04-01 17:27 | NUR ---
PT ASKING FOR PAIN MEDS, NOT TYLENOL BECAUSE IT DOESN'T WORK. PT HAS SLURRED SPEECH. INFORMED PT HE CANNOT GET A NARCOTIC PAIN MEDICATION BECAUSE HE IS INTOXICATED.
--- NOTE | 2019-04-01 17:49 | NUR ---
TASK RN: provided pt food tray and warm blanket. NADN. No needs expressed.
--- NOTE | 2019-04-01 19:46 | NUR ---
PER [facility] FROM SPEAKING WITH ENVIRONMENTAL MANAGER. PT ABLE TO GO TO [facility] AFTER MTFs DOWN TO 0.30 ON [place]. WILL CALL [facility] WHEN PT READY TO GO.
--- NOTE | 2019-04-01 20:15 | NUR ---
Pt is requesting pain medications. Pt is grossly intoxicated at this time.
--- NOTE | 2019-04-01 21:24 | NUR ---
pt ambulating without difficulty and [facility] to go [facility]. Pt reports he is fine and going to leave. Pt aggreabel to taxi voucher for safe dc to [facility]. Taxi voucher provided. Pt in wheelchair and awaiting cab. Patient/Caregiver given discharge instructions and they have confirmed that they understand the instructions. Patient ambulatory with steady gait.
[2019-04-01 21:25] VITALS: BP 122/74
== END 2019-04-01 21:27 | disposition home or self-care (01) ==
LOC: ED 20:21
DX: F10.220 Alcohol dependence with intoxication, uncomplicated (principal); I10 Essential (primary) hypertension; Y90.0 Blood alcohol level of less than 20 mg/100 ml
CPT/HCPCS: 99283

== ENCOUNTER 2019-04-03 20:21 | Emergency (ER) | payer MEDICAID ==
[~2019-04-03] VITALS: Ht 165.1 cm; Wt 59.0 kg
[2019-04-03 20:23] VITALS: BP 133/79
--- NOTE | 2019-04-03 20:31 | NUR ---
PT PLACED ON WALL IN A WHEEL CHAIR. PT ABLE TO STAND AND TRANSFER WITH STAND BY ASSIST.
--- NOTE | 2019-04-03 21:12 | NUR ---
PT MOVED TO ROOM 19. PT ABLE TO AMBULATE WITH 2 PERSON ASSIST TO BED. PT IN ROOM AND IN [facility]. AT BEDSIDE FOR EVAL.
--- NOTE | 2019-04-03 21:38 | NUR ---
PT IN BED. NAD NOTED. O2 MONITORING IN PLACE.
--- NOTE | 2019-04-03 22:00 | NUR ---
REPORT FROM JYOTI REYES. [facility] PT EASILY ARROUSABLE TO VOICE.
--- NOTE | 2019-04-03 22:34 | NUR ---
Task rn: PT able to ambulate w/ steady gait.
== END 2019-04-03 22:39 | disposition home or self-care (01) ==
LOC: ED 22:17
DX: F10.151 Alcohol abuse with alcohol-induced psychotic disorder with hallucinations (principal); F17.200 Nicotine dependence, unspecified, uncomplicated; Z72.89 Other problems related to lifestyle; Z90.89 Acquired absence of other organs; Y90.9 Presence of alcohol in blood, level not specified
CPT/HCPCS: 99283

== ENCOUNTER 2019-04-04 13:52 | Inpatient (IN) | payer MEDICAID ==
[~2019-04-04] VITALS: Ht 167.6 cm; Wt 65.5 kg
[2019-04-04 14:42] LABS: BASOPHILS # (AUTO) 0.06 x10^3/uL (0-0.1); BASOPHILS % (AUTO) 1 % (0-1); EOSINOPHILS # (AUTO) 0.03 x10^3/uL (0-0.4); EOSINOPHILS % (AUTO) 0 % (1-7); LYMPHOCYTES # (AUTO) 1.73 x10^3/uL (1-3.4); LYMPHOCYTES % (AUTO) 21 % (22-44); MD NO; MEAN CORPUSCULAR HEMOGLOBIN 28.1 pg (27.5-34.5); MEAN CORPUSCULAR HGB CONC 32.4 g/dL (33.2-36.2); MEAN CORPUSCULAR VOLUME 86.7 fL (81-97); MEAN PLATELET VOLUME 8.6 fL (7.4-10.4); MONOCYTES # (AUTO) 0.23 x10^3/uL (0.2-0.8); MONOCYTES % (AUTO) 3 % (2-9); NEUTROPHILS % (AUTO) 75 % (42-75); PLATELET COUNT 189 x10^3/uL (130-400); RED BLOOD COUNT 4.63 x10^6/uL (4.38-5.82); RED CELL DISTRIBUTION WIDTH 18.4 % (9.4-14.8)
[2019-04-04 14:46] LABS: ALBUMIN 3.6 g/dL (3.4-5.0); ANION GAP 15 mmol/L (5-15); CALCIUM 8.4 mg/dL (8.5-10.1); CHLORIDE 95 mmol/L (98-107); CREATININE 0.79 mg/dL (0.7-1.3); INTERNATIONAL NORMALIZED RATIO 0.97 (0.93-1.1); PROTHROMBIN TIME 10.2 Seconds (9.6-11.5)
--- NOTE | 2019-04-04 15:08 | NUR ---
REPORT RECEIVED FROM JYOTI DREW. PLAN OF CARE DISCUSSED. PATIENT COMPLAINING OF " THERE'S FRACTURES IN MY FACE, IN MY HAND AND BOTH MY LEGS. WHERE'S MY PAIN MEDS? CAN I GET PAIN MEDS?" VSS AT THIS TIME, PATIENT HAS ERRATIC COMMUNICATION WITH DISHOVELED APPEARANCE. CALL LIGHT IN REACH.
[2019-04-04] MEDS ORDERED: ONDANSETRON ODT 4 MG ONE (15:15)
--- NOTE | 2019-04-04 15:18 | NUR ---
PATIENT MEDICATED PER EMAR, TOELRATED WELL. REPEATEDLY ASKING FOR PAIN MEDICATIONS.
[2019-04-04] MEDS ORDERED: ONDANSETRON ODT 4 MG PO ONE (15:30)
[2019-04-04] MEDS ORDERED: LORazepam 2 MG/ML, 1ML ONE ×2 (15:37→16:47)
--- NOTE | 2019-04-04 15:45 | NUR ---
PATIENT MEDICATED PER EMAR. CHARTED IM DELTOID INJECTION, GIVEN IM LEFT GLUTEAL INJECTION. TOELRATED WELL. CALL LIGHT IN REACH.
[2019-04-04] MEDS ORDERED: LORazepam 2 MG/ML, 1ML IM PRN (16:00)
--- NOTE | 2019-04-04 16:15 | NUR ---
PATIENT RESTING ON GURNEY, NAD, VSS, PATIENT IS STILL TACHYCARDIC, AND STILL REPEATEDLY ASKING FOR PAIN MEDICATION. CALL LIGHT IN REACH, PROVIDED PATIENT WITH ICE CHIPS.
[2019-04-04 16:46] LABS: GASTRIC OCCULT BLD POSITIVE (NEGATIVE); GASTRIC PH 3 (1-7)
[2019-04-04] MEDS ORDERED: ONDANSETRON 2MG/ML, 2ML ONE ×2 (16:46→19:02)
[2019-04-04] MEDS ORDERED: PANTOPRAZOLE 40 MG IV ONE (16:47)
[2019-04-04] MEDS ORDERED: PANTOPRAZOLE 40 MG IV IVPush ONE (17:00)
[2019-04-04] MEDS ORDERED: LORazepam 2 MG/ML, 1ML IVPush PRN (17:00)
[2019-04-04] MEDS ORDERED: SODIUM CHLORIDE FLUSH 10ML SYR IVF ONE (17:00)
[2019-04-04] MEDS ORDERED: SODIUM CHLORIDE 0.9% 1,000ML IVBOLUS ONE (17:00)
[2019-04-04] MEDS ORDERED: ONDANSETRON 2MG/ML, 2ML IVPush ONE (17:00)
--- NOTE | 2019-04-04 17:10 | NUR ---
PATIENT MEDICATED PER EMAR, TOELRATED WELL. CALL LIGHT IN REACH, DENIES NEEDS AT THIS TIME.
--- NOTE | 2019-04-04 18:05 | NUR ---
PATIENT DESAT TO 70'S, BACK UP TO 100% AFTER 15 SECONDS. MD TO ROOM TO EVALUATE. PATIENT TBADM FOR ETOH WITHDRAWL. PATIENT AROUSES TO LOUD VOICE.
[2019-04-04] MEDS: SODIUM CHLORIDE 0.9% 1,000 ML IV SCH (18:20)
[2019-04-04] MEDS ORDERED: ACETAMINOPHEN 325 MG TABLET PO PRN (18:30)
[2019-04-04] MEDS ORDERED: BISACODYL 10 MG SUPP PR PRN (18:30)
--- NOTE | 2019-04-04 18:31 | NUR ---
PATIENT AROUSES TO SHAKING STIMULI, PLACED ON 2L NC DUE TO DESAT TO 90%. MD NOTIFIED.
--- NOTE | 2019-04-04 18:52 | NUR ---
ATTEMPTED TO CALL [facility] DUE TO PATIENT BEING TACH IN THE 130'S-140, AND C/O ABD PAIN WITH N/V. LINE BUSY. WILL TRY AGAIN.
[2019-04-04] MEDS: ONDANSETRON 2MG/ML, 2ML IVPush PRN (19:12)
--- NOTE | 2019-04-04 19:14 | NUR ---
PATIENT MEDICATED PER EMAR, TOLERATED WELL. PATIENT SLEEPING. VSS BUT TACHYCARDIC AT THIS TIME.
--- NOTE | 2019-04-04 19:28 | NUR ---
CALLED JOSSE Garner NP. PROVIDER AWARE OF VS AND HR. NO NEW ORDERS AT THIS TIME.
--- NOTE | 2019-04-04 20:36 | NUR ---
JOSSE Garner HOOP DRIVING MACHINE OPERATOR HELPER AWARE OF VS. PT REQUESTING PAIN MEDS. PROVIDER AWARE.
--- NOTE | 2019-04-04 20:40 | NUR ---
SPOKE WITH JOSSE MCCOLLUM, ASKED FOR PAIN MEDICATION/MORPHINE ORDER. CHANNEL MARKETING MANAGER STATED HE WOULD PUT ORDER IN. STILL AWAITING PAIN MORPHINE ORDER.
[2019-04-04] MEDS ORDERED: MORPHINE SULFATE 4 MG/ML, 1ML IVPush ONE (21:00)
[2019-04-04] MEDS ORDERED: MORPHINE SULFATE 4 MG/ML, 1ML ONE (21:00)
[2019-04-04] MEDS ORDERED: OMNIPAQUE 350 MG/ML, 100ML BOTTLE ONE (21:01)
--- NOTE | 2019-04-04 21:08 | NUR ---
PATIENT BACK FROM CT, PATIENT MEDICATED PER EMAR, TOELRATED WELL. WAITING FOR TRANSPORT.
[2019-04-04 21:27] VITALS: BP 128/80
[2019-04-04] MEDS: THIAMINE 100MG TABLET PO SCH (22:14)
[2019-04-04] MEDS: SUCRALFATE 1 GM/10 ML UDC PO SCH (22:14)
[2019-04-05] MEDS: LORazepam 2 MG/ML, 1ML IVPush PRN ×5 (00:27→20:39)
[2019-04-05 00:50] VITALS: BP 143/84
[2019-04-05] MEDS: ONDANSETRON 2MG/ML, 2ML IVPush PRN ×4 (01:43→23:01)
[2019-04-05] MEDS ORDERED: MORPHINE SULFATE 4 MG/ML, 1ML IVPush ONE (05:30)
[2019-04-05 05:47] LABS: CHLORIDE 102 mmol/L (98-107)
[2019-04-05 05:55] LABS: ALANINE AMINOTRANSFERASE 33 U/L (12-78); ALBUMIN 2.9 g/dL (3.4-5.0); ALKALINE PHOSPHATASE 65 U/L (45-117); ANION GAP 12 mmol/L (5-15); BILIRUBIN,TOTAL 1.1 mg/dL (0.2-1.0); CALCIUM 7.9 mg/dL (8.5-10.1); CREATININE 0.59 mg/dL (0.7-1.3); TOTAL PROTEIN 6.4 g/dL (6.4-8.2)
[2019-04-05] MEDS: SODIUM CHLORIDE 0.9% 1,000 ML IV SCH ×2 (06:19→16:43)
[2019-04-05] MEDS: SUCRALFATE 1 GM/10 ML UDC PO SCH ×4 (06:19→20:38)
[2019-04-05] MEDS: PANTOPRAZOLE 40 MG IV IVPush SCH ×2 (06:19→20:38)
[2019-04-05 06:44] LABS: BASOPHILS # (AUTO) 0.02 x10^3/uL (0-0.1); BASOPHILS % (AUTO) 0 % (0-1); EOSINOPHILS # (AUTO) 0.04 x10^3/uL (0-0.4); EOSINOPHILS % (AUTO) 1 % (1-7); LYMPHOCYTES # (AUTO) 1.13 x10^3/uL (1-3.4); LYMPHOCYTES % (AUTO) 15 % (22-44); MD SCAN; MEAN CORPUSCULAR HEMOGLOBIN 28.3 pg (27.5-34.5); MEAN CORPUSCULAR HGB CONC 32.6 g/dL (33.2-36.2); MEAN PLATELET VOLUME 9.2 fL (7.4-10.4); MONOCYTES # (AUTO) 0.33 x10^3/uL (0.2-0.8); MONOCYTES % (AUTO) 4 % (2-9); NEUTROPHILS # (AUTO) 6.04 x10^3/uL (1.8-6.8); NEUTROPHILS % (AUTO) 80 % (42-75); PLATELET COUNT 97 x10^3/uL (130-400); RED BLOOD COUNT 3.89 x10^6/uL (4.38-5.82); RED CELL DISTRIBUTION WIDTH 18.4 % (9.4-14.8)
[2019-04-05 07:11] VITALS: BP 142/92
[2019-04-05] MEDS: FOLIC ACID 1 MG TABLET PO SCH (08:41)
[2019-04-05] MEDS: MULTIVITAMINS/MINERALS TABLET PO SCH (08:41)
[2019-04-05] MEDS: THIAMINE 100MG TABLET PO SCH ×2 (08:41→20:39)
[2019-04-05 13:03] LABS: MEAN CORPUSCULAR HEMOGLOBIN 28.8 pg (27.5-34.5); MEAN CORPUSCULAR HGB CONC 32.9 g/dL (33.2-36.2); MEAN CORPUSCULAR VOLUME 87.4 fL (81-97); MEAN PLATELET VOLUME 8.4 fL (7.4-10.4); PLATELET COUNT 73 x10^3/uL (130-400); RED BLOOD COUNT 3.62 x10^6/uL (4.38-5.82); RED CELL DISTRIBUTION WIDTH 18.5 % (9.4-14.8)
[2019-04-05 13:05] LABS: BASOPHILS # (AUTO) 0.02 x10^3/uL (0-0.1); BASOPHILS % (AUTO) 0 % (0-1); EOSINOPHILS # (AUTO) 0.07 x10^3/uL (0-0.4); EOSINOPHILS % (AUTO) 1 % (1-7); LYMPHOCYTES # (AUTO) 0.73 x10^3/uL (1-3.4); LYMPHOCYTES % (AUTO) 14 % (22-44); MD SCAN; MONOCYTES # (AUTO) 0.19 x10^3/uL (0.2-0.8); MONOCYTES % (AUTO) 4 % (2-9); NEUTROPHILS # (AUTO) 4.13 x10^3/uL (1.8-6.8); NEUTROPHILS % (AUTO) 80 % (42-75)
[2019-04-05 13:35] VITALS: BP 134/84
[2019-04-05] MEDS ORDERED: CHLORDIAZEPOXIDE 10 MG CAPSULE ONE (14:41)
[2019-04-05] MEDS ORDERED: CHLORDIAZEPOXIDE 5 MG CAPSULE ONE (14:42)
[2019-04-05] MEDS: CHLORDIAZEPOXIDE 25 MG CAPSULE PO PRN ×2 (14:53→23:26)
[2019-04-05] MEDS ORDERED: BUTALB/APAP/CAFFEINE 50MG/325MG/40MG PO PRN (17:00)
[2019-04-05 20:42] VITALS: BP 116/73
[2019-04-06 01:10] VITALS: BP 122/78
[2019-04-06] MEDS: LORazepam 2 MG/ML, 1ML IVPush PRN ×2 (01:10→06:23)
[2019-04-06] MEDS: SODIUM CHLORIDE 0.9% 1,000 ML IV SCH (01:11)
[2019-04-06] MEDS: ACETAMINOPHEN 325 MG TABLET PO PRN ×2 (02:07→18:19)
[2019-04-06 04:38] LABS: ALBUMIN 2.6 g/dL (3.4-5.0); ANION GAP 9 mmol/L (5-15); CALCIUM 7.6 mg/dL (8.5-10.1); CHLORIDE 102 mmol/L (98-107)
[2019-04-06 04:39] LABS: CREATININE 0.63 mg/dL (0.7-1.3)
[2019-04-06 04:55] LABS: MEAN CORPUSCULAR HEMOGLOBIN 28.8 pg (27.5-34.5); MEAN CORPUSCULAR HGB CONC 33.1 g/dL (33.2-36.2); MEAN CORPUSCULAR VOLUME 86.9 fL (81-97); RED BLOOD COUNT 3.68 x10^6/uL (4.38-5.82); RED CELL DISTRIBUTION WIDTH 18.1 % (9.4-14.8)
[2019-04-06 06:11] LABS: BASOPHILS % (AUTO) 0 % (0-1); EOSINOPHILS # (AUTO) 0.01 x10^3/uL (0-0.4); EOSINOPHILS % (AUTO) 0 % (1-7); LYMPHOCYTES % (AUTO) 12 % (22-44); MD SCAN; MEAN PLATELET VOLUME 8.9 fL (7.4-10.4); MONOCYTES # (AUTO) 0.16 x10^3/uL (0.2-0.8); MONOCYTES % (AUTO) 3 % (2-9); NEUTROPHILS # (AUTO) 5.06 x10^3/uL (1.8-6.8); NEUTROPHILS % (AUTO) 85 % (42-75); PLATELET COUNT 65 x10^3/uL (130-400)
[2019-04-06] MEDS: ONDANSETRON 2MG/ML, 2ML IVPush PRN ×3 (06:23→18:23)
[2019-04-06] MEDS: PANTOPRAZOLE 40 MG IV IVPush SCH (06:23)
[2019-04-06] MEDS: SUCRALFATE 1 GM/10 ML UDC PO SCH ×3 (06:23→16:32)
[2019-04-06 06:53] VITALS: BP 116/72
[2019-04-06] MEDS ORDERED: POTASSIUM CHLORIDE 40 MEQ in SODIUM CHLORIDE 0.9% 500 ML IV ONE ×2 (07:30→08:30)
[2019-04-06] MEDS ORDERED: MAGNESIUM SULFATE PMX 4GM/100M 100 ML IV ONE (08:00)
[2019-04-06] MEDS ORDERED: POTASSIUM CHLORIDE 20 MEQ TAB.ER.PRT PO ONE (08:00)
[2019-04-06] MEDS ORDERED: POTASSIUM PHOSPHATE 44 MEQ in SODIUM CHLORIDE 0.9% 500 ML IV ONE ×2 (08:00→19:00)
[2019-04-06] MEDS ORDERED: POTASSIUM CHLORIDE 20 MEQ TAB.ER.PRT PO SCH (08:00)
[2019-04-06] MEDS ORDERED: CHLORDIAZEPOXIDE 25 MG CAPSULE PO PRN ×3 (08:30)
[2019-04-06] MEDS ORDERED: PANTOPRAZOLE 40 MG IV IVPush SCH (09:00)
[2019-04-06] MEDS: THIAMINE 100MG TABLET PO SCH (09:00)
[2019-04-06] MEDS: FOLIC ACID 1 MG TABLET PO SCH (09:00)
[2019-04-06] MEDS: MULTIVITAMINS/MINERALS TABLET PO SCH (09:00)
[2019-04-06] MEDS: CHLORDIAZEPOXIDE 10 MG CAPSULE PO PRN ×2 (12:24→18:19)
[2019-04-06 13:22] VITALS: BP 120/81
[2019-04-06] MEDS ORDERED: SODIUM CHLORIDE 0.9% 1,000 ML IV SCH (18:20)
[2019-04-06 19:05] VITALS: BP 114/76
== END 2019-04-06 21:17 | disposition left against medical advice (07) | DRG 640 ==
LOC: ED 15:11 → EDIP 18:20 → 4WST 21:23
PROVIDERS: ADMIT Internal Medicine; ATTEND Internal Medicine Infectious Disease
DX: E87.1 Hypo-osmolality and hyponatremia (principal); K29.71 Gastritis, unspecified, with bleeding; F10.239 Alcohol dependence with withdrawal, unspecified; E83.39 Other disorders of phosphorus metabolism; E83.42 Hypomagnesemia; E87.6 Hypokalemia; Z53.29 Procedure and treatment not carried out because of patient's decision for other reasons; Z88.0 Allergy status to penicillin; Z88.8 Allergy status to other drugs, medicaments and biological substances; G40.909 Epilepsy, unspecified, not intractable, without status epilepticus; I10 Essential (primary) hypertension; K20.9 Esophagitis, unspecified; Z59.0 Homelessness
CPT/HCPCS: 36415; 74177; 80048; 80053; 80069; 82040; 82271; 83690; 83735; 85025; 85610; 85730; 93005; G0378; J2405; J3480; Q0162; Q9967; C9113; J2060; J2270; J3475; J7030; J7040

== ENCOUNTER 2019-04-07 01:27 | Emergency (ER) | payer MEDICAID ==
[~2019-04-07] VITALS: Ht 167.6 cm; Wt 65.0 kg
[2019-04-07 01:29] VITALS: BP 100/66
--- NOTE | 2019-04-07 01:35 | NUR ---
BIB EMS FOR ETOH, PT FOUND ON GROUND STS COULD NOT GET UP. VSS
--- NOTE | 2019-04-07 01:37 | NUR ---
MD AT BEDSIDE TO ASSESS PT
--- NOTE | 2019-04-07 01:50 | NUR ---
PT TO CT
--- NOTE | 2019-04-07 01:57 | NUR ---
PT BACK FROM CT
[2019-04-07] MEDS ORDERED: PROMETHAZINE 25 MG/ML, 1ML ONE (01:58)
[2019-04-07] MEDS ORDERED: PROMETHAZINE 25 MG/ML, 1ML IM ONE (02:00)
[2019-04-07 02:29] LABS: ALBUMIN 2.9 g/dL (3.4-5.0); ANION GAP 9 mmol/L (5-15); CHLORIDE 107 mmol/L (98-107); CREATININE 0.76 mg/dL (0.7-1.3)
--- NOTE | 2019-04-07 02:35 | NUR ---
PT IN ROOM THROWING CALL LIGHT. CALMING MEASURES UNSUCCESSFUL. PT THREATENING THIS RN. PT THEN AMBULATORY INTO HALLWAY WITH STEADY GAIT. PT REFUSING TO RETURN TO HIS ROOM.
--- NOTE | 2019-04-07 02:46 | NUR ---
ERP at bedside for re-evaluation.
[2019-04-07 02:51] LABS: MEAN CORPUSCULAR HEMOGLOBIN 28.2 pg (27.5-34.5); MEAN CORPUSCULAR HGB CONC 33.1 g/dL (33.2-36.2); MEAN CORPUSCULAR VOLUME 85.3 fL (81-97); MEAN PLATELET VOLUME 8.8 fL (7.4-10.4); PLATELET COUNT 75 x10^3/uL (130-400); RED BLOOD COUNT 4.24 x10^6/uL (4.38-5.82)
[2019-04-07 02:52] LABS: BASOPHILS # (AUTO) 0.11 x10^3/uL (0-0.1); BASOPHILS % (AUTO) 2 % (0-1); EOSINOPHILS # (AUTO) 0.03 x10^3/uL (0-0.4); EOSINOPHILS % (AUTO) 1 % (1-7); LYMPHOCYTES # (AUTO) 0.75 x10^3/uL (1-3.4); LYMPHOCYTES % (AUTO) 12 % (22-44); MD MORPH REVIEW ONLY; MONOCYTES # (AUTO) 0.28 x10^3/uL (0.2-0.8); MONOCYTES % (AUTO) 5 % (2-9); NEUTROPHILS # (AUTO) 5.13 x10^3/uL (1.8-6.8); NEUTROPHILS % (AUTO) 81 % (42-75)
[2019-04-07] MEDS ORDERED: POTASSIUM CHLORIDE 20 MEQ TAB.ER.PRT ONE (02:53)
[2019-04-07 02:56] LABS: <PLATELET ESTIMATE> DECREASED; ANISOCYTOSIS 1+; LARGE PLATELETS 1+; OVALOCYTES 1+
[2019-04-07] MEDS ORDERED: POTASSIUM CHLORIDE 20 MEQ TAB.ER.PRT PO ONE (03:00)
== END 2019-04-07 03:11 | disposition home or self-care (01) ==
LOC: ED 01:59
DX: F10.220 Alcohol dependence with intoxication, uncomplicated (principal); E87.6 Hypokalemia; F17.210 Nicotine dependence, cigarettes, uncomplicated; I10 Essential (primary) hypertension; G40.909 Epilepsy, unspecified, not intractable, without status epilepticus; R51 Headache
CPT/HCPCS: 36415; 70450; 80048; 80307; 82040; 83690; 85025; 96372; 99284; 99406; J2550

== ENCOUNTER 2019-04-08 03:12 | Emergency (ER) | payer MEDICAID ==
[~2019-04-08] VITALS: Ht 167.6 cm; Wt 60.0 kg
[2019-04-08 03:15] VITALS: BP 110/69
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
--- NOTE | 2019-04-08 04:23 | NUR ---
Pt refusing to wear monitoring staff and yelling at staff when attempting to obtain vitals. Rr even and unlabored. Rousable to name.
--- NOTE | 2019-04-08 05:46 | NUR ---
Pt still refusing monitoring equipment. Rr even and unlabored. Nadn.
--- NOTE | 2019-04-08 06:09 | NUR ---
Pt expressing interest in wanting to leave. Refusing taxi voucher and d/c paperwork.
== END 2019-04-08 06:18 | disposition home or self-care (01) ==
LOC: ED 04:00
DX: F10.120 Alcohol abuse with intoxication, uncomplicated (principal); Z72.9 Problem related to lifestyle, unspecified; I10 Essential (primary) hypertension; G40.909 Epilepsy, unspecified, not intractable, without status epilepticus; Z90.89 Acquired absence of other organs; Y90.9 Presence of alcohol in blood, level not specified
CPT/HCPCS: 99283

== ENCOUNTER 2019-04-08 11:31 | Emergency (ER) | payer MEDICAID ==
[~2019-04-08] VITALS: Ht 167.6 cm; Wt 61.4 kg
--- NOTE | 2019-04-08 11:52 | NUR ---
PT UNDRESSED WITH RN MAX ASSIST. BP AND PULSE OX MONITORING IN PLACE. PILLOW AND WARM BLANKET PROVIDED/
--- NOTE | 2019-04-08 11:54 | NUR ---
per ems: patient sent here from nursing home for "intoxication, unresponsiveness, and breathalizer of 0.3". Upon arrival to this ED, pt was AAO x 4, GCS 15. Patient was seen here this morning. Discharged safely to the community. Apparently, the patient was picked up by [employer] for an open warrant and public intoxication.
--- NOTE | 2019-04-08 11:55 | NUR ---
PT S SISTER CLIFFORD PH [phone] PER PT IT IS OK TO SPEAK WITH HER REGARDING HIS HOPITAL STAY
--- NOTE | 2019-04-08 12:27 | NUR ---
SPOKE WITH CLIFFORD, PTS SISTER. SHE IS VISITING FROM [place] AND IS REQUESTING HELP WITH FINDING PLACEMENT FOR HER BROTHER. I SUGGESTED THAT SHE COME SEE HIM IN THE ED AND TALK WITH THE HAND STONE POLISHER.
--- NOTE | 2019-04-08 14:00 | NUR ---
Pt sitting up on gurney eating w/o difficulty
[2019-04-08 14:21] VITALS: BP 115/76
--- NOTE | 2019-04-08 14:39 | NUR ---
PT ATE 100% OF PROVIDED SOFT MEAL TRAY. PT OOB AND AMBULATES IN HALLWAY W/O DIFFIULTY. PT RTD TO ROOM W/O INCIDENT. I ASKED PT IF HE WOULD LIKE ME TO CALL HIS SISTER AND PT DECLINED. PIV D/C TIP INTACT AND PT GETTING DRESSED.
--- NOTE | 2019-04-08 14:59 | NUR ---
Patient/Caregiver given discharge instructions and they have confirmed that they understand the instructions. Patient ambulatory with steady gait. Pt left w/o sighning d/c instructions
== END 2019-04-08 15:00 | disposition home or self-care (01) ==
LOC: MERGE 11:31 → ED 14:35
DX: F10.220 Alcohol dependence with intoxication, uncomplicated (principal); I10 Essential (primary) hypertension; Y90.9 Presence of alcohol in blood, level not specified
CPT/HCPCS: 99283

== ENCOUNTER 2019-04-13 10:41 | Emergency (ER) | payer MEDICAID ==
[~2019-04-13] VITALS: Ht 167.6 cm; Wt 73.0 kg
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
--- NOTE | 2019-04-13 11:28 | NUR ---
URINAL AT BEDSIDE.
--- NOTE | 2019-04-13 11:51 | NUR ---
PT TO CT AT THIS TIME.
--- NOTE | 2019-04-13 12:10 | NUR ---
PT BACK TO ROOM FROM CT AT THIS TIME.
--- NOTE | 2019-04-13 12:24 | NUR ---
WATER AND SNACKS PROVIDED AT THIS TIME.
[2019-04-13 13:12] VITALS: BP 106/84
--- NOTE | 2019-04-13 13:13 | NUR ---
LUNCH RN: PT SLEEPING IN BED, KAREN. BRITTNI AT THIS TIME. WILL CONTINUE TO MONITOR
--- NOTE | 2019-04-13 13:38 | NUR ---
Patient given discharge instructions and they have confirmed that they understand the instructions. Patient ambulatory with steady gait.
== END 2019-04-13 13:39 | disposition home or self-care (01) ==
LOC: ED 11:24
DX: S00.12XA Contusion of left eyelid and periocular area, initial encounter (principal); F10.220 Alcohol dependence with intoxication, uncomplicated; W18.30XA Fall on same level, unspecified, initial encounter; Y93.89 Activity, other specified; Y92.89 Other specified places as the place of occurrence of the external cause; Y99.8 Other external cause status; Y90.0 Blood alcohol level of less than 20 mg/100 ml
CPT/HCPCS: 70450; 72125; 99284

== ENCOUNTER 2019-04-13 20:01 | Emergency (ER) | payer MEDICAID ==
[~2019-04-13] VITALS: Ht 165.1 cm; Wt 70.0 kg
--- NOTE | 2019-04-13 20:30 | NUR ---
PT BIB EMS FROM [facility] FOR ETOH PT WAS FOUND IN BATHROOM VOMITING. PT WAS HERE EARLIER THIS MORNING FOR ETOH INTOXICATION AND D/C. PT CONNECTED TO MONITORING VSS, CALL LIGHT IN REACH, NADN. PT AROUSABLE TO VERBAL STIMULI AND FOLLOWS SOME COMMANDS
--- NOTE | 2019-04-13 20:41 | NUR ---
PT RESTING DEEPLY, REMAINS AROUSABLE TO VERBAL STIMULI HOWEVER "SO SO SLEEPY."
[2019-04-13 21:45] VITALS: BP 130/95
--- NOTE | 2019-04-13 21:47 | NUR ---
PT RESTING ON GURNEY, FOLLOWS COMMANDS AND ABLE TO MOVE SELF IN GURNEY
[2019-04-13] MEDS ORDERED: ONDANSETRON ODT 4 MG ONE (22:40)
--- NOTE | 2019-04-13 22:55 | NUR ---
PT VOMITING, TO BE UPDATED
[2019-04-13] MEDS ORDERED: ONDANSETRON ODT 4 MG PO ONE (23:00)
--- NOTE | 2019-04-13 23:01 | NUR ---
PT MEDICATED PER MAR
--- NOTE | 2019-04-13 23:26 | NUR ---
PT RESTING ON GURNEY EYES CLOSED, RESP EVEN AND UNLABORED, PT AROUSABLE TO VERBAL STIMULI
== END 2019-04-14 01:42 | disposition home or self-care (01) ==
LOC: ED 20:08
DX: F10.120 Alcohol abuse with intoxication, uncomplicated (principal); F17.200 Nicotine dependence, unspecified, uncomplicated; I10 Essential (primary) hypertension; Y90.0 Blood alcohol level of less than 20 mg/100 ml
CPT/HCPCS: 99283; Q0162

== ENCOUNTER 2019-04-14 20:38 | Emergency (ER) | payer MEDICAID ==
[~2019-04-14] VITALS: Ht 170.2 cm; Wt 72.0 kg
[2019-04-14] MEDS ORDERED: ONDANSETRON 2MG/ML, 2ML ONE ×2 (20:54→23:49)
[2019-04-14] MEDS ORDERED: THIAMINE 100 MG/ML, 2ML ONE (20:54)
[2019-04-14 20:58] LABS: BASOPHILS # (AUTO) 0.03 x10^3/uL (0-0.1); BASOPHILS % (AUTO) 1 % (0-1); EOSINOPHILS # (AUTO) 0.01 x10^3/uL (0-0.4); EOSINOPHILS % (AUTO) 0 % (1-7); LYMPHOCYTES # (AUTO) 1.79 x10^3/uL (1-3.4); LYMPHOCYTES % (AUTO) 32 % (22-44); MD NO; MEAN CORPUSCULAR HEMOGLOBIN 27.9 pg (27.5-34.5); MEAN CORPUSCULAR HGB CONC 32.9 g/dL (33.2-36.2); MEAN CORPUSCULAR VOLUME 84.5 fL (81-97); MEAN PLATELET VOLUME 6.7 fL (7.4-10.4); MONOCYTES % (AUTO) 7 % (2-9); NEUTROPHILS # (AUTO) 3.42 x10^3/uL (1.8-6.8); NEUTROPHILS % (AUTO) 61 % (42-75); PLATELET COUNT 415 x10^3/uL (130-400); RED BLOOD COUNT 4.51 x10^6/uL (4.38-5.82); RED CELL DISTRIBUTION WIDTH 19.6 % (9.4-14.8)
[2019-04-14] MEDS ORDERED: THIAMINE 100 MG/ML, 2ML IM ONE (21:00)
[2019-04-14] MEDS ORDERED: ONDANSETRON 2MG/ML, 2ML IVPush ONE (21:00)
[2019-04-14] MEDS ORDERED: SODIUM CHLORIDE 0.9% 1,000ML IVBOLUS ONE (21:00)
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
[2019-04-14 21:09] LABS: ALBUMIN 3.3 g/dL (3.4-5.0); ANION GAP 11 mmol/L (5-15); CALCIUM 8.1 mg/dL (8.5-10.1); CHLORIDE 103 mmol/L (98-107)
--- NOTE | 2019-04-14 21:13 | NUR ---
PIV STARTED, MEDICATED PER EMAR, IVF RUNNING. DENIES FURTHER NEEDS AT THIS TIME.
[2019-04-14 21:19] LABS: ALANINE AMINOTRANSFERASE 122 U/L (12-78); ALKALINE PHOSPHATASE 101 U/L (45-117); BILIRUBIN,TOTAL 0.4 mg/dL (0.2-1.0); CREATININE 0.87 mg/dL (0.7-1.3); TOTAL PROTEIN 7.6 g/dL (6.4-8.2)
[2019-04-14] MEDS ORDERED: POTASSIUM CHLORIDE 20 MEQ TAB.ER.PRT PO ONE (21:30)
[2019-04-14] MEDS ORDERED: POTASSIUM CHLORIDE 20 MEQ TAB.ER.PRT ONE (21:37)
--- NOTE | 2019-04-14 21:45 | NUR ---
PATIENT MEDICATED PER EMAR, TOLERATED WELL. DENIES NEEDS AT THIS TIME.
--- NOTE | 2019-04-14 21:49 | NUR ---
BEDSIDE REPORT GIVEN TO JYOTI DREW. PLAN OF CARE DISCUSSED. JYOTI DREW TO ASSUME CARE OF PATIENT AT THIS TIME.
--- NOTE | 2019-04-14 21:59 | NUR ---
REPORT FROM VIKI Baker RN. PT RESTING IN BED. UPDATED ON PLAN OF CARE. DENIES ANY NEEDS OR CONCERNS AT H Addendum: 04/14/19 at 2159 by MADISON AT THIS TIME. CALL LIGHT IN REACH.
--- NOTE | 2019-04-14 22:44 | NUR ---
PT RESTING IN BED, EYES CLOSED, NADN. CALL LIGHT IN REACH.
[2019-04-14 23:12] VITALS: BP 135/82
[2019-04-14] MEDS ORDERED: ACETAMINOPHEN 325 MG TABLET ONE (23:49)
--- NOTE | 2019-04-14 23:56 | NUR ---
pt vomiting in bed. new orders received and given per jun. pt resting comfortably at this time. provided with extra warm blankets. call light in reach. denies any further needs or concerns at this time.
[2019-04-15] MEDS ORDERED: ONDANSETRON 2MG/ML, 2ML IVPush ONE
[2019-04-15] MEDS ORDERED: ACETAMINOPHEN 325 MG TABLET PO ONE
== END 2019-04-15 01:37 | disposition home or self-care (01) ==
LOC: ED 21:01
DX: F10.10 Alcohol abuse, uncomplicated (principal); E87.6 Hypokalemia; R11.2 Nausea with vomiting, unspecified; I10 Essential (primary) hypertension; F17.210 Nicotine dependence, cigarettes, uncomplicated; Z90.89 Acquired absence of other organs; Y90.9 Presence of alcohol in blood, level not specified
CPT/HCPCS: 36415; 80053; 80307; 83690; 85025; 96361; 96372; 96374; 96376; 99283; J2405; J3411; J7030

== ENCOUNTER 2019-04-15 03:41 | Emergency (ER) | payer MEDICAID ==
[~2019-04-15] VITALS: Ht 170.2 cm; Wt 78.0 kg
--- NOTE | 2019-04-15 03:56 | NUR ---
RN to bedside, patient yelling "Fuck you" at the EMS that transferred patient. Received report that patient has been transported x5 times by EMS today. Patient not speaking clearly or coherently. Speech is garbled. Provider to bedside, patient not being clear in sentences. Reports having a headache, does not state a clear reason. Statements are unclear and unconnected. Flighty thoughts cover patient statements over not being able to go home because "they" won't let him in. Patient doesn't answer questions, just repeats himself. Patient's behavior with acute intoxication. Awaiting orders.
--- NOTE | 2019-04-15 07:42 | NUR ---
pt sleeping in gurney. arouses to touch, but intermittently dozing. no acute s/s of distress. not participating in assessment.
--- NOTE | 2019-04-15 07:59 | NUR ---
pt ambulated in hallway with standby assist. shuffling unsteady gait at this time. pt escorted back [facility]. denies further needs at this time
--- NOTE | 2019-04-15 12:01 | NUR ---
pt ambulated in hallway approx 300ft. no assistance required. steady shuffling gait
--- NOTE | 2019-04-15 12:39 | NUR ---
break note for rn: pt refusing ambulation attempt. blanket removed. bed remains in lowered position. will attempt in 10 min, pt requests "give me a minute"
--- NOTE | 2019-04-15 12:58 | NUR ---
INTRUSION ANALYST: LUCIA PIERSON, PT WAS AMBULATORY WITH STEADY GAIT. PT READY FOR D/C.
[2019-04-15 13:02] VITALS: BP 114/74
--- NOTE | 2019-04-15 13:02 | NUR ---
EMERGENCY MANAGEMENT DIRECTOR: Patient/Caregiver given discharge instructions and they have confirmed that they understand the instructions. Patient ambulatory with steady gait.PT LEFT WITH ALL PERSONAL BELONGINGS.
== END 2019-04-15 13:05 | disposition home or self-care (01) ==
LOC: ED 04:07
DX: F10.229 Alcohol dependence with intoxication, unspecified (principal); I10 Essential (primary) hypertension; F17.210 Nicotine dependence, cigarettes, uncomplicated; Z90.49 Acquired absence of other specified parts of digestive tract; Z72.9 Problem related to lifestyle, unspecified; Z87.01 Personal history of pneumonia (recurrent); Y90.9 Presence of alcohol in blood, level not specified
CPT/HCPCS: 99283

== ENCOUNTER 2019-04-15 15:12 | Emergency (ER) | payer MEDICAID ==
[~2019-04-15] VITALS: Ht 167.6 cm; Wt 82.0 kg
--- NOTE | 2019-04-15 15:23 | NUR ---
SARAH. REPORT RECEIVED FROM EMS. +ETOH. PT WAS FOUND IN BATHROOM AT [facility]. PT WAS DC HERE A FEW HOURS AGO FOR THE SAME RESONS. NO MEDICAL COMPLAINTS. PT'S AOX4. RESPS EVEN AND UNLABORED. BP/SPO2 MONITORS IN PLACE. CALL LIGHT WITHIN REACH.
--- NOTE | 2019-04-15 16:34 | NUR ---
PT SLEEPING IN [facility]. RESPS EVEN AND UNLABORED. BP/SPO2 MONITORS IN PLACE. CALL LIGHT WITHIN REACH.
[2019-04-15 16:41] VITALS: BP 111/81
--- NOTE | 2019-04-15 16:46 | NUR ---
PT IS ABLE TO AMB WITH STEADY GAIT. EDMD NOTIFIED.
--- NOTE | 2019-04-15 16:55 | NUR ---
Patient given discharge instructions and they have confirmed that they understand the instructions. Patient ambulatory with steady gait.
== END 2019-04-15 16:56 | disposition home or self-care (01) ==
LOC: ED 16:50
DX: F10.220 Alcohol dependence with intoxication, uncomplicated (principal); G40.909 Epilepsy, unspecified, not intractable, without status epilepticus; I10 Essential (primary) hypertension; Z72.9 Problem related to lifestyle, unspecified; Z90.49 Acquired absence of other specified parts of digestive tract; Z87.19 Personal history of other diseases of the digestive system; Z87.01 Personal history of pneumonia (recurrent); Y90.9 Presence of alcohol in blood, level not specified
CPT/HCPCS: 99283

== ENCOUNTER 2019-04-15 18:49 | Emergency (ER) | payer MEDICAID ==
[~2019-04-15] VITALS: Ht 167.6 cm; Wt 69.0 kg
--- NOTE | 2019-04-15 19:34 | NUR ---
PT IN RECLINER AT NURSING STATION. FED AND GIVEN WATER.
--- NOTE | 2019-04-15 21:06 | NUR ---
PT STILL SLEEPING IN RECLINER. WAKES EASILY.
[2019-04-15 21:34] VITALS: BP 103/66
--- NOTE | 2019-04-15 22:31 | NUR ---
PT AMBULATORY WITH STEADY GAIT. CAB VOUCHER TO RETIREMENT.
== END 2019-04-15 22:40 | disposition home or self-care (01) ==
LOC: ED 22:30
DX: G92 Toxic encephalopathy (principal); G40.909 Epilepsy, unspecified, not intractable, without status epilepticus; I10 Essential (primary) hypertension; F10.20 Alcohol dependence, uncomplicated; Y90.9 Presence of alcohol in blood, level not specified
CPT/HCPCS: 99283

== ENCOUNTER 2019-04-16 03:17 | Emergency (ER) | payer MEDICAID ==
[~2019-04-16] VITALS: Ht 170.2 cm; Wt 67.0 kg
[2019-04-16 06:20] VITALS: BP 108/67
--- NOTE | 2019-04-16 06:22 | NUR ---
pt sleepping in bed, pt denied any needs at this time. pt provided a blanket for comfort.
== END 2019-04-16 06:42 | disposition home or self-care (01) ==
LOC: ED 06:32
DX: F10.120 Alcohol abuse with intoxication, uncomplicated (principal); Z72.9 Problem related to lifestyle, unspecified; Y90.9 Presence of alcohol in blood, level not specified; I10 Essential (primary) hypertension; G40.909 Epilepsy, unspecified, not intractable, without status epilepticus; Z90.89 Acquired absence of other organs
CPT/HCPCS: 99283

== ENCOUNTER 2019-04-16 07:32 | Emergency (ER) | payer MEDICAID ==
[~2019-04-16] VITALS: Ht 170.2 cm; Wt 70.0 kg
[2019-04-16 07:34] VITALS: BP 116/77
--- NOTE | 2019-04-16 07:39 | NUR ---
THIS IS A 43 YO M BIB [facility] FOR ETOH. PATIENT WAS DISCHARGED APPROXIMATELY 1 HOUR AGO. PATIENT STATES HE CONSUMED MORE ALCOHOL SINCE HE WAS DISCHARGED. VS STABLE. RESPIRATIONS ARE EVEN AND UNLABORED. PATIENT IS IN NO ACUTE DISTRESS. WILL CONTINUE TO MONITOR.
--- NOTE | 2019-04-16 08:32 | NUR ---
PATIENT ESCORTED BY SECURITY WITH A STEADY GAIT.
--- NOTE | 2019-04-16 08:32 | NUR ---
Patient given discharge instructions and they have confirmed that they understand the instructions. Patient ambulatory with steady gait.
== END 2019-04-16 08:34 | disposition home or self-care (01) ==
LOC: ED 08:33
DX: F10.220 Alcohol dependence with intoxication, uncomplicated (principal); Y90.9 Presence of alcohol in blood, level not specified; I10 Essential (primary) hypertension; G40.909 Epilepsy, unspecified, not intractable, without status epilepticus
CPT/HCPCS: 99283

== ENCOUNTER 2019-04-16 10:32 | Emergency (ER) | payer MEDICAID ==
[~2019-04-16] VITALS: Ht 170.2 cm; Wt 75.0 kg
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
--- NOTE | 2019-04-16 12:13 | NUR ---
PT SLEEPING IN RECLINER, EVEN RISE AND FALL OF CHEST NOTED. ATTEMPTED TO ROUSE PATIENT TO AMBULATE WITHOUT SUCCESS.
--- NOTE | 2019-04-16 14:20 | NUR ---
ATTEMPTED TO AMBULATE, PT UNSUCCESSFUL. WILL SEND TO [facility] WHEN ABLE.
[2019-04-16 14:26] VITALS: BP 110/80
--- NOTE | 2019-04-16 14:33 | NUR ---
PT AMBULATES TO RESTROOM WITH SUPERVISOR MICROWAVE ASSISTANCE, CALLS PLACED TO HAVE PT TRANSFERRED TO [facility].
--- NOTE | 2019-04-16 14:52 | NUR ---
PT AMBULATES INDEPENDENTLY TO CAB, TO GO TO [facility] TRIAGE.
== END 2019-04-16 15:05 | disposition home or self-care (01) ==
LOC: ED 11:10
DX: F10.129 Alcohol abuse with intoxication, unspecified (principal); Y90.0 Blood alcohol level of less than 20 mg/100 ml
CPT/HCPCS: 99283

== ENCOUNTER 2019-04-17 07:48 | Emergency (ER) | payer MEDICAID ==
[~2019-04-17] VITALS: Ht 167.6 cm; Wt 57.3 kg
[2019-04-17] MEDS ORDERED: PROMETHAZINE 25 MG/ML, 1ML IM ONE (08:00)
[2019-04-17] MEDS ORDERED: PROMETHAZINE 25 MG/ML, 1ML ONE (08:30)
[2019-04-17] MEDS ORDERED: PANTOPRAZOLE 20MG TABLET ONE (08:30)
[2019-04-17] MEDS ORDERED: MAALOX/HYOSCYAMINE/LIDOCAINE 45 ML BTL PO ONE (08:30)
[2019-04-17] MEDS ORDERED: PANTOPROZOLE 40MG TABLET PO ONE (08:30)
[2019-04-17] MEDS ORDERED: MAALOX/HYOSCYAMINE/LIDOCAINE 45 ML BTL ONE (08:30)
[2019-04-17 08:32] LABS: MEAN CORPUSCULAR HEMOGLOBIN 28.1 pg (27.5-34.5); MEAN CORPUSCULAR HGB CONC 32.9 g/dL (33.2-36.2); MEAN CORPUSCULAR VOLUME 85.2 fL (81-97); MEAN PLATELET VOLUME 6.2 fL (7.4-10.4); PLATELET COUNT 469 x10^3/uL (130-400); RED BLOOD COUNT 4.24 x10^6/uL (4.38-5.82); RED CELL DISTRIBUTION WIDTH 19.5 % (9.4-14.8)
--- NOTE | 2019-04-17 08:33 | NUR ---
MEDICATED NOTED PER MAR FOR N/V AND ABDOMINAL PAIN
[2019-04-17 08:41] LABS: ALBUMIN 3.3 g/dL (3.4-5.0); ANION GAP 8 mmol/L (5-15); CALCIUM 9.1 mg/dL (8.5-10.1); CHLORIDE 102 mmol/L (98-107)
[2019-04-17 08:44] LABS: ALANINE AMINOTRANSFERASE 94 U/L (12-78); ALKALINE PHOSPHATASE 102 U/L (45-117); BILIRUBIN,TOTAL 0.9 mg/dL (0.2-1.0); CREATININE 0.65 mg/dL (0.7-1.3); TOTAL PROTEIN 7.7 g/dL (6.4-8.2)
[2019-04-17 09:04] LABS: BASOPHILS # (AUTO) 0.03 x10^3/uL (0-0.1); BASOPHILS % (AUTO) 0 % (0-1); EOSINOPHILS % (AUTO) 0 % (1-7); LYMPHOCYTES # (AUTO) 1.07 x10^3/uL (1-3.4); LYMPHOCYTES % (AUTO) 13 % (22-44); MD SCAN; MONOCYTES # (AUTO) 0.52 x10^3/uL (0.2-0.8); MONOCYTES % (AUTO) 6 % (2-9); NEUTROPHILS # (AUTO) 6.48 x10^3/uL (1.8-6.8); NEUTROPHILS % (AUTO) 80 % (42-75)
--- NOTE | 2019-04-17 10:06 | NUR ---
pt sleeping. no vomiting since medicated.
[2019-04-17 10:27] VITALS: BP 147/95
--- NOTE | 2019-04-17 10:30 | NUR ---
SPOKE WITH GARRET CARREON AND MADE AWARE OF WHAT WAS DONE FOR PT DURING THIS VISIT AND THAT HE IS NOT VOMITING AFTER MEDICATED FOR SAME. MINGO COLIN FROM [facility] TO COME GET PT
== END 2019-04-17 10:44 ==
LOC: ED 08:29
DX: K22.6 Gastro-esophageal laceration-hemorrhage syndrome (principal); F10.220 Alcohol dependence with intoxication, uncomplicated; R11.2 Nausea with vomiting, unspecified; I10 Essential (primary) hypertension; F17.200 Nicotine dependence, unspecified, uncomplicated; Z90.89 Acquired absence of other organs; Y90.9 Presence of alcohol in blood, level not specified
CPT/HCPCS: 36415; 80053; 83690; 85025; 96372; 99285; J2550

== ENCOUNTER 2019-04-25 10:30 | Emergency (ER) | payer MEDICAID ==
[~2019-04-25] VITALS: Ht 167.6 cm; Wt 70.0 kg
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
--- NOTE | 2019-04-25 11:51 | NUR ---
PT RESTING IN BED, CALL LIGHT IN REACH. SNACK PROVIDED.
[2019-04-25 11:53] VITALS: BP 90/48
--- NOTE | 2019-04-25 13:03 | NUR ---
DISCHARGE INSTRUCTIONS REVIEWED
== END 2019-04-25 13:05 | disposition home or self-care (01) ==
LOC: ED 11:04
DX: F10.220 Alcohol dependence with intoxication, uncomplicated (principal); I10 Essential (primary) hypertension; G40.909 Epilepsy, unspecified, not intractable, without status epilepticus; Z90.89 Acquired absence of other organs; Z88.8 Allergy status to other drugs, medicaments and biological substances; Y90.9 Presence of alcohol in blood, level not specified
CPT/HCPCS: 99283

== ENCOUNTER 2019-04-25 16:04 | Emergency (ER) | payer MEDICAID ==
[~2019-04-25] VITALS: Ht 167.6 cm; Wt 72.0 kg
[~2019-04-25 16:04] MED LIST changes: -OMEP20CA14 PO; +OMEP20CA20 PO; +ONDA-89 PO; -ONDA4TAB12 PO; -RANI-448 PO; +RANI-460 PO; -TRAZ-137 PO; +TRAZ-175 PO
--- NOTE | 2019-04-25 16:43 | NUR ---
PATIENT SPEAKING IN FULL SENTENCES STATES WHEN HE IS SOBER HE WANTS TO GO TO [facility]. NOTED WITH BLACK EYE. PATIENT STATES HE HAD A BLACK EYE A FEW DAYS AGO.
--- NOTE | 2019-04-25 20:47 | NUR ---
PT AMBULATED TO BR WITH STAND BY ASSIST. A&OX3. DOESN'T REMEMBER EVENT. RE-ORIENTED PT.
--- NOTE | 2019-04-25 20:55 | NUR ---
PT SITTING UP IN GURNEY, EATING SNACK. STATES HE WOULD GO TO [facility] IF [facility] WOULD ACCEPT HIM.
[2019-04-25 22:40] VITALS: BP 106/68
--- NOTE | 2019-04-25 23:00 | NUR ---
ERP WAS IN FOR RECHECK. PT ABLE TO AMBULATE INDEPENDENTLY, A&OX4. D/C INSTRUCTIONS & COMMUNITY RESOURCES/SUBSTANCE ABUSE TREATMENT OPTIONS PROVIDED TO PT. CAB VOUCHER PROVIDED FOR PT TO GO TO [facility]. PT AMBULATED OUT OF ED WITHOUT DIFFICULTY.
[2019-06-28] MEDS ORDERED: FOLI-17 PO (11:51)
[2019-06-28] MEDS ORDERED: MULT1TAB60 PO (11:51)
[2019-06-28] MEDS ORDERED: THIA100T67 PO (11:51)
[2019-06-28] MEDS ORDERED: OMEP-110 PO (11:51)
[2019-08-23] MEDS ORDERED: MULT-464 PO (13:15)
[2019-08-23] MEDS ORDERED: THIA100V3 PO (13:15)
[2019-08-23] MEDS ORDERED: PANT40GR PO (13:15)
[2019-08-23] MEDS ORDERED: AMLO5TAB10 PO (13:15)
[2019-08-23] MEDS ORDERED: FOLI0.8C PO (13:15)
[2019-08-23] MEDS ORDERED: SUCR1ORA14 PO (13:15)
[2019-08-23] MEDS ORDERED: GABA250S3 PO (13:15)
[2019-08-23] MEDS ORDERED: CEPH250T PO (13:15)
[2019-08-31] MEDS ORDERED: FERR324T5 PO (16:25)
[2019-08-31] MEDS ORDERED: PANT40TA5 PO (16:25)
== END 2019-04-25 23:01 | disposition home or self-care (01) ==
LOC: ED 17:46
DX: F10.229 Alcohol dependence with intoxication, unspecified (principal); I10 Essential (primary) hypertension; G40.909 Epilepsy, unspecified, not intractable, without status epilepticus; Y90.0 Blood alcohol level of less than 20 mg/100 ml
CPT/HCPCS: 99283

== ENCOUNTER 2019-04-27 14:52 | Emergency (ER) | payer MEDICAID ==
[~2019-04-27] VITALS: Ht 167.6 cm; Wt 68.4 kg
[~2019-04-27 14:52] MED LIST changes: +OMEP20CA14 PO; -OMEP20CA20 PO; -ONDA-89 PO; +ONDA4TAB12 PO; +RANI-448 PO; -RANI-460 PO; +TRAZ-137 PO; -TRAZ-175 PO
[2019-04-27 15:00] VITALS: BP 121/84
--- NOTE | 2019-04-27 15:05 | NUR ---
PT SHEELA MUNGUIA FOR WHAT PT DESCRIBES "ALCOHOL". PT HAS FRIEND AT BEDSIDE. REPORT TO TRES GEIGER RN.
--- NOTE | 2019-04-27 15:12 | NUR ---
RECEIVED REPORT FROM CYNDI MONTES, ASSUMING CARE OF PT AT THIS TIME. PT RESTING IN BED, FAMILY AT BEDSIDE. AWAITING PT TO BE ABLE TO AMBULATE SAFELY FOR DC
--- NOTE | 2019-04-27 15:41 | NUR ---
PT GIVEN PO FLUIDS PER MD REQUEST FOR PO CHALLENGE
--- NOTE | 2019-04-27 15:59 | NUR ---
PT WALKING IN HALLS WITH TECH, STEADY GAIT,NO ASSISTANCE NEEDED.
== END 2019-04-27 16:31 | disposition home or self-care (01) ==
LOC: ED 16:10
DX: F10.129 Alcohol abuse with intoxication, unspecified (principal); Y90.9 Presence of alcohol in blood, level not specified
CPT/HCPCS: 99283

== ENCOUNTER 2019-04-27 18:18 | Emergency (ER) | payer MEDICAID ==
[~2019-04-27] VITALS: Ht 167.6 cm; Wt 70.0 kg
[2019-04-27 18:24] VITALS: BP 134/86
--- NOTE | 2019-04-27 19:47 | NUR ---
PT TO BR, UNSTEADY ON FEET.
== END 2019-04-28 00:54 | disposition home or self-care (01) ==
LOC: ED 19:08
DX: F10.229 Alcohol dependence with intoxication, unspecified (principal); G40.909 Epilepsy, unspecified, not intractable, without status epilepticus; I95.9 Hypotension, unspecified
CPT/HCPCS: 99283

== ENCOUNTER 2019-05-19 19:28 | Emergency (ER) | payer MEDICAID ==
[~2019-05-19] VITALS: Ht 170.2 cm; Wt 60.1 kg
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
--- NOTE | 2019-05-19 20:11 | NUR ---
ALL RESULTS ARE BACK AT THIS TIME. CHART UP FOR RECHECK.
--- NOTE | 2019-05-19 21:30 | NUR ---
PT SLEEPING ON GURNEY. RESP EVEN AND UNLABORED. CONNECTED TO MONITORING.
--- NOTE | 2019-05-19 22:21 | NUR ---
PT SLEEPING ON GURNEY. RESP EVEN AND UNLABORED. CONNECTED TO MONITORING.
--- NOTE | 2019-05-19 23:07 | NUR ---
PT SLEEPING ON GURNEY. RESP EVEN AND UNLABORED. PT 300ML OUTPUT URINE IN URINAL
--- NOTE | 2019-05-19 23:17 | NUR ---
REPORT GIVEN TO ANA MONTES
--- NOTE | 2019-05-19 23:30 | NUR ---
RPT RECEIVED FROM JYOTI SMITH. ASSUMED CARE OF PT. PT RESTING WITH EYES CLOSED. MONITOR IN PLACE.
--- NOTE | 2019-05-20 01:07 | NUR ---
PT ASLEEP IN [facility] AT THIS TIME;
--- NOTE | 2019-05-20 02:40 | NUR ---
PT D/C WITH D/C SUMMARY AND SCRIPTS. ALL QUESTIONS ANSWERED. PT AMBULATES TO REGISTRATION DESK WITH STEADY GAIT FOR D/C HOME. PT DENIES ANY OTHER NEEDS PERTAINING TO THIS VISIT. PT VERBALIZES UNDERSTANDING OF NEED FOR FULL COURSE OF ABX TREATMENT.
[2019-05-20 02:42] VITALS: BP 116/71
== END 2019-05-20 03:01 | disposition home or self-care (01) ==
LOC: ED 19:32
DX: J15.9 Unspecified bacterial pneumonia (principal); I10 Essential (primary) hypertension; F17.200 Nicotine dependence, unspecified, uncomplicated; Z90.49 Acquired absence of other specified parts of digestive tract
CPT/HCPCS: 99283

== ENCOUNTER 2019-05-31 20:16 | Emergency (ER) | payer MEDICAID ==
[~2019-05-31] VITALS: Ht 167.6 cm; Wt 60.1 kg
[~2019-05-31 20:16] MED LIST changes: -OMEP20CA14 PO; +OMEP20CA20 PO; +ONDA-89 PO; -ONDA4TAB12 PO; -RANI-448 PO; +RANI-460 PO; -TRAZ-137 PO; +TRAZ-175 PO
--- NOTE | 2019-05-31 20:51 | NUR ---
SEATED IN WHEELCHAIR WITHIN VIEW OF NURSES STATION FOR PT SAFETY, RESP RATE EVEN AND REGULAR
--- NOTE | 2019-05-31 21:24 | NUR ---
pt awaken verbal, remains too intoxicated to be safely discharged. AA and O times 4 when awake.
--- NOTE | 2019-05-31 22:21 | NUR ---
SLEEPING QUIETLY, AWAKEN VERBAL, AWAIT SOBRIETY FOR SAFE DISCHARGE.
--- NOTE | 2019-05-31 23:02 | NUR ---
RESTING QUIETLY AT THIS TIME, AWAKEN VERBAL, AA AND O TIMES 4. AWAIT SOBRIETY FOR SAFE DISCHARGE.
--- NOTE | 2019-06-01 | NUR ---
sleeping quietly, resp rate even and reg, awaken verbal. await sobriety for safe discharge.
--- NOTE | 2019-06-01 00:48 | NUR ---
Pt VSS, AA and O times 4, taking po fluids, will attempt to walk shortly to check if able for safe discharge.
--- NOTE | 2019-06-01 01:24 | NUR ---
SLEEPING QUIETLY AT THIS TIME, RESP RATE EVEN AND REGUALR
--- NOTE | 2019-06-01 02:03 | NUR ---
SLEEPING QUIETLY, NAD AT THIS TIME. RESP RATE EVEN AND REGULAR.
[2019-06-01 02:57] VITALS: BP 117/63
--- NOTE | 2019-06-01 02:57 | NUR ---
pt requesting cab voucher to nursing home at this time, are attemtpting to ambulate pt
--- NOTE | 2019-06-01 02:59 | NUR ---
Pt ambulating, cab called for pt at this time.
== END 2019-06-01 03:04 | disposition home or self-care (01) ==
LOC: ED 06-01 02:58
DX: F10.220 Alcohol dependence with intoxication, uncomplicated (principal); I10 Essential (primary) hypertension; F17.200 Nicotine dependence, unspecified, uncomplicated; G40.909 Epilepsy, unspecified, not intractable, without status epilepticus; Y90.0 Blood alcohol level of less than 20 mg/100 ml
CPT/HCPCS: 99283

== ENCOUNTER 2019-06-21 06:30 | Emergency (ER) | payer MEDICAID ==
[~2019-06-21] VITALS: Ht 180.3 cm; Wt 68.0 kg
--- NOTE | 2019-06-21 08:13 | NUR ---
PT BIB [facility], PER REPORT PT AT [facility] ASKED TO LEAVE D/T BEING INTOXICATED, PT FELL ON R SIDE, DID NOT HIT HEAD. ON ARRIVAL PT RESPONSIVE TO PAINFUL STIMULI. VSS. PT TO [facility].
--- NOTE | 2019-06-21 10:35 | NUR ---
PT CONTINUES TO REST ON GURNEY. STILL RESPONDING TO VERBAL STIMULI, VSS.
[2019-06-21 13:16] VITALS: BP 102/75
--- NOTE | 2019-06-21 13:17 | NUR ---
PT RESTING ON BED, ARROUSABLE TO VERBAL, ONLY GRUNTS TO THIS RN WHEN NAME CALLED, ATTEMPTED TO HAVE PT SIT, PT NOT PARTICIPATING, FALLS BACK ON SIDE. VSS
--- NOTE | 2019-06-21 13:28 | NUR ---
PT NOW FOUND AMBULATING IN LUND, PT WITH STEADY GAIT. PT TO BR. WILL PROVIDE PT WITH DISCHARGE PAPERS
--- NOTE | 2019-06-21 13:41 | NUR ---
PT PROVIDED WITH CLEAN CLOTHES, DISCHARGED WITH STEADY GAIT
== END 2019-06-21 13:48 | disposition home or self-care (01) ==
LOC: ED 08:41
DX: F10.20 Alcohol dependence, uncomplicated (principal); G92 Toxic encephalopathy; I10 Essential (primary) hypertension; G40.909 Epilepsy, unspecified, not intractable, without status epilepticus; Z72.9 Problem related to lifestyle, unspecified; Y90.0 Blood alcohol level of less than 20 mg/100 ml
CPT/HCPCS: 99283

== ENCOUNTER 2019-06-22 12:00 | Emergency (ER) | payer MEDICAID ==
[~2019-06-22] VITALS: Ht 180.3 cm; Wt 65.0 kg
--- NOTE | 2019-06-22 12:30 | NUR ---
PT BIB [facility], PT WAS AT D2S ATTEMPTING TO GET A LIBRARY CARD, PT WAS NOTED TO BE SLURRING WORDS AND STUMBLING, PT THEN SAT ON A BENCH INSIDE THE LIBRARY AND THEN FELL ASLEEP. ON ARRIVAL PT WITH GARGLED THROAT NOISES, PER EMS PT WITH PRODUCTIVE COUGH, MASK IN PLACE. PT SUCTIONED PT NOTED TO HAVE NO GAG REFLEX. ERMD IS AWARE, PT SATING 98% ON 2L NC, PT ON CONT PULSE OX MONITORING, PT REQUIRING FREQUENT SUCTIONING, RESP ARE EVEN AND UNLABORED AT THIS TIME, WILL CONTINUE TO MONITOR CLOSELY.
[2019-06-22 12:41] LABS: MEAN CORPUSCULAR HEMOGLOBIN 28.7 pg (27.5-34.5); MEAN CORPUSCULAR HGB CONC 32.6 g/dL (33.2-36.2); MEAN PLATELET VOLUME 7.4 fL (7.4-10.4); PLATELET COUNT 248 x10^3/uL (130-400); RED BLOOD COUNT 3.26 x10^6/uL (4.38-5.82); RED CELL DISTRIBUTION WIDTH 28.2 % (9.4-14.8)
[2019-06-22 12:45] LABS: ALANINE AMINOTRANSFERASE 74 U/L (12-78); ALBUMIN 3.3 g/dL (3.4-5.0); ANION GAP 11 mmol/L (5-15); CALCIUM 8.4 mg/dL (8.5-10.1); CHLORIDE 107 mmol/L (98-107); CREATININE 0.52 mg/dL (0.7-1.3)
[2019-06-22 12:49] LABS: ALKALINE PHOSPHATASE 105 U/L (45-117); BILIRUBIN,TOTAL 0.3 mg/dL (0.2-1.0); TOTAL PROTEIN 7.5 g/dL (6.4-8.2)
[2019-06-22 12:58] LABS: BASOPHILS # (AUTO) 0.06 x10^3/uL (0-0.1); BASOPHILS % (AUTO) 1 % (0-1); EOSINOPHILS # (AUTO) 0.08 x10^3/uL (0-0.4); EOSINOPHILS % (AUTO) 1 % (1-7); LYMPHOCYTES # (AUTO) 2.52 x10^3/uL (1-3.4); LYMPHOCYTES % (AUTO) 44 % (22-44); MD MORPH REVIEW ONLY; MONOCYTES # (AUTO) 0.39 x10^3/uL (0.2-0.8); MONOCYTES % (AUTO) 7 % (2-9); NEUTROPHILS # (AUTO) 2.69 x10^3/uL (1.8-6.8); NEUTROPHILS % (AUTO) 47 % (42-75)
[2019-06-22 12:59] LABS: <PLATELET ESTIMATE> ADEQUATE; <PLT MORPHOLOGY> NORMAL PLT MORPH; ANISOCYTOSIS 2+; MICROCYTOSIS 1+; OVALOCYTES 1+
[2019-06-22 13:00] LABS: POLYCHROMASIA 1+
--- NOTE | 2019-06-22 13:34 | NUR ---
PT RESTING ON LUZ MARINA VSS AT THIS TIME. RESP REMAIN EVEN AND UNLABORED AT THIS TIME
--- NOTE | 2019-06-22 14:55 | NUR ---
PT CONTINUIES TO REST ON [place]Z MARINA VSS, PT MAINTAINING AIRWAY, SATING 100 ON 2LNC
--- NOTE | 2019-06-22 16:30 | NUR ---
PT ARROUSABLE TO STERNAL RUB, MAINTAINING AIRWAY, VSS.
--- NOTE | 2019-06-22 18:58 | NUR ---
REPORT FROM YE MONTES. PT RESPONDS TO VERBAL COMMAND. VSS. Addendum: 06/22/19 at 1903 by TESS PT PULLED OUT IV, DISPOSED WITH TIP INTACT.
[2019-06-22 18:59] VITALS: BP 98/64
--- NOTE | 2019-06-22 20:36 | NUR ---
PT SLEEPING ON CHAIR, NO ACUTE DISTRESS NOTED.
--- NOTE | 2019-06-22 20:58 | NUR ---
pt awake and alert, stated he wanted to leave, ambulates well without assist, eloped out ambulance bay
== END 2019-06-22 21:05 | disposition left against medical advice (07) ==
LOC: ED 21:00
DX: F10.120 Alcohol abuse with intoxication, uncomplicated (principal); G40.909 Epilepsy, unspecified, not intractable, without status epilepticus; Y90.0 Blood alcohol level of less than 20 mg/100 ml
CPT/HCPCS: 36415; 71045; 80053; 80307; 85025; 99285

== ENCOUNTER 2019-07-16 09:19 | Emergency (ER) | payer MEDICAID ==
--- NOTE | 2019-07-16 09:30 | NUR ---
side rails up. pt sleeping on an e.r. gurney. no trauma noted, and strong odor of etoh is present. we are awaiting an md to assess. i will monitor and treat this pt as ordered, WELL PRN IN THE MEANTIME.
--- NOTE | 2019-07-16 10:35 | NUR ---
MEALTRAY DELIVERED. PT STILL DIFFICULT TO AROUSE. VS MONITORING IN PLACE.
--- NOTE | 2019-07-16 11:51 | NUR ---
ATTEMPTED ROAD TEST, PT STATES, "I THINK IM GONNA PASS OUT" PT GIVEN URINAL, ABLE TO VOID. PT BACK TO [facility] AT THIS TIME.
--- NOTE | 2019-07-16 12:10 | NUR ---
ATTEMPTED TO AROUSE PT. STILL VERY DIFFICULT TO AWAKEN. PULSE
[2019-07-16 13:02] VITALS: BP 95/62
--- NOTE | 2019-07-16 13:02 | NUR ---
PT DROWSY, BUT EASILY AWAKENED TO NAME BEING CALLED. PT MILDY UNCOOPERATIVE. ATTEMPTED TO AMBULATE PT. PT SLIGHTLY UNSTEADY. PT BACK IN RNEY WITH SIDE RAILS UP AND BED IN LOW AND LOCKED POSITION. PT REFUSED TO WEAR BP AND O2 MONITORS.
--- NOTE | 2019-07-16 14:26 | NUR ---
Patient given discharge instructions and they have confirmed that they understand the instructions. Patient ambulatory with steady gait.
== END 2019-07-16 14:27 | disposition home or self-care (01) ==
LOC: ED 09:30
DX: F10.220 Alcohol dependence with intoxication, uncomplicated (principal); I10 Essential (primary) hypertension; Y90.0 Blood alcohol level of less than 20 mg/100 ml
CPT/HCPCS: 99283

== ENCOUNTER 2019-08-10 09:29 | Emergency (ER) | payer MEDICAID ==
[~2019-08-10] VITALS: Ht 167.6 cm; Wt 70.0 kg
--- NOTE | 2019-08-10 10:49 | NUR ---
PT RESTING IN BED, CALL LIGHT IN REACH
--- NOTE | 2019-08-10 13:05 | NUR ---
BEDSIDE REPORT FROM MARICARMEN MONTES, PT SLEEPING IN [facility]. WILL DC WHEN AWAKE AND ABLE TO AMBULATE
[2019-08-10 15:35] VITALS: BP 129/89
--- NOTE | 2019-08-10 15:35 | NUR ---
PT SLEEPING IN GURNEY, EQUAL CHEEST RISE AND FALL. UP FOR DC WHEN AWAKE AND ABLE TO WALK
== END 2019-08-10 17:08 | disposition home or self-care (01) ==
LOC: ED 11:50
DX: F10.229 Alcohol dependence with intoxication, unspecified (principal); I10 Essential (primary) hypertension; Z72.9 Problem related to lifestyle, unspecified; Z90.49 Acquired absence of other specified parts of digestive tract; Y90.9 Presence of alcohol in blood, level not specified
CPT/HCPCS: 99285

== ENCOUNTER 2019-08-19 22:49 | Emergency (ER) | payer MEDICAID ==
[~2019-08-19] VITALS: Ht 177.8 cm; Wt 65.0 kg
--- NOTE | 2019-08-19 23:01 | NUR ---
PT RESTING ON GURNEY, NO ACUTE DISTRESS, EVEN AND UNLABORED RESPIRATIONS.
--- NOTE | 2019-08-19 23:21 | NUR ---
PT SLEEPING INTERMITTENTLY, EASILY AROUSED TO VERBAL COMMAND. VSS.
--- NOTE | 2019-08-20 00:57 | NUR ---
SLEEPING IN NO ACUTE DISTRESS, EVEN AND UNLABORED RESPIRATIONS.
--- NOTE | 2019-08-20 02:35 | NUR ---
PT AMBULATED TO RESTROOM.
[2019-08-20 03:10] VITALS: BP 113/71
== END 2019-08-20 03:12 | disposition home or self-care (01) ==
LOC: ED 23:56
DX: F10.120 Alcohol abuse with intoxication, uncomplicated (principal); Y90.9 Presence of alcohol in blood, level not specified; Z90.89 Acquired absence of other organs
CPT/HCPCS: 99285

== ENCOUNTER 2019-09-19 09:28 | Emergency (ER) | payer MEDICAID ==
[~2019-09-19] VITALS: Ht 170.2 cm; Wt 60.0 kg
[~2019-09-19 09:28] MED LIST changes: +AMLO5TAB10 PO; +CEPH250T PO; +FOLI0.8C PO; +GABA250S3 PO; +MULT-464 PO; +PANT40GR PO; +SUCR1ORA14 PO; +THIA100V3 PO
--- NOTE | 2019-09-19 09:38 | NUR ---
43 Y/O MALE BIB AMBULANCE WITH C/O ETOH. PT STATES HE IS DRUNK. PT SLURRING WORDS. PT PLEASANT AT THIS TIME. NADN. PT RESTING ON GURNEY. WILL CONTINUE TO MONITOR. NO C/O AT THIS TIME.
--- NOTE | 2019-09-19 10:37 | NUR ---
PT CONTINUES TO SLEEP ON GURNEY .KAREN. WILL CONTINUE TO MONITOR.
--- NOTE | 2019-09-19 11:38 | NUR ---
bedside report to JYOTI Garcia.
--- NOTE | 2019-09-19 12:00 | NUR ---
PT LAYING IN BED, PROVIDED URINAL WHEN ASKED. PT ASKED WHERE HE WAS APPROX 10 MINUTES AGO. PT ABLE TO TELL THIS RN WHERE HE IS NOW. PT A&OX4 NOW.
--- NOTE | 2019-09-19 12:22 | NUR ---
MEAL TRAY PROVIDED.
--- NOTE | 2019-09-19 13:36 | NUR ---
RN AT BEDSIDE FOR 20 MINUTES TO EDUCATE PT ABOUT D/C. PT STEADY ON FEET. PT THREW EDUCATION OUT HE WAS LEAVING. PT DENIED WANTING A TAXI VOUCHER OR BUS PASS.
[2019-09-19 13:37] VITALS: BP 98/64
== END 2019-09-19 13:39 | disposition home or self-care (01) ==
LOC: ED 10:06
DX: F10.220 Alcohol dependence with intoxication, uncomplicated (principal); I10 Essential (primary) hypertension; R41.82 Altered mental status, unspecified; Y90.0 Blood alcohol level of less than 20 mg/100 ml
CPT/HCPCS: 99283

== ENCOUNTER 2019-09-20 13:57 | Inpatient (IN) | payer MEDICAID ==
[~2019-09-20] VITALS: Ht 172.7 cm; Wt 61.3 kg
--- NOTE | 2019-09-20 14:11 | NUR ---
BIB [facility] FOR ETOH. PT WANTS HELP WITHDRAWING. PT WAS SOBER FOR 3 WEEKS AND DRANK 1 PINT VODKA TODAY AT 0700. VS OFFICE CHAIR ASSEMBLER HR 127, BP 145/64, 98% RA, BS 145. PT RESTING ON GURNEY. NADN. ERP DR. KIDD AT BEDSIDE ASSESSING PT. SZ PRECAUTIONS APPLIED. MONITORS IN PLACE.
--- NOTE | 2019-09-20 14:29 | NUR ---
PT O2 SATS 88% UPON ARRIVAL TO ED. PT PLACED ON 2L NC ON ARRIVAL SATING 95%
[2019-09-20] MEDS ORDERED: SODIUM CHLORIDE 0.9% 1,000ML IVBOLUS ONE ×3 (14:30→18:00)
[2019-09-20] MEDS ORDERED: SODIUM CHLORIDE FLUSH 10ML SYR IVF ONE (14:30)
[2019-09-20] MEDS ORDERED: ONDANSETRON 2MG/ML, 2ML ONE (14:52)
--- NOTE | 2019-09-20 15:18 | NUR ---
IVF BOLUS COMPLETE. P HR REMAINS 130. ERP DR. KIDD NOTIFIED.
[2019-09-20 15:20] LABS: ALANINE AMINOTRANSFERASE 53 U/L (12-78); ALBUMIN 3.8 g/dL (3.4-5.0); ANION GAP 15 mmol/L (5-15); CALCIUM 8.2 mg/dL (8.5-10.1); CHLORIDE 108 mmol/L (98-107); CREATININE 0.99 mg/dL (0.7-1.3)
[2019-09-20] MEDS ORDERED: ONDANSETRON 2MG/ML, 2ML IVPush ONE (15:30)
[2019-09-20 15:32] LABS: ALKALINE PHOSPHATASE 78 U/L (45-117); BILIRUBIN,TOTAL 0.6 mg/dL (0.2-1.0); MEAN CORPUSCULAR HEMOGLOBIN 31.6 pg (27.5-34.5); MEAN CORPUSCULAR HGB CONC 33.5 g/dL (33.2-36.2); MEAN CORPUSCULAR VOLUME 94.2 fL (81-97); MEAN PLATELET VOLUME 7.7 fL (7.4-10.4); PLATELET COUNT 252 x10^3/uL (130-400); RED BLOOD COUNT 4.61 x10^6/uL (4.38-5.82); RED CELL DISTRIBUTION WIDTH 17.9 % (9.4-14.8); TOTAL PROTEIN 8.2 g/dL (6.4-8.2)
[2019-09-20 15:43] LABS: MD YES
--- NOTE | 2019-09-20 16:00 | NUR ---
PER ERP DR. KIDD HOLD OFF ON SEPSIS WORKUP AT THIS TIME.
--- NOTE | 2019-09-20 16:02 | NUR ---
PT RESTING ON LUZ MARINA. KAREN. AWAITING BLOOD AND IMAGING RESULTS FOR HR ASSESSMENT.
[2019-09-20 16:15] LABS: BAND#(MANUAL) 0.58 x10^3/uL; BANDS%(MANUAL) 3 % (0-7); LYMPH#(MANUAL) 1.93 x10^3/uL (1-3.4); LYMPHS% (MANUAL) 10 % (22-44); MONOS#(MANUAL) 0.58 x10^3/uL (0.3-2.7); MONOS% (MANUAL) 3 % (2-9); SEG#(MANUAL) 16.21 x10^3/uL (1.8-6.8); SEGS% (MANUAL) 84 % (42-75)
[2019-09-20 16:17] LABS: <PLATELET ESTIMATE> ADEQUATE; <PLT MORPHOLOGY> NORMAL PLT MORPH; ANISOCYTOSIS 1+; TROPONIN I < 0.015 ng/mL (0.000-0.045)
[2019-09-20] MEDS ORDERED: OMNIPAQUE 350 MG/ML, 75ML BOTTLE ONE (16:35)
--- NOTE | 2019-09-20 16:40 | NUR ---
PT TO AND FROM IMAGING. RESTING ON GURNEY. [place]
--- NOTE | 2019-09-20 16:58 | NUR ---
DISCUSSED PT HR AFTER IVF, LAB AND IMAGING RESULTS, NEW VS W/ ERP DR. KIDD. AWAITING NEW ORDERS
[2019-09-20] MEDS ORDERED: LORazepam 2 MG/ML, 1ML IVPush ONE ×2 (17:00)
[2019-09-20] MEDS ORDERED: LORazepam 2 MG/ML, 1ML ONE (17:00)
--- NOTE | 2019-09-20 17:08 | NUR ---
DISCUSSED PT WBC W/ ERP WHO STATES NO NEED FOR BLOOD CULTURES AT THIS TIME.
--- NOTE | 2019-09-20 17:10 | NUR ---
SPOKE W/ LAB. LAB TO DRAW BLOOD CULTURES X 2.
--- NOTE | 2019-09-20 17:49 | NUR ---
Genet RN note: Pt provided warm blanket and urinal per request. Pt resting in bed watching TV, denies other needs.
[2019-09-20] MEDS ORDERED: CEFTRIAXONE PMX 1GM/50ML 50 ML IVPB ONE (18:00)
[2019-09-20] MEDS ORDERED: CEFTRIAXONE PMX 1GM/50ML 50 ML ONE (18:00)
--- NOTE | 2019-09-20 18:03 | NUR ---
PT MEDICATED PER JUN. PT RESTING ON GURNEY. NADN. HR REMAINS ELEVATED. ERP AWARE.
[2019-09-20] MEDS ORDERED: SODIUM CHLORIDE 0.9% 1,000 ML IV ONE (18:25)
[2019-09-20] MEDS ORDERED: SODIUM CHLORIDE FLUSH 10ML SYR IVF PRN (18:30)
[2019-09-20] MEDS ORDERED: OMNIPAQUE 350 MG/ML, 100ML BOTTLE ONE (18:57)
--- NOTE | 2019-09-20 18:59 | NUR ---
PT TO AND FROM CT. PT RESTING ON LUZ MARINA.
[2019-09-20] MEDS ORDERED: ACETAMINOPHEN 325 MG TABLET PO ONE (19:00)
--- NOTE | 2019-09-20 19:00 | NUR ---
REPORT GIVEN TO BERNIE ROBIN RN.
[2019-09-20] MEDS ORDERED: MVI ADULT 10 ML, FOLIC ACID 1 MG, THIAMINE 100 MG, MAG SULFATE 4 MEQ, POTASSIUM CHLORID... IV SCH (21:00)
[2019-09-20] MEDS: CEFEPIME 2 GM in DEXTROSE 5% 100 ML IV SCH (21:36)
[2019-09-20] MEDS: PANTOPRAZOLE 40 MG IV IVPush SCH (21:37)
[2019-09-20 21:43] VITALS: BP 138/72
[2019-09-20] MEDS: MVI ADULT 10 ML, FOLIC ACID 1 MG, THIAMINE 100 MG, MAG SULFATE 4 MEQ, POTASSIUM CHLORID... IV SCH (23:12)
[2019-09-21] MEDS ORDERED: LORazepam 2 MG/ML, 1ML IV PRN ×4 (01:00)
[2019-09-21] MEDS ORDERED: LORazepam 1MG TABLET PO PRN ×4 (01:00)
[2019-09-21] MEDS ORDERED: METOPROLOL 1 MG/ML, 5ML IVPush PRN (01:00)
[2019-09-21 01:09] VITALS: BP 103/58
[2019-09-21 01:15] VITALS: BP 115/65
[2019-09-21] MEDS: CEFEPIME 2 GM in DEXTROSE 5% 100 ML IV SCH ×3 (05:46→23:04)
[2019-09-21 06:15] LABS: BASOPHILS # (AUTO) 0.08 x10^3/uL (0-0.1); BASOPHILS % (AUTO) 1 % (0-1); EOSINOPHILS # (AUTO) 0.05 x10^3/uL (0-0.4); EOSINOPHILS % (AUTO) 1 % (1-7); LYMPHOCYTES # (AUTO) 1.29 x10^3/uL (1-3.4); LYMPHOCYTES % (AUTO) 13 % (22-44); MD NO; MEAN CORPUSCULAR HEMOGLOBIN 31.5 pg (27.5-34.5); MEAN CORPUSCULAR HGB CONC 33.4 g/dL (33.2-36.2); MEAN CORPUSCULAR VOLUME 94.3 fL (81-97); MEAN PLATELET VOLUME 7.2 fL (7.4-10.4); MONOCYTES # (AUTO) 0.62 x10^3/uL (0.2-0.8); MONOCYTES % (AUTO) 6 % (2-9); NEUTROPHILS # (AUTO) 8.12 x10^3/uL (1.8-6.8); NEUTROPHILS % (AUTO) 80 % (42-75); PLATELET COUNT 141 x10^3/uL (130-400); RED BLOOD COUNT 3.34 x10^6/uL (4.38-5.82); RED CELL DISTRIBUTION WIDTH 17.9 % (9.4-14.8)
[2019-09-21 06:24] LABS: MICROSCOPIC NOT IND
[2019-09-21 06:25] LABS: ALANINE AMINOTRANSFERASE 34 U/L (12-78); ANION GAP 11 mmol/L (5-15); CALCIUM 7.8 mg/dL (8.5-10.1); CHLORIDE 111 mmol/L (98-107); CREATININE 0.58 mg/dL (0.7-1.3)
[2019-09-21 06:27] LABS: ALKALINE PHOSPHATASE 57 U/L (45-117); BILIRUBIN,TOTAL 1.1 mg/dL (0.2-1.0); TOTAL PROTEIN 6.4 g/dL (6.4-8.2)
[2019-09-21 06:38] VITALS: BP 111/76
[2019-09-21 07:56] VITALS: BP 114/73
[2019-09-21] MEDS ORDERED: SODIUM CHLORIDE 0.9% 1,000ML IVBOLUS ONE (08:30)
[2019-09-21] MEDS: PANTOPRAZOLE 40 MG IV IVPush SCH ×2 (08:41→21:04)
[2019-09-21] MEDS: SODIUM CHLORIDE 0.9% 1,000 ML IV SCH ×2 (08:42→19:00)
[2019-09-21] MEDS ORDERED: SODIUM PHOSPHATE 30 MMOL in SODIUM CHLORIDE 0.9% 500 ML IV ONE (09:00)
[2019-09-21] MEDS: MORPHINE SULFATE 4 MG/ML, 1ML IVPush PRN ×3 (11:22→19:57)
[2019-09-21 13:36] VITALS: BP 130/88
[2019-09-21 18:58] VITALS: BP 114/74
[2019-09-21] MEDS: ONDANSETRON 2MG/ML, 2ML IV PRN (19:56)
[2019-09-21] MEDS: LORazepam 0.5MG TABLET PO PRN (21:04)
[2019-09-21] MEDS: LORazepam 2 MG/ML, 1ML IV PRN (21:13)
[2019-09-21] MEDS: MVI ADULT 10 ML, FOLIC ACID 1 MG, THIAMINE 100 MG, MAG SULFATE 4 MEQ, POTASSIUM CHLORID... IV SCH (23:38)
[2019-09-22] MEDS: MORPHINE SULFATE 4 MG/ML, 1ML IVPush PRN ×4 (00:23→20:09)
[2019-09-22 00:57] VITALS: BP 112/78
[2019-09-22] MEDS: LORazepam 2 MG/ML, 1ML IV PRN (06:02)
[2019-09-22 06:54] LABS: ANION GAP 9 mmol/L (5-15); CALCIUM 7.7 mg/dL (8.5-10.1); CHLORIDE 110 mmol/L (98-107)
[2019-09-22 06:56] LABS: CREATININE 0.52 mg/dL (0.7-1.3)
[2019-09-22 07:21] VITALS: BP 127/86
[2019-09-22 07:23] LABS: BASOPHILS # (AUTO) 0.06 x10^3/uL (0-0.1); BASOPHILS % (AUTO) 1 % (0-1); EOSINOPHILS # (AUTO) 0.16 x10^3/uL (0-0.4); EOSINOPHILS % (AUTO) 3 % (1-7); LYMPHOCYTES # (AUTO) 1.36 x10^3/uL (1-3.4); LYMPHOCYTES % (AUTO) 27 % (22-44); MD SCAN; MEAN CORPUSCULAR HEMOGLOBIN 31.7 pg (27.5-34.5); MEAN CORPUSCULAR HGB CONC 33.9 g/dL (33.2-36.2); MEAN CORPUSCULAR VOLUME 93.7 fL (81-97); MEAN PLATELET VOLUME 7.8 fL (7.4-10.4); MONOCYTES # (AUTO) 0.39 x10^3/uL (0.2-0.8); MONOCYTES % (AUTO) 8 % (2-9); NEUTROPHILS # (AUTO) 3.07 x10^3/uL (1.8-6.8); NEUTROPHILS % (AUTO) 61 % (42-75); PLATELET COUNT 99 x10^3/uL (130-400); RED BLOOD COUNT 3.31 x10^6/uL (4.38-5.82); RED CELL DISTRIBUTION WIDTH 16.4 % (9.4-14.8)
[2019-09-22] MEDS: ONDANSETRON 2MG/ML, 2ML IV PRN (09:22)
[2019-09-22] MEDS: PANTOPRAZOLE 40 MG IV IVPush SCH ×2 (09:22→20:09)
[2019-09-22] MEDS: SODIUM CHLORIDE 0.9% 1,000 ML IV SCH ×2 (09:22→19:00)
[2019-09-22] MEDS: LORazepam 0.5MG TABLET PO PRN ×3 (09:22→23:13)
[2019-09-22 12:50] VITALS: BP 124/87
[2019-09-22 19:27] VITALS: BP 112/74
[2019-09-22] MEDS: MVI ADULT 10 ML, FOLIC ACID 1 MG, THIAMINE 100 MG, MAG SULFATE 4 MEQ, POTASSIUM CHLORID... IV SCH (23:12)
[2019-09-23] MEDS: MORPHINE SULFATE 4 MG/ML, 1ML IVPush PRN ×3 (00:23→09:10)
[2019-09-23 01:59] VITALS: BP 112/71
[2019-09-23 06:22] VITALS: BP 132/86
[2019-09-23 06:36] LABS: BASOPHILS # (AUTO) 0.03 x10^3/uL (0-0.1); BASOPHILS % (AUTO) 1 % (0-1); EOSINOPHILS % (AUTO) 6 % (1-7); LYMPHOCYTES # (AUTO) 1.71 x10^3/uL (1-3.4); LYMPHOCYTES % (AUTO) 35 % (22-44); MD SCAN; MEAN CORPUSCULAR HEMOGLOBIN 31.4 pg (27.5-34.5); MEAN CORPUSCULAR HGB CONC 33.6 g/dL (33.2-36.2); MEAN CORPUSCULAR VOLUME 93.5 fL (81-97); MEAN PLATELET VOLUME 8.8 fL (7.4-10.4); MONOCYTES # (AUTO) 0.31 x10^3/uL (0.2-0.8); MONOCYTES % (AUTO) 6 % (2-9); NEUTROPHILS # (AUTO) 2.55 x10^3/uL (1.8-6.8); NEUTROPHILS % (AUTO) 52 % (42-75); PLATELET COUNT 123 x10^3/uL (130-400); RED BLOOD COUNT 3.49 x10^6/uL (4.38-5.82)
[2019-09-23] MEDS: PANTOPRAZOLE 40 MG IV IVPush SCH (09:10)
[2019-09-23] MEDS: SODIUM CHLORIDE 0.9% 1,000 ML IV SCH (09:10)
[2019-09-23 12:05] VITALS: BP 128/88
[2019-09-23] MEDS: LORazepam 0.5MG TABLET PO PRN (12:07)
[2019-09-23] MEDS: ONDANSETRON 2MG/ML, 2ML IV PRN (12:07)
== END 2019-09-23 15:24 | DRG 378 ==
LOC: ED 14:59 → EDIP 18:39 → 4WST 20:49
PROVIDERS: ADMIT Hospitalist; ATTEND Hospitalist
DX: K92.2 Gastrointestinal hemorrhage, unspecified (principal); E87.2 Acidosis; J98.11 Atelectasis; K86.1 Other chronic pancreatitis; D72.829 Elevated white blood cell count, unspecified; E83.39 Other disorders of phosphorus metabolism; F10.10 Alcohol abuse, uncomplicated; I10 Essential (primary) hypertension; R09.02 Hypoxemia; Z88.0 Allergy status to penicillin; Z88.8 Allergy status to other drugs, medicaments and biological substances; Z90.49 Acquired absence of other specified parts of digestive tract; K44.9 Diaphragmatic hernia without obstruction or gangrene; Y90.9 Presence of alcohol in blood, level not specified
CPT/HCPCS: 36415; 84145; J3475; 71275; 74177; 80048; 80053; 80307; 81003; 83605; 83690; 83735; 84100; 84443; 84484; 85014; 85018; 85025; 87040; 93005; G0378; J0696; J2405; J3411; J3480; Q9967; C9113; J2060; J2270; J7030; J7040

== ENCOUNTER 2019-09-25 09:56 | Emergency (ER) | payer MEDICAID ==
[~2019-09-25] VITALS: Ht 170.2 cm; Wt 80.0 kg
[2019-09-25] MEDS ORDERED: NALT50TA PO (10:12)
[2019-09-25] MEDS ORDERED: MIRT-34 PO (10:12)
[2019-09-25] MEDS ORDERED: HYDR50TA99 PO (10:12)
--- NOTE | 2019-09-25 11:31 | NUR ---
PT ASLEEP, RESP EVEN & UNLABORED.
[2019-09-25 11:59] VITALS: BP 92/58
== END 2019-09-25 12:06 | disposition home or self-care (01) ==
LOC: ED 11:42
DX: F10.220 Alcohol dependence with intoxication, uncomplicated (principal); Y90.9 Presence of alcohol in blood, level not specified
CPT/HCPCS: 99283

== ENCOUNTER 2019-09-25 15:14 | Emergency (ER) | payer MEDICAID ==
[~2019-09-25] VITALS: Ht 167.6 cm; Wt 82.0 kg
[~2019-09-25 15:14] MED LIST changes: +HYDR50TA99 PO; +MIRT-34 PO; +NALT50TA PO
--- NOTE | 2019-09-25 16:07 | NUR ---
PT SLEEPING, BREATHING EVEN AND UNLABORED. WILL CONTINUE TO MONITOR.
[2019-09-25 18:25] VITALS: BP 110/74
--- NOTE | 2019-09-25 18:25 | NUR ---
PT HAS SLURRED SPEECH AND UNABLE TO AMBULATE AT THIS TIME
--- NOTE | 2019-09-25 18:46 | NUR ---
Report received from JYOTI Brandt. This RN to assume care. Awaiting safe discharge for patient.
--- NOTE | 2019-09-25 18:46 | NUR ---
REPORT TO ARMANDO MONTES
--- NOTE | 2019-09-25 20:02 | NUR ---
Patient woke stating "I need to pee, I need a urinal." Advised patient he needed to walk down the [place]. Patient ambulatory to BR. Presented discharge instructions. Patient states, "I am not steady. If I leave I'm going to fall. If you kick me out, I'm going to fall and check back in and it will be your fault." Patient able to dress on his own. Placed in different room close to charge until safe to discharge.
--- NOTE | 2019-09-25 20:22 | NUR ---
Patient felt comfortable leaving. Discharge instructions given. Patient ambulatory with a steady gait. Belongings with patient.
== END 2019-09-25 20:24 | disposition home or self-care (01) ==
LOC: ED 19:15
DX: F10.220 Alcohol dependence with intoxication, uncomplicated (principal); I10 Essential (primary) hypertension; Y90.9 Presence of alcohol in blood, level not specified
CPT/HCPCS: 99283

== ENCOUNTER 2019-09-26 12:41 | Emergency (ER) | payer MEDICAID ==
[~2019-09-26] VITALS: Ht 167.6 cm; Wt 80.0 kg
--- NOTE | 2019-09-26 13:06 | NUR ---
bib by gil from [facility]. Patient seen drinking then fell fast aslepp. EMs reports initial poc 80%, placed npa with immediate improvement-> 92% on room air On arrival-unarousable to voice, will localize to pain moving all extremities fsbs 100
--- NOTE | 2019-09-26 14:48 | NUR ---
with reassessment-patient remain quite drowsy, only localizes vss on room air Poc clarified with provider-to mtf
--- NOTE | 2019-09-26 15:15 | NUR ---
REPORT TO OBI MONTES
--- NOTE | 2019-09-26 15:59 | NUR ---
PT SLEEPING IN GURNEY, AROUSES SLIGHTLY TO STIMULATION. NPA (PLACED BY [facility]) REMOVED. PT PLACED ON 2L O2 NC. VSS, BREATHING WNL.
[2019-09-26 18:00] VITALS: BP 110/76
--- NOTE | 2019-09-26 18:51 | NUR ---
ENCOURAGED PT TO GET UP AND AMBULATE TO BR. PT SOMEWHAT UNSTEADY. RESPONDS APPROPRIATELY. RE-ORIENTED PT TO SITUATION. Addendum: 09/26/19 at 1903 by JAM PT REQUESTING YOGURT.
--- NOTE | 2019-09-26 20:00 | NUR ---
D/C INSTRUCTIONS, F/U APPT AND COMMUNITY RESOURCES PROVIDED TO PT. ASSISTED PT OUT OF ED, PT ABLE TO AMBULATE INDEPENDENTLY, A&OX4.
== END 2019-09-26 20:01 | disposition home or self-care (01) ==
LOC: ED 14:42
DX: F10.220 Alcohol dependence with intoxication, uncomplicated (principal); I10 Essential (primary) hypertension; Y90.9 Presence of alcohol in blood, level not specified
CPT/HCPCS: 99283

== ENCOUNTER 2019-10-08 15:56 | Emergency (ER) | payer MEDICAID ==
[~2019-10-08 15:56] MED LIST changes: +MULT-449 PO; -MULT1TAB60 PO
--- NOTE | 2019-10-08 16:50 | NUR ---
Pt to room
--- NOTE | 2019-10-08 16:57 | NUR ---
LATE ENTRY: PT TO ROOM AT THIS TIME. BIB [facility] - FOUND OUTSIDE [employer] STATION WITH EMPTY BOTTLE OF VODKA, RESPONDS TO PAINFUL STIMULI, NOT VERBALLY RESPONSIVE. REC'D 1L NS AND ZOFRAN 4MG AFTER 1X EPISODE OF VOMITING IN AMBULANCE. PT PLACED ON MONITOR, CALL LIGHT WITHIN REACH. PT CLOSE TO NURSES STATION
--- NOTE | 2019-10-08 18:37 | NUR ---
PT SLEEPING IN GURNEY, RESPONDS TO PAINFUL STIMULI, PT ON MONITOR, CALL LIGHT WITHIN REACH. PT CLOSE TO NURSES STATION.
--- NOTE | 2019-10-08 19:34 | NUR ---
REPORT TO KARINA MONTES. PT SLEEPING IN [facility] ON MONITOR, CALL LIGHT WITHIN REACH.
--- NOTE | 2019-10-08 20:04 | NUR ---
Pt resting in room, no apparent distress noted.
--- NOTE | 2019-10-08 22:12 | NUR ---
Pt resting in room, no apparent distress noted. STILL HEAVILY UNDER THE INFLUENCE AND UNABLE TO AMBULATE.
[2019-10-08 22:14] VITALS: BP 101/64
--- NOTE | 2019-10-08 22:31 | NUR ---
Patient/Caregiver given discharge instructions and they have confirmed that they understand the instructions. Patient ambulatory with steady gait.
== END 2019-10-09 04:05 | disposition home or self-care (01) ==
LOC: ED 23:45
DX: F10.220 Alcohol dependence with intoxication, uncomplicated (principal); I10 Essential (primary) hypertension; G40.909 Epilepsy, unspecified, not intractable, without status epilepticus; Z90.89 Acquired absence of other organs; Y90.0 Blood alcohol level of less than 20 mg/100 ml
CPT/HCPCS: 99283

== ENCOUNTER 2019-10-09 08:33 | Emergency (ER) | payer MEDICAID ==
[~2019-10-09] VITALS: Ht 177.8 cm; Wt 68.0 kg
[2019-10-09] MEDS ORDERED: THIAMINE 100MG TABLET PO ONE (09:00)
[2019-10-09] MEDS ORDERED: PLEASE ENTER HEIGHT AND WEIGHT MC SCH (09:00)
--- NOTE | 2019-10-09 09:07 | NUR ---
ETOH FOUND DOWN BY EMS. PATIENT CALM/SLEEPIN ON CONT CARDAIC MONITOR, SPO2, BP Q 30 MIN, SIDE RAILS UP X2, CALL LIGHT IN REACH.
--- NOTE | 2019-10-09 13:43 | NUR ---
PATIENT EATING DIET TRAY, HAS NO REQUESTS AT THIS TIME. UNABLE TO AMBULATE. NOTIFIED
[2019-10-09 15:59] VITALS: BP 124/74
== END 2019-10-09 16:01 | disposition home or self-care (01) ==
LOC: ED 08:58
DX: F10.121 Alcohol abuse with intoxication delirium (principal); I10 Essential (primary) hypertension; Y90.9 Presence of alcohol in blood, level not specified
CPT/HCPCS: 82962; 99283

== ENCOUNTER 2019-10-10 12:31 | Emergency (ER) | payer MEDICAID ==
[~2019-10-10] VITALS: Ht 170.2 cm; Wt 75.0 kg
[2019-10-10 12:34] VITALS: BP 123/70
--- NOTE | 2019-10-10 12:48 | NUR ---
PER MD, PT TO BE MTF. PT CONNECTED TO MONITORING. PT GIVEN URINAL.
== END 2019-10-10 18:00 | disposition home or self-care (01) ==
LOC: ED 13:07
DX: F10.129 Alcohol abuse with intoxication, unspecified (principal); I10 Essential (primary) hypertension; E87.6 Hypokalemia; G40.909 Epilepsy, unspecified, not intractable, without status epilepticus; Z90.89 Acquired absence of other organs; Y90.0 Blood alcohol level of less than 20 mg/100 ml
CPT/HCPCS: 99283

== ENCOUNTER 2019-10-12 10:58 | Emergency (ER) | payer MEDICAID ==
[~2019-10-12] VITALS: Ht 180.3 cm; Wt 72.0 kg
[2019-10-12] MEDS ORDERED: FAMOTIDINE 20 MG/2 ML IV ONE (11:30)
[2019-10-12] MEDS ORDERED: ONDANSETRON 2MG/ML, 2ML IVPush ONE (11:30)
[2019-10-12] MEDS ORDERED: SODIUM CHLORIDE FLUSH 10ML SYR IVF ONE (11:30)
[2019-10-12] MEDS ORDERED: SODIUM CHLORIDE 0.9% 1,000ML IVBOLUS ONE (11:30)
[2019-10-12 11:41] LABS: BASOPHILS # (AUTO) 0.05 x10^3/uL (0-0.1); BASOPHILS % (AUTO) 1 % (0-1); EOSINOPHILS # (AUTO) 0.02 x10^3/uL (0-0.4); EOSINOPHILS % (AUTO) 0 % (1-7); LYMPHOCYTES % (AUTO) 28 % (22-44); MD NO; MEAN CORPUSCULAR HEMOGLOBIN 31.1 pg (27.5-34.5); MEAN CORPUSCULAR HGB CONC 33.3 g/dL (33.2-36.2); MEAN CORPUSCULAR VOLUME 93.4 fL (81-97); MEAN PLATELET VOLUME 6.4 fL (7.4-10.4); MONOCYTES # (AUTO) 0.26 x10^3/uL (0.2-0.8); MONOCYTES % (AUTO) 4 % (2-9); NEUTROPHILS # (AUTO) 4.25 x10^3/uL (1.8-6.8); NEUTROPHILS % (AUTO) 67 % (42-75); PLATELET COUNT 431 x10^3/uL (130-400); RED BLOOD COUNT 3.67 x10^6/uL (4.38-5.82); RED CELL DISTRIBUTION WIDTH 16.9 % (9.4-14.8)
[2019-10-12 11:51] LABS: INTERNATIONAL NORMALIZED RATIO 1.01 (0.93-1.1); PROTHROMBIN TIME 10.7 Seconds (9.6-11.5)
[2019-10-12 11:56] LABS: ALANINE AMINOTRANSFERASE 43 U/L (12-78); ALBUMIN 2.9 g/dL (3.4-5.0); ANION GAP 11 mmol/L (5-15); CALCIUM 7.6 mg/dL (8.5-10.1); CHLORIDE 110 mmol/L (98-107)
[2019-10-12 11:58] LABS: ALKALINE PHOSPHATASE 67 U/L (45-117); BILIRUBIN,TOTAL 0.4 mg/dL (0.2-1.0); CREATININE 0.56 mg/dL (0.7-1.3); TOTAL PROTEIN 6.8 g/dL (6.4-8.2)
[2019-10-12] MEDS ORDERED: FAMOTIDINE 20 MG/2 ML ONE (12:12)
[2019-10-12] MEDS ORDERED: ONDANSETRON 2MG/ML, 2ML ONE (12:12)
[2019-10-12] MEDS ORDERED: OMNIPAQUE 350 MG/ML, 100ML BOTTLE ONE (13:03)
[2019-10-12 13:30] VITALS: BP 140/82
== END 2019-10-12 14:11 | disposition home or self-care (01) ==
LOC: ED 13:25
DX: K20.9 Esophagitis, unspecified (principal); F10.10 Alcohol abuse, uncomplicated; I10 Essential (primary) hypertension; R11.2 Nausea with vomiting, unspecified; Z90.89 Acquired absence of other organs; Y90.0 Blood alcohol level of less than 20 mg/100 ml
CPT/HCPCS: 36415; 74177; 80053; 83605; 83690; 85025; 85610; 96361; 96374; 96375; 99285; J2405; J3490; J7030; Q9967

== ENCOUNTER 2019-10-13 12:36 | Inpatient (IN) | payer MEDICAID ==
[~2019-10-13] VITALS: Ht 170.2 cm; Wt 62.9 kg
--- NOTE | 2019-10-13 13:15 | NUR ---
pt vomited. small amt bright red blood seen. md made aware. ekg done, sr. attempt for iv. labs sent. as
--- NOTE | 2019-10-13 13:53 | NUR ---
angeles in to place EJ, unsuccessful. to ct. as
[2019-10-13 13:54] LABS: ALBUMIN 2.9 g/dL (3.4-5.0); ANION GAP 13 mmol/L (5-15); CALCIUM 7.8 mg/dL (8.5-10.1); CHLORIDE 110 mmol/L (98-107)
[2019-10-13 13:56] LABS: ALANINE AMINOTRANSFERASE 39 U/L (12-78); ALKALINE PHOSPHATASE 54 U/L (45-117); BILIRUBIN,TOTAL 0.3 mg/dL (0.2-1.0); CREATININE 0.84 mg/dL (0.7-1.3); TOTAL PROTEIN 6.5 g/dL (6.4-8.2); TROPONIN I < 0.015 ng/mL (0.000-0.045)
[2019-10-13 13:59] LABS: D-DIMER 3.25 ug/mlFEU (0.00-0.52); INTERNATIONAL NORMALIZED RATIO 1.08 (0.93-1.1); PROTHROMBIN TIME 11.5 Seconds (9.6-11.5)
[2019-10-13] MEDS ORDERED: SODIUM CHLORIDE FLUSH 10ML SYR IVF ONE (14:00)
--- NOTE | 2019-10-13 14:24 | NUR ---
back from ct. st on monitor, awaiting ct. plan for us iv. as
[2019-10-13 14:26] LABS: BASOPHILS # (AUTO) 0.03 x10^3/uL (0-0.1); BASOPHILS % (AUTO) 0 % (0-1); EOSINOPHILS % (AUTO) 0 % (1-7); LYMPHOCYTES # (AUTO) 1.26 x10^3/uL (1-3.4); LYMPHOCYTES % (AUTO) 15 % (22-44); MD NO; MEAN CORPUSCULAR HEMOGLOBIN 31.4 pg (27.5-34.5); MEAN CORPUSCULAR HGB CONC 33.5 g/dL (33.2-36.2); MEAN CORPUSCULAR VOLUME 93.9 fL (81-97); MEAN PLATELET VOLUME 7.5 fL (7.4-10.4); MONOCYTES % (AUTO) 1 % (2-9); NEUTROPHILS # (AUTO) 7.27 x10^3/uL (1.8-6.8); NEUTROPHILS % (AUTO) 84 % (42-75); PLATELET COUNT 394 x10^3/uL (130-400); RED BLOOD COUNT 3.17 x10^6/uL (4.38-5.82); RED CELL DISTRIBUTION WIDTH 16.9 % (9.4-14.8)
[2019-10-13] MEDS ORDERED: PROMETHAZINE 25 MG/ML, 1ML ONE (14:27)
[2019-10-13] MEDS ORDERED: ONDANSETRON ODT 4 MG ONE (14:27)
[2019-10-13] MEDS ORDERED: OCTREOTIDE 500 MCG in SODIUM CHLORIDE 0.9% 99 ML IV PRN ×2 (15:00→17:30)
[2019-10-13] MEDS ORDERED: SODIUM CHLORIDE 0.9% 1,000ML IVBOLUS ONE (15:00)
[2019-10-13] MEDS ORDERED: PANTOPRAZOLE 80 MG in SODIUM CHLORIDE 0.9% 50 ML IV ONE (15:00)
[2019-10-13] MEDS ORDERED: OCTREOTIDE 100MCG/ML, 1ML (0.1MG/ML) IV ONE (15:00)
--- NOTE | 2019-10-13 15:24 | NUR ---
US IV PER KEEGAN. PT VOMITING MULT BAHMAN, BLOODY. UPPER GIB, PROTONIX BOLUS GOING. PLAN MEDS/GI CONSULT.
--- NOTE | 2019-10-13 15:45 | NUR ---
UNALBE TO EST 2ND IV. PT MOVED TO TRAUMA 2. PLAN FOR CENTRAL LINE AND ENDOSCOPY. REPORT TO KARY MONTES.
[2019-10-13] MEDS ORDERED: LORazepam 2 MG/ML, 1ML ONE (15:51)
[2019-10-13] MEDS ORDERED: PROPOFOL 10 MG/ML, 20ML ONE (16:05)
[2019-10-13] MEDS: PANTOPRAZOLE 80 MG in SODIUM CHLORIDE 0.9% 100 ML IV SCH (16:45)
[2019-10-13] MEDS ORDERED: LORazepam 2 MG/ML, 1ML IV PRN ×5 (17:30)
[2019-10-13] MEDS ORDERED: PROMETHAZINE 25 MG/ML, 1ML IM PRN (17:30)
[2019-10-13] MEDS ORDERED: ONDANSETRON ODT 4 MG PO PRN (17:30)
[2019-10-13] MEDS ORDERED: morphine SULFATE 10 MG/ML, 1ML IVPush PRN (17:30)
[2019-10-13] MEDS ORDERED: LORazepam 0.5MG TABLET PO PRN (17:30)
[2019-10-13] MEDS ORDERED: LORazepam 1MG TABLET PO PRN ×4 (17:30)
[2019-10-13] MEDS ORDERED: DOCUSATE 100 MG CAPSULE PO PRN (17:30)
--- NOTE | 2019-10-13 17:36 | NUR ---
PT MOVED BACK TO ROOM 02. REPORT FROM KARY MONTES. SCOPE SHOWED GASTRITIS. CENTRAL LINE CONFIRMED BY CXR. PLAN ADMIT. PT DROWSING, ROUSES TO TOUCH. CALL ARTEAGA/FALL PRECS.
[2019-10-13] MEDS ORDERED: ONDANSETRON 2MG/ML, 2ML ONE (17:44)
[2019-10-13] MEDS: ONDANSETRON 2MG/ML, 2ML IVPush PRN (17:49)
[2019-10-13 18:00] LABS: FREE T4 (FREE THYROXINE) 0.77 ng/dL (0.76-1.46)
[2019-10-13] MEDS ORDERED: LORazepam 2 MG/ML, 1ML IVPush ONE (18:00)
[2019-10-13] MEDS ORDERED: PROPOFOL 10 MG/ML, 20ML IVPush ONE (18:00)
[2019-10-13] MEDS ORDERED: OMNIPAQUE 350 MG/ML, 75ML BOTTLE ONE (18:09)
--- NOTE | 2019-10-13 18:12 | NUR ---
report to terri toledo as
[2019-10-13] MEDS: POTASSIUM CHLORIDE 20 MEQ, MAGNESIUM SULFATE 2 GM, THIAMINE 200 MG, MVI ADULT 10 ML, FO... IV SCH (18:26)
[2019-10-13 20:20] VITALS: BP 120/82
[2019-10-13] MEDS ORDERED: GABAPENTIN 250 MG/5 ML ORAL SOL PO SCH (21:00)
[2019-10-13 21:46] LABS: TROPONIN I < 0.015 ng/mL (0.000-0.045)
[2019-10-13] MEDS ORDERED: MAGNESIUM SULFATE PMX 2GM/50ML 50 ML IV ONE (22:00)
[2019-10-13] MEDS ORDERED: SODIUM PHOSPHATE 10 MMOL in SODIUM CHLORIDE 0.9% 500 ML IV ONE (22:00)
[2019-10-13] MEDS: GABAPENTIN 100 MG CAPSULE PO SCH (22:30)
[2019-10-13] MEDS: SUCRALFATE 1 GM TABLET PO SCH (22:30)
[2019-10-14] VITALS (9 sets, daily range): BP systolic 122–130; BP diastolic 83–91
[2019-10-14] MEDS: PANTOPRAZOLE 80 MG in SODIUM CHLORIDE 0.9% 100 ML IV SCH ×3 (01:44→21:31)
[2019-10-14 04:02] LABS: ALANINE AMINOTRANSFERASE 27 U/L (12-78); ALBUMIN 2.4 g/dL (3.4-5.0); ANION GAP 5 mmol/L (5-15); CALCIUM 7.4 mg/dL (8.5-10.1); CHLORIDE 115 mmol/L (98-107); CREATININE 0.61 mg/dL (0.7-1.3)
[2019-10-14 04:06] LABS: ALKALINE PHOSPHATASE 43 U/L (45-117); BILIRUBIN,TOTAL 0.7 mg/dL (0.2-1.0); TOTAL PROTEIN 5.2 g/dL (6.4-8.2); TROPONIN I < 0.015 ng/mL (0.000-0.045)
[2019-10-14] MEDS: GABAPENTIN 100 MG CAPSULE PO SCH ×3 (08:33→21:31)
[2019-10-14] MEDS: SUCRALFATE 1 GM TABLET PO SCH ×4 (08:33→21:31)
[2019-10-14] MEDS: OXYcodone IR 5MG TABLET PO PRN ×3 (12:52→23:33)
[2019-10-14] MEDS: POTASSIUM CHLORIDE 20 MEQ, MAGNESIUM SULFATE 2 GM, THIAMINE 200 MG, MVI ADULT 10 ML, FO... IV SCH (17:47)
[2019-10-14] MEDS: ONDANSETRON 2MG/ML, 2ML IVPush PRN (21:31)
[2019-10-15 00:06] VITALS: BP 124/86
[2019-10-15 06:56] VITALS: BP 111/74
[2019-10-15] MEDS: OXYcodone IR 5MG TABLET PO PRN ×4 (08:13→22:34)
[2019-10-15] MEDS: GABAPENTIN 100 MG CAPSULE PO SCH ×3 (08:13→21:56)
[2019-10-15] MEDS: SUCRALFATE 1 GM TABLET PO SCH ×4 (08:13→21:56)
[2019-10-15] MEDS: PANTOPRAZOLE 80 MG in SODIUM CHLORIDE 0.9% 100 ML IV SCH ×2 (10:16→21:56)
[2019-10-15 12:59] VITALS: BP 117/79
[2019-10-15] MEDS: POTASSIUM CHLORIDE 20 MEQ, MAGNESIUM SULFATE 2 GM, THIAMINE 200 MG, MVI ADULT 10 ML, FO... IV SCH (17:43)
[2019-10-15 19:36] VITALS: BP 130/88
[2019-10-16] VITALS: BP 137/96
[2019-10-16 04:17] LABS: BASOPHILS # (AUTO) 0.02 x10^3/uL (0-0.1); BASOPHILS % (AUTO) 0 % (0-1); EOSINOPHILS % (AUTO) 3 % (1-7); LYMPHOCYTES # (AUTO) 1.05 x10^3/uL (1-3.4); LYMPHOCYTES % (AUTO) 30 % (22-44); MD NO; MEAN CORPUSCULAR HEMOGLOBIN 31.8 pg (27.5-34.5); MEAN CORPUSCULAR HGB CONC 33.7 g/dL (33.2-36.2); MEAN CORPUSCULAR VOLUME 94.3 fL (81-97); MEAN PLATELET VOLUME 6.9 fL (7.4-10.4); MONOCYTES # (AUTO) 0.12 x10^3/uL (0.2-0.8); MONOCYTES % (AUTO) 3 % (2-9); NEUTROPHILS # (AUTO) 2.24 x10^3/uL (1.8-6.8); NEUTROPHILS % (AUTO) 64 % (42-75); PLATELET COUNT 170 x10^3/uL (130-400); RED BLOOD COUNT 2.43 x10^6/uL (4.38-5.82); RED CELL DISTRIBUTION WIDTH 16.2 % (9.4-14.8)
[2019-10-16 04:31] LABS: ANION GAP 4 mmol/L (5-15); CALCIUM 7.3 mg/dL (8.5-10.1); CHLORIDE 111 mmol/L (98-107); CREATININE 0.54 mg/dL (0.7-1.3)
[2019-10-16] MEDS: OXYcodone IR 5MG TABLET PO PRN (05:19)
[2019-10-16] MEDS: SUCRALFATE 1 GM TABLET PO SCH ×4 (06:27→21:50)
[2019-10-16 06:55] VITALS: BP 113/78
[2019-10-16] MEDS: PANTOPRAZOLE 80 MG in SODIUM CHLORIDE 0.9% 100 ML IV SCH (08:29)
[2019-10-16] MEDS: GABAPENTIN 100 MG CAPSULE PO SCH ×3 (08:29→21:50)
[2019-10-16] MEDS ORDERED: ACETAMINOPHEN 325 MG TABLET PO PRN (11:30)
[2019-10-16 14:55] VITALS: BP 119/84
[2019-10-16] MEDS ORDERED: POTASSIUM CHLORIDE 20 MEQ TAB.ER.PRT PO ONE (16:30)
[2019-10-16] MEDS: OMEPRAZOLE 20 MG CAPSULE.DR PO SCH (18:21)
[2019-10-16 19:54] VITALS: BP 124/91
[2019-10-17 02:23] VITALS: BP 134/89
[2019-10-17] MEDS: OMEPRAZOLE 20 MG CAPSULE.DR PO SCH (05:40)
[2019-10-17 05:41] LABS: ANION GAP 3 mmol/L (5-15); CALCIUM 8.1 mg/dL (8.5-10.1); CHLORIDE 109 mmol/L (98-107)
[2019-10-17 05:42] LABS: CREATININE 0.48 mg/dL (0.7-1.3)
[2019-10-17] MEDS ORDERED: PANT40TA5 PO (07:43)
[2019-10-17] MEDS ORDERED: SUCR1TAB PO (07:43)
[2019-10-17] MEDS ORDERED: ONDA4TAB13 PO (07:43)
[2019-10-17 10:49] VITALS: BP 112/75
[2019-10-17] MEDS: SUCRALFATE 1 GM TABLET PO SCH ×2 (11:00→11:13)
[2019-10-17] MEDS: GABAPENTIN 100 MG CAPSULE PO SCH (11:14)
== END 2019-10-17 14:45 | disposition home or self-care (01) | DRG 327 ==
LOC: ED 15:45 → EDIP 17:27 → 5SO 18:17 → 3N 10-16 15:37 → DCLOUNGE 10-17 13:46
PROVIDERS: ADMIT Internal Medicine; ATTEND Hospitalist
PROC: 02HV33Z Insertion of Infusion Device into Superior Vena Cava, Percutaneous Approach (ICD-10-PCS; 2019-10-13)
PROC: 0D968ZZ Drainage of Stomach, Via Natural or Artificial Opening Endoscopic (ICD-10-PCS; principal; 2019-10-13 16:00)
PROC: 30233N1 Transfusion of Nonautologous Red Blood Cells into Peripheral Vein, Percutaneous Approach (ICD-10-PCS; 2019-10-14)
DX: K22.11 Ulcer of esophagus with bleeding (principal); D62 Acute posthemorrhagic anemia; E87.2 Acidosis; K86.1 Other chronic pancreatitis; F10.20 Alcohol dependence, uncomplicated; F17.200 Nicotine dependence, unspecified, uncomplicated; G40.909 Epilepsy, unspecified, not intractable, without status epilepticus; I10 Essential (primary) hypertension; Z87.19 Personal history of other diseases of the digestive system; R73.9 Hyperglycemia, unspecified; Z88.0 Allergy status to penicillin; Z88.8 Allergy status to other drugs, medicaments and biological substances; Z90.49 Acquired absence of other specified parts of digestive tract
CPT/HCPCS: 36415; 36556; 74022; 96365; 96375; 99291; J3490; J7042; 36430; 71045; 71275; 80048; 80053; 83036; 83690; 83735; 83880; 84100; 84439; 84443; 84484; 85014; 85018; 85025; 85379; 85610; 86850; 86900; 86923; 93005; G0378; J2405; J2704; J3411; J3475; J3480; Q0162; Q9967; C9113; J2060; J7030; J7040; P9016

== ENCOUNTER 2019-12-30 11:17 | Emergency (ER) | payer MEDICAID ==
[~2019-12-30] VITALS: Ht 165.1 cm; Wt 60.0 kg
[~2019-12-30 11:17] MED LIST changes: +ONDA4TAB13 PO; -PANT40TA5 PO; +PANT40TA6 PO; +SUCR1TAB PO
--- NOTE | 2019-12-30 11:29 | NUR ---
PT REPORTS DRINKING VODKA 2 PINTS TODAY. SIDE RAILS UP X2.
--- NOTE | 2019-12-30 12:30 | NUR ---
DOZING ON GURNEY. EVEN CHEST RISE & FALL NOTED. SIDE RAILS UP X2
[2019-12-30 13:19] VITALS: BP_DIAS 75
[2019-12-30] MEDS ORDERED: OMEP40CA42 PO (13:22)
--- NOTE | 2019-12-30 13:22 | NUR ---
PT UNRELIABLE HISTORIAN RE: PRESCRIPTIONS.
--- NOTE | 2019-12-30 13:25 | NUR ---
PT FAILED ROAD TEST; C/O DIZZINESS W/ POSITION CHANGE; GAIT UNSTEADY. ERP WILL BE NOTIFIED.
--- NOTE | 2019-12-30 14:33 | NUR ---
FAILED ROAD TEST, AGAIN. ASSISTED BACK TO LUZ MARINA. SIDE RAILS UP X2. ERP WILL BE NOTIFIED. Addendum: 12/30/19 at 1449 by JULIANNE C/O DIZZINESS. GAIT UNSTEADY.
[2019-12-30 15:57] VITALS: BP_SYST 56
--- NOTE | 2019-12-30 15:57 | NUR ---
PT ASLEEP ON GURNEY; EASILY AWAKENED.
--- NOTE | 2019-12-30 16:00 | NUR ---
PT AMBULATORY W/ SLIGHTLY WOBBLY GAIT. DISCHARGE INSTRUCTIONS DISCUSSED W/ PT; HARD COPY PROVIDED TO PT.
== END 2019-12-30 16:09 | disposition home or self-care (01) ==
LOC: ED 11:33
DX: G31.2 Degeneration of nervous system due to alcohol (principal); I10 Essential (primary) hypertension
CPT/HCPCS: 99283

== ENCOUNTER 2019-12-31 18:56 | Inpatient (IN) | payer MEDICAID ==
[~2019-12-31] VITALS: Ht 167.6 cm; Wt 63.9 kg
[~2019-12-31 18:56] MED LIST changes: +OMEP40CA42 PO
--- NOTE | 2019-12-31 19:18 | NUR ---
THIS TECH DID EKG
[2019-12-31] MEDS ORDERED: SODIUM CHLORIDE 0.9% 1,000 ML IV ONE ×2 (19:22→21:01)
[2019-12-31] MEDS ORDERED: SODIUM CHLORIDE 0.9% 1,000ML IVBOLUS ONE (19:30)
[2019-12-31] MEDS ORDERED: LORazepam 2 MG/ML, 1ML IVPush PRN (19:30)
[2019-12-31] MEDS ORDERED: ONDANSETRON 2MG/ML, 2ML IVPush ONE ×2 (19:30→21:00)
[2019-12-31] MEDS ORDERED: SODIUM CHLORIDE FLUSH 10ML SYR IVF ONE (19:30)
[2019-12-31] MEDS ORDERED: LORazepam 2 MG/ML, 1ML ONE (19:44)
[2019-12-31] MEDS ORDERED: ONDANSETRON 2MG/ML, 2ML ONE ×2 (19:44→22:23)
[2019-12-31 19:56] LABS: BASOPHILS # (AUTO) 0.02 x10^3/uL (0-0.1); BASOPHILS % (AUTO) 0 % (0-1); EOSINOPHILS # (AUTO) 0.01 x10^3/uL (0-0.4); EOSINOPHILS % (AUTO) 0 % (1-7); LYMPHOCYTES # (AUTO) 1.47 x10^3/uL (1-3.4); LYMPHOCYTES % (AUTO) 12 % (22-44); MD NO; MEAN CORPUSCULAR HEMOGLOBIN 29.3 pg (27.5-34.5); MEAN CORPUSCULAR HGB CONC 33.4 g/dL (33.2-36.2); MEAN CORPUSCULAR VOLUME 87.7 fL (81-97); MEAN PLATELET VOLUME 7.7 fL (7.4-10.4); MONOCYTES # (AUTO) 0.61 x10^3/uL (0.2-0.8); MONOCYTES % (AUTO) 5 % (2-9); NEUTROPHILS # (AUTO) 10.57 x10^3/uL (1.8-6.8); NEUTROPHILS % (AUTO) 83 % (42-75); PLATELET COUNT 250 x10^3/uL (130-400); RED BLOOD COUNT 4.98 x10^6/uL (4.38-5.82); RED CELL DISTRIBUTION WIDTH 13.7 % (9.4-14.8)
[2019-12-31 20:03] LABS: ALANINE AMINOTRANSFERASE 73 U/L (12-78); ALBUMIN 3.8 g/dL (3.4-5.0); ANION GAP 14 mmol/L (5-15); CALCIUM 8.9 mg/dL (8.5-10.1); CHLORIDE 100 mmol/L (98-107); CREATININE 0.86 mg/dL (0.7-1.3)
[2019-12-31 20:05] LABS: ALKALINE PHOSPHATASE 88 U/L (45-117); TOTAL PROTEIN 7.6 g/dL (6.4-8.2)
--- NOTE | 2019-12-31 20:06 | NUR ---
IV STARTED, BLOODS DRAWN BY LAB. ON MONITOR S TACH NO ECTOPY, IVF INFUSING, MEDS GIVEN PER ORDER, SIDE RAILS UP, CALL ARTEAGA IN REACH. URINAL PROVIDED. VSS WILL C/O ABD PAIN EPIGASTRIC AND INTERMITTENT N/V YELLOW AND SOME COFFEE GROUND EMESIS. NOT WITNESSED BY THIS INVESTIGATION SPECIALIST. WILL CONTINUE TO MONITOR. AIDET PROVIDED.
--- NOTE | 2019-12-31 20:33 | NUR ---
REQUESTING PAIN MEDS FOR ABDOMINAL PAIN EPIGASTRIC PAIN, IVF INFUSING. 01/24 PAIN NO N/V.
--- NOTE | 2019-12-31 20:50 | NUR ---
assumed care of pt. report from Patt MONTES and Aidee MONTES. pt here for epigastic pain. pt has long hx of ETOH abuse and was recently hospitalized at [facility]. pt currently has no tremulous activity noted. resting in position of comfort. no family at bedside
[2019-12-31] MEDS ORDERED: MORPHINE SULFATE 4 MG/ML, 1ML IVPush PRN (21:00)
[2019-12-31] MEDS ORDERED: SODIUM CHLORIDE FLUSH 10ML SYR IVF PRN (21:30)
--- NOTE | 2019-12-31 21:30 | NUR ---
pt sleeping in position of comfort
[2019-12-31] MEDS ORDERED: PANTOPRAZOLE 80 MG in SODIUM CHLORIDE 0.9% 50 ML IVPB ONE (21:41)
[2019-12-31] MEDS ORDERED: PANTOPRAZOLE 80 MG in SODIUM CHLORIDE 0.9% 100 ML IV SCH (22:00)
[2019-12-31] MEDS ORDERED: NACL IV SCH (22:01)
[2019-12-31] MEDS ORDERED: POTASSIUM CHLORIDE IV SCH (22:01)
[2019-12-31] MEDS ORDERED: MVI ADULT IV SCH (22:01)
[2019-12-31] MEDS ORDERED: POTASSIUM CHLORIDE 10 MEQ, MVI ADULT 10 ML, FOLIC ACID 1 MG, MAGNESIUM SULFATE 1 GM in ... IV SCH (22:01)
[2019-12-31] MEDS ORDERED: D5 IV SCH (22:01)
[2019-12-31] MEDS ORDERED: FOLIC ACID IV SCH (22:01)
[2019-12-31] MEDS ORDERED: MORPHINE SULFATE 4 MG/ML, 1ML ONE (22:23)
[2019-12-31] MEDS: PANTOPRAZOLE 80 MG in SODIUM CHLORIDE 0.9% 100 ML IV SCH (22:30)
[2019-12-31] MEDS ORDERED: LABETALOL 5MG/ML, 20ML IV PRN (22:30)
[2019-12-31] MEDS ORDERED: ALUMINUM/MAG/SIMETHICONE 30 ML UDC PO PRN (22:30)
[2019-12-31] MEDS ORDERED: MAALOX/HYOSCYAMINE/LIDOCAINE 45 ML BTL PO ONE (22:30)
[2019-12-31] MEDS ORDERED: PROMETHAZINE 25 MG/ML, 1ML IM PRN (22:30)
[2019-12-31] MEDS ORDERED: THIAMINE 200 MG in DEXTROSE 5% 50 ML IVPB ONE (22:30)
[2019-12-31] MEDS ORDERED: LORazepam 2 MG/ML, 1ML IV PRN ×5 (22:30)
[2019-12-31] MEDS ORDERED: BISACODYL 10 MG SUPP PR PRN (22:30)
--- NOTE | 2019-12-31 22:30 | NUR ---
pt IV has infiltrated. pt to be admitted. IV infusion to LAC stopped. IV removed and warm pack placed for pt comfort
--- NOTE | 2019-12-31 22:45 | NUR ---
new IV has been placed and pt has been medicated for pain
[2019-12-31] MEDS ORDERED: morphine SULFATE 10 MG/ML, 1ML IVPush PRN (23:00)
--- NOTE | 2019-12-31 23:08 | NUR ---
ptotonix bolus infusion completed
--- NOTE | 2019-12-31 23:15 | NUR ---
pt dozing intermittently. report called to recieving RN
[2019-12-31 23:30] VITALS: BP 130/85
--- NOTE | 2019-12-31 23:30 | NUR ---
pt to floor via robin with tech. IV protonix infusing on admit
[2020-01-01] MEDS ORDERED: POTASSIUM CHLORIDE 20 MEQ, MAGNESIUM SULFATE 1 GM, THIAMINE 200 MG, FOLIC ACID 1 MG, MV... IV SCH (01:00)
[2020-01-01 01:27] VITALS: BP 130/85
[2020-01-01 05:25] LABS: INTERNATIONAL NORMALIZED RATIO 1.11 (0.93-1.1); PROTHROMBIN TIME 11.4 Seconds (9.6-11.5)
[2020-01-01 05:28] LABS: ALANINE AMINOTRANSFERASE 54 U/L (12-78); ALBUMIN 3.3 g/dL (3.4-5.0); ANION GAP 7 mmol/L (5-15); CALCIUM 8.8 mg/dL (8.5-10.1); CHLORIDE 107 mmol/L (98-107)
[2020-01-01 05:31] LABS: ALKALINE PHOSPHATASE 72 U/L (45-117); BILIRUBIN,TOTAL 1.3 mg/dL (0.2-1.0); CREATININE 0.67 mg/dL (0.7-1.3); TOTAL PROTEIN 6.6 g/dL (6.4-8.2)
[2020-01-01 05:37] LABS: BASOPHILS # (AUTO) 0.02 x10^3/uL (0-0.1); BASOPHILS % (AUTO) 0 % (0-1); EOSINOPHILS % (AUTO) 0 % (1-7); LYMPHOCYTES # (AUTO) 1.74 x10^3/uL (1-3.4); LYMPHOCYTES % (AUTO) 19 % (22-44); MD NO; MEAN CORPUSCULAR HEMOGLOBIN 29.2 pg (27.5-34.5); MEAN CORPUSCULAR HGB CONC 33.6 g/dL (33.2-36.2); MEAN CORPUSCULAR VOLUME 87.1 fL (81-97); MEAN PLATELET VOLUME 7.9 fL (7.4-10.4); MONOCYTES # (AUTO) 0.75 x10^3/uL (0.2-0.8); MONOCYTES % (AUTO) 8 % (2-9); NEUTROPHILS # (AUTO) 6.75 x10^3/uL (1.8-6.8); NEUTROPHILS % (AUTO) 73 % (42-75); PLATELET COUNT 198 x10^3/uL (130-400); RED BLOOD COUNT 4.59 x10^6/uL (4.38-5.82); RED CELL DISTRIBUTION WIDTH 14.2 % (9.4-14.8)
[2020-01-01] MEDS ORDERED: ACETAMINOPHEN 325 MG TABLET PO PRN (07:30)
[2020-01-01 08:23] VITALS: BP 131/84
[2020-01-01] MEDS: PANTOPRAZOLE 80 MG in SODIUM CHLORIDE 0.9% 100 ML IV SCH (08:30)
[2020-01-01] MEDS: PANTOPRAZOLE 40 MG IV IVPush SCH ×2 (08:36→20:40)
[2020-01-01] MEDS: THIAMINE 100MG TABLET PO SCH ×2 (08:36→20:39)
[2020-01-01] MEDS: LACTOBACILLUS CHEW TABLET PO SCH ×3 (08:36→20:39)
[2020-01-01] MEDS: SODIUM CHLORIDE 0.9% 1,000 ML IV SCH ×2 (08:46→21:55)
[2020-01-01] MEDS: MAALOX/HYOSCYAMINE/LIDOCAINE 45 ML BTL PO PRN ×2 (11:32→21:55)
[2020-01-01 12:50] VITALS: BP 129/85
[2020-01-01] MEDS ORDERED: ALUMINUM/MAG/SIMETHICONE 30 ML UDC PO PRN (13:00)
[2020-01-01 18:48] VITALS: BP 134/88
[2020-01-02 02:00] VITALS: BP 127/83
[2020-01-02 04:23] LABS: MEAN CORPUSCULAR HEMOGLOBIN 28.9 pg (27.5-34.5); MEAN CORPUSCULAR HGB CONC 32.5 g/dL (33.2-36.2); MEAN CORPUSCULAR VOLUME 88.8 fL (81-97); MEAN PLATELET VOLUME 8.1 fL (7.4-10.4); PLATELET COUNT 144 x10^3/uL (130-400); RED BLOOD COUNT 4.49 x10^6/uL (4.38-5.82); RED CELL DISTRIBUTION WIDTH 13.7 % (9.4-14.8)
[2020-01-02 06:02] LABS: MD YES
[2020-01-02 06:06] LABS: <PLATELET ESTIMATE> ADEQUATE; <PLT MORPHOLOGY> NORMAL PLT MORPH; <RBC MORPHOLOGY> NORMAL; BASOS#(MANUAL) 0.04 x10^3/uL (0-0.1); BASOS% (MANUAL) 1 % (0-1); EOS#(MANUAL) 0.04 x10^3/uL (0.0-0.4); EOS% (MANUAL) 1 % (1-7); LYMPH#(MANUAL) 1.66 x10^3/uL (1-3.4); LYMPHS% (MANUAL) 46 % (22-44); MONOS#(MANUAL) 0.07 x10^3/uL (0.3-2.7); MONOS% (MANUAL) 2 % (2-9); SEGS% (MANUAL) 50 % (42-75)
[2020-01-02 08:04] VITALS: BP 131/90
[2020-01-02] MEDS ORDERED: PANTOPRAZOLE 40MG TABLET PO SCH (09:00)
[2020-01-02] MEDS: THIAMINE 100MG TABLET PO SCH (09:49)
[2020-01-02] MEDS: LACTOBACILLUS CHEW TABLET PO SCH (09:49)
[2020-01-02] MEDS ORDERED: FERR324T5 PO (11:40)
[2020-01-02] MEDS ORDERED: THIA100T67 PO (11:40)
[2020-01-02] MEDS ORDERED: ACID1TAB7 PO (11:40)
== END 2020-01-02 13:44 | disposition home or self-care (01) | DRG 378 ==
LOC: ED 20:00 → EDIP 21:48 → 4WST 23:38
PROVIDERS: ADMIT Family Medicine; ATTEND Internal Medicine
DX: K92.2 Gastrointestinal hemorrhage, unspecified (principal); K86.1 Other chronic pancreatitis; F10.239 Alcohol dependence with withdrawal, unspecified; G47.00 Insomnia, unspecified; I10 Essential (primary) hypertension; Z76.5 Malingerer [conscious simulation]; Z87.19 Personal history of other diseases of the digestive system; Z88.0 Allergy status to penicillin; Z88.8 Allergy status to other drugs, medicaments and biological substances
CPT/HCPCS: 36415; 80053; 80307; 83690; 83735; 85025; 85610; 93005; 96374; 96375; G0378; J2405; J2550; J3411; J3475; J3480; C9113; J2060; J2270; J7030

== ENCOUNTER 2020-01-03 13:50 | Emergency (ER) | payer MEDICAID ==
[~2020-01-03] VITALS: Ht 177.8 cm; Wt 73.8 kg
--- NOTE | 2020-01-03 14:40 | NUR ---
this is a 44 yr old male that was found to be intoxicated in front of a liquor store. pt presents to er and upon provider assessment pt states he is having chest pain and needs narcotic pain medication. pt unable to elaborate on chest pain. strong odor of etoh present from pt. pt admits to drinking today. pt able to move all extremities with strength. pt placed on cardiac, nibp, and o2 monitoring.
[2020-01-03 15:00] LABS: ALBUMIN 3.7 g/dL (3.4-5.0); ANION GAP 7 mmol/L (5-15); CALCIUM 8.3 mg/dL (8.5-10.1); CHLORIDE 116 mmol/L (98-107)
[2020-01-03 15:06] LABS: ALANINE AMINOTRANSFERASE 57 U/L (12-78); ALKALINE PHOSPHATASE 75 U/L (45-117); BILIRUBIN,TOTAL 0.5 mg/dL (0.2-1.0); CREATININE 0.75 mg/dL (0.7-1.3); TOTAL PROTEIN 7.5 g/dL (6.4-8.2); TROPONIN I < 0.015 ng/mL (0.000-0.045)
[2020-01-03 15:31] LABS: BASOPHILS # (AUTO) 0.02 x10^3/uL (0-0.1); BASOPHILS % (AUTO) 0 % (0-1); EOSINOPHILS # (AUTO) 0.04 x10^3/uL (0-0.4); EOSINOPHILS % (AUTO) 1 % (1-7); LYMPHOCYTES # (AUTO) 2.29 x10^3/uL (1-3.4); LYMPHOCYTES % (AUTO) 42 % (22-44); MD SCAN; MEAN CORPUSCULAR HEMOGLOBIN 29.1 pg (27.5-34.5); MEAN CORPUSCULAR HGB CONC 32.9 g/dL (33.2-36.2); MEAN CORPUSCULAR VOLUME 88.3 fL (81-97); MEAN PLATELET VOLUME 7.3 fL (7.4-10.4); MONOCYTES % (AUTO) 4 % (2-9); NEUTROPHILS # (AUTO) 2.88 x10^3/uL (1.8-6.8); NEUTROPHILS % (AUTO) 53 % (42-75); PLATELET COUNT 179 x10^3/uL (130-400); RED BLOOD COUNT 5.39 x10^6/uL (4.38-5.82); RED CELL DISTRIBUTION WIDTH 14.3 % (9.4-14.8)
--- NOTE | 2020-01-03 15:32 | NUR ---
TASK RN, COVERING MEAL BREAK. PT SLEEPING, NAD. ERP IN TO SEE PT. VSS/UPDATED IN COMPUTER.
[2020-01-03 15:33] VITALS: BP 102/68
[2020-01-03] MEDS ORDERED: POTASSIUM CHLORIDE 20 MEQ TAB.ER.PRT ONE (16:18)
--- NOTE | 2020-01-03 16:21 | NUR ---
FLOAT RN: PT UNABLE TO AMBULATE WITHOUT ASSISTANCE. BACK TO BED, PROVIDER NOTIFIED
[2020-01-03] MEDS ORDERED: POTASSIUM CHLORIDE 20 MEQ TAB.ER.PRT PO ONE (16:30)
== END 2020-01-03 17:12 ==
LOC: ED 14:20
DX: F10.229 Alcohol dependence with intoxication, unspecified (principal); G40.909 Epilepsy, unspecified, not intractable, without status epilepticus; I10 Essential (primary) hypertension; I95.9 Hypotension, unspecified; R07.89 Other chest pain; E86.0 Dehydration; E87.6 Hypokalemia; E87.0 Hyperosmolality and hypernatremia; Y90.0 Blood alcohol level of less than 20 mg/100 ml
CPT/HCPCS: 36415; 71045; 80053; 84484; 85025; 93005; 99285

== ENCOUNTER 2020-01-04 21:24 | Emergency (ER) | payer MEDICAID ==
[~2020-01-04] VITALS: Ht 167.6 cm; Wt 68.1 kg
--- NOTE | 2020-01-04 21:47 | NUR ---
44/M. arrived via EMS. hx of ETOH abuse, was at [employer] store and stated he was lightheaded. went outside and laid down on sidewalk and called EMS. VS. In triage, pt complaining of lightheadness, CP, abdominal pain x3 days. Seen here yesterday for same issues.
[2020-01-04 22:10] VITALS: BP 117/75
--- NOTE | 2020-01-05 00:36 | NUR ---
RN has given patient food and drink. RN went in to check on pt and pt states he can't get up right now. RN will attempt ambulation again shortly.
--- NOTE | 2020-01-05 00:45 | NUR ---
RN was coming to room to ambulate pt. When RN arrived, pt was vomitting. Dark emesis. PA notified. Jeremiah ordered.
[2020-01-05] MEDS ORDERED: ONDANSETRON ODT 4 MG ONE (00:46)
[2020-01-05] MEDS ORDERED: ONDANSETRON ODT 4 MG PO ONE (01:00)
== END 2020-01-05 01:54 | disposition home or self-care (01) ==
LOC: ED 23:20
DX: F10.120 Alcohol abuse with intoxication, uncomplicated (principal); R07.9 Chest pain, unspecified; R10.9 Unspecified abdominal pain; R42 Dizziness and giddiness; R41.82 Altered mental status, unspecified; R94.31 Abnormal electrocardiogram [ECG] [EKG]; I10 Essential (primary) hypertension; Y90.9 Presence of alcohol in blood, level not specified
CPT/HCPCS: 93005; 99283; Q0162

== ENCOUNTER 2020-01-05 03:52 | Emergency (ER) | payer MEDICAID ==
[~2020-01-05] VITALS: Ht 167.6 cm; Wt 80.0 kg
--- NOTE | 2020-01-05 04:08 | NUR ---
THIS IS A 44 Y GENTLEMAN WELL KNOWN TO THIS ER, PT WAS SEEN HERE EARLIER THIS NIGHT AND WAS DC, PER PT HE DRANK MORE VODKA AND NOW FEELS WORSE. PT WAS FOUND IN [facility] BATHROOM BY EMS, PT ARRIVES A/O RESP EVEN AND UNLABORED PT CONNECTED TO MONITORING, PROVIDED BLANKETS NADN.
--- NOTE | 2020-01-05 04:42 | NUR ---
NH RESTING ON LUZ MARINA JONES CALL LIGHT IN REACH PROVIDER AT BEDSIDE NO NEEDS AT THIS TIME
[2020-01-05 05:33] LABS: ALANINE AMINOTRANSFERASE 47 U/L (12-78); ALBUMIN 3.5 g/dL (3.4-5.0); ANION GAP 11 mmol/L (5-15); CALCIUM 8.2 mg/dL (8.5-10.1); CHLORIDE 104 mmol/L (98-107); CREATININE 0.63 mg/dL (0.7-1.3)
[2020-01-05 05:36] LABS: ALKALINE PHOSPHATASE 84 U/L (45-117); BILIRUBIN,TOTAL 0.7 mg/dL (0.2-1.0); TOTAL PROTEIN 7.4 g/dL (6.4-8.2)
[2020-01-05 06:31] LABS: BASOPHILS # (AUTO) 0.02 x10^3/uL (0-0.1); BASOPHILS % (AUTO) 0 % (0-1); EOSINOPHILS # (AUTO) 0.01 x10^3/uL (0-0.4); EOSINOPHILS % (AUTO) 0 % (1-7); LYMPHOCYTES # (AUTO) 1.88 x10^3/uL (1-3.4); LYMPHOCYTES % (AUTO) 24 % (22-44); MD NO; MEAN CORPUSCULAR HEMOGLOBIN 28.7 pg (27.5-34.5); MEAN PLATELET VOLUME 7.1 fL (7.4-10.4); MONOCYTES # (AUTO) 0.17 x10^3/uL (0.2-0.8); MONOCYTES % (AUTO) 2 % (2-9); NEUTROPHILS # (AUTO) 5.92 x10^3/uL (1.8-6.8); NEUTROPHILS % (AUTO) 74 % (42-75); PLATELET COUNT 209 x10^3/uL (130-400)
--- NOTE | 2020-01-05 06:39 | NUR ---
PT RESTING ON GURNEY, NAD, APPEARS COMFORTABLE, EYES CLOSED, EVEN CHEST RISE AND FALL. WCTM. WAITING FOR RAD READ
--- NOTE | 2020-01-05 06:49 | NUR ---
RECEIVED REPORT FROM DEBORAH MONTES. PT REFUSING POTASSIUM. PT LYING IN BED ON MONTIOR. NOTED TO HAVE SLURRED SPEECH. WILL CONTINUE TO OBSERVE
[2020-01-05] MEDS ORDERED: POTASSIUM CHLORIDE 20 MEQ TAB.ER.PRT PO ONE (07:00)
--- NOTE | 2020-01-05 08:00 | NUR ---
report from cynthia ross. pt resting in bed awake and appears intoxicated, call [facility]. as
[2020-01-05 09:43] VITALS: BP 105/66
== END 2020-01-05 09:57 | disposition home or self-care (01) ==
LOC: ED 05:51
DX: F10.220 Alcohol dependence with intoxication, uncomplicated (principal); R10.84 Generalized abdominal pain; E87.6 Hypokalemia; I10 Essential (primary) hypertension; G40.909 Epilepsy, unspecified, not intractable, without status epilepticus; I95.9 Hypotension, unspecified; Y90.0 Blood alcohol level of less than 20 mg/100 ml
CPT/HCPCS: 36415; 74021; 80053; 83690; 85025; 99284

== ENCOUNTER 2020-01-05 15:08 | Emergency (ER) | payer MEDICAID ==
[~2020-01-05] VITALS: Ht 167.6 cm; Wt 65.0 kg
--- NOTE | 2020-01-05 15:16 | NUR ---
HERE FOR 3RD VISIT OF THE DAY RELATED TO ETOH. PT AMBULATORY. PLACED IN CHAIR NEAR CHARGE/TP DESK DUE TO LACK OF AVAILABLE ROOMS
[2020-01-05] MEDS ORDERED: ACETAMINOPHEN 325 MG TABLET PO ONE (15:30)
[2020-01-05] MEDS ORDERED: ACETAMINOPHEN 325 MG TABLET ONE (15:40)
[2020-01-05 16:00] LABS: BASOPHILS # (AUTO) 0.05 x10^3/uL (0-0.1); BASOPHILS % (AUTO) 1 % (0-1); EOSINOPHILS % (AUTO) 0 % (1-7); LYMPHOCYTES # (AUTO) 2.26 x10^3/uL (1-3.4); LYMPHOCYTES % (AUTO) 22 % (22-44); MD NO; MEAN CORPUSCULAR HEMOGLOBIN 28.8 pg (27.5-34.5); MEAN CORPUSCULAR HGB CONC 33.3 g/dL (33.2-36.2); MEAN CORPUSCULAR VOLUME 86.5 fL (81-97); MEAN PLATELET VOLUME 6.9 fL (7.4-10.4); MONOCYTES # (AUTO) 0.22 x10^3/uL (0.2-0.8); MONOCYTES % (AUTO) 2 % (2-9); NEUTROPHILS % (AUTO) 76 % (42-75); PLATELET COUNT 250 x10^3/uL (130-400)
[2020-01-05 16:08] LABS: ALBUMIN 3.8 g/dL (3.4-5.0); ANION GAP 14 mmol/L (5-15); CALCIUM 8.3 mg/dL (8.5-10.1); CHLORIDE 105 mmol/L (98-107); CREATININE 0.75 mg/dL (0.7-1.3)
--- NOTE | 2020-01-05 16:30 | NUR ---
REPORT FROM MG MONTES. PT TRANSFERRED SELF FROM WHEELCHAIR TO BED, SPEAKING FULL SENTENCES, ASKING FOR JELLO AND ICE CREAM. GOT TYLENOL FOR TEMP, NOW AFEBRILE.
--- NOTE | 2020-01-05 18:03 | NUR ---
appears to be sleeping, vss, fall precautions. as
--- NOTE | 2020-01-05 18:55 | NUR ---
report to anitra ross. as
[2020-01-05 19:50] VITALS: BP 119/89
== END 2020-01-05 19:52 | disposition home or self-care (01) ==
LOC: ED 15:17
DX: F10.220 Alcohol dependence with intoxication, uncomplicated (principal); R00.0 Tachycardia, unspecified; R50.9 Fever, unspecified; I10 Essential (primary) hypertension; Y90.9 Presence of alcohol in blood, level not specified
CPT/HCPCS: 36415; 71045; 80048; 82040; 85025; 99284

== ENCOUNTER 2020-01-06 08:18 | Emergency (ER) | payer MEDICAID ==
[~2020-01-06] VITALS: Ht 167.6 cm; Wt 60.2 kg
[2020-01-06] MEDS ORDERED: ONDANSETRON ODT 4 MG PO ONE (08:30)
[2020-01-06] MEDS ORDERED: MAALOX/HYOSCYAMINE/LIDOCAINE 45 ML BTL PO ONE (08:30)
[2020-01-06] MEDS ORDERED: ONDANSETRON ODT 4 MG ONE (08:32)
[2020-01-06 09:22] LABS: MEAN CORPUSCULAR HEMOGLOBIN 28.5 pg (27.5-34.5); MEAN CORPUSCULAR VOLUME 86.3 fL (81-97); MEAN PLATELET VOLUME 7.3 fL (7.4-10.4); PLATELET COUNT 193 x10^3/uL (130-400); RED BLOOD COUNT 5.26 x10^6/uL (4.38-5.82); RED CELL DISTRIBUTION WIDTH 13.4 % (9.4-14.8)
[2020-01-06 09:41] LABS: ALBUMIN 3.5 g/dL (3.4-5.0); ANION GAP 12 mmol/L (5-15); CALCIUM 8.4 mg/dL (8.5-10.1); CHLORIDE 101 mmol/L (98-107)
[2020-01-06 09:47] LABS: ALANINE AMINOTRANSFERASE 41 U/L (12-78); ALKALINE PHOSPHATASE 78 U/L (45-117); BILIRUBIN,TOTAL 0.6 mg/dL (0.2-1.0); CREATININE 0.74 mg/dL (0.7-1.3); TROPONIN I < 0.015 ng/mL (0.000-0.045)
[2020-01-06 09:51] LABS: BASOPHILS # (AUTO) 0.01 x10^3/uL (0-0.1); BASOPHILS % (AUTO) 0 % (0-1); EOSINOPHILS % (AUTO) 0 % (1-7); LYMPHOCYTES # (AUTO) 1.33 x10^3/uL (1-3.4); LYMPHOCYTES % (AUTO) 16 % (22-44); MD SCAN; MONOCYTES # (AUTO) 0.29 x10^3/uL (0.2-0.8); MONOCYTES % (AUTO) 3 % (2-9); NEUTROPHILS % (AUTO) 81 % (42-75)
[2020-01-06 10:46] VITALS: BP 119/79
--- NOTE | 2020-01-06 12:04 | NUR ---
LUNCH RN: PT REFUSING TO TAKE VITALS. PT HAS EQUAL UNLABORED RESPIRATIONS. PT HAS GOOD CAP REFILL.
--- NOTE | 2020-01-06 13:44 | NUR ---
PT AMBULATED IN HALLWAY WITH A STEADY GAIT. VERBALIZES THE DESIRE TO BE DC. A&O. NO ACUTE DISTRESS OBSERVED AT THIS TIME
[2020-01-07] MEDS ORDERED: OMEP-110 PO (10:41)
== END 2020-01-06 13:52 | disposition home or self-care (01) ==
LOC: ED 08:23
DX: K29.20 Alcoholic gastritis without bleeding (principal); F10.220 Alcohol dependence with intoxication, uncomplicated; R07.89 Other chest pain; R10.84 Generalized abdominal pain; Y90.0 Blood alcohol level of less than 20 mg/100 ml
CPT/HCPCS: 36415; 80053; 80307; 83690; 84484; 85025; 93005; 99284; Q0162

== ENCOUNTER 2020-01-06 15:13 | Emergency (ER) | payer MEDICAID ==
[~2020-01-06] VITALS: Ht 167.6 cm; Wt 73.0 kg
--- NOTE | 2020-01-06 15:28 | NUR ---
maci. report received from ems. pt was dc from this hospital today, then pt had some alcohol(unknown amount). resps even and unlabored. denies any medical complaints.
--- NOTE | 2020-01-06 16:37 | NUR ---
pt sleeping in [facility]. resps even and unlabored. bp/spo2 monitors in place. call light within reach.
--- NOTE | 2020-01-06 17:37 | NUR ---
move to room 4 at this time.
--- NOTE | 2020-01-06 18:42 | NUR ---
pt sleeping in [facility]. resps even and unlabored. bp/spo2 monitors in place. call light within reach.
--- NOTE | 2020-01-06 18:55 | NUR ---
report given to thierry ross.
--- NOTE | 2020-01-06 19:21 | NUR ---
Assumed care of pt. Resting comfortably on stretcher. Visible chest rise/fall noted. No s/sx acute distress
[2020-01-06 21:06] VITALS: BP 110/63
--- NOTE | 2020-01-06 21:06 | NUR ---
Pt states he wants to go. Ambulating independently, steady gait. Provided with juice and crackers and address for local group home
--- NOTE | 2020-01-06 21:10 | NUR ---
Ambulated out of department before d/c instructions were ready. Pt stated he does not want papers. aware
[2020-01-07] MEDS ORDERED: OMEP-110 PO (10:41)
== END 2020-01-06 21:14 | disposition home or self-care (01) ==
LOC: ED 16:46
DX: F10.120 Alcohol abuse with intoxication, uncomplicated (principal); R00.0 Tachycardia, unspecified; G40.909 Epilepsy, unspecified, not intractable, without status epilepticus; I10 Essential (primary) hypertension; Z90.89 Acquired absence of other organs; Y90.9 Presence of alcohol in blood, level not specified
CPT/HCPCS: 99283

== ENCOUNTER 2020-01-06 23:51 | Emergency (ER) | payer MEDICAID ==
[~2020-01-06] VITALS: Ht 172.7 cm; Wt 71.0 kg
--- NOTE | 2020-01-07 03:17 | NUR ---
PT RESTING IN BED, PT ON MONITOR. PT HAS NO NEEDS OR WANTS AT THIS TIME. RN WILL CONTINUE TO MONITOR PT.
--- NOTE | 2020-01-07 05:14 | NUR ---
PT RESTING IN BED, PT ON MONITOR. PT HAS NO NEEDS OR WANTS AT THIS TIME. RN WILL CONTINUE TO MONITOR PT.
[2020-01-07 06:04] VITALS: BP 132/74
[2020-01-07] MEDS ORDERED: OMEP-110 PO (10:41)
== END 2020-01-07 06:07 | disposition home or self-care (01) ==
LOC: ED 01-07 01:21
DX: F10.129 Alcohol abuse with intoxication, unspecified (principal); Z72.9 Problem related to lifestyle, unspecified; Y90.0 Blood alcohol level of less than 20 mg/100 ml
CPT/HCPCS: 99283

== ENCOUNTER 2020-01-07 08:31 | Inpatient (IN) | payer MEDICAID ==
[~2020-01-07] VITALS: Ht 162.6 cm; Wt 59.2 kg
[2020-01-07] MEDS ORDERED: PANTOPRAZOLE 80 MG in SODIUM CHLORIDE 0.9% 50 ML IVPB ONE (08:38)
[2020-01-07] MEDS ORDERED: OCTREOTIDE 100MCG/ML, 1ML (0.1MG/ML) IV ONE (09:00)
[2020-01-07] MEDS ORDERED: OCTREOTIDE 500 MCG in SODIUM CHLORIDE 0.9% 99 ML IV PRN (09:00)
[2020-01-07] MEDS ORDERED: PLEASE ENTER HEIGHT AND WEIGHT MC SCH (09:00)
[2020-01-07] MEDS ORDERED: SODIUM CHLORIDE 0.9% 1,000ML IVBOLUS ONE (09:00)
[2020-01-07] MEDS ORDERED: SODIUM CHLORIDE FLUSH 10ML SYR IVF ONE (09:00)
[2020-01-07] MEDS ORDERED: ONDANSETRON 2MG/ML, 2ML IVPush ONE (09:00)
[2020-01-07] MEDS ORDERED: ONDANSETRON 2MG/ML, 2ML ONE (09:12)
--- NOTE | 2020-01-07 09:16 | NUR ---
OCTREODTIDE AND PROTONIX REQUESTED FROM PHARMACY.
--- NOTE | 2020-01-07 09:16 | NUR ---
PIV STARTED IN R EJ. ZOFRAN GIVEN AND NS BOLUS STARTED.
[2020-01-07 09:21] LABS: BASOPHILS # (AUTO) 0.02 x10^3/uL (0-0.1); BASOPHILS % (AUTO) 0 % (0-1); EOSINOPHILS # (AUTO) 0.01 x10^3/uL (0-0.4); EOSINOPHILS % (AUTO) 0 % (1-7); LYMPHOCYTES % (AUTO) 22 % (22-44); MD NO; MEAN CORPUSCULAR HEMOGLOBIN 28.6 pg (27.5-34.5); MEAN PLATELET VOLUME 7.4 fL (7.4-10.4); MONOCYTES % (AUTO) 3 % (2-9); NEUTROPHILS # (AUTO) 5.53 x10^3/uL (1.8-6.8); NEUTROPHILS % (AUTO) 75 % (42-75); PLATELET COUNT 196 x10^3/uL (130-400); RED BLOOD COUNT 5.12 x10^6/uL (4.38-5.82); RED CELL DISTRIBUTION WIDTH 13.7 % (9.4-14.8)
[2020-01-07 09:28] LABS: INTERNATIONAL NORMALIZED RATIO 0.98 (0.93-1.1); PROTHROMBIN TIME 10.1 Seconds (9.6-11.5)
[2020-01-07 09:29] LABS: ALANINE AMINOTRANSFERASE 35 U/L (12-78); ALBUMIN 3.4 g/dL (3.4-5.0); ANION GAP 12 mmol/L (5-15); CALCIUM 7.8 mg/dL (8.5-10.1); CHLORIDE 103 mmol/L (98-107); CREATININE 0.65 mg/dL (0.7-1.3)
[2020-01-07 09:32] LABS: ALKALINE PHOSPHATASE 73 U/L (45-117); BILIRUBIN,TOTAL 0.6 mg/dL (0.2-1.0); TOTAL PROTEIN 7.1 g/dL (6.4-8.2)
--- NOTE | 2020-01-07 09:36 | NUR ---
PROTONIX LOADING DOSE STARTED.
[2020-01-07] MEDS: PANTOPRAZOLE 80 MG in SODIUM CHLORIDE 0.9% 100 ML IV SCH ×2 (09:58→17:12)
--- NOTE | 2020-01-07 10:20 | NUR ---
MULTIPLE US IV ATTEMPTS FAILED AT THIS TIME. ONLY ONE IV IN PLACE. MD MADE AWARE AT THIS TIME. TO START PROTONIX AND SEND OCTREOTIDE BACK TO PHARMACY.
[2020-01-07] MEDS ORDERED: OMEP-110 PO (10:41)
--- NOTE | 2020-01-07 12:19 | NUR ---
PT RESTING COMFORTABLY IN BED AT THIS TIME. THERE HAS BEEN NO MORE VOMITING SINCE TAKING OVER CARE OF PT FROM AISHWARYA MONTES. BRITTNI
[2020-01-07] MEDS ORDERED: LABETALOL 5MG/ML, 20ML IVPush PRN (14:00)
[2020-01-07] MEDS ORDERED: THIAMINE 200 MG, MVI ADULT 10 ML, FOLIC ACID 1 MG in D5%-0.9% NACL 1,000 ML IV SCH (14:00)
[2020-01-07] MEDS ORDERED: POLYETHYLENE GLYCOL 17 GM PACKET PO PRN (14:00)
[2020-01-07] MEDS ORDERED: ONDANSETRON ODT 4 MG PO PRN (14:00)
[2020-01-07] MEDS ORDERED: BISACODYL 10 MG SUPP PR PRN (14:00)
[2020-01-07] MEDS ORDERED: ONDANSETRON 2MG/ML, 2ML IVPush PRN (14:00)
[2020-01-07 14:12] VITALS: BP 94/59
[2020-01-07] MEDS ORDERED: LORazepam 2 MG/ML, 1ML IV PRN ×6 (15:00)
[2020-01-07] MEDS ORDERED: ACETAMINOPHEN 325 MG TABLET PO PRN (15:00)
[2020-01-07] MEDS: MORPHINE SULFATE 4 MG/ML, 1ML IVPush PRN ×2 (16:21→22:46)
[2020-01-07] MEDS: LORazepam 1MG TABLET PO SCH ×2 (16:21→21:50)
[2020-01-07 16:56] LABS: MICROSCOPIC INDICATED
[2020-01-07] MEDS: POTASSIUM CHLORIDE 20 MEQ, MAGNESIUM SULFATE 1 GM, FOLIC ACID 1 MG, THIAMINE 200 MG, MV... IV SCH (17:13)
[2020-01-07] MEDS ORDERED: POTASSIUM CHLORIDE 40 MEQ in SODIUM CHLORIDE 0.9% 500 ML IV ONE (18:00)
[2020-01-07] MEDS ORDERED: POTASSIUM CHLORIDE 20 MEQ in SODIUM CHLORIDE 0.9% 250 ML IV ONE (18:00)
[2020-01-07 18:12] VITALS: BP 111/72
[2020-01-07] MEDS ORDERED: POTASSIUM CHLORIDE 60 MEQ in SODIUM CHLORIDE 0.9% 1,000 ML IV ONE (18:30)
[2020-01-07] MEDS: LACTULOSE 20 GM/30 ML UDC PO SCH (21:50)
[2020-01-07] MEDS: PANTOPRAZOLE 40 MG IV IVPush SCH (21:50)
[2020-01-08 01:02] VITALS: BP 107/68
[2020-01-08 06:02] LABS: BASOPHILS # (AUTO) 0.02 x10^3/uL (0-0.1); BASOPHILS % (AUTO) 0 % (0-1); EOSINOPHILS # (AUTO) 0.04 x10^3/uL (0-0.4); EOSINOPHILS % (AUTO) 1 % (1-7); LYMPHOCYTES # (AUTO) 2.16 x10^3/uL (1-3.4); LYMPHOCYTES % (AUTO) 34 % (22-44); MD NO; MEAN CORPUSCULAR HEMOGLOBIN 28.6 pg (27.5-34.5); MEAN CORPUSCULAR HGB CONC 32.8 g/dL (33.2-36.2); MEAN PLATELET VOLUME 8.1 fL (7.4-10.4); MONOCYTES # (AUTO) 0.32 x10^3/uL (0.2-0.8); MONOCYTES % (AUTO) 5 % (2-9); NEUTROPHILS # (AUTO) 3.85 x10^3/uL (1.8-6.8); NEUTROPHILS % (AUTO) 60 % (42-75); PLATELET COUNT 147 x10^3/uL (130-400); RED BLOOD COUNT 3.96 x10^6/uL (4.38-5.82); RED CELL DISTRIBUTION WIDTH 13.9 % (9.4-14.8)
[2020-01-08 06:27] LABS: ALANINE AMINOTRANSFERASE 26 U/L (12-78); ALBUMIN 2.9 g/dL (3.4-5.0); ANION GAP 11 mmol/L (5-15); CHLORIDE 110 mmol/L (98-107); CREATININE 0.58 mg/dL (0.7-1.3)
[2020-01-08 06:37] LABS: ALKALINE PHOSPHATASE 58 U/L (45-117); BILIRUBIN,TOTAL 0.8 mg/dL (0.2-1.0); TOTAL PROTEIN 5.9 g/dL (6.4-8.2)
[2020-01-08] MEDS: MORPHINE SULFATE 4 MG/ML, 1ML IVPush PRN (06:52)
[2020-01-08] MEDS ORDERED: POTASSIUM PHOSPHATE 22 MEQ in SODIUM CHLORIDE 0.9% 500 ML IV ONE (07:30)
[2020-01-08 08:00] VITALS: BP 143/84
[2020-01-08] MEDS: LORazepam 1MG TABLET PO SCH (09:29)
[2020-01-08] MEDS: PANTOPRAZOLE 40 MG IV IVPush SCH ×2 (09:30→21:53)
[2020-01-08] MEDS: LACTULOSE 20 GM/30 ML UDC PO SCH ×2 (09:30→21:53)
[2020-01-08] MEDS: CHLORDIAZEPOXIDE 25 MG CAPSULE PO SCH ×3 (10:30→21:53)
[2020-01-08] MEDS ORDERED: LORazepam 0.5MG TABLET PO PRN (10:30)
[2020-01-08] MEDS ORDERED: LORazepam 1MG TABLET PO PRN ×2 (10:30)
[2020-01-08 12:01] VITALS: BP 133/78
[2020-01-08 12:43] VITALS: BP 140/91
[2020-01-08] MEDS: OXYcodone IR 5MG TABLET PO PRN ×2 (14:08→18:15)
[2020-01-08] MEDS: SENNA/DOCUSATE TABLET PO SCH (17:22)
[2020-01-08] MEDS: POTASSIUM CHLORIDE 20 MEQ, MAGNESIUM SULFATE 1 GM, FOLIC ACID 1 MG, THIAMINE 200 MG, MV... IV SCH (17:27)
[2020-01-08 19:24] VITALS: BP 133/84
[2020-01-09] MEDS: OXYcodone IR 5MG TABLET PO PRN ×4 (00:09→21:56)
[2020-01-09 00:48] VITALS: BP 125/82
[2020-01-09] MEDS: CHLORDIAZEPOXIDE 25 MG CAPSULE PO SCH ×4 (03:58→21:56)
[2020-01-09 05:45] LABS: ANION GAP 5 mmol/L (5-15); CALCIUM 8.4 mg/dL (8.5-10.1); CHLORIDE 104 mmol/L (98-107); CREATININE 0.55 mg/dL (0.7-1.3); MEAN CORPUSCULAR HGB CONC 33.6 g/dL (33.2-36.2); MEAN PLATELET VOLUME 8.3 fL (7.4-10.4); PLATELET COUNT 119 x10^3/uL (130-400); RED CELL DISTRIBUTION WIDTH 13.7 % (9.4-14.8)
[2020-01-09 06:14] LABS: BASOPHILS # (AUTO) 0.03 x10^3/uL (0-0.1); BASOPHILS % (AUTO) 1 % (0-1); EOSINOPHILS # (AUTO) 0.08 x10^3/uL (0-0.4); EOSINOPHILS % (AUTO) 2 % (1-7); LYMPHOCYTES # (AUTO) 1.71 x10^3/uL (1-3.4); LYMPHOCYTES % (AUTO) 43 % (22-44); MD SCAN; MONOCYTES % (AUTO) 10 % (2-9); NEUTROPHILS # (AUTO) 1.76 x10^3/uL (1.8-6.8); NEUTROPHILS % (AUTO) 44 % (42-75)
[2020-01-09 06:52] VITALS: BP 108/61
[2020-01-09] MEDS ORDERED: POTASSIUM CHLORIDE 20 MEQ TAB.ER.PRT PO ONE (07:30)
[2020-01-09] MEDS: SENNA/DOCUSATE TABLET PO SCH (09:36)
[2020-01-09] MEDS: POLYETHYLENE GLYCOL 17 GM PACKET PO SCH (09:36)
[2020-01-09] MEDS: FOLIC ACID 1 MG TABLET PO SCH (09:36)
[2020-01-09] MEDS: LACTULOSE 20 GM/30 ML UDC PO SCH ×2 (09:36→20:18)
[2020-01-09] MEDS: MULTIVITAMIN 1 TABLET PO SCH (09:36)
[2020-01-09] MEDS: PANTOPRAZOLE 40 MG IV IVPush SCH ×2 (09:36→20:18)
[2020-01-09] MEDS: THIAMINE 100MG TABLET PO SCH ×2 (09:36→20:18)
[2020-01-09 13:02] VITALS: BP 133/91
[2020-01-09 18:53] VITALS: BP 132/90
[2020-01-10 00:18] VITALS: BP 116/81
[2020-01-10] MEDS: CHLORDIAZEPOXIDE 25 MG CAPSULE PO SCH ×2 (04:30→11:28)
[2020-01-10 06:13] LABS: ANION GAP 5 mmol/L (5-15); CALCIUM 8.6 mg/dL (8.5-10.1); CHLORIDE 105 mmol/L (98-107)
[2020-01-10 06:15] LABS: CREATININE 0.66 mg/dL (0.7-1.3)
[2020-01-10 06:39] LABS: BASOPHILS # (AUTO) 0.02 x10^3/uL (0-0.1); BASOPHILS % (AUTO) 0 % (0-1); EOSINOPHILS # (AUTO) 0.08 x10^3/uL (0-0.4); EOSINOPHILS % (AUTO) 2 % (1-7); LYMPHOCYTES # (AUTO) 1.76 x10^3/uL (1-3.4); LYMPHOCYTES % (AUTO) 41 % (22-44); MD NO; MEAN CORPUSCULAR HGB CONC 33.2 g/dL (33.2-36.2); MEAN PLATELET VOLUME 8.2 fL (7.4-10.4); MONOCYTES # (AUTO) 0.31 x10^3/uL (0.2-0.8); MONOCYTES % (AUTO) 7 % (2-9); NEUTROPHILS # (AUTO) 2.13 x10^3/uL (1.8-6.8); NEUTROPHILS % (AUTO) 50 % (42-75); PLATELET COUNT 145 x10^3/uL (130-400); RED CELL DISTRIBUTION WIDTH 13.9 % (9.4-14.8)
[2020-01-10 07:26] VITALS: BP 112/75
[2020-01-10] MEDS: POLYETHYLENE GLYCOL 17 GM PACKET PO SCH (09:00)
[2020-01-10] MEDS: PANTOPRAZOLE 40 MG IV IVPush SCH (09:11)
[2020-01-10] MEDS: THIAMINE 100MG TABLET PO SCH (09:11)
[2020-01-10] MEDS: SENNA/DOCUSATE TABLET PO SCH (09:11)
[2020-01-10] MEDS: LACTULOSE 20 GM/30 ML UDC PO SCH (09:11)
[2020-01-10] MEDS: MULTIVITAMIN 1 TABLET PO SCH (09:11)
[2020-01-10] MEDS: FOLIC ACID 1 MG TABLET PO SCH (09:11)
[2020-01-10] MEDS ORDERED: FOLI-17 PO (12:56)
[2020-01-10] MEDS ORDERED: PANT40TA6 PO (12:56)
[2020-01-10] MEDS ORDERED: THIA100T67 PO (12:56)
[2020-01-10] MEDS ORDERED: MULT-464 PO (12:56)
[2020-01-10 13:06] VITALS: BP 111/74
== END 2020-01-10 15:14 | disposition home or self-care (01) | DRG 897 ==
LOC: ED 09:15 → EDIP 10:51 → 4WST 14:08
PROVIDERS: ADMIT Internal Medicine; ATTEND Internal Medicine
DX: F10.229 Alcohol dependence with intoxication, unspecified (principal); E72.20 Disorder of urea cycle metabolism, unspecified; G93.40 Encephalopathy, unspecified; K86.1 Other chronic pancreatitis; K92.0 Hematemesis; E83.39 Other disorders of phosphorus metabolism; E87.6 Hypokalemia; G89.29 Other chronic pain; K70.9 Alcoholic liver disease, unspecified; Z90.49 Acquired absence of other specified parts of digestive tract; Z88.0 Allergy status to penicillin
CPT/HCPCS: 36415; J7121; 71045; 80048; 80053; 80307; 81001; 82140; 83690; 83735; 84100; 84443; 85014; 85018; 85025; 85610; 85730; 86850; 86900; 96365; 96375; 99285; G0378; J2405; J3411; J3475; J3480; C9113; J2270; J7030; J7040

== ENCOUNTER 2020-01-10 19:13 | Emergency (ER) | payer MEDICAID ==
[~2020-01-10] VITALS: Ht 167.6 cm; Wt 70.0 kg
--- NOTE | 2020-01-10 19:24 | NUR ---
PT SARAH, DISCHARGED FROM HOSPITAL THIS AFTERNOON, FOUND INTOXICATED. PLACED ON STRETCHER AND CONTINUOUS PULSE OX MONITORING, SIDE RAILS UP TIMES TWO FOR PT SAFETY
--- NOTE | 2020-01-10 19:29 | NUR ---
PT THREW URINAL AT STAFF EMEBER, ESCORTED OUT WITH STEADY GAIT
--- NOTE | 2020-01-10 19:30 | NUR ---
ASSISTED PT WITH A URINAL. PT PROCEEDED TO THROW URINAL FULL OF URINE ON THIS TECH.
--- NOTE | 2020-01-10 19:34 | NUR ---
PT FOUND TO BE TOO UNSTEADY FOR SAFE DISCHARGE, BACK TO ROOM, AWARE THAT THROWING URINE IS COMPLETELY NOT ACCEPTABLE, CONTIUOUS MONITORING ATTATCHED
--- NOTE | 2020-01-10 20:00 | NUR ---
REPORT FROM BLAIR RN WITH REASSESSMENT-PATIENT RESTING COMFORTABLY ON BED DEEP ASLEEP, EVEN AND EQUAL CHEST RISE NOTED WILL CONTINUE TO CLOSELY MONITOR
[2020-01-10 20:30] VITALS: BP 106/69
--- NOTE | 2020-01-10 21:15 | NUR ---
REPORT RECEIVED FROM JERRY MONTES. PT SLEEPING IN BED, ABLE TO AWAKE BY VOICE. PT UNABLE TO AMBULATE AT THIS TIME. WILL REASSESS. PT MTF.
--- NOTE | 2020-01-10 21:52 | NUR ---
REPORT TO OBI. Addendum: 01/10/20 at 2153 by BRIAN REPORT TO OBI POOLE
--- NOTE | 2020-01-10 21:56 | NUR ---
PT D/C'D IN CUSTODY TO [facility], PT THREW URINE ONTO MOLD PULLER.
--- NOTE | 2020-01-10 21:57 | NUR ---
Assumed care of pt. Pt arrested and taken into custody by Josias ALEMAN s/p intentionally throwing urine at multiple staff members. Care assumed by Josias ALEMAN. materials handling coordinator aware. Security at bedside to assist PD.
== END 2020-01-10 22:03 | disposition home or self-care (01) ==
LOC: ED 21:32
DX: F10.220 Alcohol dependence with intoxication, uncomplicated (principal); G40.909 Epilepsy, unspecified, not intractable, without status epilepticus; I10 Essential (primary) hypertension; I95.9 Hypotension, unspecified
CPT/HCPCS: 99283

== ENCOUNTER 2020-02-09 07:54 | Emergency (ER) | payer MEDICAID ==
[~2020-02-09] VITALS: Ht 167.6 cm; Wt 65.0 kg
--- NOTE | 2020-02-09 09:47 | NUR ---
PT SLEEPING, VSS
[2020-02-09 09:53] VITALS: BP 113/71
--- NOTE | 2020-02-09 10:59 | NUR ---
GIVEN URINAL, VSS
--- NOTE | 2020-02-09 12:47 | NUR ---
AMBULATORY W STEADY GAIT. READY FOR DC.
== END 2020-02-09 12:48 | disposition home or self-care (01) ==
LOC: ED 08:47
DX: G92 Toxic encephalopathy (principal); F10.20 Alcohol dependence, uncomplicated; Y90.9 Presence of alcohol in blood, level not specified
CPT/HCPCS: 99283

== ENCOUNTER 2020-02-11 14:50 | Inpatient (IN) | payer MEDICAID ==
[~2020-02-11] VITALS: Ht 170.2 cm; Wt 62.1 kg
--- NOTE | 2020-02-11 15:02 | NUR ---
PT BIB EMS FOR SYNCOPLE EPISODE. PT STATES HE "PASSED OUT". PT ALSO ADMITS TO ETOH. "I DRANK A PINT TODAY". PT WAS SEEN AT [facility] YESTERDAY FOR SAME. PT RESTING IN [facility] CONNECTED TO MONITORING EQUIPMENT. MD IS BEDSIDE FOR ASSESSMENT
[2020-02-11] MEDS ORDERED: LORazepam 2 MG/ML, 1ML IVPush PRN (15:30)
[2020-02-11] MEDS ORDERED: SODIUM CHLORIDE 0.9% 1,000ML IVBOLUS ONE (15:30)
[2020-02-11] MEDS ORDERED: SODIUM CHLORIDE FLUSH 10ML SYR IVF ONE (15:30)
[2020-02-11] MEDS ORDERED: THIAMINE 100 MG in SODIUM CHLORIDE 0.9% 50 ML IVPB ONE (15:30)
[2020-02-11] MEDS ORDERED: LORazepam 2 MG/ML, 1ML ONE (16:17)
[2020-02-11 16:57] LABS: BASOPHILS % (AUTO) 0 % (0-1); EOSINOPHILS % (AUTO) 0 % (1-7); LYMPHOCYTES % (AUTO) 20 % (22-44); MEAN CORPUSCULAR HGB CONC 34.5 g/dL (33.2-36.2); MEAN PLATELET VOLUME 6.7 fL (7.4-10.4); MONOCYTES % (AUTO) 8 % (2-9); NEUTROPHILS % (AUTO) 72 % (42-75); PLATELET COUNT 274 x10^3/uL (130-400); RED BLOOD COUNT 3.59 x10^6/uL (4.38-5.82); RED CELL DISTRIBUTION WIDTH 17.7 % (9.4-14.8)
[2020-02-11 16:58] LABS: MD NO
[2020-02-11 17:06] LABS: ALANINE AMINOTRANSFERASE 61 U/L (12-78); ALBUMIN 2.7 g/dL (3.4-5.0); ANION GAP 12 mmol/L (5-15); CALCIUM 7.4 mg/dL (8.5-10.1); CHLORIDE 102 mmol/L (98-107); CREATININE 0.54 mg/dL (0.7-1.3)
[2020-02-11 17:16] LABS: ALKALINE PHOSPHATASE 135 U/L (45-117); BILIRUBIN,TOTAL 0.4 mg/dL (0.2-1.0); TOTAL PROTEIN 6.1 g/dL (6.4-8.2)
--- NOTE | 2020-02-11 17:48 | NUR ---
PT RESTING IN [facility]. RESPIRATIONS EVEN AND UNLABORED
[2020-02-11] MEDS ORDERED: MORPHINE SULFATE 4 MG/ML, 1ML IVPush PRN (19:00)
[2020-02-11] MEDS ORDERED: SODIUM CHLORIDE 0.9% 1,000 ML IV ONE (19:00)
[2020-02-11] MEDS ORDERED: ONDANSETRON 2MG/ML, 2ML ONE (19:02)
--- NOTE | 2020-02-11 19:07 | NUR ---
PT VOMITTING. MD NOTIFIED. SEE MAR FOR INTERVENTIONS
[2020-02-11] MEDS ORDERED: ONDANSETRON 2MG/ML, 2ML IVPush ONE (19:30)
[2020-02-11] MEDS ORDERED: ENALAPRILAT 1.25 MG/ML, 2ML IVPush PRN (20:00)
[2020-02-11] MEDS ORDERED: METHOCARBAMOL 500 MG TABLET PO PRN (20:00)
[2020-02-11] MEDS ORDERED: GUAIFENESIN/DM 200-20MG, 10ML UDC PO PRN (20:00)
[2020-02-11] MEDS: LACTATED RINGERS 1,000 ML IV SCH (20:00)
[2020-02-11] MEDS ORDERED: ACETAMINOPHEN 325 MG TABLET PO PRN (20:00)
[2020-02-11] MEDS ORDERED: morphine SULFATE 10 MG/ML, 1ML IVPush PRN (20:00)
[2020-02-11] MEDS: ENOXAPARIN 40 MG/0.4 ML SQ SCH (20:00)
[2020-02-11] MEDS ORDERED: DOCUSATE 100 MG CAPSULE PO PRN (20:00)
[2020-02-11] MEDS ORDERED: CHLORDIAZEPOXIDE 25 MG CAPSULE PO PRN ×3 (20:30)
[2020-02-11] MEDS ORDERED: LABETALOL 5MG/ML, 20ML IV PRN (20:30)
[2020-02-11] MEDS ORDERED: LORazepam 2 MG/ML, 1ML IV PRN (20:30)
[2020-02-11] MEDS ORDERED: FOLIC ACID 1 MG TABLET PO ONE (20:30)
[2020-02-11] MEDS ORDERED: CHLORDIAZEPOXIDE 10 MG CAPSULE PO PRN (20:30)
[2020-02-11] MEDS ORDERED: FAMOTIDINE 20 MG TABLET ONE (20:35)
[2020-02-11] MEDS ORDERED: ENOXAPARIN 40 MG/0.4 ML ONE (20:35)
[2020-02-11] MEDS ORDERED: MORPHINE SULFATE 4 MG/ML, 1ML ONE (20:36)
[2020-02-11] MEDS: FAMOTIDINE 20 MG TABLET PO SCH (21:00)
[2020-02-11] MEDS: PANTOPRAZOLE 40MG TABLET PO SCH (21:00)
[2020-02-11] MEDS: morphine SULFATE 10 MG/ML, 1ML IVPush PRN (21:25)
--- NOTE | 2020-02-11 21:43 | NUR ---
REPORT GIVEN TO CLIFFORD MONTES
[2020-02-11 22:09] VITALS: BP 123/81
[2020-02-11] MEDS: THIAMINE MC SCH (22:30)
[2020-02-12] MEDS: FOLIC ACID 1 MG TABLET PO SCH ×2 (00:07→08:57)
[2020-02-12] MEDS: FERROUS SULFATE 325 MG TABLET PO SCH (00:07)
[2020-02-12] MEDS: MAGNESIUM CHLORIDE 64 MG TABLET.DR PO SCH ×4 (00:07→20:25)
[2020-02-12] MEDS: THIAMINE 100MG TABLET PO SCH ×2 (00:12→08:49)
[2020-02-12 00:16] VITALS: BP 124/78
[2020-02-12] MEDS: morphine SULFATE 10 MG/ML, 1ML IVPush PRN ×3 (00:54→07:45)
[2020-02-12] MEDS: LACTATED RINGERS 1,000 ML IV SCH ×2 (04:00→08:52)
[2020-02-12] MEDS: ONDANSETRON 2MG/ML, 2ML IVPush PRN ×2 (04:08→10:59)
[2020-02-12 05:51] LABS: BASOPHILS % (AUTO) 0 % (0-1); EOSINOPHILS % (AUTO) 0 % (1-7); LYMPHOCYTES % (AUTO) 22 % (22-44); MEAN CORPUSCULAR HEMOGLOBIN 29.9 pg (27.5-34.5); MEAN CORPUSCULAR HGB CONC 34.2 g/dL (33.2-36.2); MEAN PLATELET VOLUME 7.1 fL (7.4-10.4); MONOCYTES % (AUTO) 9 % (2-9); NEUTROPHILS % (AUTO) 69 % (42-75); PLATELET COUNT 181 x10^3/uL (130-400); RED BLOOD COUNT 3.07 x10^6/uL (4.38-5.82); RED CELL DISTRIBUTION WIDTH 17.8 % (9.4-14.8)
[2020-02-12 06:01] LABS: ANION GAP 14 mmol/L (5-15); CALCIUM 7.6 mg/dL (8.5-10.1); CHLORIDE 104 mmol/L (98-107); CREATININE 0.46 mg/dL (0.7-1.3)
[2020-02-12 06:03] LABS: MD NO
[2020-02-12 07:02] VITALS: BP 125/81
[2020-02-12] MEDS: AMLODIPINE 5 MG TABLET PO SCH (08:49)
[2020-02-12] MEDS: MULTIVITAMINS/MINERALS TABLET PO SCH (08:49)
[2020-02-12] MEDS: PANTOPRAZOLE 40MG TABLET PO SCH (08:49)
[2020-02-12] MEDS: FAMOTIDINE 20 MG TABLET PO SCH (08:50)
[2020-02-12] MEDS ORDERED: MULTIVITAMINS/MINERALS TABLET PO SCH (09:00)
[2020-02-12] MEDS: THIAMINE MC SCH (09:44)
[2020-02-12] MEDS ORDERED: LORazepam 0.5MG TABLET PO PRN (10:30)
[2020-02-12] MEDS ORDERED: LORazepam 2 MG/ML, 1ML IV PRN ×4 (10:30)
[2020-02-12] MEDS ORDERED: LORazepam 1MG TABLET PO PRN ×3 (10:30)
[2020-02-12] MEDS: CHLORDIAZEPOXIDE 25 MG CAPSULE PO SCH ×3 (10:58→22:24)
[2020-02-12] MEDS: HYDROcodone/APAP 5/325 TABLET PO PRN ×3 (10:59→20:26)
[2020-02-12 13:31] VITALS: BP 138/87
[2020-02-12 19:01] VITALS: BP 135/85
[2020-02-12] MEDS: ENOXAPARIN 40 MG/0.4 ML SQ SCH (20:25)
[2020-02-12] MEDS: POTASSIUM CHLORIDE 40 MEQ in LACTATED RINGERS 1,000 ML IV SCH (20:35)
[2020-02-13] MEDS: HYDROcodone/APAP 5/325 TABLET PO PRN ×5 (00:50→20:31)
[2020-02-13] MEDS: ONDANSETRON 2MG/ML, 2ML IVPush PRN ×2 (00:50→20:31)
[2020-02-13 02:00] VITALS: BP 139/88
[2020-02-13] MEDS: POTASSIUM CHLORIDE 40 MEQ in LACTATED RINGERS 1,000 ML IV SCH ×4 (02:36→21:43)
[2020-02-13] MEDS: CHLORDIAZEPOXIDE 25 MG CAPSULE PO SCH ×4 (04:47→22:58)
[2020-02-13] MEDS: POTASSIUM CHLORIDE 20 MEQ, MAGNESIUM SULFATE 1 GM, THIAMINE 200 MG, FOLIC ACID 1 MG, MV... IV SCH (04:47)
[2020-02-13 05:14] LABS: BASOPHILS % (AUTO) 1 % (0-1); EOSINOPHILS % (AUTO) 0 % (1-7); LYMPHOCYTES % (AUTO) 40 % (22-44); MEAN CORPUSCULAR HEMOGLOBIN 30.1 pg (27.5-34.5); MEAN CORPUSCULAR HGB CONC 34.6 g/dL (33.2-36.2); MEAN PLATELET VOLUME 6.8 fL (7.4-10.4); MONOCYTES % (AUTO) 10 % (2-9); NEUTROPHILS % (AUTO) 50 % (42-75); PLATELET COUNT 165 x10^3/uL (130-400); RED CELL DISTRIBUTION WIDTH 17.8 % (9.4-14.8)
[2020-02-13 05:21] LABS: MD NO
[2020-02-13 05:28] LABS: ALBUMIN 2.9 g/dL (3.4-5.0); ANION GAP 11 mmol/L (5-15); CALCIUM 8.1 mg/dL (8.5-10.1); CHLORIDE 101 mmol/L (98-107)
[2020-02-13 05:32] LABS: ALANINE AMINOTRANSFERASE 53 U/L (12-78); ALKALINE PHOSPHATASE 105 U/L (45-117); BILIRUBIN,TOTAL 0.8 mg/dL (0.2-1.0); CREATININE 0.48 mg/dL (0.7-1.3); TOTAL PROTEIN 6.5 g/dL (6.4-8.2)
[2020-02-13 07:35] VITALS: BP 134/89
[2020-02-13] MEDS ORDERED: THIAMINE 100 MG in DEXTROSE 5% 50 ML IVPB SCH (09:00)
[2020-02-13] MEDS: MULTIVITAMINS/MINERALS TABLET PO SCH (09:53)
[2020-02-13] MEDS: PANTOPRAZOLE 40 MG IV IVPush SCH (09:53)
[2020-02-13] MEDS: AMLODIPINE 5 MG TABLET PO SCH (09:53)
[2020-02-13] MEDS: THIAMINE 100 MG in DEXTROSE 5% 50 ML IVPB SCH (09:54)
[2020-02-13] MEDS: MAGNESIUM CHLORIDE 64 MG TABLET.DR PO SCH ×3 (10:57→20:31)
[2020-02-13 12:28] VITALS: BP 128/84
[2020-02-13 13:15] VITALS: BP 118/62
[2020-02-13 18:50] VITALS: BP 129/81
[2020-02-13] MEDS: ENOXAPARIN 40 MG/0.4 ML SQ SCH (20:31)
[2020-02-13] MEDS: FERROUS SULFATE 325 MG TABLET PO SCH (20:31)
[2020-02-14] MEDS: HYDROcodone/APAP 5/325 TABLET PO PRN ×4 (01:13→21:53)
[2020-02-14 01:25] VITALS: BP 122/85
[2020-02-14] MEDS: POTASSIUM CHLORIDE 40 MEQ in LACTATED RINGERS 1,000 ML IV SCH (02:18)
[2020-02-14] MEDS: POTASSIUM CHLORIDE 20 MEQ, MAGNESIUM SULFATE 1 GM, THIAMINE 200 MG, FOLIC ACID 1 MG, MV... IV SCH (05:56)
[2020-02-14 05:59] LABS: BASOPHILS % (AUTO) 0 % (0-1); EOSINOPHILS % (AUTO) 1 % (1-7); LYMPHOCYTES % (AUTO) 9 % (22-44); MEAN CORPUSCULAR HEMOGLOBIN 30.4 pg (27.5-34.5); MEAN PLATELET VOLUME 7.4 fL (7.4-10.4); MONOCYTES % (AUTO) 4 % (2-9); NEUTROPHILS % (AUTO) 86 % (42-75); PLATELET COUNT 184 x10^3/uL (130-400); RED BLOOD COUNT 3.38 x10^6/uL (4.38-5.82); RED CELL DISTRIBUTION WIDTH 17.9 % (9.4-14.8)
[2020-02-14 06:10] LABS: ANION GAP 7 mmol/L (5-15); CALCIUM 8.4 mg/dL (8.5-10.1); CHLORIDE 102 mmol/L (98-107)
[2020-02-14 06:44] LABS: MD SCAN
[2020-02-14 08:04] VITALS: BP 120/56
[2020-02-14] MEDS: PANTOPRAZOLE 40 MG IV IVPush SCH (08:48)
[2020-02-14] MEDS: THIAMINE 100 MG in DEXTROSE 5% 50 ML IVPB SCH (08:48)
[2020-02-14] MEDS: AMLODIPINE 5 MG TABLET PO SCH (08:48)
[2020-02-14] MEDS: MAGNESIUM CHLORIDE 64 MG TABLET.DR PO SCH ×2 (08:48→15:51)
[2020-02-14] MEDS: MULTIVITAMINS/MINERALS TABLET PO SCH (08:48)
[2020-02-14] MEDS: CHLORDIAZEPOXIDE 25 MG CAPSULE PO SCH (08:48)
[2020-02-14] MEDS ORDERED: CHLORDIAZEPOXIDE 10 MG CAPSULE PO SCH (11:00)
[2020-02-14 12:43] VITALS: BP 113/79
[2020-02-14] MEDS: DOCUSATE 100 MG CAPSULE PO SCH ×2 (15:51→19:58)
[2020-02-14] MEDS: CHLORDIAZEPOXIDE 10 MG CAPSULE PO SCH ×2 (15:51→19:58)
[2020-02-14 18:53] VITALS: BP 113/78
[2020-02-14] MEDS: ENOXAPARIN 40 MG/0.4 ML SQ SCH (19:59)
[2020-02-14] MEDS: ONDANSETRON 2MG/ML, 2ML IVPush PRN (21:52)
[2020-02-15 01:29] VITALS: BP 120/76
[2020-02-15 04:21] LABS: BASOPHILS % (AUTO) 0 % (0-1); EOSINOPHILS % (AUTO) 1 % (1-7); LYMPHOCYTES % (AUTO) 29 % (22-44); MEAN CORPUSCULAR HEMOGLOBIN 30.2 pg (27.5-34.5); MEAN CORPUSCULAR HGB CONC 34.4 g/dL (33.2-36.2); MEAN PLATELET VOLUME 7.7 fL (7.4-10.4); MONOCYTES % (AUTO) 7 % (2-9); NEUTROPHILS % (AUTO) 62 % (42-75); PLATELET COUNT 311 x10^3/uL (130-400); RED BLOOD COUNT 3.69 x10^6/uL (4.38-5.82); RED CELL DISTRIBUTION WIDTH 18.2 % (9.4-14.8)
[2020-02-15 04:29] LABS: CHLORIDE 103 mmol/L (98-107)
[2020-02-15 04:35] LABS: ALANINE AMINOTRANSFERASE 38 U/L (12-78); ALBUMIN 2.7 g/dL (3.4-5.0); ALKALINE PHOSPHATASE 122 U/L (45-117); ANION GAP 6 mmol/L (5-15); BILIRUBIN,TOTAL 0.5 mg/dL (0.2-1.0); CALCIUM 8.4 mg/dL (8.5-10.1); CREATININE 0.53 mg/dL (0.7-1.3); TOTAL PROTEIN 6.8 g/dL (6.4-8.2)
[2020-02-15 04:55] LABS: MD NO
[2020-02-15] MEDS: HYDROcodone/APAP 5/325 TABLET PO PRN ×2 (05:26→12:25)
[2020-02-15] MEDS: PANTOPRAZOLE 40MG TABLET PO SCH (05:26)
[2020-02-15] MEDS: CHLORDIAZEPOXIDE 10 MG CAPSULE PO SCH (05:26)
[2020-02-15 07:17] VITALS: BP 116/79
[2020-02-15] MEDS: DOCUSATE 100 MG CAPSULE PO SCH ×2 (09:52→20:16)
[2020-02-15] MEDS: MULTIVITAMINS/MINERALS TABLET PO SCH (09:53)
[2020-02-15] MEDS: AMLODIPINE 5 MG TABLET PO SCH (09:53)
[2020-02-15] MEDS: THIAMINE 100MG TABLET PO SCH ×2 (09:59→20:12)
[2020-02-15 12:09] VITALS: BP 106/75
[2020-02-15 15:41] LABS: TROPONIN I < 0.015 ng/mL (0.000-0.045)
[2020-02-15] MEDS: OXYcodone/APAP 5/325MG TABLET PO PRN ×2 (17:07→21:34)
[2020-02-15] MEDS: ONDANSETRON 2MG/ML, 2ML IVPush PRN (17:07)
[2020-02-15 19:11] VITALS: BP 99/67
[2020-02-15 20:00] LABS: TROPONIN I < 0.015 ng/mL (0.000-0.045)
[2020-02-15] MEDS: ENOXAPARIN 40 MG/0.4 ML SQ SCH (20:12)
[2020-02-15] MEDS: FERROUS SULFATE 325 MG TABLET PO SCH (20:12)
[2020-02-15] MEDS ORDERED: OXYcodone/APAP 5/325MG TABLET PO ONE (20:30)
[2020-02-16 00:05] VITALS: BP 114/77
[2020-02-16 04:41] LABS: TROPONIN I < 0.015 ng/mL (0.000-0.045)
[2020-02-16] MEDS: PANTOPRAZOLE 40MG TABLET PO SCH (06:23)
[2020-02-16] MEDS: OXYcodone/APAP 5/325MG TABLET PO PRN ×2 (06:23→10:36)
[2020-02-16 07:03] VITALS: BP 103/72
[2020-02-16] MEDS: MULTIVITAMINS/MINERALS TABLET PO SCH (09:27)
[2020-02-16] MEDS: DOCUSATE 100 MG CAPSULE PO SCH (09:29)
[2020-02-16] MEDS: THIAMINE 100MG TABLET PO SCH (09:29)
[2020-02-16] MEDS ORDERED: MAGNESIUM CITRATE 300ML ORAL SOL PO ONE (10:30)
[2020-02-16] MEDS: AMLODIPINE 5 MG TABLET PO SCH (10:30)
[2020-02-16] MEDS ORDERED: ACET325T26 PO (11:06)
[2020-02-16 12:09] VITALS: BP 109/76
== END 2020-02-16 14:29 | disposition home or self-care (01) | DRG 439 ==
LOC: ED 16:54 → EDIP 19:10 → 4WST 22:01 → 3N 02-12 14:43 → 4WST 02-12 14:50 → DCLOUNGE 02-16 14:15
PROVIDERS: ADMIT Internal Medicine; ATTEND Internal Medicine
DX: K85.20 Alcohol induced acute pancreatitis without necrosis or infection (principal); E87.1 Hypo-osmolality and hyponatremia; F10.239 Alcohol dependence with withdrawal, unspecified; D64.9 Anemia, unspecified; E87.5 Hyperkalemia; E87.6 Hypokalemia; F10.229 Alcohol dependence with intoxication, unspecified; I10 Essential (primary) hypertension; R07.89 Other chest pain; K21.9 Gastro-esophageal reflux disease without esophagitis; R73.9 Hyperglycemia, unspecified; K70.10 Alcoholic hepatitis without ascites; Z88.0 Allergy status to penicillin; Z88.8 Allergy status to other drugs, medicaments and biological substances
CPT/HCPCS: 36415; 70450; 76700; 80048; 80053; 80307; 83036; 83690; 83735; 84484; 85025; 93005; 96365; 96375; 99285; G0378; J1650; J2405; J3411; J3475; J3480; C9113; J2060; J2270; J7030; J7120

== ENCOUNTER 2020-02-18 06:50 | Emergency (ER) | payer MEDICAID ==
[~2020-02-18] VITALS: Ht 177.8 cm; Wt 78.0 kg
[~2020-02-18 06:50] MED LIST changes: +AMLO-210 PO; -AMLO5TAB10 PO
[2020-02-18 07:26] LABS: BASOPHILS % (AUTO) 1 % (0-1); EOSINOPHILS % (AUTO) 1 % (1-7); LYMPHOCYTES % (AUTO) 32 % (22-44); MEAN CORPUSCULAR HEMOGLOBIN 31.5 pg (27.5-34.5); MEAN CORPUSCULAR HGB CONC 34.9 g/dL (33.2-36.2); MEAN PLATELET VOLUME 6.3 fL (7.4-10.4); MONOCYTES % (AUTO) 9 % (2-9); NEUTROPHILS % (AUTO) 57 % (42-75); PLATELET COUNT 492 x10^3/uL (130-400); RED BLOOD COUNT 3.48 x10^6/uL (4.38-5.82); RED CELL DISTRIBUTION WIDTH 19.2 % (9.4-14.8)
[2020-02-18 07:27] LABS: MD NO
--- NOTE | 2020-02-18 07:27 | NUR ---
BIB EMS [facility] FOR ETOH. PT DRANK 1L VODKA. EMS REPORTS THAT HE WAS SEEN AT [facility] FOR SZ AND FALL. REPORTS CHEST PAIN ALL THE TIME AND ABD PAIN. PT IN BED IN GOWN WITH CONT URANIUM PROCESSING SUPERVISOR, SPO2, BP Q 30 MIN, SIDE RAILS UP X2. WENT OVER PLAN OF CARE FROM, AGREES TO POC.
[2020-02-18] MEDS ORDERED: MAALOX/HYOSCYAMINE/LIDOCAINE 45 ML BTL PO ONE (07:30)
[2020-02-18 07:39] LABS: ALANINE AMINOTRANSFERASE 49 U/L (12-78); ALBUMIN 3.3 g/dL (3.4-5.0); ANION GAP 10 mmol/L (5-15); CALCIUM 8.6 mg/dL (8.5-10.1); CHLORIDE 107 mmol/L (98-107)
[2020-02-18 07:42] LABS: ALKALINE PHOSPHATASE 120 U/L (45-117); BILIRUBIN,TOTAL 0.3 mg/dL (0.2-1.0); CREATININE 0.63 mg/dL (0.7-1.3); TOTAL PROTEIN 7.8 g/dL (6.4-8.2)
[2020-02-18] MEDS ORDERED: MAALOX/HYOSCYAMINE/LIDOCAINE 45 ML BTL ONE (08:15)
[2020-02-18 14:09] VITALS: BP 135/74
== END 2020-02-18 14:11 | disposition home or self-care (01) ==
LOC: ED 07:02
DX: S00.03XA Contusion of scalp, initial encounter (principal); F10.20 Alcohol dependence, uncomplicated; R10.9 Unspecified abdominal pain; R00.0 Tachycardia, unspecified; I95.9 Hypotension, unspecified; E87.6 Hypokalemia; I10 Essential (primary) hypertension; G40.909 Epilepsy, unspecified, not intractable, without status epilepticus; Y90.0 Blood alcohol level of less than 20 mg/100 ml; X58.XXXA Exposure to other specified factors, initial encounter; Y93.89 Activity, other specified; Y92.89 Other specified places as the place of occurrence of the external cause; Y99.8 Other external cause status
CPT/HCPCS: 36415; 70450; 71045; 80053; 83690; 85025; 93005; 99285

== ENCOUNTER 2020-02-23 03:16 | Emergency (ER) | payer MEDICAID ==
[~2020-02-23] VITALS: Ht 167.6 cm; Wt 60.0 kg
--- NOTE | 2020-02-23 03:31 | NUR ---
PT BIB EMS. PT FOUND LAYING ON SIDEWALK OUTSIDE OF [employer] [facility], PER EMS. PT HAS HISTORY OF ETOH ABUSE. PT PLACED ON CONTINUOUS PULSE OX, ERP EVALUATED PT.
[2020-02-23] MEDS ORDERED: ACETAMINOPHEN 325 MG TABLET ONE (03:50)
--- NOTE | 2020-02-23 03:53 | NUR ---
PT MEDICATED PER EMAR, PT RESTING AND WATCHING TV
[2020-02-23] MEDS ORDERED: ACETAMINOPHEN 325 MG TABLET PO ONE (04:00)
[2020-02-23 04:31] VITALS: BP 101/61
== END 2020-02-23 04:57 | disposition home or self-care (01) ==
LOC: ED 03:18
DX: F10.120 Alcohol abuse with intoxication, uncomplicated (principal); I10 Essential (primary) hypertension; Z72.9 Problem related to lifestyle, unspecified; Y90.9 Presence of alcohol in blood, level not specified
CPT/HCPCS: 99283

== ENCOUNTER 2020-02-23 14:28 | Emergency (ER) | payer MEDICAID ==
[~2020-02-23] VITALS: Ht 162.6 cm; Wt 63.6 kg
[2020-02-23] MEDS ORDERED: MAALOX/HYOSCYAMINE/LIDOCAINE 45 ML BTL ONE (14:38)
[2020-02-23] MEDS ORDERED: MAALOX/HYOSCYAMINE/LIDOCAINE 45 ML BTL PO ONE (15:00)
[2020-02-23 16:51] VITALS: BP 122/75
--- NOTE | 2020-02-23 18:53 | NUR ---
PT AWAKENING. FOOD TRAY ORDERED.
--- NOTE | 2020-02-23 19:08 | NUR ---
PT ELOPED OUT THE ED ENTRANCE WITH A STEADY GAIT.
== END 2020-02-23 19:10 | disposition left against medical advice (07) ==
LOC: ED 15:10
DX: R10.84 Generalized abdominal pain (principal); F10.129 Alcohol abuse with intoxication, unspecified; I10 Essential (primary) hypertension; G40.909 Epilepsy, unspecified, not intractable, without status epilepticus; Z90.89 Acquired absence of other organs; F17.210 Nicotine dependence, cigarettes, uncomplicated; Y90.9 Presence of alcohol in blood, level not specified
CPT/HCPCS: 99283

== ENCOUNTER 2020-02-23 22:13 | Emergency (ER) | payer MEDICAID ==
[~2020-02-23] VITALS: Ht 162.6 cm; Wt 63.6 kg
[2020-02-23 22:19] VITALS: BP 125/75
--- NOTE | 2020-02-23 22:24 | NUR ---
PT BELONGINGS PLACED IN BAG. CONNECTED TO PULSE OX. CALL LIGHT IN REACH. PT TO BE MTF.
--- NOTE | 2020-02-23 22:59 | NUR ---
preceptor RN: report from JYOTI Mccain
--- NOTE | 2020-02-24 00:02 | NUR ---
PT SLEEPING. CONNECTED TO PULSE OX.
--- NOTE | 2020-02-24 01:00 | NUR ---
PT SLEEPING, ON CONTINUOUS PULSE OX, 97%RA
--- NOTE | 2020-02-24 02:00 | NUR ---
PT SLEEPING, PULSE OX 96% RA.
--- NOTE | 2020-02-24 03:16 | NUR ---
attempted to ambulate pt. he is still with significant slurred speech and unsteady on his feet. urine soaked pad removed and new one place. pt back on [facility].
--- NOTE | 2020-02-24 03:17 | NUR ---
bed rails up x 2 and call light within reach.
--- NOTE | 2020-02-24 04:00 | NUR ---
PT SLEEPING. VSS
--- NOTE | 2020-02-24 05:00 | NUR ---
PT SLEEPING, NO NEEDS AT THIS TIME
--- NOTE | 2020-02-24 06:00 | NUR ---
ATTEMPTED TO GET PT UP TO AMBULATE. PT STATES HE STILL DOESNT FEEL GOOD AND WILL FEEL BETTER WHEN ITS SUNLIGHT. PT REFUSING TO AMBULATE. WILL REASSES
--- NOTE | 2020-02-24 06:27 | NUR ---
PT HELPED WITH GETTING DRESSED. PT UNCOOPERATIVE WITH DC ORDERS.
--- NOTE | 2020-02-24 06:41 | NUR ---
PT AMBULATORY WITH STEADY GAIT TO DC DESK, A&0X4
== END 2020-02-24 06:43 | disposition home or self-care (01) ==
LOC: ED 22:50
DX: F10.220 Alcohol dependence with intoxication, uncomplicated (principal); Z72.9 Problem related to lifestyle, unspecified; I10 Essential (primary) hypertension; Z90.89 Acquired absence of other organs; Y90.9 Presence of alcohol in blood, level not specified
CPT/HCPCS: 99283

== ENCOUNTER 2020-02-24 10:06 | Emergency (ER) | payer MEDICAID ==
[~2020-02-24] VITALS: Ht 175.3 cm; Wt 75.0 kg
--- NOTE | 2020-02-24 10:47 | NUR ---
pt presents to ED after attempting to be admitted to [facility], rejected d/t insurance. pt has known etoh abuse, states last drink 0600 this am. per ems, pt had complained of glf with no injury, pt told this rn that he has chest pain and hematemesis, then when assessed by APRIL Browne he told ERP that he was seeking care as he had a seizure. pt is a&o, repss even and unlabored, no tremors noted. Pt's numerous complaints discussed with ERP. pt undressed, placed in gown and given warm blankets. pt is normothermic, able to speak in full sentences without difficulty. EKG taken and reviewed by APRIL Browne. call light in reach. no further orders received.
--- NOTE | 2020-02-24 12:00 | NUR ---
late entry for 1200 d/t patient care: pt sleeping intermittently on gurney, resps even and unlabored. no n/v exhibited during ED stay. vss. nsr on alarm security or surveillance monitor with no ectopy noted.
[2020-02-24 12:28] VITALS: BP 120/90
--- NOTE | 2020-02-24 12:54 | NUR ---
late entry d/t patient care: dc order received. pt given meal tray and cab voucher, pt a&ox4, speech clear, resps even and unlabored. ambulatory with steady gait unassisted. pt escorted to dc desk via , registration notified of need to call cab to drive pt back to [facility].
== END 2020-02-24 12:56 | disposition home or self-care (01) ==
LOC: ED 12:51
DX: F10.120 Alcohol abuse with intoxication, uncomplicated (principal); I10 Essential (primary) hypertension; Z90.49 Acquired absence of other specified parts of digestive tract; Y90.9 Presence of alcohol in blood, level not specified
CPT/HCPCS: 93005; 99283

== ENCOUNTER 2020-02-24 15:58 | Emergency (ER) | payer MEDICAID ==
[~2020-02-24] VITALS: Ht 167.6 cm; Wt 73.0 kg
--- NOTE | 2020-02-24 17:00 | NUR ---
Pt sleeping. O2 sat stable. Calm. No complaints. VSS.
--- NOTE | 2020-02-24 18:54 | NUR ---
REPORT RECIEVED FORM JYOTI CALERO. PT SLEEPING IN BED, RESP EVEN/UNLABORED.
[2020-02-24 20:00] VITALS: BP 108/72
== END 2020-02-24 20:22 | disposition home or self-care (01) ==
LOC: ED 17:38
DX: F10.120 Alcohol abuse with intoxication, uncomplicated (principal); I10 Essential (primary) hypertension; G40.909 Epilepsy, unspecified, not intractable, without status epilepticus; F17.200 Nicotine dependence, unspecified, uncomplicated; Z90.89 Acquired absence of other organs; Y90.9 Presence of alcohol in blood, level not specified
CPT/HCPCS: 99283

== ENCOUNTER 2020-02-24 22:03 | Emergency (ER) | payer MEDICAID ==
[~2020-02-24] VITALS: Ht 170.2 cm; Wt 56.0 kg
--- NOTE | 2020-02-24 22:10 | NUR ---
pt bib ems, pt states drinking unk amount of vodka, pt slurring speech resp even unlabored, pt dozing. pt placed on continous pulse ox, erp at bedside
[2020-02-25 02:30] VITALS: BP 117/84
== END 2020-02-25 02:44 | disposition home or self-care (01) ==
LOC: ED 22:09
DX: F10.229 Alcohol dependence with intoxication, unspecified (principal); G40.909 Epilepsy, unspecified, not intractable, without status epilepticus; I10 Essential (primary) hypertension; Z90.89 Acquired absence of other organs; Y90.0 Blood alcohol level of less than 20 mg/100 ml
CPT/HCPCS: 99283

== ENCOUNTER 2020-02-25 10:16 | Emergency (ER) | payer MEDICAID ==
[~2020-02-25] VITALS: Ht 175.3 cm; Wt 75.0 kg
--- NOTE | 2020-02-25 10:23 | NUR ---
PT BIBA FOR PUBLIC INTOXICATION, FOUND IN BATHROOM AT [facility]. PT INITIALLY C/O CP ON SCENE, THEN DENIED CP TO EMS. PT NONAMBULATORY ON SCENE, SPEECH SLURRED, ADMITS TO HALF PINT LIQUOR THIS AM. REPORT TAKEN FROM EMS. REPORT GIVEN TO PRIMARY RN YESENIA.
--- NOTE | 2020-02-25 10:41 | NUR ---
Pt in bed, rails up, bed locked, call light within reach.
--- NOTE | 2020-02-25 12:31 | NUR ---
Pt sleeping, intoxicated, arousable to touch. No distress noted.
--- NOTE | 2020-02-25 13:51 | NUR ---
No change in pt disposition, arousable to touch, sleeping.
[2020-02-25 17:13] VITALS: BP 103/62
--- NOTE | 2020-02-25 17:13 | NUR ---
Pt more alert, still unsteady on his feet. Provided with juice. Will monitor. VS updated.
== END 2020-02-25 17:54 | disposition home or self-care (01) ==
LOC: ED 10:52
DX: G92 Toxic encephalopathy (principal); I10 Essential (primary) hypertension; F10.20 Alcohol dependence, uncomplicated; Z76.0 Encounter for issue of repeat prescription; Z72.9 Problem related to lifestyle, unspecified; Y90.0 Blood alcohol level of less than 20 mg/100 ml
CPT/HCPCS: 99283

== ENCOUNTER 2020-02-25 19:17 | Emergency (ER) | payer MEDICAID ==
[~2020-02-25] VITALS: Ht 167.6 cm; Wt 75.0 kg
--- NOTE | 2020-02-25 20:11 | NUR ---
ATTEMPTED AMBULATION MULTIPLE TIMES. PT STATES HE IS DIZZY AND CAN'T WALK. PROVIDER UPDATED.
--- NOTE | 2020-02-25 21:11 | NUR ---
REPORT FROM LEORA MONTES. PT SLEEPING. EVEN RISE AND FALL OF CHEST OBSERVED. PT UNABLE TO AMBULATE AND WAKES TO LOUD VOICE. CALL LIGHT IN REACH
--- NOTE | 2020-02-25 21:43 | NUR ---
pa attempted to ambulate pt. pt was unsteady. pt back in bed with no needs. will re evaluate
[2020-02-25 22:15] VITALS: BP 127/73
--- NOTE | 2020-02-25 22:33 | NUR ---
PT ABLE TO AMBULATE. PT GIVEN DISCHARGE INSTRUCTIONS AND AMBULATED OUT OF ER WITH A STEADY GAIT.
== END 2020-02-25 22:38 | disposition home or self-care (01) ==
LOC: ED 19:46
DX: F10.120 Alcohol abuse with intoxication, uncomplicated (principal); Z72.9 Problem related to lifestyle, unspecified; F17.210 Nicotine dependence, cigarettes, uncomplicated; Y90.9 Presence of alcohol in blood, level not specified; I10 Essential (primary) hypertension; Z90.89 Acquired absence of other organs
CPT/HCPCS: 99283; 99406

== ENCOUNTER 2020-02-26 04:23 | Emergency (ER) | payer MEDICAID ==
[~2020-02-26] VITALS: Ht 167.6 cm; Wt 75.0 kg
--- NOTE | 2020-02-26 05:00 | NUR ---
PT BIB [facility] FOR ETOH INTOXICATION. PT AMBULATED INTO ER WITH NO DIFFICULTY. VSS. PT TO BE DISCHARGED WHEN ABLE.
--- NOTE | 2020-02-26 06:22 | NUR ---
PT SLEEPING IN NAD. PT HAS NO NEEDS AT THIS TIME. PT AROUSES SLIGHTLY TO VOICE AND FALL BACK TO SLEEP. PT TO BE DISCHARGED WHEN ABLE TO AMBULATE
--- NOTE | 2020-02-26 06:30 | NUR ---
PT WOKE UP WHEN ASKED WHERE HE WANTED TO GO. PT SAID HE DOESNT KNOW WHERE TO GO. RN EXPLAINED DISCHARGE INSTRUCTIONS. PT KEPT CLOSING EYES AND REFUSED TO LOOK AT RN. SECUITY CALL TO ASSIST WITH DISCHARGE
[2020-02-26 06:34] VITALS: BP 122/64
== END 2020-02-26 06:36 | disposition home or self-care (01) ==
LOC: ED 06:21
DX: F10.220 Alcohol dependence with intoxication, uncomplicated (principal); I10 Essential (primary) hypertension; Z90.89 Acquired absence of other organs; Y90.0 Blood alcohol level of less than 20 mg/100 ml
CPT/HCPCS: 99283

== ENCOUNTER 2020-02-26 08:33 | Emergency (ER) | payer MEDICAID ==
[~2020-02-26] VITALS: Ht 162.6 cm; Wt 65.0 kg
--- NOTE | 2020-02-26 09:50 | NUR ---
pt vomited x 1
--- NOTE | 2020-02-26 10:51 | NUR ---
PT RESTING IN [facility]. VSS. NAD
--- NOTE | 2020-02-26 12:53 | NUR ---
PT AROUSABLE TO PAINFUL STIMULI ONLY. VSS.
--- NOTE | 2020-02-26 14:52 | NUR ---
pt resting in [facility] provided.
[2020-02-26 16:51] VITALS: BP 114/72
--- NOTE | 2020-02-26 18:41 | NUR ---
pt ambulated in hallway with unsteady gait. Placed back in [facility] and given water and milk.
--- NOTE | 2020-02-26 18:53 | NUR ---
REPORT RECEIVED FROM RN MG. ASSUMED CARE OF PT. PT CURRENTLY RESTING ON GURNEY. RESP EVEN AND UNLABORED. NO ACUTE DISTRESS NOTED AT THIS TIME. CALL LIGHT WITHIN REACH. WILL CONT TO MONITOR PT.
--- NOTE | 2020-02-26 18:55 | NUR ---
TASK RN: PT. WOKE UP, STOOD UP OFF GURNEY AND AMBULATED WITH STEADY GAIT OUT OF ED. PT. SKIN PWD. PT. WEARING COAT, PANTS, SHOES. NO DISTRESS NOTED.
== END 2020-02-26 18:57 | disposition home or self-care (01) ==
LOC: ED 09:04
DX: F10.220 Alcohol dependence with intoxication, uncomplicated (principal); Y90.0 Blood alcohol level of less than 20 mg/100 ml
CPT/HCPCS: 99285

== ENCOUNTER 2020-02-27 10:03 | Emergency (ER) | payer MEDICAID ==
[~2020-02-27] VITALS: Ht 170.2 cm; Wt 72.0 kg
--- NOTE | 2020-02-27 10:03 | NUR ---
44 YR OLD MALE ARRIVED VIA EMS, PER REPORT PT PRESENTED TO [facility] WANTING DETOX. PT WITH C/O "THROWING UP BLOOD" GENERALIZED BODY ACHES. PT GIVEN ORAL ZOFRAN SAND ANALYST. PT STATES "LAST DRINK AT 0400, 1/2 PINT OF VODKA" PT COOPERATIVE WITH CARE AT THIS TIME.
--- NOTE | 2020-02-27 10:50 | NUR ---
IV THIAMINE REQUESTED FROM PHARMACY
[2020-02-27] MEDS ORDERED: ONDANSETRON 2MG/ML, 2ML ONE (10:54)
[2020-02-27 10:59] LABS: BASOPHILS % (AUTO) 2 % (0-1); EOSINOPHILS % (AUTO) 1 % (1-7); LYMPHOCYTES % (AUTO) 34 % (22-44); MD NO; MEAN CORPUSCULAR HGB CONC 33.2 g/dL (33.2-36.2); MEAN PLATELET VOLUME 6.3 fL (7.4-10.4); MONOCYTES % (AUTO) 4 % (2-9); NEUTROPHILS % (AUTO) 59 % (42-75); PLATELET COUNT 321 x10^3/uL (130-400); RED BLOOD COUNT 3.58 x10^6/uL (4.38-5.82); RED CELL DISTRIBUTION WIDTH 18.3 % (9.4-14.8)
[2020-02-27] MEDS ORDERED: ONDANSETRON 2MG/ML, 2ML IVPush ONE ×2 (11:00→11:30)
[2020-02-27] MEDS ORDERED: SODIUM CHLORIDE 0.9% 1,000 ML IV ONE (11:00)
[2020-02-27] MEDS ORDERED: SODIUM CHLORIDE 0.9% 1,000ML IVBOLUS ONE (11:00)
[2020-02-27] MEDS ORDERED: THIAMINE 100 MG in SODIUM CHLORIDE 0.9% 50 ML IVPB ONE (11:00)
[2020-02-27] MEDS ORDERED: SODIUM CHLORIDE FLUSH 10ML SYR IVF ONE (11:00)
[2020-02-27 11:02] LABS: ALANINE AMINOTRANSFERASE 30 U/L (12-78); ALBUMIN 3.2 g/dL (3.4-5.0); ANION GAP 14 mmol/L (5-15); CALCIUM 7.9 mg/dL (8.5-10.1); CHLORIDE 103 mmol/L (98-107); CREATININE 0.58 mg/dL (0.7-1.3)
[2020-02-27 11:19] LABS: ALKALINE PHOSPHATASE 116 U/L (45-117); BILIRUBIN,TOTAL 0.5 mg/dL (0.2-1.0); TOTAL PROTEIN 7.5 g/dL (6.4-8.2)
--- NOTE | 2020-02-27 11:19 | NUR ---
PT MOSTLY SLEEPING. DISCUSSED WITH DR HAMM, PT SLEEPING AND NOT ACTIVELY VOMITING. ORDER FOR ZOFRAN TO BE CHANGED TO 4 MG. IV INFUSING SLOWLY. AWAITING TEST RESULTS.
--- NOTE | 2020-02-27 11:51 | NUR ---
PT CONT SLEEPING WITH HEAD COVERED UP. IV INFUSING WITHOUT REDNESS/SWELLING. AWAITING FURTHER DISPOSITION.
--- NOTE | 2020-02-27 12:33 | NUR ---
PT CONT SLEEPING, AROUSES TO NAME. IV INFUSING WITHOUT REDNESS/SWELLING. AWAITING FURTHER DISPOSITION.
--- NOTE | 2020-02-27 13:44 | NUR ---
NO CHANGE FROM PRIOR ASSESSMENTS NOTED
--- NOTE | 2020-02-27 15:31 | NUR ---
PT DOZING INTERMITTENTLY, AROUSES EASILY, "I WANT PAIN MEDS" IV INFUSING WITHOUT REDNESS/SWELLING. WAITING FURTHER DISPOSITION
--- NOTE | 2020-02-27 16:22 | NUR ---
PT AMB, GAIT STEADY
[2020-02-27 17:15] VITALS: BP 112/76
--- NOTE | 2020-02-27 17:16 | NUR ---
TASK RN: Patient given discharge instructions and they have confirmed that they understand the instructions. Patient ambulatory with steady gait. NAD, DENIES ADDITIONAL QUESTIONS OR NEEDS AT THIS TIME. STATES "I AM GLAD TO BE LEAVING [facility]." NO PERSONAL BELONGINGS LEFT IN ROOM AT TIME OF DC.
== END 2020-02-27 17:28 | disposition home or self-care (01) ==
LOC: ED 11:16
DX: F10.120 Alcohol abuse with intoxication, uncomplicated (principal); R11.2 Nausea with vomiting, unspecified; Y90.9 Presence of alcohol in blood, level not specified
CPT/HCPCS: 36415; 80053; 80307; 83690; 85025; 96361; 96365; 96375; 99285; J2405; J3411; J7030

== ENCOUNTER 2020-03-11 19:08 | Emergency (ER) | payer MEDICAID ==
[~2020-03-11] VITALS: Ht 170.2 cm; Wt 60.6 kg
[2020-03-11] MEDS ORDERED: SODIUM CHLORIDE FLUSH 10ML SYR IVF ONE (20:30)
[2020-03-11 20:34] LABS: BASOPHILS % (AUTO) 1 % (0-1); EOSINOPHILS % (AUTO) 3 % (1-7); LYMPHOCYTES % (AUTO) 23 % (22-44); MEAN CORPUSCULAR HEMOGLOBIN 30.3 pg (27.5-34.5); MEAN CORPUSCULAR HGB CONC 33.7 g/dL (33.2-36.2); MEAN PLATELET VOLUME 7.7 fL (7.4-10.4); MONOCYTES % (AUTO) 10 % (2-9); NEUTROPHILS % (AUTO) 64 % (42-75); PLATELET COUNT 437 x10^3/uL (130-400); RED BLOOD COUNT 3.43 x10^6/uL (4.38-5.82); RED CELL DISTRIBUTION WIDTH 17.4 % (9.4-14.8)
[2020-03-11 20:35] LABS: MD NO
[2020-03-11 20:45] LABS: ANION GAP 7 mmol/L (5-15); CALCIUM 8.6 mg/dL (8.5-10.1); CHLORIDE 107 mmol/L (98-107); CREATININE 0.75 mg/dL (0.7-1.3)
[2020-03-11 20:46] LABS: ALANINE AMINOTRANSFERASE 63 U/L (12-78); ALBUMIN 3.3 g/dL (3.4-5.0)
[2020-03-11 20:48] LABS: ALKALINE PHOSPHATASE 102 U/L (45-117); BILIRUBIN,TOTAL 0.2 mg/dL (0.2-1.0); TOTAL PROTEIN 7.6 g/dL (6.4-8.2)
[2020-03-11] MEDS ORDERED: IBUPROFEN 600 MG TABLET PO ONE (23:30)
--- NOTE | 2020-03-11 23:31 | NUR ---
PT AWAKE, CALM, COOPERATIVE, ALERT AND ORIENTED. GIVEN SOME SNACKS/FOOD. DRINK.
[2020-03-11] MEDS ORDERED: IBUPROFEN 600 MG TABLET ONE (23:36)
--- NOTE | 2020-03-11 23:39 | NUR ---
C/O WANTING [facility], INFORMED ERP. WILLY ORDERED. DRINKING PO FLUIDS, EATING CRACKERS ETC.
[2020-03-11] MEDS ORDERED: ONDANSETRON ODT 8 MG ONE (23:41)
[2020-03-12] MEDS ORDERED: ONDANSETRON ODT 8 MG PO ONE
--- NOTE | 2020-03-12 00:12 | NUR ---
PT RESTING, VSS, ATE FOOD DRANK FLUIDS. WILL CONTINUE TO MONITOR.
--- NOTE | 2020-03-12 01:00 | NUR ---
SLEEPING, RR EQUAL AND UNLABORED.
--- NOTE | 2020-03-12 01:23 | NUR ---
PT RESTING ON LUZ MARINA JONES AT THIS TIME NO NEEDS
[2020-03-12 03:14] VITALS: BP 135/88
== END 2020-03-12 03:17 | disposition home or self-care (01) ==
LOC: ED 23:33
DX: K11.7 Disturbances of salivary secretion (principal); I10 Essential (primary) hypertension; Z90.89 Acquired absence of other organs; Z88.0 Allergy status to penicillin; Z79.83 Long term (current) use of bisphosphonates; F10.129 Alcohol abuse with intoxication, unspecified; Y90.9 Presence of alcohol in blood, level not specified
CPT/HCPCS: 36415; 80053; 80320; 83690; 85025; 93005; 99284; Q0162; G0480

== ENCOUNTER 2020-03-14 09:22 | Emergency (ER) | payer MEDICAID ==
[~2020-03-14] VITALS: Ht 170.2 cm; Wt 65.0 kg
--- NOTE | 2020-03-14 09:51 | NUR ---
Report from Meryl MONTES. Pt resting in bed with eyes closed, resp even and unlabored, KAREN.
--- NOTE | 2020-03-14 10:58 | NUR ---
Pt continues resting in bed with eyes closed, resp even and unlabored, NADN.
--- NOTE | 2020-03-14 11:02 | NUR ---
Report to Ishmael MONTES.
--- NOTE | 2020-03-14 12:13 | NUR ---
PT SLEEPING IN NAD, AROUSABLE TO VERBAL COMMAND, UNABLE TO AMBULATE AT THIS TIME. VSS. FALL PRECAUTIONS IN PLACE.
[2020-03-14 13:29] VITALS: BP 114/70
== END 2020-03-14 13:31 | disposition home or self-care (01) ==
LOC: ED 09:50
DX: R07.89 Other chest pain (principal); F10.20 Alcohol dependence, uncomplicated; R11.2 Nausea with vomiting, unspecified; I10 Essential (primary) hypertension; Z72.9 Problem related to lifestyle, unspecified; Z90.49 Acquired absence of other specified parts of digestive tract; Z59.0 Homelessness; Y90.9 Presence of alcohol in blood, level not specified
CPT/HCPCS: 93005; 99283

== ENCOUNTER 2020-03-19 19:09 | Emergency (ER) | payer MEDICAID ==
[~2020-03-19] VITALS: Ht 170.2 cm; Wt 59.9 kg
[2020-03-19 19:16] VITALS: BP 98/69
--- NOTE | 2020-03-19 20:11 | NUR ---
PT AMBULATED FROM LOBBY TO ROOM AT THIS TIME W/ A STEADY GAIT. PT REPORTS HE WAS TRYING TO GET RX FILLED THEN AMBULANCE JUST BROUGHT HIM HERE. NO MEDICAL COMPLAINTS AT THIS TIME. RESP EVEN AND UNLABORED, KAREN.
--- NOTE | 2020-03-19 20:32 | NUR ---
Patient given discharge instructions and they have confirmed that they understand the instructions. Patient ambulatory with steady gait.
== END 2020-03-19 20:33 | disposition home or self-care (01) ==
LOC: ED 19:39
DX: F10.120 Alcohol abuse with intoxication, uncomplicated (principal); G40.909 Epilepsy, unspecified, not intractable, without status epilepticus; Z90.89 Acquired absence of other organs; Z72.9 Problem related to lifestyle, unspecified; Y90.0 Blood alcohol level of less than 20 mg/100 ml
CPT/HCPCS: 99283

== ENCOUNTER 2020-03-19 22:53 | Emergency (ER) | payer MEDICAID ==
[~2020-03-19] VITALS: Ht 172.7 cm; Wt 70.0 kg
--- NOTE | 2020-03-19 22:59 | NUR ---
PT IN [facility] ATTACHED TO VS MONITORS. PT HYPOTENSIVE. KELSEA COMER NOTIFIED AND IS NOW AT BS FOR PT HISTORY AND ASSESSMENT. VERBAL ORDERS RECEIVED AT THIS TIME FOR IV FLUIDS.
[2020-03-19] MEDS ORDERED: SODIUM CHLORIDE 0.9% 1,000ML IVBOLUS ONE (23:30)
--- NOTE | 2020-03-19 23:47 | NUR ---
REPORT OF PT TO JYOTI ARRINGTON AT THIS TIME, WHO IS ASSUMING CARE OF PT.
--- NOTE | 2020-03-20 00:01 | NUR ---
PT MOVED TO T2, IVF WIDE OPEN. PT REQUIRED PAINFUL STIMULI TO AROUSE, SATS TO 82%. ON LEFT LATERAL. MONITOR. WILL CONTINUE TO MONITOR.
--- NOTE | 2020-03-20 00:15 | NUR ---
RR EQUAL AND UNLABORED. IVF INFUSING. WILL CONTINUE TO MONITOR.
--- NOTE | 2020-03-20 00:37 | NUR ---
RR EQUAL AND UNLABORED. IVF INFUSED. ON CONT PULSE OX.
[2020-03-20] MEDS ORDERED: SODIUM CHLORIDE 0.9% 1,000ML IVBOLUS ONE (01:30)
[2020-03-20] MEDS ORDERED: SODIUM CHLORIDE FLUSH 10ML SYR IVF ONE (01:30)
--- NOTE | 2020-03-20 01:37 | NUR ---
RR equal and unlabored, vss. ivf infusing. Will continue to monitor.
--- NOTE | 2020-03-20 02:25 | NUR ---
Walked into room, pt pulled his own iv out aprox 500ml ns on floor. Pt became aggitated, yelling at me that someone else did it. VSS. Provider aware.
--- NOTE | 2020-03-20 03:53 | NUR ---
RR equal and unlabored, vss. Will continue to monitor.
--- NOTE | 2020-03-20 05:20 | NUR ---
Pt awake, vss. Steady gait, able to navigate community safely. Instructs to obstain from alcohol given. Pt given food/fluid po prior to dc.
[2020-03-20 05:21] VITALS: BP 122/71
--- NOTE | 2020-03-20 05:34 | NUR ---
Security called to escort off property. Pt dc with all belongs.
== END 2020-03-20 05:38 ==
LOC: ED 03-20 00:36
DX: F10.120 Alcohol abuse with intoxication, uncomplicated (principal); I10 Essential (primary) hypertension; G40.909 Epilepsy, unspecified, not intractable, without status epilepticus; Z72.9 Problem related to lifestyle, unspecified; Z90.89 Acquired absence of other organs; Y90.0 Blood alcohol level of less than 20 mg/100 ml
CPT/HCPCS: 96360; 96361; 99285; J7030

== ENCOUNTER 2020-03-31 14:24 | Emergency (ER) | payer MEDICAID ==
[~2020-03-31] VITALS: Ht 170.2 cm; Wt 68.2 kg
[2020-03-31 14:59] VITALS: BP 107/71
--- NOTE | 2020-03-31 15:02 | NUR ---
PT BIB EMS AFTER BYSTANDER CALLED 911 FOR ETOH MALE. PT DOESN'T KNOW WHY THE AMBULANCE BROUGHT HIM TO THE HOSPITAL. PT HAS NO COMPLAINTS AT THIS TIME, HE WANTS TO SLEEP. PT STATES HE ALSO TOOK SOME OXY THIS AM AND ALCOHOL ALL DAY.
--- NOTE | 2020-03-31 16:04 | NUR ---
REPORT FROM JYOTI WASHINGTON. FIRST CONTACT WITH PT. PT RESTING IN GURNEY W EYES CLOSED. EVEN/REGULAR RESPIRATIONS NOTED. PT ARROUSABLE TO NOXIOUS STIMULI AND STATES THAT HE "WILL BE READY TO GO SOON". SPO2 MONITORING IN PLACE HR AND SPO2 WNL.
--- NOTE | 2020-03-31 16:55 | NUR ---
PT AMBULATED STEADILY TO ID. REFUSING TAXI VOUCHER TO SENIOR CARE. PT DRESSED APPROPRIATELY FOR WEATHER
== END 2020-03-31 16:57 | disposition home or self-care (01) ==
LOC: ED 16:39
DX: F10.229 Alcohol dependence with intoxication, unspecified (principal); I10 Essential (primary) hypertension; Z72.9 Problem related to lifestyle, unspecified; Y90.0 Blood alcohol level of less than 20 mg/100 ml
CPT/HCPCS: 99283

== ENCOUNTER 2020-04-01 01:29 | Emergency (ER) | payer MEDICAID ==
[~2020-04-01] VITALS: Ht 170.2 cm; Wt 63.6 kg
[2020-04-01] MEDS ORDERED: ONDANSETRON ODT 4 MG PO ONE (05:30)
[2020-04-01] MEDS ORDERED: LORazepam 1MG TABLET PO ONE (05:30)
[2020-04-01] MEDS ORDERED: ONDANSETRON ODT 4 MG ONE (05:42)
[2020-04-01] MEDS ORDERED: LORazepam 1MG TABLET ONE (05:42)
[2020-04-01 06:39] LABS: BASOPHILS % (AUTO) 1 % (0-1); EOSINOPHILS % (AUTO) 0 % (1-7); LYMPHOCYTES % (AUTO) 31 % (22-44); MEAN CORPUSCULAR HEMOGLOBIN 28.8 pg (27.5-34.5); MEAN CORPUSCULAR HGB CONC 32.9 g/dL (33.2-36.2); MEAN PLATELET VOLUME 7.5 fL (7.4-10.4); MONOCYTES % (AUTO) 3 % (2-9); NEUTROPHILS % (AUTO) 65 % (42-75); PLATELET COUNT 339 x10^3/uL (130-400); RED BLOOD COUNT 4.45 x10^6/uL (4.38-5.82); RED CELL DISTRIBUTION WIDTH 18.2 % (9.4-14.8)
[2020-04-01 06:40] LABS: MD NO
[2020-04-01 06:48] LABS: ALANINE AMINOTRANSFERASE 46 U/L (12-78); ALBUMIN 4.1 g/dL (3.4-5.0); ANION GAP 10 mmol/L (5-15); CALCIUM 8.8 mg/dL (8.5-10.1); CHLORIDE 107 mmol/L (98-107); CREATININE 0.73 mg/dL (0.7-1.3)
[2020-04-01 06:51] LABS: ALKALINE PHOSPHATASE 89 U/L (45-117); BILIRUBIN,TOTAL 0.3 mg/dL (0.2-1.0); TOTAL PROTEIN 9.3 g/dL (6.4-8.2)
--- NOTE | 2020-04-01 07:18 | NUR ---
REPORT RECEIVED FROM ROSA MONTES. PT RESTING ON Readmill W/ CALL LIGHT IN REACH AND SIDE RAILS UPX2. PLAN IS FOR MTF.
--- NOTE | 2020-04-01 09:25 | NUR ---
PT PROVIDED W/ BREAKFAST TRAY. SITTING UP ON GURNEY W/ CALL LIGHT IN REACH AND SIDE RAILS UPX2. RESP EVEN AND UNLABORED, KAREN.
[2020-04-01 09:44] VITALS: BP 126/84
--- NOTE | 2020-04-01 10:12 | NUR ---
PT VERBALIZED UNDERSTANDING OF DC INSTRUCTIONS, AMBULATORY W/ A STEADY GAIT. PROVIDED BUS PASS, APPLE SAUCE AND WATER BOTTLE TO GO. RESP EVEN AND UNLABORED, KAREN.
== END 2020-04-01 10:16 | disposition home or self-care (01) ==
LOC: ED 01:59
DX: F10.220 Alcohol dependence with intoxication, uncomplicated (principal); R10.84 Generalized abdominal pain; F41.1 Generalized anxiety disorder; M79.10 Myalgia, unspecified site; R05 Cough; I10 Essential (primary) hypertension; Y90.0 Blood alcohol level of less than 20 mg/100 ml
CPT/HCPCS: 36415; 71045; 80053; 80320; 83690; 85025; 99284; Q0162; G0480

== ENCOUNTER 2020-04-02 00:22 | Emergency (ER) | payer MEDICAID ==
[~2020-04-02] VITALS: Ht 170.2 cm; Wt 57.0 kg
[2020-04-02 00:24] VITALS: BP 123/87
--- NOTE | 2020-04-02 00:32 | NUR ---
Patient presents to ER by ambulance for ETOH since last night. He admits to drinking daily. Patient states he wants to quit drinking and is planning on going to the detox center. Patient AAOx4, GCS 15. Patient ambulatory with a steady gait. Belongings with patient. Patient refused d/c paperwork. All questions and concerns addressed.
== END 2020-04-02 00:34 | disposition home or self-care (01) ==
LOC: ED 00:30
DX: F10.10 Alcohol abuse, uncomplicated (principal); I10 Essential (primary) hypertension; F17.210 Nicotine dependence, cigarettes, uncomplicated; G40.909 Epilepsy, unspecified, not intractable, without status epilepticus; Z72.9 Problem related to lifestyle, unspecified; Z90.89 Acquired absence of other organs; Y90.0 Blood alcohol level of less than 20 mg/100 ml
CPT/HCPCS: 99283; 99406

== ENCOUNTER 2020-04-02 14:58 | Emergency (ER) | payer MEDICAID ==
[~2020-04-02] VITALS: Ht 170.2 cm; Wt 60.0 kg
[2020-04-02 15:01] VITALS: BP 117/78
--- NOTE | 2020-04-02 15:15 | NUR ---
ESCORTED TO DISCHARGE LOBBY BY SECURITY
== END 2020-04-02 15:16 | disposition home or self-care (01) ==
LOC: ED 15:10
DX: F10.220 Alcohol dependence with intoxication, uncomplicated (principal); Y90.0 Blood alcohol level of less than 20 mg/100 ml
CPT/HCPCS: 99283

== ENCOUNTER 2020-04-03 17:22 | Emergency (ER) | payer MEDICAID ==
[~2020-04-03] VITALS: Ht 172.7 cm; Wt 60.0 kg
--- NOTE | 2020-04-03 18:58 | NUR ---
REPORT TO REJI MONTES
--- NOTE | 2020-04-03 19:10 | NUR ---
TASK RN: PT RESTING IN GURNEY WITH EYES CLOSED. EVEN/REGULAR RESPIRATIONS NOTED. PT EASILY ARROUSABLE TO VOICE AND RESPONDS WITH CLEAR SPEECH. PT AMBULATED STEADILY TO RESTROOM WITH RN. UPON MAKING PT AWARE THAT HE IS READY FOR DISCHARGE, PT STATES "BUT I'M SICK. I THINK I'LL COLLAPSE". PT TRANSFERED SELF TO WHEELCHAIR. FACE SYMMETRICAL, SPEECH CLEAR. MOVING ALL EXTREMITIES AGAINST GRAVITY. PT TO T1B FOR FURTHER OBS PRIOR TO DC.
--- NOTE | 2020-04-03 20:49 | NUR ---
Patient given discharge instructions and they have confirmed that they understand the instructions. Patient ambulatory with steady gait.
[2020-04-03 20:50] VITALS: BP 132/82
== END 2020-04-03 20:52 | disposition home or self-care (01) ==
LOC: ED 18:01
DX: F10.220 Alcohol dependence with intoxication, uncomplicated (principal); R55 Syncope and collapse; G40.909 Epilepsy, unspecified, not intractable, without status epilepticus; I10 Essential (primary) hypertension; Z86.19 Personal history of other infectious and parasitic diseases; Y90.0 Blood alcohol level of less than 20 mg/100 ml
CPT/HCPCS: 99283

== ENCOUNTER 2020-04-05 13:28 | Emergency (ER) | payer MEDICAID ==
[~2020-04-05] VITALS: Ht 165.1 cm; Wt 70.0 kg
--- NOTE | 2020-04-05 13:37 | NUR ---
PT BROUGHT IN BY NILDA FROM [facility] FOR CHIEF COMPLAINT OF ETOH AND REPORTED GLF. NO LOC. NO NEURO DEFICITS, PT IS A&O.
[2020-04-05 13:38] VITALS: BP 115/77
--- NOTE | 2020-04-05 13:48 | NUR ---
PER REPORT FROM EMS PT WAS EVALUATED AT [facility] THIS MORNING FOR SIMILAR COMPLAINT.
--- NOTE | 2020-04-05 15:00 | NUR ---
PT RESTING IN BED, CALL LIGHT IN REACH. NO NEURO CHANGES
--- NOTE | 2020-04-05 16:30 | NUR ---
PT REFUSING TO WALK, ASSISTANCE PROVIDED. NO NEURO CHANGES NOTED.
--- NOTE | 2020-04-05 17:18 | NUR ---
Ambulation assistance provided. No deficits noted. Discharge instructions reviewed.
--- NOTE | 2020-04-05 17:20 | NUR ---
refusing to sign dc paperwork
== END 2020-04-05 17:21 | disposition home or self-care (01) ==
LOC: ED 13:31
DX: S09.90XA Unspecified injury of head, initial encounter (principal); F10.220 Alcohol dependence with intoxication, uncomplicated; Z59.0 Homelessness; F17.210 Nicotine dependence, cigarettes, uncomplicated; I10 Essential (primary) hypertension; X58.XXXA Exposure to other specified factors, initial encounter; Y93.89 Activity, other specified; Y92.89 Other specified places as the place of occurrence of the external cause; Y99.8 Other external cause status
CPT/HCPCS: 70450; 99284

== ENCOUNTER 2020-04-06 23:18 | Emergency (ER) | payer MEDICAID ==
[~2020-04-06] VITALS: Ht 162.6 cm; Wt 54.0 kg
[2020-04-06] MEDS ORDERED: THIAMINE 100 MG/ML, 2ML IM ONE (23:30)
[2020-04-07] MEDS ORDERED: THIAMINE 100 MG/ML, 2ML ONE (00:06)
[2020-04-07] MEDS ORDERED: ONDANSETRON ODT 8 MG ONE (00:16)
--- NOTE | 2020-04-07 00:20 | NUR ---
PT. MEDICATED PER MAR FOR C/O NAUSEA.
[2020-04-07] MEDS ORDERED: ONDANSETRON ODT 8 MG PO PRN (00:30)
[2020-04-07 01:42] VITALS: BP 108/62
--- NOTE | 2020-04-07 01:44 | NUR ---
PT. UP FOR D/C. PT. REFUSING TO LEAVE. SECURITY CALLED TO ASSIST PT. OFF PROPERTY.
== END 2020-04-07 01:59 | disposition home or self-care (01) ==
LOC: ED 23:42
DX: F10.220 Alcohol dependence with intoxication, uncomplicated (principal); I10 Essential (primary) hypertension; Z90.89 Acquired absence of other organs; Y90.0 Blood alcohol level of less than 20 mg/100 ml
CPT/HCPCS: 96372; 99283; J3411; Q0162

== ENCOUNTER 2020-04-07 15:46 | Emergency (ER) | payer MEDICAID ==
[~2020-04-07] VITALS: Ht 170.2 cm; Wt 65.0 kg
--- NOTE | 2020-04-07 16:13 | NUR ---
EMS reports FSBS of 120 enroute.
[2020-04-07] MEDS ORDERED: ONDANSETRON ODT 4 MG PO ONE ×2 (16:30→20:00)
[2020-04-07] MEDS ORDERED: ONDANSETRON ODT 4 MG ONE ×2 (16:37→19:37)
--- NOTE | 2020-04-07 16:40 | NUR ---
Pt awakens with loud voice and shaking of shoulder with slurred speech unchanged from admission assessment. Pt denies Nausea at this time and Zofran held for now.
--- NOTE | 2020-04-07 17:18 | NUR ---
Pt being taken to CT at this time.
--- NOTE | 2020-04-07 17:51 | NUR ---
Pt VS reassessed and repositioned in bed. Call light in reach, urinal in reach, and emesis bag in reach. States his pain is still present and that he still has nausea after Zofran ODT admin earlier by second RN.
--- NOTE | 2020-04-07 18:16 | NUR ---
Pt sleeping curled up in center of gurney, appears to be in no distress at this time.
--- NOTE | 2020-04-07 19:00 | NUR ---
BEDSIDE REPORT RECEIVED FROM SHELLI MONTES
--- NOTE | 2020-04-07 19:00 | NUR ---
PT SUPINE ON LUZ MARINA, BRADLEY, VSS. PT DENIES ANY NEEDS AT THIS TIME. CALL LIGHT AND BELONGINGS WITHIN REACH.
--- NOTE | 2020-04-07 19:04 | NUR ---
Report given to JYOTI Sheth and care transferred. Pt remains curled up in center of robin pastor at this time.
--- NOTE | 2020-04-07 19:45 | NUR ---
PT REQUESTS "SOMETHING FOR NAUSEA", ERP NOTIFIED, MEDICATED PER EMAR
--- NOTE | 2020-04-07 20:05 | NUR ---
PT SUPINE ON GURNEY, NAD, VSS. PT DENIES ANY NEEDS AT THIS TIME. CALL LIGHT AND BELONGINGS WITHIN REACH. PT UNABLE TO STAND WITHOUT ASSISTANCE AT THIS TIME. NAUSEA RESOLVED FOLLOWING MEDICATION ADMINISTRATION
[2020-04-07 21:06] VITALS: BP 106/69
== END 2020-04-07 21:13 | disposition home or self-care (01) ==
LOC: ED 18:25
DX: S00.83XA Contusion of other part of head, initial encounter (principal); F10.129 Alcohol abuse with intoxication, unspecified; R55 Syncope and collapse; G40.909 Epilepsy, unspecified, not intractable, without status epilepticus; E87.6 Hypokalemia; I95.9 Hypotension, unspecified; I10 Essential (primary) hypertension; M54.2 Cervicalgia; F17.210 Nicotine dependence, cigarettes, uncomplicated; Z90.89 Acquired absence of other organs; W01.0XXA Fall on same level from slipping, tripping and stumbling without subsequent striking against object, initial encounter; Y93.89 Activity, other specified; Y92.89 Other specified places as the place of occurrence of the external cause; Y99.8 Other external cause status; Y90.0 Blood alcohol level of less than 20 mg/100 ml
CPT/HCPCS: 70450; 72125; 99285; Q0162